=== PATIENT | male | born 1950 | race Caucasian/White ===

== ENCOUNTER 2018-04-24 07:36 | Emergency (ER) | payer MEDICARE, OTHER ==
[~2018-04-24] VITALS: Ht 188 cm; Wt 97.5 kg
[~2018-04-24 07:36] MED LIST: CETI10CA PO; COLC0.6T7 PO; CPR500T PO; DCS100C PO; E400C PO; FLAX1CAP2 PO; GLUC1CAP37 PO; HYDR-34 PO; HYDR118S10 PO; LVT.15T PO; MULT-608 PO; NAPR-243 PO; NAPR220C PO; PRAV80TA2 PO; PSYL1PAC15 PO; RABE20TA PO; ZLP10T PO; [UNRECOGNIZED DRUG - OTHER] PO
[2018-04-24] MEDS ORDERED: KETOROLAC 30 MG/ML VIAL IVP STA (07:55)
[2018-04-24] MEDS ORDERED: NS IV 1000 ML 1,000 ML IV ONE (07:55)
[2018-04-24 08:05] LABS: BASOPHILS % (AUTO) 0 % (0-10); EOSINOPHILS # (AUTO) 0.4 10^3/uL (0.0-0.3); EOSINOPHILS % (AUTO) 4 % (0-10); HEMATOCRIT 47 % (40-54); HEMOGLOBIN 15.9 G/DL (13.3-17.7); LYMPHOCYTES # (AUTO) 2.8 X 10^3 (1.0-4.0); LYMPHOCYTES % (AUTO) 29 % (12-44); MEAN CORPUSCULAR HEMOGLOBIN 29 PG (25-34); MEAN CORPUSCULAR HGB CONC 34 G/DL (32-36); MEAN CORPUSCULAR VOLUME 86 FL (80-99); MEAN PLATELET VOLUME 9.5 FL (7.4-10.4); MONOCYTES # (AUTO) 0.7 X 10^3 (0.0-1.0); MONOCYTES % (AUTO) 8 % (0-12); NEUTROPHILS # (AUTO) 5.6 X 10^3 (1.8-7.8); NEUTROPHILS % (AUTO) 59 % (42-75); PLATELET COUNT 253 10^3/uL (130-400); RED CELL DISTRIBUTION WIDTH 12.9 % (10.0-14.5); WHITE BLOOD COUNT 9.6 10^3/uL (4.3-11.0)
[2018-04-24 08:24] LABS: ALANINE AMINOTRANSFERASE 80 U/L (0-55); ALBUMIN 3.9 GM/DL (3.2-4.5); ALKALINE PHOSPHATASE 91 U/L (40-136); BILIRUBIN,TOTAL 0.7 MG/DL (0.1-1.0); BUN/CREATININE RATIO 13; CALCIUM 8.8 MG/DL (8.5-10.1); CARBON DIOXIDE 16 MMOL/L (21-32); CHLORIDE 104 MMOL/L (98-107); CREATININE SERUM 1.13 MG/DL (0.60-1.30); GFR ESTIMATED > 60; GLUCOSE 160 MG/DL (70-105); POTASSIUM 4.1 MMOL/L (3.6-5.0); SODIUM 134 MMOL/L (135-145); TOTAL PROTEIN 6.6 GM/DL (6.4-8.2)
--- NOTE | 2018-04-24 09:05 | Diagnostic Imaging Report ---
PROCEDURE: CT urinary tract, rule out kidney stone. TECHNIQUE: Multiple contiguous axial images were obtained through the abdomen and pelvis without the use of intravenous contrast. INDICATION: Left flank pain. COMPARISON: CT abdomen and pelvis without contrast 12/11/2011 FINDINGS: Mild linear atelectasis or scarring in the lung bases. Low-attenuation lesions in the left hepatic lobe have grown since the 2012 exam. For example, one anteriorly now measures up to 1.8 cm, previously 0.9 cm. One in the posterior left hepatic lobe now measures up to 1.0 cm, previously 0.6 cm. The gallbladder, pancreas, adrenals are negative on this noncontrast exam. There is a 0.6 cm renal stone in the left ureter just proximal to the ureterovesicular junction which results in mild left ureteropyelocaliectasis. There are a few additional punctate nonobstructing renal stones in both kidneys. No other ureteral stones or hydronephrosis. 2.8 cm well-circumscribed cyst in the left kidney. Advanced colonic diverticulosis without evidence of active diverticulitis. No evidence of appendicitis. Postoperative changes in the right lower anterior abdominal wall. Moderate atherosclerotic calcifications including a normal caliber abdominal aorta. Bilateral fat-containing inguinal hernias. No free intraperitoneal air or fluid. No lymphadenopathy. No evidence of bowel obstruction. IMPRESSION: 1. 0.6 cm stone in the left distal ureter resulting in mild left hydronephrosis. 2. Interval growth of low attenuation lesions in the left hepatic lobe likely represent benign hemangiomas or cysts but are technically indeterminate on this noncontrast exam. These could be better evaluated with dedicated multiphase contrast-enhanced CT. 3. Advanced colonic diverticulosis without evidence of active diverticulitis. Dictated by: Dictated on workstation # [id number]
[2018-04-24] MEDS ORDERED: IOHEXOL 350 MG/ML 100 ML (OMNIPAQUE 350) VIAL IV ONE (09:15)
[2018-04-24] MEDS ORDERED: RECEIVED CONTRAST (Hold Metformin) IV SCH (09:15)
[2018-04-24] MEDS ORDERED: NS 100 ML (IVPB) BAG IV ONE (09:15)
--- NOTE | 2018-04-24 09:45 | ED GU-Male ---
General Chief Complaint: Abdominal/GI Problems Stated Complaint: ABD PAIN,KIDNEY STONES Nursing Triage Note: pt presents to ed with complaints of l sided flank and l sided groin pain that radiate to his l testicle since 0600 this am. pt reports hx of kidney stones. Source: patient Exam Limitations: no limitations History of Present Illness Date Seen by Provider: Apr 24, 2018 Time Seen by Provider: 07:50 Initial Comments Here with left flank pain that started about 6 a.m. this morning. Actually noted some pain after stepping off a step the other day. Did have vomiting and diarrhea illness earlier this week as well. That was better yesterday. Today he has the pain that he reports feels like a previous kidney stone. Pain radiates down to the left testicle. Does have concern about a lump on the testicle that has not changed for a long time but wanted that checked out as well. Denies current nausea or vomiting. Did take a hydrocodone before coming to the ER and that has not helped yet. Timing/Duration: this morning, getting worse Severity/Quality: moderate, severe Location: left flank, scrotal Radiation: left flank, scrotal Activities at Onset: none Prior Genitourinary Problems: similar symptoms Modifying Factors: Worsens With Movement Associated Symptoms: abdominal pain, dysuria; No fever/chills; lower back pain ; No nausea/vomiting, No urinary frequency Allergies and Home Medications Allergies Coded Allergies: Azithromycin (Unverified Allergy, 08/02/10) Home Medications Cephalexin 500 Mg Tablet, 500 MG PO BID Prescribed by: GRAHAM HARMON on 04/24/18 1111 Ciprofloxacin 500 Mg Tablet, 1 TAB PO BID Prescribed by: GRAHAM HARMON on 12/11/11 0927 Colchicine 0.6 Mg Tablet, 1 EACH PO BID, (Reported) Docusate Sodium 100 Mg Capsule, 300 MG PO DAILY, (Reported) Flaxseed/Omega3,6,9/Fatty Acid 1 Each Capsule, 1 EACH PO DAILY, (Reported) Glucosa Nayak 2KCL/Chondroitin Nayak 1 Each Capsule, 1 EACH PO DAILY, (Reported) Hydrocodone Bit/Acetaminophen 1 Ea Tablet, 1 EA PO Q6H PRN, (Reported) Hydrocodone/Acetaminophen 1 Each Tablet, 1-2 EACH PO Q6H PRN Prescribed by: GRAHAM HARMON on 12/11/11926 Levothyroxine Sodium 150 Mcg Tablet, 175 MCG PO DAILY, (Reported) Multivitamins 1 Tab Tablet, 1 TAB PO DAILY, (Reported) Naproxen 500 Mg Tablet, 1 EACH PO BID PRN Prescribed by: GRAHAM HARMON on 12/11/11 09 Naproxen Sodium 220 Mg Capsule, 220 MG PO DAILY, (Reported) Pravastatin Sodium 80 Mg Tablet, 40 MG PO DAILY, (Reported) Psyllium 1 Pkt Packet, 1 PKT PO DAILY, (Reported) Rabeprazole Sodium 20 Mg Tablet.dr, 20 MG PO DAILY, (Reported) Vitamin E Acetate 400 Unit Capsule, 800 UNIT PO DAILY, (Reported) Zolpidem Tartrate 10 Mg Tab, 10 MG PO HS PRN, (Reported) [Pentoxil] , 400 MG PO DAILY, (Reported) Patient Home Medication List Home Medication List Reviewed: Yes Review of Systems Review of Systems Constitutional: see HPI; No chills, No fever EENTM: no symptoms reported Respiratory: no symptoms reported Cardiovascular: no symptoms reported Gastrointestinal: No nausea, No vomiting Genitourinary: flank pain, pain Musculoskeletal: see HPI, back pain; No neck pain Skin: no symptoms reported Psychiatric/Neurological: No Symptoms Reported All Other Systemes Reviewed Negative Unless Noted: Yes Past Apmccei-Areimn-Wrqfrz Hx Past Med/Social Hx: Reviewed Nursing Past Med/Soc Hx Patient Social History Alcohol Use: Occasionally Uses Recreational Drug Use: No Smoking Status: Former Smoker Former Smoker, Quit: Nov 09, 1998 Recent Foreign Travel: No Contact w/Someone Who Travel: No Recent Infectious Disease Expo: No Recent Hopitalizations: No Physical Abuse: No Sexual Abuse: No Mistreated: No Fear: No Past Medical History Surgeries: Yes (hernia repair x 2, L ACL repair, R meniscus repair. ) Appendectomy Respiratory: Yes Cardiac: Yes High Cholesterol, Hypertension Neurological: No Reproductive Disorders: No Sexually Transmitted Disease: No Genitourinary: Yes Renal Failure Gastrointestinal: No Musculoskeletal: Yes (ARTHRITIS) Endocrine: Yes Hypothyroidsim HEENT: No Cancer: No Psychosocial: No Integumentary: No Blood Disorders: No Family Medical History Reviewed Nursing Family Hx Physical Exam Vital Signs Vital Signs - First Documented 04/24/18 08:01 Temp 98.2 Pulse 59 Resp 20 B/P (MAP) 127/93 (104) Pulse Ox 96 Capillary Refill : Less Than 3 Seconds Height, Weight, BMI Height: 6'2.00" Weight: 215lbs. oz. 97.032782uj; BMI Method:Stated General Appearance: WD/WN, no apparent distress HEENT: PERRL/EOMI, pharynx normal Neck: full range of motion, supple Cardiovascular: regular rate, rhythm, no murmur Respiratory: lungs clear, normal breath sounds Gastrointestinal: non tender, soft Male: normal genitalia; No testicular tenderness Back: normal inspection, no vertebral tenderness Extremities: non-tender, normal inspection Neurologic/Psychiatric: alert, oriented x 3 Skin: normal color, warm/dry Progress/Results/Core Measures Suspected Sepsis Recent Fever Within 48 Hours: No Infection Criteria Present: None New/Unexplained Altered Menta: No Sepsis Screen: No Definite Risk SIRS Temperature:98.2 Pulse: 59 Respiratory Rate: 20 Laboratory Tests 04/24/18 08:00: White Blood Count 9.6 Blood Pressure 127 /93 Mean: 104 Laboratory Tests 04/24/18 08:00: Creatinine 1.13, Platelet Count 253, Total Bilirubin 0.7 Results/Orders Lab Results Laboratory Tests Test 04/24/18 08:00 Range/Units White Blood Count 9.6 4.3-11.0 10^3/uL Red Blood Count 5.40 4.35-5.85 10^6/uL Hemoglobin 15.9 13.3-17.7 G/DL Hematocrit 47 40-54 % Mean Corpuscular Volume 86 80-99 FL Mean Corpuscular Hemoglobin 29 25-34 PG Mean Corpuscular Hemoglobin Concent 34 32-36 G/DL Red Cell Distribution Width 12.9 10.0-14.5 % Platelet Count 253 130-400 10^3/uL Mean Platelet Volume 9.5 7.4-10.4 FL Neutrophils (%) (Auto) 59 42-75 % Lymphocytes (%) (Auto) 29 12-44 % Monocytes (%) (Auto) 8 0-12 % Eosinophils (%) (Auto) 4 0-10 % Basophils (%) (Auto) 0 0-10 % Neutrophils # (Auto) 5.6 1.8-7.8 X 10^3 Lymphocytes # (Auto) 2.8 1.0-4.0 X 10^3 Monocytes # (Auto) 0.7 0.0-1.0 X 10^3 Eosinophils # (Auto) 0.4 H 0.0-0.3 10^3/uL Basophils # (Auto) 0.0 0.0-0.1 10^3/uL Sodium Level 134 L 135-145 MMOL/L Potassium Level 4.1 3.6-5.0 MMOL/L Chloride Level 104 98-107 MMOL/L Carbon Dioxide Level 16 L 21-32 MMOL/L Anion Gap 14 5-14 MMOL/L Blood Urea Nitrogen 15 7-18 MG/DL Creatinine 1.13 0.60-1.30 MG/DL Estimat Glomerular Filtration Rate > 60 BUN/Creatinine Ratio 13 Glucose Level 160 H 70-105 MG/DL Calcium Level 8.8 8.5-10.1 MG/DL Corrected Calcium 8.9 8.5-10.1 MG/DL Total Bilirubin 0.7 0.1-1.0 MG/DL Aspartate Amino Transf (AST/SGOT) 55 H 5-34 U/L Alanine Aminotransferase (ALT/SGPT) 80 H 0-55 U/L Alkaline Phosphatase 91 40-136 U/L Total Protein 6.6 6.4-8.2 GM/DL Albumin 3.9 3.2-4.5 GM/DL My Orders Orders - GRAHAM HARMON MD Ct Abd/Pelvis Wo(Kidney Stone) (04/24/18 07:55) Cbc With Automated Diff (04/24/18 07:55) Comprehensive Metabolic Panel (04/24/18 07:55) Saline Lock/Iv-Start (04/24/18 07:55) Ns Iv 1000 Ml (Sodium Chloride 0.9%) (04/24/18 07:55) Ketorolac Injection (Toradol Injection) (04/24/18 07:55) Ekg Tracing (04/24/18 08:31) Ct Abdomen W (04/24/18 09:11) Iohexol Injection (Omnipaque 350 Mg/Ml 1 (04/24/18 09:15) Contrast Received (Contrast Received) (04/24/18 09:15) Ns (Ivpb) (Sodium Chloride 0.9% Ivpb Bag (04/24/18 09:15) Fentanyl Injection (Sublimaze Injection (04/24/18 09:53) Medications Given in ED Vital Signs/I&O 04/24/18 04/24/18 08:01 11:29 Temp 98.2 Pulse 59 65 Resp 20 20 B/P (MAP) 127/93 (104) 119/80 (93) Pulse Ox 96 98 Capillary Refill : Less Than 3 Seconds Blood Pressure Mean: 104 Progress Note : Progress Note Seen and evaluated. IV, labs, UA, normal saline 1 L bolus,Toradol [address] abdomen pelvis ordered. Patient noted to have bradycardic event. EKG was ordered and done. CT abdomen pelvis had findings and liver with radiology recommendation for contrasted study. CT abdomen with contrast multiphase ordered. Monitor patient. 0945: Patient is complaining of pain. We're evaluating if he can get a ride home. Patient's heart rate is improved in the 50s to 60s. When he has significant pain, patient does appear to bradycardia down a little bit. 1015: Fentanyl [address] pending. 1105: CT results noted and given to patient. Appears to be cystic structures. Pain is resolved currently. He has ride coming. Did discuss with him regarding follow- up including following up with his primary care doctor for further evaluation of the liver cyst as needed as well as following up with his primary care doctor regarding concerns of testicular nodule. This apparently is not changing in shape per the patient that he could have ultrasound in the future if indicated. Discharged home with return precautions. Patient verbalize understanding instructions and agreement with plan. 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 Left axis deviation. No evidence of ST elevation OR. No previous available for comparison. Interpreted by me. Diagnostic Imaging Diagonstic Imaging: CT Plain Films/CT/US/NM/MRI: abdomen, pelvis Comments [facility] [place] [place] NAME: ALDA GOLDBERG [facility] REC#: [id number] PT STATUS: REG ER : 1950 PHYSICIAN: GRAHAM HARMON MD ADMIT DATE: 04/24/18/ER Draft Date of Exam:04/24/18 CT ABD/PELVIS WO(KIDNEY STONE) PROCEDURE: CT urinary tract, rule out kidney stone. TECHNIQUE: Multiple contiguous axial images were obtained through the abdomen and pelvis without the use of intravenous contrast. INDICATION: Left flank pain. COMPARISON: CT abdomen and pelvis without contrast 12/11/2011 FINDINGS: Mild linear atelectasis or scarring in the lung bases. Low-attenuation lesions in the left hepatic lobe have grown since the 2012 exam. For example, one anteriorly now measures up to 1.8 cm, previously 0.9 cm. One in the posterior left hepatic lobe now measures up to 1.0 cm, previously 0.6 cm. The gallbladder, pancreas, adrenals are negative on this noncontrast exam. There is a 0.6 cm renal stone in the left ureter just proximal to the ureterovesicular junction which results in mild left ureteropyelocaliectasis. There are a few additional punctate nonobstructing renal stones in both kidneys. No other ureteral stones or hydronephrosis. 2.8 cm well-circumscribed cyst in the left kidney. Advanced colonic diverticulosis without evidence of active diverticulitis. No evidence of appendicitis. Postoperative changes in the right lower anterior abdominal wall. Moderate atherosclerotic calcifications including a normal caliber abdominal aorta. Bilateral fat-containing inguinal hernias. No free intraperitoneal air or fluid. No lymphadenopathy. No evidence of bowel obstruction. IMPRESSION: 1. 0.6 cm stone in the left distal ureter resulting in mild left hydronephrosis. 2. Interval growth of low attenuation lesions in the left hepatic lobe likely represent benign hemangiomas or cysts but are technically indeterminate on this noncontrast exam. These could be better evaluated with dedicated multiphase contrast-enhanced CT. 3. Advanced colonic diverticulosis without evidence of active diverticulitis. Dictated on workstation # [id number] Dict: 04/24/18 0851 Trans: 04/24/18 0905 CV [id number] Interpreted by: TRACY GARCIA MD Electronically signed by: Diagonstic Imaging: CT Plain Films/CT/US/NM/MRI: abdomen Comments NAME: ALDA GOLDBERG [facility] REC#: [id number] PT STATUS: REG ER : 1950 PHYSICIAN: GRAHAM HARMON MD ADMIT DATE: 04/24/18/ER Signed Date of Exam: 04/24/18 CT ABDOMEN W PROCEDURE: CT abdomen with contrast only. TECHNIQUE: Multiple contiguous axial images were obtained through the abdomen after the administration of intravenous contrast. INDICATION: Liver lesions on prior CT. COMPARISON: CT from 04/24/2018 FINDINGS: There is dependent atelectasis in the lung bases. The heart is normal in size. The previously seen hypoattenuating liver lesions in the left liver demonstrate no associated enhancement and appear well-circumscribed, and are consistent with simple cysts. No other hepatic lesions are seen. The spleen appears normal. The pancreas is normal. The adrenal glands appear normal. There are numerous hypoattenuating foci in the kidneys bilaterally, which most likely represent small cysts. There is also simple appearing cyst in the left kidney measuring 2.9 cm in diameter. There are calculi in the kidneys bilaterally with mild left hydronephrosis and delayed excretion on the left consistent with obstruction. No bowel obstruction is seen. No free fluid or free air is seen. There is diverticulosis of the colon without diverticulitis. No acute osseous abnormality is seen. IMPRESSION: 1. Hypoattenuating liver lesions are consistent with simple cysts. 2. Simple cyst in the left kidney with additional hypoattenuating foci in the kidneys bilaterally. These are likely cysts as well although they are too small to characterize. 3. Left hydronephrosis and delayed excretion consistent with obstruction. There is bilateral nephrolithiasis. Dictated by: Dictated on workstation # [id number] Dict: 04/24/18 0953 Trans: 04/24/18 1031 Interpreted by: CONSTANCE WILKES MD Electronically signed by: CONSTANCE WILKES MD 04/24/18 1031 Departure Impression Primary Impression: Ureteral stone with hydronephrosis Additional Impressions: Hepatic cyst Renal cyst Disposition: HOME, SELF-CARE Condition: Improved Departure-Patient Inst. Decision time for Depature: 11:05 Referrals: JULIAN TORREZ MD (PCP/Family) Primary Care Physician Patient Instructions: Kidney Stones (DC) Add. Discharge Instructions: All discharge instructions reviewed with patient and/or family. Voiced understanding. Drink plenty of fluids. You may take your pain medication as discussed. You may also take ibuprofen 800 mg every 8 hours as needed for pain. Do not take other NSAIDs with this such as Naprosyn or naproxen as these are the same class. Follow-up with your Dr. for recheck and further evaluation and discussed with your doctor about further evaluation regarding the nodule on the left testicle that you were concerned about. You may follow-up with Dr. Garcia within one week if not improved. Call his office next Monday morning if you're still having pain and problems. Return for worse pain, fever, vomiting, weakness, breathing problems or other concerns as needed. Scripts Cephalexin (Cephalexin) 500 Mg Tablet 500 MG PO BID, #14 TAB 0 Refills Prov: GRAHAM HARMON MD 04/24/18 Copy Copies To 1: JULIAN TORREZ MD Copies To 2: JEROME GARCIA MD, TIMOTHY D MD Apr 24, 2018 09:45
[2018-04-24] MEDS ORDERED: fentaNYL INJECTION 100 MCG/2 ML AMP IVP STA (09:53)
--- NOTE | 2018-04-24 10:01 | Diagnostic Imaging Report ---
PROCEDURE: CT abdomen with contrast only. TECHNIQUE: Multiple contiguous axial images were obtained through the abdomen after the administration of intravenous contrast. INDICATION: Liver lesions on prior CT. COMPARISON: CT from 04/24/2018 FINDINGS: There is dependent atelectasis in the lung bases. The heart is normal in size. The previously seen hypoattenuating liver lesions in the left liver demonstrate no associated enhancement and appear well-circumscribed, and are consistent with simple cysts. No other hepatic lesions are seen. The spleen appears normal. The pancreas is normal. The adrenal glands appear normal. There are numerous hypoattenuating foci in the kidneys bilaterally, which most likely represent small cysts. There is also simple appearing cyst in the left kidney measuring 2.9 cm in diameter. There are calculi in the kidneys bilaterally with mild left hydronephrosis and delayed excretion on the left consistent with obstruction. No bowel obstruction is seen. No free fluid or free air is seen. There is diverticulosis of the colon without diverticulitis. No acute osseous abnormality is seen. IMPRESSION: 1. Hypoattenuating liver lesions are consistent with simple cysts. 2. Simple cyst in the left kidney with additional hypoattenuating foci in the kidneys bilaterally. These are likely cysts as well although they are too small to characterize. 3. Left hydronephrosis and delayed excretion consistent with obstruction. There is bilateral nephrolithiasis. Dictated by: Dictated on workstation # [id number]
[2018-04-24] MEDS ORDERED: CEPH500T PO (11:11)
[2018-04-24 11:29] VITALS: BP 119/80
== END 2018-04-24 11:29 | disposition home or self-care (01) ==
LOC: EDUNIT# 07:36 → ER 07:38
DX: N13.2 Hydronephrosis with renal and ureteral calculous obstruction (principal); K76.89 Other specified diseases of liver; N28.1 Cyst of kidney, acquired; E78.00 Pure hypercholesterolemia, unspecified; I10 Essential (primary) hypertension; E03.9 Hypothyroidism, unspecified; Z87.448 Personal history of other diseases of urinary system; Z88.0 Allergy status to penicillin; Z87.891 Personal history of nicotine dependence; Z90.49 Acquired absence of other specified parts of digestive tract; Z98.890 Other specified postprocedural states
CPT/HCPCS: 36415; 74160; 74176; 80053; 85025

== ENCOUNTER 2018-09-13 22:10 | Emergency (ER) | payer MEDICARE ==
[~2018-09-13] VITALS: Ht 188 cm; Wt 97.5 kg
[~2018-09-13 22:10] MED LIST changes: +CEPH500T PO
--- NOTE | 2018-09-13 22:18 | NUR ---
pt here by self alert gcs 15. in gary pt same time. pt c/o " kidney stones left side". pt has h/o same last apr. pt c/o abd pain radiating to left back rating 7-8. pain started noon today. pt denies n/v/d. pt also c/o left testicle pain and denies right testicle pain. pt took vicodin 7.5 mg at 1700 tonoc. pt also c/o pain with ua and denies other ua c/os. no acute sighns of dyspnea noted. lungs cta bilaterally. abd soft nondistended neg pain with palpation. pt cant ua yet. done gary pt at 2225.
[2018-09-13] MEDS ORDERED: TAMS0.4C98 PO (22:28)
[2018-09-13] MEDS ORDERED: ACHD5005 PO (22:28)
--- NOTE | 2018-09-13 22:28 | ED GU-Male ---
General Stated Complaint: L SIDED BACK PAIN Source: patient Exam Limitations: no limitations History of Present Illness Date Seen by Provider: September 13, 2018 Time Seen by Provider: 22:25 Initial Comments To ER with left flank pain that began today about noon sudden onset. Throughout the day the pain has moved down lower and seems to radiate to the left testicle. No nausea vomiting fevers or chills. History of a kidney stone in April of this year also on the left side. States this feels similar. Timing/Duration: just prior to arrival Severity/Quality: moderate Location: left flank Radiation: none Activities at Onset: none Prior Genitourinary Problems: none Allergies and Home Medications Allergies Coded Allergies: Azithromycin (Unverified Allergy, 08/02/10) Home Medications Cephalexin 500 Mg Tablet, 500 MG PO BID Prescribed by: GRAHAM HARMON on 04/24/18 1111 Ciprofloxacin 500 Mg Tablet, 1 TAB PO BID Prescribed by: GRAHAM HARMON on 12/11/11926 Colchicine 0.6 Mg Tablet, 1 EACH PO BID, (Reported) Docusate Sodium 100 Mg Capsule, 300 MG PO DAILY, (Reported) Flaxseed/Omega3,6,9/Fatty Acid 1 Each Capsule, 1 EACH PO DAILY, (Reported) Glucosa Nayak 2KCL/Chondroitin Nayak 1 Each Capsule, 1 EACH PO DAILY, (Reported) Hydrocodone Bit/Acetaminophen 1 Ea Tablet, 1 EA PO Q6H PRN, (Reported) Hydrocodone Bit/Acetaminophen 1 Tab Tab, 1 EACH PO Q4-6HR PRN for PAIN-MODERATE Prescribed by: ANN SERRANO on 09/13/182227 Hydrocodone/Acetaminophen 1 Each Tablet, 1-2 EACH PO Q6H PRN Prescribed by: GRAHAM HARMON on 12/11/11926 Levothyroxine Sodium 150 Mcg Tablet, 175 MCG PO DAILY, (Reported) Multivitamins 1 Tab Tablet, 1 TAB PO DAILY, (Reported) Naproxen 500 Mg Tablet, 1 EACH PO BID PRN Prescribed by: GRAHAM HARMON on 12/11/11926 Naproxen Sodium 220 Mg Capsule, 220 MG PO DAILY, (Reported) Pravastatin Sodium 80 Mg Tablet, 40 MG PO DAILY, (Reported) Psyllium 1 Pkt Packet, 1 PKT PO DAILY, (Reported) Rabeprazole Sodium 20 Mg Tablet.dr, 20 MG PO DAILY, (Reported) Tamsulosin HCl 0.4 Mg Cap, 0.4 MG PO DAILY Prescribed by: ANN SERRANO on 09/13/182227 Vitamin E Acetate 400 Unit Capsule, 800 UNIT PO DAILY, (Reported) Zolpidem Tartrate 10 Mg Tab, 10 MG PO HS PRN, (Reported) [Pentoxil] , 400 MG PO DAILY, (Reported) Patient Home Medication List Home Medication List Reviewed: Yes Review of Systems Review of Systems Constitutional: see HPI EENTM: see HPI Respiratory: no symptoms reported Cardiovascular: no symptoms reported Genitourinary: see HPI Musculoskeletal: no symptoms reported Skin: no symptoms reported Psychiatric/Neurological: No Symptoms Reported Past Fuhdizz-Iketpy-Amhpfh Hx Patient Social History Former Smoker, Quit: Nov 09, 1998 Recent Foreign Travel: No Contact w/Someone Who Travel: No Recent Hopitalizations: No Past Medical History Surgeries: Yes (hernia repair x 2, L ACL repair, R meniscus repair. ) Appendectomy Respiratory: Yes Cardiac: Yes High Cholesterol, Hypertension Neurological: No Reproductive Disorders: No Sexually Transmitted Disease: No Genitourinary: Yes Renal Failure Gastrointestinal: No Musculoskeletal: Yes (ARTHRITIS) Endocrine: Yes Hypothyroidsim HEENT: No Cancer: No Psychosocial: No Integumentary: No Blood Disorders: No Physical Exam Vital Signs Capillary Refill : Height, Weight, BMI Height: 6'2.00" Weight: 215lbs. oz. 97.734251lx; BMI Method:Stated General Appearance: WD/WN, no apparent distress HEENT: PERRL/EOMI, normal ENT inspection Respiratory: no respiratory distress, no accessory muscle use Gastrointestinal: normal bowel sounds, soft Male: normal genitalia; No erythema, No inguinal tenderness; testicular tenderness (on the left but no palpable mass) Back: CVA tenderness (L) Neurologic/Psychiatric: alert, normal mood/affect, oriented x 3 Skin: normal color, warm/dry Progress/Results/Core Measures Suspected Sepsis SIRS Temperature: Pulse: Respiratory Rate: Laboratory Tests 09/13/18 22:31: White Blood Count 11.9H Blood Pressure / Mean: Laboratory Tests 09/13/18 22:31: Creatinine 1.55H, Platelet Count 268 Results/Orders Lab Results Laboratory Tests Test 09/13/18 22:31 Range/Units White Blood Count 11.9 H 4.3-11.0 10^3/uL Red Blood Count 5.24 4.35-5.85 10^6/uL Hemoglobin 15.6 13.3-17.7 G/DL Hematocrit 44 40-54 % Mean Corpuscular Volume 84 80-99 FL Mean Corpuscular Hemoglobin 30 25-34 PG Mean Corpuscular Hemoglobin Concent 35 32-36 G/DL Red Cell Distribution Width 12.8 10.0-14.5 % Platelet Count 268 130-400 10^3/uL Mean Platelet Volume 9.4 7.4-10.4 FL Neutrophils (%) (Auto) 79 H 42-75 % Lymphocytes (%) (Auto) 12 12-44 % Monocytes (%) (Auto) 8 0-12 % Eosinophils (%) (Auto) 1 0-10 % Basophils (%) (Auto) 0 0-10 % Neutrophils # (Auto) 9.4 H 1.8-7.8 X 10^3 Lymphocytes # (Auto) 1.5 1.0-4.0 X 10^3 Monocytes # (Auto) 0.9 0.0-1.0 X 10^3 Eosinophils # (Auto) 0.1 0.0-0.3 10^3/uL Basophils # (Auto) 0.0 0.0-0.1 10^3/uL Sodium Level 136 135-145 MMOL/L Potassium Level 4.4 3.6-5.0 MMOL/L Chloride Level 105 98-107 MMOL/L Carbon Dioxide Level 23 21-32 MMOL/L Anion Gap 8 5-14 MMOL/L Blood Urea Nitrogen 15 7-18 MG/DL Creatinine 1.55 H 0.60-1.30 MG/DL Estimat Glomerular Filtration Rate 45 BUN/Creatinine Ratio 10 Glucose Level 111 H 70-105 MG/DL Calcium Level 9.7 8.5-10.1 MG/DL My Orders Orders - ANN SERRANO APRN Ct Abd/Pelvis Wo(Kidney Stone) (09/13/18 22:23) Abdomen/Kub 1view (09/13/18 22:23) Cbc With Automated Diff (09/13/18 22:23) Basic Metabolic Panel (09/13/18 22:23) Ua Culture If Indicated (09/13/18 22:23) Ed Iv/Invasive Line Start (09/13/18 22:23) Ketorolac Injection (Toradol Injection) (09/13/18 22:30) Lactated Ringers (Lr 1000 Ml Iv Solution (09/13/18 22:30) Rx-Hydrocodone/Apap 5-325 Mg (Rx-Vicodin (09/13/18 23:00) Ciprofloxacin Tablet (Cipro Tablet) (09/13/18 23:00) Psa Screen (09/13/18 23:01) Medications Given in ED Current Medications Medications Dose Ordered Sig/Nathaly Route Start Time Stop Time Status Last Admin Dose Admin Ketorolac Tromethamine 15 mg ONCE ONCE IVP 09/13/18 22:30 09/13/18 22:31 DC 09/13/18 22:53 15 MG Vital Signs/I&O Capillary Refill : Departure Communication (Admissions) 2303-patient states that his PSA has been elevated before, he would like to have that rechecked. Impression Primary Impression: Left ureteral stone Disposition: HOME, SELF-CARE Condition: Stable Departure-Patient Inst. Decision time for Depature: 22:27 Referrals: JULIAN TORREZ MD (PCP/Family) Primary Care Physician Patient Instructions: Kidney Stones in Adults Add. Discharge Instructions: 1. Return to ER for any concerns 2. Follow-up with Dr. Mandujano or your urologist if you have a different one 3. Medication as directed. Scripts Hydrocodone Bit/Acetaminophen (Hydrocodone/Acetaminophen 5/325mg Tablet) 1 Tab Tab 1 EACH PO Q4-6HR PRN for PAIN-MODERATE MDD 10 for 3 Days, #20 TAB Prov: ANN SERRANO FINISHING TECHNICIAN 09/13/18 Tamsulosin HCl (Flomax) 0.4 Mg Cap 0.4 MG PO DAILY, #14 CAP Prov: ANN SERRANO FINISHING TECHNICIAN 09/13/18 ANN SERRANO FINISHING TECHNICIAN September 13, 2018 22:28
[2018-09-13] MEDS ORDERED: KETOROLAC 30 MG/ML VIAL IVP ONE (22:30)
[2018-09-13] MEDS ORDERED: LACTATED RINGERS 1,000 ML IV SCH (22:30)
[2018-09-13 22:38] LABS: BASOPHILS % (AUTO) 0 % (0-10); EOSINOPHILS # (AUTO) 0.1 10^3/uL (0.0-0.3); EOSINOPHILS % (AUTO) 1 % (0-10); HEMATOCRIT 44 % (40-54); HEMOGLOBIN 15.6 G/DL (13.3-17.7); LYMPHOCYTES # (AUTO) 1.5 X 10^3 (1.0-4.0); LYMPHOCYTES % (AUTO) 12 % (12-44); MEAN CORPUSCULAR HEMOGLOBIN 30 PG (25-34); MEAN CORPUSCULAR HGB CONC 35 G/DL (32-36); MEAN CORPUSCULAR VOLUME 84 FL (80-99); MEAN PLATELET VOLUME 9.4 FL (7.4-10.4); MONOCYTES # (AUTO) 0.9 X 10^3 (0.0-1.0); MONOCYTES % (AUTO) 8 % (0-12); NEUTROPHILS # (AUTO) 9.4 X 10^3 (1.8-7.8); NEUTROPHILS % (AUTO) 79 % (42-75); PLATELET COUNT 268 10^3/uL (130-400); RED CELL DISTRIBUTION WIDTH 12.8 % (10.0-14.5); WHITE BLOOD COUNT 11.9 10^3/uL (4.3-11.0)
[2018-09-13 22:53] LABS: CALCIUM 9.7 MG/DL (8.5-10.1); CREATININE SERUM 1.55 MG/DL (0.60-1.30); POTASSIUM 4.4 MMOL/L (3.6-5.0)
[2018-09-13] MEDS ORDERED: RX-HYDROCODONE/APAP 5/325 MG #4 TAB PK PO PRN (23:00)
[2018-09-13] MEDS ORDERED: CIPROFLOXACIN 500 MG (CIPRO) TABLET PO SCH (23:00)
--- NOTE | 2018-09-13 23:34 | NUR ---
i have had d/c instructions done already. pt been waiting on a bolus going.
--- OUTSIDE RECORDS SUMMARY | 2018-09-13 23:49 | XMS REPORT | Clinical Summary ---
Author Author [facility] Organization [facility] Address Unknown Phone Unavailable Care Team Providers Care Dispute Resolution Analyst Name Role Phone Rodolfo Singh MD Unavailable Source Comments Some departments are not documenting in the electronic medical record. If you d o not see the information that you expected, contact Release of Information in [facility] [employer] Information Management department at [phone] for further assistan ce in locating additional records.[facility] Allergies Comments Active Allergy Reactions Severity Noted Date Azithromycin RASH 02/27/2014 Medications End Date Status Medication Sig Dispensed Refills Start Date Active pravastatin (PRAVACHOL) Take 40 mg by 0 40 mg tablet mouth daily. Active lisinopril (PRINIVIL; Take 10 mg by 0 ZESTRIL) 10 mg tablet mouth daily. Active levothyroxine (SYNTHROID) Take 175 mcg 0 175 mcg tablet by mouth daily. Active pentoxifylline (TRENTAL) Take 400 mg 0 400 mg tablet by mouth daily. Active levocarnitine(+) 500 mg Take by 0 tablet mouth. Active HYDROcodone-acetaminophen Take 1 Tab by 0 (+) (LORTAB) 7.5-500 mg mouth every 4 tablet hours as needed. Active zolpidem (AMBIEN) 10 mg Take 10 mg by 0 tablet mouth at bedtime as needed. Active avanafil 200 mg tab Take 1 Tab by 6 Tab 6 mouth as 4 Needed (Erectile Dysfunction). 1/2 to 1 tab po 30 min prior to sexual activity. No more than one tab per day. Active Problems Problem Noted Date Peyronie's disease 02/27/2014 Overview: Chronic phase. 10-15 degree leftward curvature per patient report. Does not interfere with intercourse. L ast Assessment & Plan: Patient is unsure what actual degree of curvature is and did not have pictures available for review today. Neither he nor his partner is experiencing pain with intercourse. Primary problem seems to be firmness of erections. Patient will provide us with photographs to assess level of curvature. He will return to clinic after this. Erectile dysfunction 02/27/2014 Overview: Good response to Cialis in past, but interested in other agents L ast Assessment & Plan: We will provide him with samples as well as script for Stendra as ED seems to be large component in patient's psychological distress. Family History Medical History Relation Name Comments Heart Attack Father Cancer Maternal Grandmother Heart Attack Mother Stroke Mother Relation Name Status Comments Father Maternal Grandmother Mother Social History Date Tobacco Use Types Packs/Day Years Used Quit: 04/24/1989 Former Smoker Cigarettes 1 20 Smokeless Tobacco: Former User Alcohol Use Drinks/Week oz/Week Comments No Quit 1989 Sex Assigned at Date Recorded Not on file Industry Job Start Date Occupation Not on file Not on file Not on file Travel End Travel History Travel Start No recent travel history available. 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 Blood Pressure 127/82 02/27/2014 11:09 AM ARCHITECTURE INSTRUCTOR Pulse 68 - Temperature - - Respiratory Rate - - Oxygen Saturation - - Inhaled Oxygen - Concentration 02/27/2014 11:09 AM ARCHITECTURE INSTRUCTOR Weight 94.4 kg (208 lb 3.2 oz) 02/27/2014 11:09 AM ARCHITECTURE INSTRUCTOR Height 186.7 cm (6' 1.5") 02/27/2014 11:09 AM ARCHITECTURE INSTRUCTOR Body Mass Index 27.1 Plan of Treatment Health Maintenance Due Date Last Done Comments HEPATITIS C SCREENING 1950 PHYSICAL (COMPREHENSIVE) 1957 EXAM DTAP/TDAP VACCINES (1 - 1968 Tdap) COLORECTAL CANCER 2000 SCREENING SHINGLES RECOMBINANT 2000 VACCINE (1 of 2) ABDOMINAL AORTIC ANEURYSM 2015 SCREENING PNEUMONIA (PCV13/PPSV23) 2015 VACCINES (1 of 2 - PCV13) INFLUENZA VACCINE 01/22/2019 Results Not on filefrom Last 3 Months
--- OUTSIDE RECORDS SUMMARY | 2018-09-13 23:50 | XMS REPORT ---
Author Author Migration, Doctor Organization [facility] Address Unknown Phone Unavailable Care Team Providers Care Personal Development Coach Name Role Phone Migration, Doctor Unavailable Unavailable PROBLEMS Type Condition ICD9-CM Code [id number] Code Onset Dates Condition Status SNOMED Code Problem Hyperlipidemia E78.5 Active 01113532 Problem Insomnia G47.00 Active 450517329 Problem Obstructive sleep apnea syndrome G47.33 Active 54446501 Problem Reactive depression F32.9 Active 89894080 Problem Back pain M54.9 Active 645736196 Problem Erectile dysfunction, unspecified erectile dysfunction type N52.9 Active 898274440 Problem Hypertension I10 Active 62146554 Problem Benign prostatic hyperplasia with lower urinary tract symptoms, unspecified morphology N40.1 Active 203366607 Problem Hypothyroidism, unspecified type E03.9 Active 27770636 Problem Vasculogenic erectile dysfunction, 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 Active 331410433 Problem Adjustment disorder with depressed mood F43.21 Active 37812716 ALLERGIES No Information ENCOUNTERS Encounter Location Date Diagnosis [facility] [address] [address] Jul, Back pain M54.9 [facility] [id number] [place] [address] Jun, Pneumonia of both lower lobes due to infectious organism J18.1 [facility] [id number] [place] [address] Sep, [facility] [address] [address] Sep, [facility] [address] [address] August, Abnormal PSA R97.20 [facility] [address] [address] August, Erectile dysfunction, unspecified erectile dysfunction type N52.9 ; Benign prostatic hyperplasia with lower urinary tract symptoms, unspecified morphology N40.1 and Hypertension I10 [facility] [facility] [id number] [place] [address] May, Back pain M54.9 and Insomnia G47.00 [place] [facility] [id number] [place] [address] May, Hyperlipidemia E78.5 ; Hypertension I10 and Hypothyroidism, unspecified type E03.9 [place] [address] [address] May, Hypertension I10 ; Back pain M54.9 ; Hypothyroidism, unspecified type E03.9 and Hyperlipidemia E78.5 [place] [id number] [place] [address] Apr, [place] [address] [address] Apr, Insomnia G47.00 ; Back pain M54.9 and Vasculogenic erectile dysfunction, 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 [place] [address] [address] Apr, Insomnia G47.00 [place] [id number] [place] [address] Mar, [place] [id number] [place] [address] Mar, Insomnia G47.00 [facility] [address] [id number] [place] [address] Feb, [place] [id number] [place] [address] Feb, Hypothyroidism, unspecified type E03.9 and Insomnia G47.00 [place] [id number] [place] [address] Jan, Insomnia G47.00 [facility] [id number] [place] [address] Jan, [facility] [id number] [place] [address] Jan, Adjustment disorder with depressed mood F43.21 [facility] [id number] [place] [address] Jan, Adjustment disorder with depressed mood F43.21 [facility] [id number] [place] [address] Jan, Hypothyroidism, unspecified type E03.9 and Reactive depression F32.9 [place] [id number] [place] [address] Jan, Adjustment disorder with depressed mood F43.21 [place] [id number] [place] [address] Dec, Insomnia G47.00 and Back pain M54.9 [place] [id number] [place] [address] Nov, Hyperlipidemia E78.5 ; Hypertension I10 and Hypothyroidism, unspecified type E03.9 [place] [id number] [place] [address] Oct, Hyperlipidemia E78.5 ; Hypertension I10 ; Insomnia G47.00 and Hypothyroidism, unspecified type E03.9 [place] [id number] [place] [address] August, Hypothyroidism, unspecified type E03.9 [place] [id number] [place] [address] Jun, Hyperlipidemia E78.5 [place] [id number] [place] [address] May, Back pain M54.9 and Insomnia G47.00 [place] [id number] [place] [address] May, [facility] [id number] [place] [address] Apr, [facility] [id number] [place] [address] Apr, Back pain M54.9 ; Hyperlipidemia E78.5 ; High risk sexual behavior Z72.51 and Vasculogenic erectile dysfunction, 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 [facility] [id number] [place] [address] Mar, Hyperlipidemia E78.5 [place] [address] [address] Feb, [facility] [id number] [place] [address] Jan, [place] [id number] [place] [address] Jan, Hypertension I10 ; Hypothyroidism, unspecified type E03.9 and Hyperlipidemia E78.5 [facility] [id number] [place] [address] Jan, Hypertension I10 ; Hyperlipidemia E78.5 ; Back pain M54.9 ; Hypothyroidism, unspecified type E03.9 and Benign prostatic hyperplasia with lower urinary tract symptoms, unspecified morphology N40.1 [place] [id number] [place] [address] Oct, [facility] [id number] [place] [address] Oct, Back pain M54.9 and Obstructive sleep apnea syndrome G47.33 [facility] [id number] [place] [address] Oct, [facility] [id number] [place] [address] August, Dermatitis L30.9 [facility] [address] [place] [address] 10 Jun, 2015 Hypertension I10 ; Back pain M54.9 ; Hyperlipidemia E78.5 and Insomnia G47.00 [facility] [id number] [place] [address] 18 May, 2015 [facility] [id number] [place] [address] Mar, Insomnia G47.00 [facility] [address] [address] Mar, [facility] [address] [address] Feb, Hyperlipidemia E78.5 ; Encounter for immunization Z23 ; Hypertension I10 and Back pain M54.9 [facility] [id number] [place] [address] Jan, Encounter for immunization Z23 ; Hypertension I10 ; Hyperlipidemia E78.5 and Back pain M54.9 [facility] [id number] [place] [address] Jan, [facility] [id number] [place] [address] Sep, [facility] [id number] [place] [address] Sep, [facility] [id number] [place] [address] 14 Jul, 2014 [facility] [id number] [place] [address] 13 Jul, 2014 [facility] [id number] [place] [address] Jun, [facility] [id number] [place] [address] 11 May, 2014 [facility] [id number] [place] [address] May, 2014 [facility] [place] [facility] [address] [id number] [place] [address] May, 2014 [facility] [place] [facility] [address] [id number] [place] [address] May, 2014 [facility] [place] [facility] [address] [facility] [id number] [place] [address] May, 2014 [facility] [place] [facility] [address] [id number], [place] [address] May, 2014 [facility] [place] [facility] [address] [id number] [place] [address] May, 2014 [facility] [place] [facility] [address] [facility] [id number] [place] [address] May, 2014 [facility] [place] [facility] [address] [facility] [id number], [place] [address] May, [facility] [place] [facility] [address] [facility] [id number], [place] [address] Apr, [facility] [place] [facility] [address] [facility] [id number], [place] [address] Apr, [facility] [place] [facility] [address] [facility] [id number], [place] [address] Apr, [facility] [place] [facility] [address] [facility] [id number], [place] [address] Apr, [facility] [place] [facility] [address] [facility] [id number], [place] [address] Apr, [facility] [place] [facility] [address] [id number], [place] [address] Apr, [facility] [place] [facility] [address] [facility] [id number], [place] [address] Apr, [facility] [place] [facility] [address] [facility] [id number], [place] [address] Apr, [facility] [place] [facility] [address] [id number] [place] [address] Apr, [facility] [place] [facility] [address] [id number] [place] [address] Apr, [facility] [place] [facility] [address] [id number] [place] [address] Mar, [facility] [place] [facility] [address] [id number] [place] [address] Mar, [facility] [place] [facility] [address] [id number] [place] [address] Mar, [facility] [place] [facility] [address] [id number] [place] [address] Mar, [facility] [place] [facility] [address] [id number] [place] [address] Mar, [facility] [place] [facility] [address] [id number] [place] [address] Mar, [facility] [place] [facility] [address] [id number] [place] [address] Feb, [facility] [place] [facility] [address] [id number] [place] [address] Feb, [facility] [place] [facility] [address] [id number] [place] [address] Jan, [facility] [place] [facility] [address] [id number] [place] [address] Jan, [facility] [place] [facility] [address] [id number] [place] [address] Jan, [facility] [place] [facility] [address] [id number] [place] [address] Jan, [facility] [place] [facility] [address] [id number] [place] [address] Jan, [facility] [place] [facility] [address] [id number] [place] [address] 16 Jan, 2014 [facility] [place] [facility] [address] [id number] [place] [address] Jan, [facility] [place] [facility] [address] [id number] [place] [address] 13 Jan, 2014 [facility] [place] [facility] [address] [id number] [place] [address] 10 Jan, 2014 [facility] [place] [facility] [address] [id number] [place] [address] Jan, [facility] [place] [facility] [address] [id number] [place] [address] Jan, [facility] [place] [facility] [address] [id number] [place] [address] 15 Dec, 2013 [facility] [place] [facility] [address] [id number] [place] [address] Dec, [facility] [place] [facility] [address] [id number], [place] [address] Nov, [facility] [place] [facility] [address] [id number] [place] [address] Nov, [facility] [place] [facility] [address] [id number] [place] [address] Sep, [facility] [place] [facility] [address] [id number], [place] [address] Sep, [facility] [place] [facility] [address] [id number], [place] [address] Sep, [facility] [place] [facility] [address] [id number] [place] [address] Sep, [facility] [place] [facility] [address] [id number], [place] [address] Jun, [facility] [place] [facility] [address] [id number] [place] [address] Jun, [facility] [place] [facility] [address] [id number] [place] [address] 12 Jun, 2013 [facility] [place] [facility] [address] [id number] [place] [address] 10 Jun, 2013 [facility] [place] [facility] [address] [id number] [place] [address] 10 Jun, 2013 [facility] [place] [facility] [address] [id number] [place] [address] 07 Jun, 2013 [facility] [place] [facility] [address] [id number] [place] [address] 07 Jun, 2013 [facility] [place] [facility] [address] [id number] [place] [address] 05 Jun, 2013 [facility] [place] [facility] [address] [id number] [place] [address] 05 Jun, 2013 [facility] [place] [facility] [address] [id number] [place] [address] 19 Feb, 2013 [facility] [place] [facility] [address] [id number] [place] [address] 19 Feb, 2013 [facility] [place] [facility] [address] [id number] [place] [address] 18 Feb, 2013 [facility] [place] [facility] [address] [id number] [place] [address] 18 Feb, 2013 [facility] [place] [facility] [address] [id number] [place] [address] 15 Feb, 2013 [facility] [place] [facility] [address] [id number] [place] [address] 15 Feb, 2013 [facility] [place] [facility] [address] [id number] [place] [address] 14 Nov, 2012 [facility] [place] [facility] [address] [id number] [place] [address] 03 Oct, 2012 [facility] [place] [facility] [address] [id number] [place] [address] Sep, [facility] [place] [facility] [address] [id number] [place] [address] Sep, [facility] [address] [id number] [place] [address] Sep, [facility] [address] [id number] [place] [address] Sep, [facility] [address] [id number] [place] [address] August, [facility] [address] [id number] [place] [address] Jun, [facility] [address] [id number] [place] [address] Jun, [facility] [address] [id number] [place] [address] Jun, [facility] [address] [id number] [place] [address] Apr, [facility] [address] [id number] [place] [address] Apr, [facility] [address] [id number] [place] [address] Apr, [facility] [address] [id number] [place] [address] Apr, [facility] [address] [id number] [place] [address] Apr, [facility] [address] [id number] [place] [address] Apr, [facility] [place] [facility] [address] [id number] [place] [address] Mar, [facility] [address] [id number] [place] [address] Mar, [facility] [address] [id number], [place] [address] Mar, [facility] [place] [facility] [address] [id number] [place] [address] Mar, [facility] [place] [facility] [address] [id number], [place] [address] Feb, [facility] [place] [facility] [address] [id number] [place] [address] Feb, [facility] [place] [facility] [address] [id number] [place] [address] Feb, [facility] [place] [facility] [address] [id number] [place] [address] Feb, [facility] [place] [facility] [address] [id number] [place] [address] Jan, [facility] [place] [facility] [address] [id number] [place] [address] Jan, [facility] [place] [facility] [address] [id number], [place] [address] Jan, [facility] [place] [facility] [address] [id number] [place] [address] Jan, [facility] [place] [facility] [address] [id number] [place] [address] Jan, [facility] [place] [facility] [address] [id number], [place] [address] Jan, [facility] [place] [facility] [address] [id number], [place] [address] Jan, [facility] [place] [facility] [address] [id number] [place] [address] Jan, [facility] [place] [facility] [address] [facility] [id number], [place] [address] Jan, [facility] [place] [facility] [address] [id number] [place] [address] Jan, [facility] [place] [facility] [address] [facility] [id number] [place] [address] Jan, [facility] [address] [id number], [place] [address] Jan, [facility] [address] [id number], [place] [address] Jan, [facility] [address] [id number], [place] [address] Dec, [facility] [id number], [place] [address] Nov, [facility] [address] [id number], [place] [address] Nov, [facility] [address] [id number], [place] [address] Jan, IMMUNIZATIONS No Known Immunizations SOCIAL HISTORY Never Assessed REASON FOR VISIT EMR[place] [place] PLAN OF CARE VITAL SIGNS MEDICATIONS Unknown Medications RESULTS No Results PROCEDURES No Known procedures INSTRUCTIONS MEDICATIONS ADMINISTERED No Known Medications MEDICAL (GENERAL) HISTORY Type Description Date Medical History hypertension Medical History hyperlipidemia Medical History hypothyroidism Medical History sleep apnea Surgical History appendectomy Surgical History hernia repair x 2 Surgical History right knee meniscus repair Surgical History Left ACL repair Hospitalization History surgeries Hospitalization History sleep study
--- OUTSIDE RECORDS SUMMARY | 2018-09-13 23:50 | XMS REPORT ---
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 Name Role Phone Migration, Doctor Unavailable Unavailable PROBLEMS Type Condition ICD9-CM Code UZM28-HE Code Onset Dates Condition Status SNOMED Code Problem Hyperlipidemia E78.5 Active 43639674 Problem Insomnia G47.00 Active 380585719 Problem Obstructive sleep apnea syndrome G47.33 Active 92653527 Problem Reactive depression F32.9 Active 15571559 Problem Back pain M54.9 Active 077798445 Problem Erectile dysfunction, unspecified erectile dysfunction type N52.9 Active 098832558 Problem Hypertension I10 Active 24344931 Problem Benign prostatic hyperplasia with lower urinary tract symptoms, unspecified morphology N40.1 Active 475319448 Problem Hypothyroidism, unspecified type E03.9 Active 21301464 Problem Vasculogenic erectile dysfunction, 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 [address] [address] Jul, Back pain M54.9 [facility] [id number] [place] [address] Jun, Pneumonia of both lower lobes due to infectious organism J18.1 [facility] [id number] [place] [address] Sep, [facility] [address] [address] Sep, [facility] [address] [address] August, Abnormal PSA R97.20 [facility] [address] [address] August, Erectile dysfunction, unspecified erectile dysfunction type N52.9 ; Benign prostatic hyperplasia with lower urinary tract symptoms, unspecified morphology N40.1 and Hypertension I10 [facility] [id number] [place] [address] May, Back pain M54.9 and Insomnia G47.00 [facility] [id number] [place] [address] May, Hyperlipidemia E78.5 ; Hypertension I10 and Hypothyroidism, unspecified type E03.9 [facility] [facility] [address] [address] May, Hypertension I10 ; Back pain M54.9 ; Hypothyroidism, unspecified type E03.9 and Hyperlipidemia E78.5 [facility] [id number] [place] [address] Apr, [facility] [facility] [address] [address] Apr, Insomnia G47.00 ; Back pain M54.9 and Vasculogenic erectile dysfunction, 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 [facility] [facility] [address] [address] Apr, Insomnia G47.00 [facility] [id number] [place] [address] Mar, [facility] [id number] [place] [address] Mar, Insomnia G47.00 [facility] [address] [id number] [place] [address] Feb, [place] [id number] [place] [address] Feb, Hypothyroidism, unspecified type E03.9 and Insomnia G47.00 [facility] [id number] [place] [address] Jan, Insomnia G47.00 [facility] [id number] [place] [address] Jan, [facility] [id number] [place] [address] Jan, Adjustment disorder with depressed mood F43.21 [facility] [id number] [place] [address] Jan, Adjustment disorder with depressed mood F43.21 [facility] [id number] [place] [address] Jan, Hypothyroidism, unspecified type E03.9 and Reactive depression F32.9 [facility] [id number] [place] [address] Jan, Adjustment disorder with depressed mood F43.21 [facility] [facility] [id number] [place] [address] Dec, Insomnia G47.00 and Back pain M54.9 [place] [id number] [place] [address] Nov, Hyperlipidemia E78.5 ; Hypertension I10 and Hypothyroidism, unspecified type E03.9 [facility] [address] [place] [address] Oct, Hyperlipidemia E78.5 ; Hypertension I10 ; Insomnia G47.00 and Hypothyroidism, unspecified type E03.9 [facility] [facility] [address] [place] [address] August, Hypothyroidism, unspecified type E03.9 [facility] [address] [place] [address] Jun, Hyperlipidemia E78.5 [facility] [facility] [address] [place] [address] May, Back pain M54.9 and Insomnia G47.00 [place] [address] [place] [address] May, [facility] [id number] [place] [address] Apr, 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 [id number] [place] [address] Mar, Hyperlipidemia E78.5 [place] [address] [address] Feb, [facility] [address] [place] [address] Jan, [place] [address] [place] [address] Jan, Hypertension I10 ; Hypothyroidism, unspecified type E03.[address] [facility] [address] [place] [address] Jan, Hypertension I10 ; Hyperlipidemia E78.5 ; Back pain M54.9 ; Hypothyroidism, unspecified type E03.9 and Benign prostatic hyperplasia with lower urinary tract symptoms, unspecified morphology N40.1 [place] [address] [place] [address] Oct, [facility] [address] [place] [address] Oct, Back pain M54.9 and Obstructive sleep apnea syndrome G47.33 [facility] [id number] [place] [address] Oct, [facility] [address] [place] [address] August, Dermatitis L30.9 [facility] [address] [place] [address] Jun, 2015 Hypertension I10 ; Back pain M54.9 ; Hyperlipidemia E78.[address] [facility] [id number] [place] [address] 18 May, 2015 [facility] [address] [place] [address] Mar, Insomnia G47.00 [facility] [address] [address] Mar, [facility] [address] [address] Feb, Hyperlipidemia E78.5 ; Encounter for immunization Z23 ; Hypertension I10 and Back pain M54.9 [facility] [id number] [place] [address] Jan, Encounter for immunization Z23 ; Hypertension I10 ; Hyperlipidemia E78.5 and Back pain M54.9 [facility] [id number] [place] [address] Jan, [facility] [address] [place] [address] Sep, [facility] [address] [place] [address] Sep, [facility] [id number] [place] [address] 14 Jul, 2014 [facility] [id number] [place] [address] 13 Jul, 2014 [facility] [id number] [place] [address] Jun, [facility] [id number] [place] [address] 11 May, 2014 [facility] [id number] [place] [address] May, 2014 [facility] [place] [facility] [address] [id number] [place] [address] May, 2014 [facility] [place] [facility] [address] [id number] [place] [address] May, 2014 [facility] [place] [facility] [address] [facility] [id number] [place] [address] May, 2014 [facility] [place] [facility] [address] [id number] [place] [address] May, 2014 [facility] [place] [facility] [address] [id number] [place] [address] May, 2014 [facility] [place] [facility] [address] [facility] [id number] [place] [address] May, 2014 [facility] [place] [facility] [address] [facility] [id number] [place] [address] May, [facility] [place] [facility] [address] [facility] [id number] [place] [address] Apr, [facility] [place] [facility] [address] [facility] [id number] [place] [address] Apr, [facility] [place] [facility] [address] [facility] [id number] [place] [address] Apr, [facility] [place] [facility] [address] [facility] [id number] [place] [address] Apr, [facility] [place] [facility] [address] [facility] [id number] [place] [address] Apr, [facility] [place] [facility] [address] [id number] [place] [address] Apr, [facility] [place] [facility] [address] [facility] [id number] [place] [address] Apr, [facility] [place] [facility] [address] [facility] [id number] [place] [address] Apr, [facility] [place] [facility] [address] [id number] [place] [address] Apr, [facility] [place] [facility] [address] [id number] [place] [address] Apr, [facility] [place] [facility] [address] [id number] [place] [address] Mar, [facility] [place] [facility] [address] [id number] [place] [address] Mar, [facility] [place] [facility] [address] [id number] [place] [address] Mar, [facility] [place] [facility] [address] [id number] [place] [address] Mar, [facility] [place] [facility] [address] [id number] [place] [address] Mar, [facility] [place] [facility] [address] [id number] [place] [address] Mar, [facility] [place] [facility] [address] [id number] [place] [address] Feb, [facility] [place] [facility] [address] [id number] [place] [address] Feb, [facility] [place] [facility] [address] [id number] [place] [address] Jan, [facility] [place] [facility] [address] [id number] [place] [address] Jan, [facility] [place] [facility] [address] [id number] [place] [address] Jan, [facility] [place] [facility] [address] [id number] [place] [address] Jan, [facility] [place] [facility] [address] [id number] [place] [address] Jan, [facility] [place] [facility] [address] [id number] [place] [address] 16 Jan, 2014 [facility] [place] [facility] [address] [id number] [place] [address] Jan, [facility] [place] [facility] [address] [id number] [place] [address] 13 Jan, 2014 [facility] [place] [facility] [address] [id number] [place] [address] 10 Jan, 2014 [facility] [place] [facility] [address] [id number] [place] [address] Jan, [facility] [place] [facility] [address] [id number] [place] [address] Jan, [facility] [place] [facility] [address] [id number] [place] [address] 15 Dec, 2013 [facility] [place] [facility] [address] [id number] [place] [address] Dec, [facility] [place] [facility] [address] [id number] [place] [address] Nov, [facility] [place] [facility] [address] [id number] [place] [address] Nov, [facility] [place] [facility] [address] [id number] [place] [address] Sep, [facility] [place] [facility] [address] [id number] [place] [address] Sep, [facility] [place] [facility] [address] [id number] [place] [address] Sep, [facility] [place] [facility] [address] [id number] [place] [address] Sep, [facility] [place] [facility] [address] [id number] [place] [address] Jun, [facility] [place] [facility] [address] [id number] [place] [address] Jun, [facility] [place] [facility] [address] [id number] [place] [address] 12 Jun, 2013 [facility] [place] [facility] [address] [id number] [place] [address] 10 Jun, 2013 [facility] [place] [facility] [address] [id number] [place] [address] 10 Jun, 2013 [facility] [place] [facility] [address] [id number] [place] [address] 07 Jun, 2013 [facility] [place] [facility] [address] [id number] [place] [address] 07 Jun, 2013 [facility] [place] [facility] [address] [id number] [place] [address] 05 Jun, 2013 [facility] [place] [facility] [address] [id number] [place] [address] 05 Jun, 2013 [facility] [place] [facility] [address] [id number] [place] [address] 19 Feb, 2013 [facility] [place] [facility] [address] [id number] [place] [address] 19 Feb, 2013 [facility] [place] [facility] [address] [id number] [place] [address] 18 Feb, 2013 [facility] [place] [facility] [address] [id number] [place] [address] 18 Feb, 2013 [facility] [place] [facility] [address] [id number] [place] [address] 15 Feb, 2013 [facility] [place] [facility] [address] [id number] [place] [address] 15 Feb, 2013 [facility] [place] [facility] [address] [id number] [place] [address] 14 Nov, 2012 [facility] [place] [facility] [address] [id number] [place] [address] 03 Oct, 2012 [facility] [place] [facility] [address] [id number] [place] [address] Sep, [facility] [place] [facility] [address] [id number] [place] [address] Sep, [facility] [address] [id number] [place] [address] Sep, [facility] [address] [id number] [place] [address] Sep, [facility] [address] [id number] [place] [address] August, [facility] [address] [id number] [place] [address] Jun, [facility] [address] [id number] [place] [address] Jun, [facility] [address] [id number] [place] [address] Jun, [facility] [address] [id number] [place] [address] Apr, [facility] [address] [id number] [place] [address] Apr, [facility] [address] [id number] [place] [address] Apr, [facility] [address] [id number] [place] [address] Apr, [facility] [address] [id number] [place] [address] Apr, [facility] [address] [id number] [place] [address] Apr, [facility] [place] [facility] [address] [id number] [place] [address] Mar, [facility] [address] [id number] [place] [address] Mar, [facility] [address] [id number] [place] [address] Mar, [facility] [place] [facility] [address] [id number] [place] [address] Mar, [facility] [place] [facility] [address] [id number] [place] [address] Feb, [facility] [place] [facility] [address] [id number] [place] [address] Feb, [facility] [place] [facility] [address] [id number] [place] [address] Feb, [facility] [place] [facility] [address] [id number] [place] [address] Feb, [facility] [place] [facility] [address] [id number] [place] [address] Jan, [facility] [place] [facility] [address] [id number] [place] [address] Jan, [facility] [place] [facility] [address] [id number] [place] [address] Jan, [facility] [place] [facility] [address] [id number] [place] [address] Jan, [facility] [place] [facility] [address] [id number] [place] [address] Jan, [facility] [place] [facility] [address] [id number] [place] [address] Jan, [facility] [place] [facility] [address] [id number] [place] [address] Jan, [facility] [place] [facility] [address] [id number] [place] [address] Jan, [facility] [place] [facility] [address] [facility] [id number] [place] [address] Jan, [facility] [place] [facility] [address] [id number] [place] [address] Jan, [facility] [place] [facility] [address] [facility] [id number] [place] [address] Jan, [facility] [address] [id number] [address] Jan, [facility] [address] [id number] [address] Jan, [facility] [address] [id number] [address] Dec, [facility] [id number] [address] Nov, [facility] [address] [id number] [place] [address] Nov, [facility] [address] [id number] [place] [address] Jan, IMMUNIZATIONS No Known Immunizations SOCIAL HISTORY Never Assessed REASON FOR VISIT EMR-[facility] [place] PLAN OF CARE VITAL SIGNS MEDICATIONS Unknown [...]
--- OUTSIDE RECORDS SUMMARY | 2018-09-13 23:50 | XMS REPORT ---
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 Name Role Phone Migration, Doctor Unavailable Unavailable PROBLEMS Type Condition ICD9-CM Code TKI55-RE Code Onset Dates Condition Status SNOMED Code Problem Hyperlipidemia E78.5 Active 76873269 Problem Insomnia G47.00 Active 982451197 Problem Obstructive sleep apnea syndrome G47.33 Active 22888033 Problem Reactive depression F32.9 Active 83386411 Problem Back pain M54.9 Active 042228567 Problem Erectile dysfunction, unspecified erectile dysfunction type N52.9 Active 397252408 Problem Hypertension I10 Active 90890843 Problem Benign prostatic hyperplasia with lower urinary tract symptoms, unspecified morphology N40.1 Active 483399242 Problem Hypothyroidism, unspecified type E03.9 Active 81877040 Problem Vasculogenic erectile dysfunction, 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 Active 526874916 Problem Adjustment disorder with depressed mood F43.21 Active [id number] ALLERGIES No Information ENCOUNTERS Encounter Location Date Diagnosis [facility] [address] [address] Jul, Back pain M54.9 [facility] [id number] [place] [address] Jun, Pneumonia of both lower lobes due to infectious organism J18.1 [facility] [id number] [place] [address] Sep, [facility] [address] [address] Sep, [facility] [address] [address] August, Abnormal PSA R97.20 [facility] [address] [address] August, Erectile dysfunction, unspecified erectile dysfunction type N52.9 ; Benign prostatic hyperplasia with lower urinary tract symptoms, unspecified morphology N40.1 and Hypertension I10 [place] [id number] [place] [address] May, Back pain M54.9 and Insomnia G47.00 [place] [id number] [place] [address] May, Hyperlipidemia E78.5 ; Hypertension I10 and Hypothyroidism, unspecified type E03.9 [place] [address] [address] May, Hypertension I10 ; Back pain M54.9 ; Hypothyroidism, unspecified type E03.9 and Hyperlipidemia E78.5 [place] [id number] [place] [address] Apr, [place] [address] [address] Apr, Insomnia G47.00 ; Back pain M54.9 and Vasculogenic erectile dysfunction, 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 [place] [address] [address] Apr, Insomnia G47.00 [place] [id number] [place] [address] Mar, [place] [id number] [place] [address] Mar, Insomnia G47.00 [facility] [address] [id number] [place] [address] Feb, [place] [id number] [place] [address] Feb, Hypothyroidism, unspecified type E03.9 and Insomnia G47.00 [place] [id number] [place] [address] Jan, Insomnia G47.00 [facility] [id number] [place] [address] Jan, [facility] [id number] [place] [address] Jan, Adjustment disorder with depressed mood F43.21 [facility] [id number] [place] [address] Jan, Adjustment disorder with depressed mood F43.21 [facility] [id number] [place] [address] Jan, Hypothyroidism, unspecified type E03.9 and Reactive depression F32.9 [place] [id number] [place] [address] Jan, Adjustment disorder with depressed mood F43.21 [place] [id number] [place] [address] Dec, Insomnia G47.00 and Back pain M54.9 [place] [id number] [place] [address] Nov, Hyperlipidemia E78.5 ; Hypertension I10 and Hypothyroidism, unspecified type E03.9 [place] [id number] [place] [address] Oct, Hyperlipidemia E78.5 ; Hypertension I10 ; Insomnia G47.00 and Hypothyroidism, unspecified type E03.9 [place] [id number] [place] [address] August, Hypothyroidism, unspecified type E03.9 [place] [id number] [place] [address] Jun, Hyperlipidemia E78.5 [place] [id number] [place] [address] May, Back pain M54.9 and Insomnia G47.00 [place] [id number] [place] [address] May, [facility] [id number] [place] [address] Apr, [facility] [id number] [place] [address] Apr, Back pain M54.9 ; Hyperlipidemia E78.5 ; High risk sexual behavior Z72.51 and Vasculogenic erectile dysfunction, 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 [facility] [id number] [place] [address] Mar, Hyperlipidemia E78.5 [place] [address] [address] Feb, [facility] [id number] [place] [address] Jan, [place] [id number] [place] [address] Jan, Hypertension I10 ; Hypothyroidism, unspecified type E03.9 and Hyperlipidemia E78.5 [facility] [id number] [place] [address] Jan, Hypertension I10 ; Hyperlipidemia E78.5 ; Back pain M54.9 ; Hypothyroidism, unspecified type E03.9 and Benign prostatic hyperplasia with lower urinary tract symptoms, unspecified morphology N40.1 [place] [id number] [place] [address] Oct, [facility] [id number] [place] [address] Oct, Back pain M54.9 and Obstructive sleep apnea syndrome G47.33 [facility] [id number] [place] [address] Oct, [facility] [id number] [place] [address] August, Dermatitis L30.9 [facility] [address] [place] [address] 10 Jun, 2015 Hypertension I10 ; Back pain M54.9 ; Hyperlipidemia E78.5 and Insomnia G47.00 [facility] [id number] [place] [address] 18 May, 2015 [facility] [id number] [place] [address] Mar, Insomnia G47.00 [facility] [address] [address] Mar, [facility] [address] [address] Feb, Hyperlipidemia E78.5 ; Encounter for immunization Z23 ; Hypertension I10 and Back pain M54.9 [facility] [id number] [place] [address] Jan, Encounter for immunization Z23 ; Hypertension I10 ; Hyperlipidemia E78.5 and Back pain M54.9 [facility] [id number] [place] [address] Jan, [facility] [id number] [place] [address] Sep, [facility] [id number] [place] [address] Sep, [facility] [id number] [place] [address] 14 Jul, 2014 [facility] [id number] [place] [address] 13 Jul, 2014 [facility] [id number] [place] [address] Jun, [facility] [id number] [place] [address] 11 May, 2014 [facility] [id number] [place] [address] May, 2014 [facility] [place] [facility] [address] [id number] [place] [address] May, 2014 [facility] [place] [facility] [address] [id number] [place] [address] May, 2014 [facility] [place] [facility] [address] [facility] [id number] [place] [address] May, 2014 [facility] [place] [facility] [address] [id number], [place] [address] May, 2014 [facility] [place] [facility] [address] [id number] [place] [address] May, 2014 [facility] [place] [facility] [address] [facility] [id number] [place] [address] May, 2014 [facility] [place] [facility] [address] [facility] [id number], [place] [address] May, [facility] [place] [facility] [address] [facility] [id number], [place] [address] Apr, [facility] [place] [facility] [address] [facility] [id number], [place] [address] Apr, [facility] [place] [facility] [address] [facility] [id number], [place] [address] Apr, [facility] [place] [facility] [address] [facility] [id number], [place] [address] Apr, [facility] [place] [facility] [address] [facility] [id number], [place] [address] Apr, [facility] [place] [facility] [address] [id number], [place] [address] Apr, [facility] [place] [facility] [address] [facility] [id number], [place] [address] Apr, [facility] [place] [facility] [address] [facility] [id number], [place] [address] Apr, [facility] [place] [facility] [address] [id number] [place] [address] Apr, [facility] [place] [facility] [address] [id number] [place] [address] Apr, [facility] [place] [facility] [address] [id number] [place] [address] Mar, [facility] [place] [facility] [address] [id number] [place] [address] Mar, [facility] [place] [facility] [address] [id number] [place] [address] Mar, [facility] [place] [facility] [address] [id number] [place] [address] Mar, [facility] [place] [facility] [address] [id number] [place] [address] Mar, [facility] [place] [facility] [address] [id number] [place] [address] Mar, [facility] [place] [facility] [address] [id number] [place] [address] Feb, [facility] [place] [facility] [address] [id number] [place] [address] Feb, [facility] [place] [facility] [address] [id number] [place] [address] Jan, [facility] [place] [facility] [address] [id number] [place] [address] Jan, [facility] [place] [facility] [address] [id number] [place] [address] Jan, [facility] [place] [facility] [address] [id number] [place] [address] Jan, [facility] [place] [facility] [address] [id number] [place] [address] Jan, [facility] [place] [facility] [address] [id number] [place] [address] 16 Jan, 2014 [facility] [place] [facility] [address] [id number] [place] [address] Jan, [facility] [place] [facility] [address] [id number] [place] [address] 13 Jan, 2014 [facility] [place] [facility] [address] [id number] [place] [address] 10 Jan, 2014 [facility] [place] [facility] [address] [id number] [place] [address] Jan, [facility] [place] [facility] [address] [id number] [place] [address] Jan, [facility] [place] [facility] [address] [id number] [place] [address] 15 Dec, 2013 [facility] [place] [facility] [address] [id number] [place] [address] Dec, [facility] [place] [facility] [address] [id number], [place] [address] Nov, [facility] [place] [facility] [address] [id number] [place] [address] Nov, [facility] [place] [facility] [address] [id number] [place] [address] Sep, [facility] [place] [facility] [address] [id number], [place] [address] Sep, [facility] [place] [facility] [address] [id number], [place] [address] Sep, [facility] [place] [facility] [address] [id number] [place] [address] Sep, [facility] [place] [facility] [address] [id number], [place] [address] Jun, [facility] [place] [facility] [address] [id number] [place] [address] Jun, [facility] [place] [facility] [address] [id number] [place] [address] 12 Jun, 2013 [facility] [place] [facility] [address] [id number] [place] [address] 10 Jun, 2013 [facility] [place] [facility] [address] [id number] [place] [address] 10 Jun, 2013 [facility] [place] [facility] [address] [id number] [place] [address] 07 Jun, 2013 [facility] [place] [facility] [address] [id number] [place] [address] 07 Jun, 2013 [facility] [place] [facility] [address] [id number] [place] [address] 05 Jun, 2013 [facility] [place] [facility] [address] [id number] [place] [address] 05 Jun, 2013 [facility] [place] [facility] [address] [id number] [place] [address] 19 Feb, 2013 [facility] [place] [facility] [address] [id number] [place] [address] 19 Feb, 2013 [facility] [place] [facility] [address] [id number] [place] [address] 18 Feb, 2013 [facility] [place] [facility] [address] [id number] [place] [address] 18 Feb, 2013 [facility] [place] [facility] [address] [id number] [place] [address] 15 Feb, 2013 [facility] [place] [facility] [address] [id number] [place] [address] 15 Feb, 2013 [facility] [place] [facility] [address] [id number] [place] [address] 14 Nov, 2012 [facility] [place] [facility] [address] [id number] [place] [address] 03 Oct, 2012 [facility] [place] [facility] [address] [id number] [place] [address] Sep, [facility] [place] [facility] [address] [id number] [place] [address] Sep, [facility] [address] [id number] [place] [address] Sep, [facility] [address] [id number] [place] [address] Sep, [facility] [address] [id number] [place] [address] August, [facility] [address] [id number] [place] [address] Jun, [facility] [address] [id number] [place] [address] Jun, [facility] [address] [id number] [place] [address] Jun, [facility] [address] [id number] [place] [address] Apr, [facility] [address] [id number] [place] [address] Apr, [facility] [address] [id number] [place] [address] Apr, [facility] [address] [id number] [place] [address] Apr, [facility] [address] [id number] [place] [address] Apr, [facility] [address] [id number] [place] [address] Apr, [facility] [place] [facility] [address] [id number] [place] [address] Mar, [facility] [address] [id number] [place] [address] Mar, [facility] [address] [id number], [place] [address] Mar, [facility] [place] [facility] [address] [id number] [place] [address] Mar, [facility] [place] [facility] [address] [id number], [place] [address] Feb, [facility] [place] [facility] [address] [id number] [place] [address] Feb, [facility] [place] [facility] [address] [id number] [place] [address] Feb, [facility] [place] [facility] [address] [id number] [place] [address] Feb, [facility] [place] [facility] [address] [id number] [place] [address] Jan, [facility] [place] [facility] [address] [id number] [place] [address] Jan, [facility] [place] [facility] [address] [id number], [place] [address] Jan, [facility] [place] [facility] [address] [id number] [place] [address] Jan, [facility] [place] [facility] [address] [id number] [place] [address] Jan, [facility] [place] [facility] [address] [id number], [place] [address] Jan, [facility] [place] [facility] [address] [id number], [place] [address] Jan, [facility] [place] [facility] [address] [id number] [place] [address] Jan, [facility] [place] [facility] [address] [facility] [id number], [place] [address] Jan, [facility] [place] [facility] [address] [id number] [place] [address] Jan, [facility] [place] [facility] [address] [facility] [id number] [place] [address] Jan, [facility] [address] [id number], [place] [address] Jan, [facility] [address] [id number], [place] [address] Jan, [facility] [address] [id number], [place] [address] Dec, [facility] [id number], [place] [address] Nov, [facility] [address] [id number], [place] [address] Nov, [facility] [address] [id number], [place] [address] Jan, IMMUNIZATIONS No Known Immunizations SOCIAL HISTORY Never Assessed REASON FOR VISIT EMR-[facility] PLAN OF CARE VITAL SIGNS MEDICATIONS Unknown [...]
--- OUTSIDE RECORDS SUMMARY | 2018-09-13 23:51 | XMS REPORT ---
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 Name Role Phone Migration, Doctor Unavailable Unavailable PROBLEMS Type Condition ICD9-CM Code QLV33-XD Code Onset Dates Condition Status SNOMED Code Problem Hyperlipidemia E78.5 Active 80033915 Problem Insomnia G47.00 Active 648116101 Problem Obstructive sleep apnea syndrome G47.33 Active 34141715 Problem Reactive depression F32.9 Active 59597142 Problem Back pain M54.9 Active 959317020 Problem Erectile dysfunction, unspecified erectile dysfunction type N52.9 Active 080755476 Problem Hypertension I10 Active 61143526 Problem Benign prostatic hyperplasia with lower urinary tract symptoms, unspecified morphology N40.1 Active 299274056 Problem Hypothyroidism, unspecified type E03.9 Active 01597924 Problem Vasculogenic erectile dysfunction, 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 [id number] [place] [address] Jun, Pneumonia of both lower lobes due to infectious organism J18.1 [facility] [id number] [place] [address] Sep, [facility] [address] [address] Sep, [facility] [address] [address] August, Abnormal PSA R97.20 [facility] [address] [address] August, Erectile dysfunction, unspecified erectile dysfunction type N52.9 ; Benign prostatic hyperplasia with lower urinary tract symptoms, unspecified morphology N40.1 and Hypertension I10 [facility] [facility] [id number] [place] [address] May, Back pain M54.9 and Insomnia G47.00 [place] [id number] [place] [address] May, Hyperlipidemia E78.5 ; Hypertension I10 and Hypothyroidism, unspecified type E03.9 [place] [facility] [address] [address] May, Hypertension I10 ; Back pain M54.9 ; Hypothyroidism, unspecified type E03.9 and Hyperlipidemia E78.5 [place] [facility] [id number] [place] [address] Apr, [place] [address] [address] Apr, Insomnia G47.00 ; Back pain M54.9 and Vasculogenic erectile dysfunction, 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 [place] [address] [address] Apr, Insomnia G47.00 [place] [facility] [id number] [place] [address] Mar, [place] [id number] [place] [address] Mar, Insomnia G47.00 [facility] [address] [id number] [place] [address] Feb, [place] [id number] [place] [address] Feb, Hypothyroidism, unspecified type E03.9 and Insomnia G47.00 [place] [id number] [place] [address] Jan, Insomnia G47.00 [facility] [id number] [place] [address] Jan, [facility] [id number] [place] [address] Jan, Adjustment disorder with depressed mood F43.21 [facility] [id number] [place] [address] Jan, Adjustment disorder with depressed mood F43.21 [facility] [id number] [place] [address] Jan, Hypothyroidism, unspecified type E03.9 and Reactive depression F32.9 [place] [id number] [place] [address] Jan, Adjustment disorder with depressed mood F43.21 [place] [id number] [place] [address] Dec, Insomnia G47.00 and Back pain M54.9 [place] [id number] [place] [address] Nov, Hyperlipidemia E78.5 ; Hypertension I10 and Hypothyroidism, unspecified type E03.9 [place] [id number] [place] [address] Oct, Hyperlipidemia E78.5 ; Hypertension I10 ; Insomnia G47.00 and Hypothyroidism, unspecified type E03.9 [place] [id number] [place] [address] August, Hypothyroidism, unspecified type E03.9 [place] [id number] [place] [address] Jun, Hyperlipidemia E78.5 [place] [id number] [place] [address] May, Back pain M54.9 and Insomnia G47.00 [place] [id number] [place] [address] May, [facility] [id number] [place] [address] Apr, [facility] [id number] [place] [address] Apr, Back pain M54.9 ; Hyperlipidemia E78.5 ; High risk sexual behavior Z72.51 and Vasculogenic erectile dysfunction, 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 [facility] [id number] [place] [address] Mar, Hyperlipidemia E78.5 [place] [address] [address] Feb, [facility] [id number] [place] [address] Jan, [place] [id number] [place] [address] Jan, Hypertension I10 ; Hypothyroidism, unspecified type E03.9 and Hyperlipidemia E78.5 [facility] [id number] [place] [address] Jan, Hypertension I10 ; Hyperlipidemia E78.5 ; Back pain M54.9 ; Hypothyroidism, unspecified type E03.9 and Benign prostatic hyperplasia with lower urinary tract symptoms, unspecified morphology N40.1 [place] [id number] [place] [address] Oct, [facility] [id number] [place] [address] Oct, Back pain M54.9 and Obstructive sleep apnea syndrome G47.33 [facility] [id number] [place] [address] Oct, [facility] [id number] [place] [address] August, Dermatitis L30.9 [facility] [address] [place] [address] 10 Jun, 2015 Hypertension I10 ; Back pain M54.9 ; Hyperlipidemia E78.5 and Insomnia G47.00 [facility] [id number] [place] [address] 18 May, 2015 [facility] [id number] [place] [address] Mar, Insomnia G47.00 [facility] [address] [address] Mar, [facility] [address] [address] Feb, Hyperlipidemia E78.5 ; Encounter for immunization Z23 ; Hypertension I10 and Back pain M54.9 [facility] [id number] [place] [address] Jan, Encounter for immunization Z23 ; Hypertension I10 ; Hyperlipidemia E78.5 and Back pain M54.9 [facility] [id number] [place] [address] Jan, [facility] [id number] [place] [address] Sep, [facility] [id number] [place] [address] Sep, [facility] [id number] [place] [address] 14 Jul, 2014 [facility] [id number] [place] [address] 13 Jul, 2014 [facility] [id number] [place] [address] Jun, [facility] [id number] [place] [address] 11 May, 2014 [facility] [id number] [place] [address] May, 2014 [facility] [place] [facility] [address] [id number] [place] [address] May, 2014 [facility] [place] [facility] [address] [id number] [place] [address] May, 2014 [facility] [place] [facility] [address] [facility] [id number] [place] [address] May, 2014 [facility] [place] [facility] [address] [id number], [place] [address] May, 2014 [facility] [place] [facility] [address] [id number] [place] [address] May, 2014 [facility] [place] [facility] [address] [facility] [id number] [place] [address] May, 2014 [facility] [place] [facility] [address] [facility] [id number], [place] [address] May, [facility] [place] [facility] [address] [facility] [id number], [place] [address] Apr, [facility] [place] [facility] [address] [facility] [id number], [place] [address] Apr, [facility] [place] [facility] [address] [facility] [id number], [place] [address] Apr, [facility] [place] [facility] [address] [facility] [id number], [place] [address] Apr, [facility] [place] [facility] [address] [facility] [id number], [place] [address] Apr, [facility] [place] [facility] [address] [id number], [place] [address] Apr, [facility] [place] [facility] [address] [facility] [id number], [place] [address] Apr, [facility] [place] [facility] [address] [facility] [id number], [place] [address] Apr, [facility] [place] [facility] [address] [id number] [place] [address] Apr, [facility] [place] [facility] [address] [id number] [place] [address] Apr, [facility] [place] [facility] [address] [id number] [place] [address] Mar, [facility] [place] [facility] [address] [id number] [place] [address] Mar, [facility] [place] [facility] [address] [id number] [place] [address] Mar, [facility] [place] [facility] [address] [id number] [place] [address] Mar, [facility] [place] [facility] [address] [id number] [place] [address] Mar, [facility] [place] [facility] [address] [id number] [place] [address] Mar, [facility] [place] [facility] [address] [id number] [place] [address] Feb, [facility] [place] [facility] [address] [id number] [place] [address] Feb, [facility] [place] [facility] [address] [id number] [place] [address] Jan, [facility] [place] [facility] [address] [id number] [place] [address] Jan, [facility] [place] [facility] [address] [id number] [place] [address] Jan, [facility] [place] [facility] [address] [id number] [place] [address] Jan, [facility] [place] [facility] [address] [id number] [place] [address] Jan, [facility] [place] [facility] [address] [id number] [place] [address] 16 Jan, 2014 [facility] [place] [facility] [address] [id number] [place] [address] Jan, [facility] [place] [facility] [address] [id number] [place] [address] 13 Jan, 2014 [facility] [place] [facility] [address] [id number] [place] [address] 10 Jan, 2014 [facility] [place] [facility] [address] [id number] [place] [address] Jan, [facility] [place] [facility] [address] [id number] [place] [address] Jan, [facility] [place] [facility] [address] [id number] [place] [address] 15 Dec, 2013 [facility] [place] [facility] [address] [id number] [place] [address] Dec, [facility] [place] [facility] [address] [id number], [place] [address] Nov, [facility] [place] [facility] [address] [id number] [place] [address] Nov, [facility] [place] [facility] [address] [id number] [place] [address] Sep, [facility] [place] [facility] [address] [id number], [place] [address] Sep, [facility] [place] [facility] [address] [id number], [place] [address] Sep, [facility] [place] [facility] [address] [id number] [place] [address] Sep, [facility] [place] [facility] [address] [id number], [place] [address] Jun, [facility] [place] [facility] [address] [id number] [place] [address] Jun, [facility] [place] [facility] [address] [id number] [place] [address] 12 Jun, 2013 [facility] [place] [facility] [address] [id number] [place] [address] 10 Jun, 2013 [facility] [place] [facility] [address] [id number] [place] [address] 10 Jun, 2013 [facility] [place] [facility] [address] [id number] [place] [address] 07 Jun, 2013 [facility] [place] [facility] [address] [id number] [place] [address] 07 Jun, 2013 [facility] [place] [facility] [address] [id number] [place] [address] 05 Jun, 2013 [facility] [place] [facility] [address] [id number] [place] [address] 05 Jun, 2013 [facility] [place] [facility] [address] [id number] [place] [address] 19 Feb, 2013 [facility] [place] [facility] [address] [id number] [place] [address] 19 Feb, 2013 [facility] [place] [facility] [address] [id number] [place] [address] 18 Feb, 2013 [facility] [place] [facility] [address] [id number] [place] [address] 18 Feb, 2013 [facility] [place] [facility] [address] [id number] [place] [address] 15 Feb, 2013 [facility] [place] [facility] [address] [id number] [place] [address] 15 Feb, 2013 [facility] [place] [facility] [address] [id number] [place] [address] 14 Nov, 2012 [facility] [place] [facility] [address] [id number] [place] [address] 03 Oct, 2012 [facility] [place] [facility] [address] [id number] [place] [address] Sep, [facility] [place] [facility] [address] [id number] [place] [address] Sep, [facility] [address] [id number] [place] [address] Sep, [facility] [address] [id number] [place] [address] Sep, [facility] [address] [id number] [place] [address] August, [facility] [address] [id number] [place] [address] Jun, [facility] [address] [id number] [place] [address] Jun, [facility] [address] [id number] [place] [address] Jun, [facility] [address] [id number] [place] [address] Apr, [facility] [address] [id number] [place] [address] Apr, [facility] [address] [id number] [place] [address] Apr, [facility] [address] [id number] [place] [address] Apr, [facility] [address] [id number] [place] [address] Apr, [facility] [address] [id number] [place] [address] Apr, [facility] [place] [facility] [address] [id number] [place] [address] Mar, [facility] [address] [id number] [place] [address] Mar, [facility] [address] [id number], [place] [address] Mar, [facility] [place] [facility] [address] [id number] [place] [address] Mar, [facility] [place] [facility] [address] [id number], [place] [address] Feb, [facility] [place] [facility] [address] [id number] [place] [address] Feb, [facility] [place] [facility] [address] [id number] [place] [address] Feb, [facility] [place] [facility] [address] [id number] [place] [address] Feb, [facility] [place] [facility] [address] [id number] [place] [address] Jan, [facility] [place] [facility] [address] [id number] [place] [address] Jan, [facility] [place] [facility] [address] [id number], [place] [address] Jan, [facility] [place] [facility] [address] [id number] [place] [address] Jan, [facility] [place] [facility] [address] [id number] [place] [address] Jan, [facility] [place] [facility] [address] [id number], [place] [address] Jan, [facility] [place] [facility] [address] [id number], [place] [address] Jan, [facility] [place] [facility] [address] [id number] [place] [address] Jan, [facility] [place] [facility] [address] [facility] [id number], [place] [address] Jan, [facility] [place] [facility] [address] [id number] [place] [address] Jan, [facility] [place] [facility] [address] [facility] [id number] [place] [address] Jan, [facility] [address] [id number], [place] [address] Jan, [facility] [address] [id number], [place] [address] Jan, [facility] [address] [id number], [place] [address] Dec, [facility] [address], [place] [address] Nov, [facility] [address] [id number], [place] [address] Nov, [facility] [address] [id number], [place] [address] Jan, IMMUNIZATIONS No Known Immunizations SOCIAL HISTORY Never Assessed REASON FOR VISIT EMR-[facility] PLAN OF CARE VITAL SIGNS MEDICATIONS Unknown [...]
--- OUTSIDE RECORDS SUMMARY | 2018-09-13 23:51 | XMS REPORT ---
Author Author Migration, Doctor Organization [facility] Address Unknown Phone Unavailable Care Team Providers Care Manager Studio Name Role Phone Migration, Doctor Unavailable Unavailable PROBLEMS Type Condition ICD9-CM Code HDF66-KG Code Onset Dates Condition Status SNOMED Code Problem Hyperlipidemia E78.5 Active 13092086 Problem Insomnia G47.00 Active 380775898 Problem Obstructive sleep apnea syndrome G47.33 Active 13464383 Problem Reactive depression F32.9 Active 04970211 Problem Back pain M54.9 Active 804685535 Problem Erectile dysfunction, unspecified erectile dysfunction type N52.9 Active 855676647 Problem Hypertension I10 Active 93750629 Problem Benign prostatic hyperplasia with lower urinary tract symptoms, unspecified morphology N40.1 Active 754168939 Problem Hypothyroidism, unspecified type E03.9 Active 46285030 Problem Vasculogenic erectile dysfunction, 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 Active 470936786 Problem Adjustment disorder with depressed mood F43.21 Active 14723672 ALLERGIES No Information ENCOUNTERS Encounter Location Date Diagnosis [facility] [address] [address] Jul, Back pain M54.9 [facility] [id number] [place] [address] Jun, Pneumonia of both lower lobes due to infectious organism J18.1 [facility] [id number] [place] [address] Sep, [facility] [address] [address] Sep, [facility] [address] [address] August, Abnormal PSA R97.20 [facility] [address] [address] August, Erectile dysfunction, unspecified erectile dysfunction type N52.9 ; Benign prostatic hyperplasia with lower urinary tract symptoms, unspecified morphology N40.1 and Hypertension I10 [facility] [id number] [place] [address] May, Back pain M54.9 and Insomnia G47.00 [facility] [id number] [place] [address] May, Hyperlipidemia E78.5 ; Hypertension I10 and Hypothyroidism, unspecified type E03.9 [facility] [address] [address] May, Hypertension I10 ; Back pain M54.9 ; Hypothyroidism, unspecified type E03.9 and Hyperlipidemia E78.5 [facility] [id number] [place] [address] Apr, [facility] [address] [address] Apr, Insomnia G47.00 ; Back pain M54.9 and Vasculogenic erectile dysfunction, 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 [facility] [address] [address] Apr, Insomnia G47.00 [facility] [id number] [place] [address] Mar, [facility] [id number] [place] [address] Mar, Insomnia G47.00 [facility] [address] [id number] [place] [address] Feb, [place] [facility] [id number] [place] [address] Feb, Hypothyroidism, unspecified type E03.9 and Insomnia G47.00 [facility] [facility] [id number] [place] [address] Jan, Insomnia G47.00 [facility] [id number] [place] [address] Jan, [facility] [id number] [place] [address] Jan, Adjustment disorder with depressed mood F43.21 [facility] [id number] [place] [address] Jan, Adjustment disorder with depressed mood F43.21 [facility] [id number] [place] [address] Jan, Hypothyroidism, unspecified type E03.9 and Reactive depression F32.9 [facility] [id number] [place] [address] Jan, Adjustment disorder with depressed mood F43.21 [facility] [id number] [place] [address] Dec, Insomnia G47.00 and Back pain M54.9 [facility] [id number] [place] [address] Nov, Hyperlipidemia E78.5 ; Hypertension I10 and Hypothyroidism, unspecified type E03.9 [facility] [facility] [id number] [place] [address] Oct, Hyperlipidemia E78.5 ; Hypertension I10 ; Insomnia G47.00 and Hypothyroidism, unspecified type E03.9 [facility] [facility] [id number] [place] [address] August, Hypothyroidism, unspecified type E03.9 [facility] [id number] [place] [address] Jun, Hyperlipidemia E78.5 [facility] [id number] [place] [address] May, Back pain M54.9 and Insomnia G47.00 [place] [id number] [place] [address] May, [facility] [id number] [place] [address] Apr, [facility] [id number] [place] [address] Apr, Back pain M54.9 ; Hyperlipidemia E78.5 ; High risk sexual behavior Z72.51 and Vasculogenic erectile dysfunction, 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 [facility] [id number] [place] [address] Mar, Hyperlipidemia E78.5 [facility] [address] [address] Feb, [facility] [id number] [place] [address] Jan, [place] [id number] [place] [address] Jan, Hypertension I10 ; Hypothyroidism, unspecified type E03.9 and Hyperlipidemia E78.5 [facility] [id number] [place] [address] Jan, Hypertension I10 ; Hyperlipidemia E78.5 ; Back pain M54.9 ; Hypothyroidism, unspecified type E03.9 and Benign prostatic hyperplasia with lower urinary tract symptoms, unspecified morphology N40.1 [place] [id number] [place] [address] Oct, [facility] [id number] [place] [address] Oct, Back pain M54.9 and Obstructive sleep apnea syndrome G47.33 [facility] [id number] [place] [address] Oct, [facility] [id number] [place] [address] August, Dermatitis L30.9 [facility] [address] [place] [address] 10 Jun, 2015 Hypertension I10 ; Back pain M54.9 ; Hyperlipidemia E78.5 and Insomnia G47.00 [facility] [id number] [place] [address] 18 May, 2015 [facility] [id number] [place] [address] Mar, Insomnia G47.00 [facility] [address] [address] Mar, [facility] [address] [address] Feb, Hyperlipidemia E78.5 ; Encounter for immunization Z23 ; Hypertension I10 and Back pain M54.9 [facility] [id number] [place] [address] Jan, Encounter for immunization Z23 ; Hypertension I10 ; Hyperlipidemia E78.5 and Back pain M54.9 [facility] [id number] [place] [address] Jan, [facility] [id number] [place] [address] Sep, [facility] [id number] [place] [address] Sep, [facility] [id number] [place] [address] 14 Jul, 2014 [facility] [id number] [place] [address] 13 Jul, 2014 [facility] [id number] [place] [address] Jun, [facility] [id number] [place] [address] 11 May, 2014 [facility] [id number] [place] [address] May, 2014 [facility] [place] [facility] [address] [id number] [place] [address] May, 2014 [facility] [place] [facility] [address] [id number] [place] [address] May, 2014 [facility] [place] [facility] [address] [facility] [id number] [place] [address] May, 2014 [facility] [place] [facility] [address] [id number], [place] [address] May, 2014 [facility] [place] [facility] [address] [id number] [place] [address] May, 2014 [facility] [place] [facility] [address] [facility] [id number] [place] [address] May, 2014 [facility] [place] [facility] [address] [facility] [id number], [place] [address] May, [facility] [place] [facility] [address] [facility] [id number], [place] [address] Apr, [facility] [place] [facility] [address] [facility] [id number], [place] [address] Apr, [facility] [place] [facility] [address] [facility] [id number], [place] [address] Apr, [facility] [place] [facility] [address] [facility] [id number], [place] [address] Apr, [facility] [place] [facility] [address] [facility] [id number], [place] [address] Apr, [facility] [place] [facility] [address] [id number], [place] [address] Apr, [facility] [place] [facility] [address] [facility] [id number], [place] [address] Apr, [facility] [place] [facility] [address] [facility] [id number], [place] [address] Apr, [facility] [place] [facility] [address] [id number] [place] [address] Apr, [facility] [place] [facility] [address] [id number] [place] [address] Apr, [facility] [place] [facility] [address] [id number] [place] [address] Mar, [facility] [place] [facility] [address] [id number] [place] [address] Mar, [facility] [place] [facility] [address] [id number] [place] [address] Mar, [facility] [place] [facility] [address] [id number] [place] [address] Mar, [facility] [place] [facility] [address] [id number] [place] [address] Mar, [facility] [place] [facility] [address] [id number] [place] [address] Mar, [facility] [place] [facility] [address] [id number] [place] [address] Feb, [facility] [place] [facility] [address] [id number] [place] [address] Feb, [facility] [place] [facility] [address] [id number] [place] [address] Jan, [facility] [place] [facility] [address] [id number] [place] [address] Jan, [facility] [place] [facility] [address] [id number] [place] [address] Jan, [facility] [place] [facility] [address] [id number] [place] [address] Jan, [facility] [place] [facility] [address] [id number] [place] [address] Jan, [facility] [place] [facility] [address] [id number] [place] [address] 16 Jan, 2014 [facility] [place] [facility] [address] [id number] [place] [address] Jan, [facility] [place] [facility] [address] [id number] [place] [address] 13 Jan, 2014 [facility] [place] [facility] [address] [id number] [place] [address] 10 Jan, 2014 [facility] [place] [facility] [address] [id number] [place] [address] Jan, [facility] [place] [facility] [address] [id number] [place] [address] Jan, [facility] [place] [facility] [address] [id number] [place] [address] 15 Dec, 2013 [facility] [place] [facility] [address] [id number] [place] [address] Dec, [facility] [place] [facility] [address] [id number], [place] [address] Nov, [facility] [place] [facility] [address] [id number] [place] [address] Nov, [facility] [place] [facility] [address] [id number] [place] [address] Sep, [facility] [place] [facility] [address] [id number], [place] [address] Sep, [facility] [place] [facility] [address] [id number], [place] [address] Sep, [facility] [place] [facility] [address] [id number] [place] [address] Sep, [facility] [place] [facility] [address] [id number], [place] [address] Jun, [facility] [place] [facility] [address] [id number] [place] [address] Jun, [facility] [place] [facility] [address] [id number] [place] [address] 12 Jun, 2013 [facility] [place] [facility] [address] [id number] [place] [address] 10 Jun, 2013 [facility] [place] [facility] [address] [id number] [place] [address] 10 Jun, 2013 [facility] [place] [facility] [address] [id number] [place] [address] 07 Jun, 2013 [facility] [place] [facility] [address] [id number] [place] [address] 07 Jun, 2013 [facility] [place] [facility] [address] [id number] [place] [address] 05 Jun, 2013 [facility] [place] [facility] [address] [id number] [place] [address] 05 Jun, 2013 [facility] [place] [facility] [address] [id number] [place] [address] 19 Feb, 2013 [facility] [place] [facility] [address] [id number] [place] [address] 19 Feb, 2013 [facility] [place] [facility] [address] [id number] [place] [address] 18 Feb, 2013 [facility] [place] [facility] [address] [id number] [place] [address] 18 Feb, 2013 [facility] [place] [facility] [address] [id number] [place] [address] 15 Feb, 2013 [facility] [place] [facility] [address] [id number] [place] [address] 15 Feb, 2013 [facility] [place] [facility] [address] [id number] [place] [address] 14 Nov, 2012 [facility] [place] [facility] [address] [id number] [place] [address] 03 Oct, 2012 [facility] [place] [facility] [address] [id number] [place] [address] Sep, [facility] [place] [facility] [address] [id number] [place] [address] Sep, [facility] [address] [id number] [place] [address] Sep, [facility] [address] [id number] [place] [address] Sep, [facility] [address] [id number] [place] [address] August, [facility] [address] [id number] [place] [address] Jun, [facility] [address] [id number] [place] [address] Jun, [facility] [address] [id number] [place] [address] Jun, [facility] [address] [id number] [place] [address] Apr, [facility] [address] [id number] [place] [address] Apr, [facility] [address] [id number] [place] [address] Apr, [facility] [address] [id number] [place] [address] Apr, [facility] [address] [id number] [place] [address] Apr, [facility] [address] [id number] [place] [address] Apr, [facility] [place] [facility] [address] [id number] [place] [address] Mar, [facility] [address] [id number] [place] [address] Mar, [facility] [address] [id number], [place] [address] Mar, [facility] [place] [facility] [address] [id number] [place] [address] Mar, [facility] [place] [facility] [address] [id number], [place] [address] Feb, [facility] [place] [facility] [address] [id number] [place] [address] Feb, [facility] [place] [facility] [address] [id number] [place] [address] Feb, [facility] [place] [facility] [address] [id number] [place] [address] Feb, [facility] [place] [facility] [address] [id number] [place] [address] Jan, [facility] [place] [facility] [address] [id number] [place] [address] Jan, [facility] [place] [facility] [address] [id number], [place] [address] Jan, [facility] [place] [facility] [address] [id number] [place] [address] Jan, [facility] [place] [facility] [address] [id number] [place] [address] Jan, [facility] [place] [facility] [address] [id number], [place] [address] Jan, [facility] [place] [facility] [address] [id number], [place] [address] Jan, [facility] [place] [facility] [address] [id number] [place] [address] Jan, [facility] [place] [facility] [address] [facility] [id number], [place] [address] Jan, [facility] [place] [facility] [address] [id number] [place] [address] Jan, [facility] [place] [facility] [address] [facility] [id number] [place] [address] Jan, [facility] [address] [id number], [place] [address] Jan, [facility] [address] [id number], [place] [address] Jan, [facility] [address] [id number], [place] [address] Dec, [facility] [id number], [place] [address] Nov, [facility] [address] [id number], [place] [address] Nov, [facility] [address] [id number], [place] [address] Jan, IMMUNIZATIONS No Known Immunizations SOCIAL HISTORY Never Assessed REASON FOR VISIT EMR-[facility] PLAN OF CARE VITAL SIGNS MEDICATIONS Unknown [...]
--- OUTSIDE RECORDS SUMMARY | 2018-09-13 23:52 | XMS REPORT ---
Author Author Migration, Doctor Organization [facility] Address Unknown Phone Unavailable Care Team Providers Care [employer] Set Up Operator Name Role Phone Migration, Doctor Unavailable Unavailable PROBLEMS Type Condition ICD9-CM Code MEA84-JC Code Onset Dates Condition Status SNOMED Code Problem Hyperlipidemia E78.5 Active 36043906 Problem Insomnia G47.00 Active 056759572 Problem Obstructive sleep apnea syndrome G47.33 Active 77957229 Problem Reactive depression F32.9 Active 53990317 Problem Back pain M54.9 Active 072525134 Problem Erectile dysfunction, unspecified erectile dysfunction type N52.9 Active 786046655 Problem Hypertension I10 Active 53399560 Problem Benign prostatic hyperplasia with lower urinary tract symptoms, unspecified morphology N40.1 Active 614059819 Problem Hypothyroidism, unspecified type E03.9 Active 00167257 Problem Vasculogenic erectile dysfunction, 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 Active 044385770 Problem Adjustment disorder with depressed mood F43.21 Active 84981315 ALLERGIES No Information ENCOUNTERS Encounter Location Date Diagnosis [facility] [address] [address] Jul, Back pain M54.9 [facility] [id number] [place] [address] Jun, Pneumonia of both lower lobes due to infectious organism J18.1 [facility] [id number] [place] [address] Sep, [facility] [address] [address] Sep, [facility] [address] [address] August, Abnormal PSA R97.20 [facility] [address] [address] August, Erectile dysfunction, unspecified erectile dysfunction type N52.9 ; Benign prostatic hyperplasia with lower urinary tract symptoms, unspecified morphology N40.1 and Hypertension I10 [facility] [id number] [place] [address] May, Back pain M54.9 and Insomnia G47.00 [facility] [id number] [place] [address] May, Hyperlipidemia E78.5 ; Hypertension I10 and Hypothyroidism, unspecified type E03.9 [facility] [address] [address] May, Hypertension I10 ; Back pain M54.9 ; Hypothyroidism, unspecified type E03.9 and Hyperlipidemia E78.5 [facility] [id number] [place] [address] Apr, [facility] [address] [address] Apr, Insomnia G47.00 ; Back pain M54.9 and Vasculogenic erectile dysfunction, 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 [facility] [address] [address] Apr, Insomnia G47.00 [facility] [id number] [place] [address] Mar, [facility] [id number] [place] [address] Mar, Insomnia G47.00 [facility] [id number] [place] [address] Feb, [facility] [id number] [place] [address] Feb, Hypothyroidism, unspecified type E03.9 and Insomnia G47.00 [facility] [id number] [place] [address] Jan, Insomnia G47.00 [facility] [id number] [place] [address] Jan, [facility] [id number] [place] [address] Jan, Adjustment disorder with depressed mood F43.21 [facility] [id number] [place] [address] Jan, Adjustment disorder with depressed mood F43.21 [facility] [id number] [place] [address] Jan, Hypothyroidism, unspecified type E03.9 and Reactive depression F32.9 [facility] [id number] [place] [address] Jan, Adjustment disorder with depressed mood F43.21 [facility] [id number] [place] [address] Dec, Insomnia G47.00 and Back pain M54.9 [place] [id number] [place] [address] Nov, Hyperlipidemia E78.5 ; Hypertension I10 and Hypothyroidism, unspecified type E03.9 [facility] [id number] [place] [address] Oct, Hyperlipidemia E78.5 ; Hypertension I10 ; Insomnia G47.00 and Hypothyroidism, unspecified type E03.9 [facility] [id number] [place] [address] August, Hypothyroidism, unspecified type E03.9 [facility] [id number] [place] [address] Jun, Hyperlipidemia E78.5 [facility] [id number] [place] [address] May, Back pain M54.9 and Insomnia G47.00 [place] [id number] [place] [address] May, [facility] [id number] [place] [address] Apr, [facility] [id number] [place] [address] Apr, Back pain M54.9 ; Hyperlipidemia E78.5 ; High risk sexual behavior Z72.51 and Vasculogenic erectile dysfunction, 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 [facility] [id number] [place] [address] Mar, Hyperlipidemia E78.5 [facility] [address] [address] Feb, [facility] [id number] [place] [address] Jan, [facility] [id number] [place] [address] Jan, Hypertension I10 ; Hypothyroidism, unspecified type E03.9 and Hyperlipidemia E78.5 [facility] [id number] [place] [address] Jan, Hypertension I10 ; Hyperlipidemia E78.5 ; Back pain M54.9 ; Hypothyroidism, unspecified type E03.9 and Benign prostatic hyperplasia with lower urinary tract symptoms, unspecified morphology N40.1 [facility] [id number] [place] [address] Oct, [facility] [id number] [place] [address] Oct, Back pain M54.9 and Obstructive sleep apnea syndrome G47.33 [facility] [id number] [place] [address] Oct, [facility] [id number] [place] [address] August, Dermatitis L30.9 [facility] [address] [place] [address] 10 Jun, 2015 Hypertension I10 ; Back pain M54.9 ; Hyperlipidemia E78.5 and Insomnia G47.00 [facility] [id number] [place] [address] 18 May, 2015 [facility] [id number] [place] [address] Mar, Insomnia G47.00 [facility] [address] [address] Mar, [facility] [address] [address] Feb, Hyperlipidemia E78.5 ; Encounter for immunization Z23 ; Hypertension I10 and Back pain M54.9 [facility] [id number] [place] [address] Jan, Encounter for immunization Z23 ; Hypertension I10 ; Hyperlipidemia E78.5 and Back pain M54.9 [facility] [id number] [place] [address] Jan, [facility] [id number] [place] [address] Sep, [facility] [id number] [place] [address] Sep, [facility] [id number] [place] [address] 14 Jul, 2014 [facility] [id number] [place] [address] 13 Jul, 2014 [facility] [id number] [place] [address] Jun, [facility] [id number] [place] [address] 11 May, 2014 [facility] [id number] [place] [address] May, 2014 [facility] [place] [facility] [address] [id number] [place] [address] May, 2014 [facility] [place] [facility] [address] [id number] [place] [address] May, 2014 [facility] [place] [facility] [address] [facility] [id number] [place] [address] May, 2014 [facility] [place] [facility] [address] [id number] [place] [address] May, 2014 [facility] [place] [facility] [address] [id number] [place] [address] May, 2014 [facility] [place] [facility] [address] [facility] [id number] [place] [address] May, 2014 [facility] [place] [facility] [address] [facility] [id number] [place] [address] May, [facility] [place] [facility] [address] [facility] [id number] [place] [address] Apr, [facility] [place] [facility] [address] [facility] [id number] [place] [address] Apr, [facility] [place] [facility] [address] [facility] [id number] [place] [address] Apr, [facility] [place] [facility] [address] [facility] [id number] [place] [address] Apr, [facility] [place] [facility] [address] [facility] [id number] [place] [address] Apr, [facility] [place] [facility] [address] [id number] [place] [address] Apr, [facility] [place] [facility] [address] [facility] [id number] [place] [address] Apr, [facility] [place] [facility] [address] [facility] [id number] [place] [address] Apr, [facility] [place] [facility] [address] [id number] [place] [address] Apr, [facility] [place] [facility] [address] [id number] [place] [address] Apr, [facility] [place] [facility] [address] [id number] [place] [address] Mar, [facility] [place] [facility] [address] [id number] [place] [address] Mar, [facility] [place] [facility] [address] [id number] [place] [address] Mar, [facility] [place] [facility] [address] [id number] [place] [address] Mar, [facility] [place] [facility] [address] [id number] [place] [address] Mar, [facility] [place] [facility] [address] [id number] [place] [address] Mar, [facility] [place] [facility] [address] [id number] [place] [address] Feb, [facility] [place] [facility] [address] [id number] [place] [address] Feb, [facility] [place] [facility] [address] [id number] [place] [address] Jan, [facility] [place] [facility] [address] [id number] [place] [address] Jan, [facility] [place] [facility] [address] [id number] [place] [address] Jan, [facility] [place] [facility] [address] [id number] [place] [address] Jan, [facility] [place] [facility] [address] [id number] [place] [address] Jan, [facility] [place] [facility] [address] [id number] [place] [address] 16 Jan, 2014 [facility] [place] [facility] [address] [id number] [place] [address] Jan, [facility] [place] [facility] [address] [id number] [place] [address] 13 Jan, 2014 [facility] [place] [facility] [address] [id number] [place] [address] 10 Jan, 2014 [facility] [place] [facility] [address] [id number] [place] [address] Jan, [facility] [place] [facility] [address] [id number] [place] [address] Jan, [facility] [place] [facility] [address] [id number] [place] [address] 15 Dec, 2013 [facility] [place] [facility] [address] [id number] [place] [address] Dec, [facility] [place] [facility] [address] [id number] [place] [address] Nov, [facility] [place] [facility] [address] [id number] [place] [address] Nov, [facility] [place] [facility] [address] [id number] [place] [address] Sep, [facility] [place] [facility] [address] [id number] [place] [address] Sep, [facility] [place] [facility] [address] [id number] [place] [address] Sep, [facility] [place] [facility] [address] [id number] [place] [address] Sep, [facility] [place] [facility] [address] [id number] [place] [address] Jun, [facility] [place] [facility] [address] [id number] [place] [address] Jun, [facility] [place] [facility] [address] [id number] [place] [address] 12 Jun, 2013 [facility] [place] [facility] [address] [id number] [place] [address] 10 Jun, 2013 [facility] [place] [facility] [address] [id number] [place] [address] 10 Jun, 2013 [facility] [place] [facility] [address] [id number] [place] [address] 07 Jun, 2013 [facility] [place] [facility] [address] [id number] [place] [address] 07 Jun, 2013 [facility] [place] [facility] [address] [id number] [place] [address] 05 Jun, 2013 [facility] [place] [facility] [address] [id number] [place] [address] 05 Jun, 2013 [facility] [place] [facility] [address] [id number] [place] [address] 19 Feb, 2013 [facility] [place] [facility] [address] [id number] [place] [address] 19 Feb, 2013 [facility] [place] [facility] [address] [id number] [place] [address] 18 Feb, 2013 [facility] [place] [facility] [address] [id number] [place] [address] 18 Feb, 2013 [facility] [place] [facility] [address] [id number] [place] [address] 15 Feb, 2013 [facility] [place] [facility] [address] [id number] [place] [address] 15 Feb, 2013 [facility] [place] [facility] [address] [id number] [place] [address] 14 Nov, 2012 [facility] [place] [facility] [address] [id number] [place] [address] 03 Oct, 2012 [facility] [place] [facility] [address] [id number] [place] [address] Sep, [facility] [place] [facility] [address] [id number] [place] [address] Sep, [facility] [address] [id number] [place] [address] Sep, [facility] [address] [id number] [place] [address] Sep, [facility] [address] [id number] [place] [address] August, [facility] [address] [id number] [place] [address] Jun, [facility] [address] [id number] [place] [address] Jun, [facility] [address] [id number] [place] [address] Jun, [facility] [address] [id number] [place] [address] Apr, [facility] [address] [id number] [place] [address] Apr, [facility] [address] [id number] [place] [address] Apr, [facility] [address] [id number] [place] [address] Apr, [facility] [address] [id number] [place] [address] Apr, [facility] [address] [id number] [place] [address] Apr, [facility] [place] [facility] [address] [id number] [place] [address] Mar, [facility] [address] [id number] [place] [address] Mar, [facility] [address] [id number] [place] [address] Mar, [facility] [place] [facility] [address] [id number] [place] [address] Mar, [facility] [place] [facility] [address] [id number] [place] [address] Feb, [facility] [place] [facility] [address] [id number] [place] [address] Feb, [facility] [place] [facility] [address] [id number] [place] [address] Feb, [facility] [place] [facility] [address] [id number] [place] [address] Feb, [facility] [place] [facility] [address] [id number] [place] [address] Jan, [facility] [place] [facility] [address] [id number] [place] [address] Jan, [facility] [place] [facility] [address] [id number] [place] [address] Jan, [facility] [place] [facility] [address] [id number] [place] [address] Jan, [facility] [place] [facility] [address] [id number] [place] [address] Jan, [facility] [place] [facility] [address] [id number] [place] [address] Jan, [facility] [place] [facility] [address] [id number] [place] [address] Jan, [facility] [place] [facility] [address] [id number] [place] [address] Jan, [facility] [place] [facility] [address] [facility] [id number] [place] [address] Jan, [facility] [place] [facility] [address] [id number] [place] [address] Jan, [facility] [place] [facility] [address] [facility] [id number] [place] [address] Jan, [facility] [address] [id number] [place] [address] Jan, [facility] [address] [id number] [place] [address] Jan, [facility] [address] [id number] [place] [address] Dec, [facility] [id number] [place] [address] Nov, [facility] [address] [id number] [place] [address] Nov, [facility] [address] [id number] [place] [address] Jan, IMMUNIZATIONS No Known Immunizations SOCIAL HISTORY Never Assessed REASON FOR VISIT EMR-[facility] [place] PLAN OF CARE VITAL SIGNS MEDICATIONS Unknown [...]
--- OUTSIDE RECORDS SUMMARY | 2018-09-13 23:52 | XMS REPORT ---
Author Author Migration, Doctor Organization [facility] Address Unknown Phone Unavailable Care Team Providers Care Corporate Quality Engineer Name Role Phone Migration, Doctor Unavailable Unavailable PROBLEMS Type Condition ICD9-CM Code JIO28-AT Code Onset Dates Condition Status SNOMED Code Problem Hyperlipidemia E78.5 Active 56401330 Problem Insomnia G47.00 Active 183042404 Problem Obstructive sleep apnea syndrome G47.33 Active 47278121 Problem Reactive depression F32.9 Active 41275057 Problem Back pain M54.9 Active 377094813 Problem Erectile dysfunction, unspecified erectile dysfunction type N52.9 Active 003991643 Problem Hypertension I10 Active 61372020 Problem Benign prostatic hyperplasia with lower urinary tract symptoms, unspecified morphology N40.1 Active 660119145 Problem Hypothyroidism, unspecified type E03.9 Active 19813333 Problem Vasculogenic erectile dysfunction, 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 Active 614087358 Problem Adjustment disorder with depressed mood F43.21 Active 97546425 ALLERGIES No Information ENCOUNTERS Encounter Location Date Diagnosis [facility] [address] [address] Jul, Back pain M54.9 [facility] [id number] [place] [address] Jun, Pneumonia of both lower lobes due to infectious organism J18.1 [facility] [id number] [place] [address] Sep, [facility] [address] [address] Sep, [facility] [address] [address] August, Abnormal PSA R97.20 [facility] [address] [address] August, Erectile dysfunction, unspecified erectile dysfunction type N52.9 ; Benign prostatic hyperplasia with lower urinary tract symptoms, unspecified morphology N40.1 and Hypertension I10 [place] [id number] [place] [address] May, Back pain M54.9 and Insomnia G47.00 [place] [id number] [place] [address] May, Hyperlipidemia E78.5 ; Hypertension I10 and Hypothyroidism, unspecified type E03.9 [place] [address] [address] May, Hypertension I10 ; Back pain M54.9 ; Hypothyroidism, unspecified type E03.9 and Hyperlipidemia E78.5 [place] [id number] [place] [address] Apr, [place] [address] [address] Apr, Insomnia G47.00 ; Back pain M54.9 and Vasculogenic erectile dysfunction, 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 [place] [address] [address] Apr, Insomnia G47.00 [place] [id number] [place] [address] Mar, [place] [id number] [place] [address] Mar, Insomnia G47.[address] [facility] [address] [id number] [place] [address] Feb, [place] [id number] [place] [address] Feb, Hypothyroidism, unspecified type E03.9 and Insomnia G47.00 [place] [id number] [place] [address] Jan, Insomnia G47.00 [facility] [id number] [place] [address] Jan, [facility] [id number] [place] [address] Jan, Adjustment disorder with depressed mood F43.21 [facility] [id number] [place] [address] Jan, Adjustment disorder with depressed mood F43.21 [facility] [id number] [place] [address] Jan, Hypothyroidism, unspecified type E03.9 and Reactive depression F32.9 [place] [id number] [place] [address] Jan, Adjustment disorder with depressed mood F43.21 [place] [id number] [place] [address] Dec, Insomnia G47.00 and Back pain M54.9 [place] [id number] [place] [address] Nov, Hyperlipidemia E78.5 ; Hypertension I10 and Hypothyroidism, unspecified type E03.9 [place] [id number] [place] [address] Oct, Hyperlipidemia E78.5 ; Hypertension I10 ; Insomnia G47.00 and Hypothyroidism, unspecified type E03.9 [place] [id number] [place] [address] August, Hypothyroidism, unspecified type E03.9 [place] [id number] [place] [address] Jun, Hyperlipidemia E78.5 [place] [id number] [place] [address] May, Back pain M54.9 and Insomnia G47.00 [place] [id number] [place] [address] May, [facility] [id number] [place] [address] Apr, [facility] [id number] [place] [address] Apr, Back pain M54.9 ; Hyperlipidemia E78.5 ; High risk sexual behavior Z72.51 and Vasculogenic erectile dysfunction, 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 [facility] [id number] [place] [address] Mar, Hyperlipidemia E78.5 [place] [address] [address] Feb, [facility] [id number] [place] [address] Jan, [place] [id number] [place] [address] Jan, Hypertension I10 ; Hypothyroidism, unspecified type E03.9 and Hyperlipidemia E78.5 [facility] [id number] [place] [address] Jan, Hypertension I10 ; Hyperlipidemia E78.5 ; Back pain M54.9 ; Hypothyroidism, unspecified type E03.9 and Benign prostatic hyperplasia with lower urinary tract symptoms, unspecified morphology N40.1 [place] [id number] [place] [address] Oct, [facility] [id number] [place] [address] Oct, Back pain M54.9 and Obstructive sleep apnea syndrome G47.33 [facility] [id number] [place] [address] Oct, [facility] [id number] [place] [address] August, Dermatitis L30.9 [facility] [address] [place] [address] 10 Jun, 2015 Hypertension I10 ; Back pain M54.9 ; Hyperlipidemia E78.5 and Insomnia G47.00 [facility] [id number] [place] [address] 18 May, 2015 [facility] [id number] [place] [address] Mar, Insomnia G47.00 [facility] [address] [address] Mar, [facility] [address] [address] Feb, Hyperlipidemia E78.5 ; Encounter for immunization Z23 ; Hypertension I10 and Back pain M54.9 [facility] [id number] [place] [address] Jan, Encounter for immunization Z23 ; Hypertension I10 ; Hyperlipidemia E78.5 and Back pain M54.9 [facility] [id number] [place] [address] Jan, [facility] [id number] [place] [address] Sep, [facility] [id number] [place] [address] Sep, [facility] [id number] [place] [address] 14 Jul, 2014 [facility] [id number] [place] [address] 13 Jul, 2014 [facility] [id number] [place] [address] Jun, [facility] [id number] [place] [address] 11 May, 2014 [facility] [id number] [place] [address] May, 2014 [facility] [place] [facility] [address] [id number] [place] [address] May, 2014 [facility] [place] [facility] [address] [id number] [place] [address] May, 2014 [facility] [place] [facility] [address] [facility] [id number] [place] [address] May, 2014 [facility] [place] [facility] [address] [id number] [address] May, 2014 [facility] [place] [facility] [address] [id number] [place] [address] May, 2014 [facility] [place] [facility] [address] [facility] [id number] [place] [address] May, 2014 [facility] [place] [facility] [address] [facility] [id number] [address] May, [facility] [place] [facility] [address] [facility] [id number] [place] [address] Apr, [facility] [place] [facility] [address] [facility] [id number] [place] [address] Apr, [facility] [place] [facility] [address] [facility] [id number] [address] Apr, [facility] [place] [facility] [address] [facility] [id number] [place] [address] Apr, [facility] [place] [facility] [address] [facility] [id number] [address] Apr, [facility] [place] [facility] [address] [id number] [address] Apr, [facility] [place] [facility] [address] [facility] [id number] [place] [address] Apr, [facility] [place] [facility] [address] [facility] [id number] [place] [address] Apr, [facility] [place] [facility] [address] [id number] [place] [address] Apr, [facility] [place] [facility] [address] [id number] [place] [address] Apr, [facility] [place] [facility] [address] [id number] [place] [address] Mar, [facility] [place] [facility] [address] [id number] [place] [address] Mar, [facility] [place] [facility] [address] [id number] [place] [address] Mar, [facility] [place] [facility] [address] [id number] [place] [address] Mar, [facility] [place] [facility] [address] [id number] [place] [address] Mar, [facility] [place] [facility] [address] [id number] [place] [address] Mar, [facility] [place] [facility] [address] [id number] [place] [address] Feb, [facility] [place] [facility] [address] [id number] [place] [address] Feb, [facility] [place] [facility] [address] [id number] [place] [address] Jan, [facility] [place] [facility] [address] [id number] [place] [address] Jan, [facility] [place] [facility] [address] [id number] [place] [address] Jan, [facility] [place] [facility] [address] [id number] [place] [address] Jan, [facility] [place] [facility] [address] [id number] [place] [address] Jan, [facility] [place] [facility] [address] [id number] [place] [address] 16 Jan, 2014 [facility] [place] [facility] [address] [id number] [place] [address] Jan, [facility] [place] [facility] [address] [id number] [place] [address] 13 Jan, 2014 [facility] [place] [facility] [address] [id number] [place] [address] 10 Jan, 2014 [facility] [place] [facility] [address] [id number] [place] [address] Jan, [facility] [place] [facility] [address] [id number] [place] [address] Jan, [facility] [place] [facility] [address] [id number] [place] [address] 15 Dec, 2013 [facility] [place] [facility] [address] [id number] [place] [address] Dec, [facility] [place] [facility] [address] [id number] [address] Nov, [facility] [place] [facility] [address] [id number] [place] [address] Nov, [facility] [place] [facility] [address] [id number] [place] [address] Sep, [facility] [place] [facility] [address] [id number] [address] Sep, [facility] [place] [facility] [address] [id number] [place] [address] Sep, [facility] [place] [facility] [address] [id number] [place] [address] Sep, [facility] [place] [facility] [address] [id number] [place] [address] Jun, [facility] [place] [facility] [address] [id number] [place] [address] Jun, [facility] [place] [facility] [address] [id number] [place] [address] 12 Jun, 2013 [facility] [place] [facility] [address] [id number] [place] [address] 10 Jun, 2013 [facility] [place] [facility] [address] [id number] [place] [address] 10 Jun, 2013 [facility] [place] [facility] [address] [id number] [place] [address] 07 Jun, 2013 [facility] [place] [facility] [address] [id number] [place] [address] 07 Jun, 2013 [facility] [place] [facility] [address] [id number] [place] [address] 05 Jun, 2013 [facility] [place] [facility] [address] [id number] [place] [address] 05 Jun, 2013 [facility] [place] [facility] [address] [id number] [place] [address] 19 Feb, 2013 [facility] [place] [facility] [address] [id number] [place] [address] 19 Feb, 2013 [facility] [place] [facility] [address] [id number] [place] [address] 18 Feb, 2013 [facility] [place] [facility] [address] [id number] [place] [address] 18 Feb, 2013 [facility] [place] [facility] [address] [id number] [place] [address] 15 Feb, 2013 [facility] [place] [facility] [address] [id number] [place] [address] 15 Feb, 2013 [facility] [place] [facility] [address] [id number] [place] [address] 14 Nov, 2012 [facility] [place] [facility] [address] [id number] [place] [address] 03 Oct, 2012 [facility] [place] [facility] [address] [id number] [place] [address] Sep, [facility] [place] [facility] [address] [id number] [place] [address] Sep, [facility] [address] [id number] [place] [address] Sep, [facility] [address] [id number] [place] [address] Sep, [facility] [address] [id number] [place] [address] August, [facility] [address] [id number] [place] [address] Jun, [facility] [address] [id number] [place] [address] Jun, [facility] [address] [id number] [place] [address] Jun, [facility] [address] [id number] [place] [address] Apr, [facility] [address] [id number] [place] [address] Apr, [facility] [address] [id number] [place] [address] Apr, [facility] [address] [id number] [place] [address] Apr, [facility] [address] [id number] [place] [address] Apr, [facility] [address] [id number] [place] [address] Apr, [facility] [place] [facility] [address] [id number] [place] [address] Mar, [facility] [address] [id number] [place] [address] Mar, [facility] [address] [id number] [address] Mar, [facility] [place] [facility] [address] [id number] [place] [address] Mar, [facility] [place] [facility] [address] [id number] [address] Feb, [facility] [place] [facility] [address] [id number] [place] [address] Feb, [facility] [place] [facility] [address] [id number] [place] [address] Feb, [facility] [place] [facility] [address] [id number] [place] [address] Feb, [facility] [place] [facility] [address] [id number] [place] [address] Jan, [facility] [place] [facility] [address] [id number] [place] [address] Jan, [facility] [place] [facility] [address] [id number] [address] Jan, [facility] [place] [facility] [address] [id number] [place] [address] Jan, [facility] [place] [facility] [address] [id number] [place] [address] Jan, [facility] [place] [facility] [address] [id number] [address] Jan, [facility] [place] [facility] [address] [id number] [place] [address] Jan, [facility] [place] [facility] [address] [id number] [place] [address] Jan, [facility] [place] [facility] [address] [facility] [id number] [place] [address] Jan, [facility] [place] [facility] [address] [id number] [place] [address] Jan, [facility] [place] [facility] [address] [facility] [id number] [place] [address] Jan, [facility] [address] [id number] [address] Jan, [facility] [address] [id number] [address] Jan, [facility] [address] [id number] [address] Dec, [facility] [id number] [address] Nov, [facility] [address] [id number] [address] Nov, [facility] [address] [id number] [address] Jan, IMMUNIZATIONS No Known Immunizations SOCIAL HISTORY Never Assessed REASON FOR VISIT EMR-[facility] PLAN OF CARE VITAL SIGNS MEDICATIONS Unknown [...]
--- OUTSIDE RECORDS SUMMARY | 2018-09-13 23:53 | XMS REPORT ---
Author Author Migration, Doctor Organization [facility] Address Unknown Phone Unavailable Care Team Providers Care Manager Staffing Name Role Phone Migration, Doctor Unavailable Unavailable PROBLEMS Type Condition ICD9-CM Code BRW10-HO Code Onset Dates Condition Status SNOMED Code Problem Hyperlipidemia E78.5 Active 42527348 Problem Insomnia G47.00 Active 017715736 Problem Obstructive sleep apnea syndrome G47.33 Active 70765657 Problem Reactive depression F32.9 Active 34230242 Problem Back pain M54.9 Active 729156734 Problem Erectile dysfunction, unspecified erectile dysfunction type N52.9 Active 182350157 Problem Hypertension I10 Active 69950234 Problem Benign prostatic hyperplasia with lower urinary tract symptoms, unspecified morphology N40.1 Active 283918757 Problem Hypothyroidism, unspecified type E03.9 Active 59841042 Problem Vasculogenic erectile dysfunction, 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 Active 122387515 Problem Adjustment disorder with depressed mood F43.21 Active 36309692 ALLERGIES No Information ENCOUNTERS Encounter Location Date Diagnosis [facility] [address] [address] Jul, Back pain M54.9 [facility] [id number] [place] [address] Jun, Pneumonia of both lower lobes due to infectious organism J18.1 [facility] [id number] [place] [address] Sep, [facility] [address] [address] Sep, [facility] [address] [address] August, Abnormal PSA R97.20 [facility] [address] [address] August, Erectile dysfunction, unspecified erectile dysfunction type N52.9 ; Benign prostatic hyperplasia with lower urinary tract symptoms, unspecified morphology N40.1 and Hypertension I10 [facility] [id number] [place] [address] May, Back pain M54.9 and Insomnia G47.00 [place] [facility] [id number] [place] [address] May, Hyperlipidemia E78.5 ; Hypertension I10 and Hypothyroidism, unspecified type E03.9 [place] [address] [address] May, Hypertension I10 ; Back pain M54.9 ; Hypothyroidism, unspecified type E03.9 and Hyperlipidemia E78.5 [place] [facility] [id number] [place] [address] Apr, [place] [address] [address] Apr, Insomnia G47.00 ; Back pain M54.9 and Vasculogenic erectile dysfunction, 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 [place] [address] [address] Apr, Insomnia G47.00 [place] [facility] [id number] [place] [address] Mar, [place] [facility] [id number] [place] [address] Mar, Insomnia G47.00 [facility] [address] [id number] [place] [address] Feb, [place] [id number] [place] [address] Feb, Hypothyroidism, unspecified type E03.9 and Insomnia G47.00 [place] [id number] [place] [address] Jan, Insomnia G47.00 [facility] [id number] [place] [address] Jan, [facility] [id number] [place] [address] Jan, Adjustment disorder with depressed mood F43.21 [facility] [id number] [place] [address] Jan, Adjustment disorder with depressed mood F43.21 [facility] [id number] [place] [address] Jan, Hypothyroidism, unspecified type E03.9 and Reactive depression F32.9 [place] [id number] [place] [address] Jan, Adjustment disorder with depressed mood F43.21 [place] [id number] [place] [address] Dec, Insomnia G47.00 and Back pain M54.9 [place] [facility] [id number] [place] [address] Nov, Hyperlipidemia E78.5 ; Hypertension I10 and Hypothyroidism, unspecified type E03.9 [place] [id number] [place] [address] Oct, Hyperlipidemia E78.5 ; Hypertension I10 ; Insomnia G47.00 and Hypothyroidism, unspecified type E03.9 [place] [id number] [place] [address] August, Hypothyroidism, unspecified type E03.9 [place] [id number] [place] [address] Jun, Hyperlipidemia E78.5 [place] [facility] [id number] [place] [address] May, Back pain M54.9 and Insomnia G47.00 [place] [id number] [place] [address] May, [facility] [id number] [place] [address] Apr, [facility] [id number] [place] [address] Apr, Back pain M54.9 ; Hyperlipidemia E78.5 ; High risk sexual behavior Z72.51 and Vasculogenic erectile dysfunction, 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 [facility] [id number] [place] [address] Mar, Hyperlipidemia E78.5 [place] [address] [address] Feb, [facility] [id number] [place] [address] Jan, [place] [id number] [place] [address] Jan, Hypertension I10 ; Hypothyroidism, unspecified type E03.9 and Hyperlipidemia E78.5 [facility] [id number] [place] [address] Jan, Hypertension I10 ; Hyperlipidemia E78.5 ; Back pain M54.9 ; Hypothyroidism, unspecified type E03.9 and Benign prostatic hyperplasia with lower urinary tract symptoms, unspecified morphology N40.1 [place] [id number] [place] [address] Oct, [facility] [id number] [place] [address] Oct, Back pain M54.9 and Obstructive sleep apnea syndrome G47.33 [facility] [id number] [place] [address] Oct, [facility] [id number] [place] [address] August, Dermatitis L30.9 [facility] [address] [place] [address] 10 Jun, 2015 Hypertension I10 ; Back pain M54.9 ; Hyperlipidemia E78.5 and Insomnia G47.00 [facility] [id number] [place] [address] 18 May, 2015 [facility] [id number] [place] [address] Mar, Insomnia G47.00 [facility] [address] [address] Mar, [facility] [address] [address] Feb, Hyperlipidemia E78.5 ; Encounter for immunization Z23 ; Hypertension I10 and Back pain M54.9 [facility] [id number] [place] [address] Jan, Encounter for immunization Z23 ; Hypertension I10 ; Hyperlipidemia E78.5 and Back pain M54.9 [facility] [id number] [place] [address] Jan, [facility] [id number] [place] [address] Sep, [facility] [id number] [place] [address] Sep, [facility] [id number] [place] [address] 14 Jul, 2014 [facility] [id number] [place] [address] 13 Jul, 2014 [facility] [id number] [place] [address] Jun, [facility] [id number] [place] [address] 11 May, 2014 [facility] [id number] [place] [address] May, 2014 [facility] [place] [facility] [address] [id number] [place] [address] May, 2014 [facility] [place] [facility] [address] [id number] [place] [address] May, 2014 [facility] [place] [facility] [address] [facility] [id number] [place] [address] May, 2014 [facility] [place] [facility] [address] [id number] [place] [address] May, 2014 [facility] [place] [facility] [address] [id number] [place] [address] May, 2014 [facility] [place] [facility] [address] [facility] [id number] [place] [address] May, 2014 [facility] [place] [facility] [address] [facility] [id number] [place] [address] May, [facility] [place] [facility] [address] [facility] [id number] [place] [address] Apr, [facility] [place] [facility] [address] [facility] [id number] [place] [address] Apr, [facility] [place] [facility] [address] [facility] [id number] [place] [address] Apr, [facility] [place] [facility] [address] [facility] [id number] [place] [address] Apr, [facility] [place] [facility] [address] [facility] [id number] [place] [address] Apr, [facility] [place] [facility] [address] [id number] [place] [address] Apr, [facility] [place] [facility] [address] [facility] [id number] [place] [address] Apr, [facility] [place] [facility] [address] [facility] [id number] [place] [address] Apr, [facility] [place] [facility] [address] [id number] [place] [address] Apr, [facility] [place] [facility] [address] [id number] [place] [address] Apr, [facility] [place] [facility] [address] [id number] [place] [address] Mar, [facility] [place] [facility] [address] [id number] [place] [address] Mar, [facility] [place] [facility] [address] [id number] [place] [address] Mar, [facility] [place] [facility] [address] [id number] [place] [address] Mar, [facility] [place] [facility] [address] [id number] [place] [address] Mar, [facility] [place] [facility] [address] [id number] [place] [address] Mar, [facility] [place] [facility] [address] [id number] [place] [address] Feb, [facility] [place] [facility] [address] [id number] [place] [address] Feb, [facility] [place] [facility] [address] [id number] [place] [address] Jan, [facility] [place] [facility] [address] [id number] [place] [address] Jan, [facility] [place] [facility] [address] [id number] [place] [address] Jan, [facility] [place] [facility] [address] [id number] [place] [address] Jan, [facility] [place] [facility] [address] [id number] [place] [address] Jan, [facility] [place] [facility] [address] [id number] [place] [address] 16 Jan, 2014 [facility] [place] [facility] [address] [id number] [place] [address] Jan, [facility] [place] [facility] [address] [id number] [place] [address] 13 Jan, 2014 [facility] [place] [facility] [address] [id number] [place] [address] 10 Jan, 2014 [facility] [place] [facility] [address] [id number] [place] [address] Jan, [facility] [place] [facility] [address] [id number] [place] [address] Jan, [facility] [place] [facility] [address] [id number] [place] [address] 15 Dec, 2013 [facility] [place] [facility] [address] [id number] [place] [address] Dec, [facility] [place] [facility] [address] [id number] [place] [address] Nov, [facility] [place] [facility] [address] [id number] [place] [address] Nov, [facility] [place] [facility] [address] [id number] [place] [address] Sep, [facility] [place] [facility] [address] [id number] [place] [address] Sep, [facility] [place] [facility] [address] [id number] [place] [address] Sep, [facility] [place] [facility] [address] [id number] [place] [address] Sep, [facility] [place] [facility] [address] [id number] [place] [address] Jun, [facility] [place] [facility] [address] [id number] [place] [address] Jun, [facility] [place] [facility] [address] [id number] [place] [address] 12 Jun, 2013 [facility] [place] [facility] [address] [id number] [place] [address] 10 Jun, 2013 [facility] [place] [facility] [address] [id number] [place] [address] 10 Jun, 2013 [facility] [place] [facility] [address] [id number] [place] [address] 07 Jun, 2013 [facility] [place] [facility] [address] [id number] [place] [address] 07 Jun, 2013 [facility] [place] [facility] [address] [id number] [place] [address] 05 Jun, 2013 [facility] [place] [facility] [address] [id number] [place] [address] 05 Jun, 2013 [facility] [place] [facility] [address] [id number] [place] [address] 19 Feb, 2013 [facility] [place] [facility] [address] [id number] [place] [address] 19 Feb, 2013 [facility] [place] [facility] [address] [id number] [place] [address] 18 Feb, 2013 [facility] [place] [facility] [address] [id number] [place] [address] 18 Feb, 2013 [facility] [place] [facility] [address] [id number] [place] [address] 15 Feb, 2013 [facility] [place] [facility] [address] [id number] [place] [address] 15 Feb, 2013 [facility] [place] [facility] [address] [id number] [place] [address] 14 Nov, 2012 [facility] [place] [facility] [address] [id number] [place] [address] 03 Oct, 2012 [facility] [place] [facility] [address] [id number] [place] [address] Sep, [facility] [place] [facility] [address] [id number] [place] [address] Sep, [facility] [address] [id number] [place] [address] Sep, [facility] [address] [id number] [place] [address] Sep, [facility] [address] [id number] [place] [address] August, [facility] [address] [id number] [place] [address] Jun, [facility] [address] [id number] [place] [address] Jun, [facility] [address] [id number] [place] [address] Jun, [facility] [address] [id number] [place] [address] Apr, [facility] [address] [id number] [place] [address] Apr, [facility] [address] [id number] [place] [address] Apr, [facility] [address] [id number] [place] [address] Apr, [facility] [address] [id number] [place] [address] Apr, [facility] [address] [id number] [place] [address] Apr, [facility] [place] [facility] [address] [id number] [place] [address] Mar, [facility] [address] [id number] [place] [address] Mar, [facility] [address] [id number] [place] [address] Mar, [facility] [place] [facility] [address] [id number] [place] [address] Mar, [facility] [place] [facility] [address] [id number] [place] [address] Feb, [facility] [place] [facility] [address] [id number] [place] [address] Feb, [facility] [place] [facility] [address] [id number] [place] [address] Feb, [facility] [place] [facility] [address] [id number] [place] [address] Feb, [facility] [place] [facility] [address] [id number] [place] [address] Jan, [facility] [place] [facility] [address] [id number] [place] [address] Jan, [facility] [place] [facility] [address] [id number] [place] [address] Jan, [facility] [place] [facility] [address] [id number] [place] [address] Jan, [facility] [place] [facility] [address] [id number] [place] [address] Jan, [facility] [place] [facility] [address] [id number] [place] [address] Jan, [facility] [place] [facility] [address] [id number] [place] [address] Jan, [facility] [place] [facility] [address] [id number] [place] [address] Jan, [facility] [place] [facility] [address] [facility] [id number] [place] [address] Jan, [facility] [place] [facility] [address] [id number] [place] [address] Jan, [facility] [place] [facility] [address] [facility] [id number] [place] [address] Jan, [facility] [address] [id number] [place] [address] Jan, [facility] [address] [id number] [place] [address] Jan, [facility] [address] [id number] [place] [address] Dec, [facility] [id number] [address] Nov, [facility] [address] [id number] [place] [address] Nov, [facility] [address] [id number] [place] [address] Jan, IMMUNIZATIONS No Known Immunizations SOCIAL HISTORY Never Assessed REASON FOR [place] [place] VITAL SIGNS MEDICATIONS [...]
--- OUTSIDE RECORDS SUMMARY | 2018-09-13 23:53 | XMS REPORT ---
Author Author Migration, Doctor Organization [facility] Address Unknown Phone Unavailable Care Team Providers Care Loom Stop Checker Name Role Phone Migration, Doctor Unavailable Unavailable PROBLEMS Type Condition ICD9-CM Code REZ44-WB Code Onset Dates Condition Status SNOMED Code Problem Hyperlipidemia E78.5 Active 09023372 Problem Insomnia G47.00 Active 594736281 Problem Obstructive sleep apnea syndrome G47.33 Active 50245100 Problem Reactive depression F32.9 Active 44947797 Problem Back pain M54.9 Active 422887271 Problem Erectile dysfunction, unspecified erectile dysfunction type N52.9 Active 041635211 Problem Hypertension I10 Active 46227236 Problem Benign prostatic hyperplasia with lower urinary tract symptoms, unspecified morphology N40.1 Active 224101171 Problem Hypothyroidism, unspecified type E03.9 Active 01490146 Problem Vasculogenic erectile dysfunction, 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 [id number] [place] [address] Jun, Pneumonia of both lower lobes due to infectious organism J18.1 [facility] [id number] [place] [address] Sep, [facility] [address] [address] Sep, [facility] [address] [address] August, Abnormal PSA R97.20 [facility] [address] [address] August, Erectile dysfunction, unspecified erectile dysfunction type N52.9 ; Benign prostatic hyperplasia with lower urinary tract symptoms, unspecified morphology N40.1 and Hypertension I10 [facility] [facility] [id number] [place] [address] May, Back pain M54.9 and Insomnia G47.00 [place] [facility] [id number] [place] [address] May, Hyperlipidemia E78.5 ; Hypertension I10 and Hypothyroidism, unspecified type E03.9 [place] [address] [address] May, Hypertension I10 ; Back pain M54.9 ; Hypothyroidism, unspecified type E03.9 and Hyperlipidemia E78.5 [place] [id number] [place] [address] Apr, [place] [address] [address] Apr, Insomnia G47.00 ; Back pain M54.9 and Vasculogenic erectile dysfunction, 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 [place] [address] [address] Apr, Insomnia G47.00 [place] [id number] [place] [address] Mar, [place] [id number] [place] [address] Mar, Insomnia G47.00 [facility] [address] [id number] [place] [address] Feb, [place] [id number] [place] [address] Feb, Hypothyroidism, unspecified type E03.9 and Insomnia G47.00 [place] [id number] [place] [address] Jan, Insomnia G47.00 [facility] [id number] [place] [address] Jan, [facility] [id number] [place] [address] Jan, Adjustment disorder with depressed mood F43.21 [facility] [id number] [place] [address] Jan, Adjustment disorder with depressed mood F43.21 [facility] [id number] [place] [address] Jan, Hypothyroidism, unspecified type E03.9 and Reactive depression F32.9 [place] [id number] [place] [address] Jan, Adjustment disorder with depressed mood F43.21 [place] [id number] [place] [address] Dec, Insomnia G47.00 and Back pain M54.9 [place] [id number] [place] [address] Nov, Hyperlipidemia E78.5 ; Hypertension I10 and Hypothyroidism, unspecified type E03.9 [place] [id number] [place] [address] Oct, Hyperlipidemia E78.5 ; Hypertension I10 ; Insomnia G47.00 and Hypothyroidism, unspecified type E03.9 [place] [id number] [place] [address] August, Hypothyroidism, unspecified type E03.9 [place] [id number] [place] [address] Jun, Hyperlipidemia E78.5 [place] [id number] [place] [address] May, Back pain M54.9 and Insomnia G47.00 [place] [id number] [place] [address] May, [facility] [id number] [place] [address] Apr, [facility] [id number] [place] [address] Apr, Back pain M54.9 ; Hyperlipidemia E78.5 ; High risk sexual behavior Z72.51 and Vasculogenic erectile dysfunction, 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 [facility] [id number] [place] [address] Mar, Hyperlipidemia E78.5 [place] [address] [address] Feb, [facility] [id number] [place] [address] Jan, [place] [id number] [place] [address] Jan, Hypertension I10 ; Hypothyroidism, unspecified type E03.9 and Hyperlipidemia E78.5 [facility] [id number] [place] [address] Jan, Hypertension I10 ; Hyperlipidemia E78.5 ; Back pain M54.9 ; Hypothyroidism, unspecified type E03.9 and Benign prostatic hyperplasia with lower urinary tract symptoms, unspecified morphology N40.1 [place] [id number] [place] [address] Oct, [facility] [id number] [place] [address] Oct, Back pain M54.9 and Obstructive sleep apnea syndrome G47.33 [facility] [id number] [place] [address] Oct, [facility] [id number] [place] [address] August, Dermatitis L30.9 [facility] [address] [place] [address] 10 Jun, 2015 Hypertension I10 ; Back pain M54.9 ; Hyperlipidemia E78.5 and Insomnia G47.00 [facility] [id number] [place] [address] 18 May, 2015 [facility] [id number] [place] [address] Mar, Insomnia G47.00 [facility] [address] [address] Mar, [facility] [address] [address] Feb, Hyperlipidemia E78.5 ; Encounter for immunization Z23 ; Hypertension I10 and Back pain M54.9 [facility] [id number] [place] [address] Jan, Encounter for immunization Z23 ; Hypertension I10 ; Hyperlipidemia E78.5 and Back pain M54.9 [facility] [id number] [place] [address] Jan, [facility] [id number] [place] [address] Sep, [facility] [id number] [place] [address] Sep, [facility] [id number] [place] [address] 14 Jul, 2014 [facility] [id number] [place] [address] 13 Jul, 2014 [facility] [id number] [place] [address] Jun, [facility] [id number] [place] [address] 11 May, 2014 [facility] [id number] [place] [address] May, 2014 [facility] [place] [facility] [address] [id number] [place] [address] May, 2014 [facility] [place] [facility] [address] [id number] [place] [address] May, 2014 [facility] [place] [facility] [address] [facility] [id number] [place] [address] May, 2014 [facility] [place] [facility] [address] [id number], [place] [address] May, 2014 [facility] [place] [facility] [address] [id number] [place] [address] May, 2014 [facility] [place] [facility] [address] [facility] [id number] [place] [address] May, 2014 [facility] [place] [facility] [address] [facility] [id number], [place] [address] May, [facility] [place] [facility] [address] [facility] [id number], [place] [address] Apr, [facility] [place] [facility] [address] [facility] [id number], [place] [address] Apr, [facility] [place] [facility] [address] [facility] [id number], [place] [address] Apr, [facility] [place] [facility] [address] [facility] [id number], [place] [address] Apr, [facility] [place] [facility] [address] [facility] [id number], [place] [address] Apr, [facility] [place] [facility] [address] [id number], [place] [address] Apr, [facility] [place] [facility] [address] [facility] [id number], [place] [address] Apr, [facility] [place] [facility] [address] [facility] [id number], [place] [address] Apr, [facility] [place] [facility] [address] [id number] [place] [address] Apr, [facility] [place] [facility] [address] [id number] [place] [address] Apr, [facility] [place] [facility] [address] [id number] [place] [address] Mar, [facility] [place] [facility] [address] [id number] [place] [address] Mar, [facility] [place] [facility] [address] [id number] [place] [address] Mar, [facility] [place] [facility] [address] [id number] [place] [address] Mar, [facility] [place] [facility] [address] [id number] [place] [address] Mar, [facility] [place] [facility] [address] [id number] [place] [address] Mar, [facility] [place] [facility] [address] [id number] [place] [address] Feb, [facility] [place] [facility] [address] [id number] [place] [address] Feb, [facility] [place] [facility] [address] [id number] [place] [address] Jan, [facility] [place] [facility] [address] [id number] [place] [address] Jan, [facility] [place] [facility] [address] [id number] [place] [address] Jan, [facility] [place] [facility] [address] [id number] [place] [address] Jan, [facility] [place] [facility] [address] [id number] [place] [address] Jan, [facility] [place] [facility] [address] [id number] [place] [address] 16 Jan, 2014 [facility] [place] [facility] [address] [id number] [place] [address] Jan, [facility] [place] [facility] [address] [id number] [place] [address] 13 Jan, 2014 [facility] [place] [facility] [address] [id number] [place] [address] 10 Jan, 2014 [facility] [place] [facility] [address] [id number] [place] [address] Jan, [facility] [place] [facility] [address] [id number] [place] [address] Jan, [facility] [place] [facility] [address] [id number] [place] [address] 15 Dec, 2013 [facility] [place] [facility] [address] [id number] [place] [address] Dec, [facility] [place] [facility] [address] [id number], [place] [address] Nov, [facility] [place] [facility] [address] [id number] [place] [address] Nov, [facility] [place] [facility] [address] [id number] [place] [address] Sep, [facility] [place] [facility] [address] [id number], [place] [address] Sep, [facility] [place] [facility] [address] [id number], [place] [address] Sep, [facility] [place] [facility] [address] [id number] [place] [address] Sep, [facility] [place] [facility] [address] [id number], [place] [address] Jun, [facility] [place] [facility] [address] [id number] [place] [address] Jun, [facility] [place] [facility] [address] [id number] [place] [address] 12 Jun, 2013 [facility] [place] [facility] [address] [id number] [place] [address] 10 Jun, 2013 [facility] [place] [facility] [address] [id number] [place] [address] 10 Jun, 2013 [facility] [place] [facility] [address] [id number] [place] [address] 07 Jun, 2013 [facility] [place] [facility] [address] [id number] [place] [address] 07 Jun, 2013 [facility] [place] [facility] [address] [id number] [place] [address] 05 Jun, 2013 [facility] [place] [facility] [address] [id number] [place] [address] 05 Jun, 2013 [facility] [place] [facility] [address] [id number] [place] [address] 19 Feb, 2013 [facility] [place] [facility] [address] [id number] [place] [address] 19 Feb, 2013 [facility] [place] [facility] [address] [id number] [place] [address] 18 Feb, 2013 [facility] [place] [facility] [address] [id number] [place] [address] 18 Feb, 2013 [facility] [place] [facility] [address] [id number] [place] [address] 15 Feb, 2013 [facility] [place] [facility] [address] [id number] [place] [address] 15 Feb, 2013 [facility] [place] [facility] [address] [id number] [place] [address] 14 Nov, 2012 [facility] [place] [facility] [address] [id number] [place] [address] 03 Oct, 2012 [facility] [place] [facility] [address] [id number] [place] [address] Sep, [facility] [place] [facility] [address] [id number] [place] [address] Sep, [facility] [address] [id number] [place] [address] Sep, [facility] [address] [id number] [place] [address] Sep, [facility] [address] [id number] [place] [address] August, [facility] [address] [id number] [place] [address] Jun, [facility] [address] [id number] [place] [address] Jun, [facility] [address] [id number] [place] [address] Jun, [facility] [address] [id number] [place] [address] Apr, [facility] [address] [id number] [place] [address] Apr, [facility] [address] [id number] [place] [address] Apr, [facility] [address] [id number] [place] [address] Apr, [facility] [address] [id number] [place] [address] Apr, [facility] [address] [id number] [place] [address] Apr, [facility] [place] [facility] [address] [id number] [place] [address] Mar, [facility] [address] [id number] [place] [address] Mar, [facility] [address] [id number], [place] [address] Mar, [facility] [place] [facility] [address] [id number] [place] [address] Mar, [facility] [place] [facility] [address] [id number], [place] [address] Feb, [facility] [place] [facility] [address] [id number] [place] [address] Feb, [facility] [place] [facility] [address] [id number] [place] [address] Feb, [facility] [place] [facility] [address] [id number] [place] [address] Feb, [facility] [place] [facility] [address] [id number] [place] [address] Jan, [facility] [place] [facility] [address] [id number] [place] [address] Jan, [facility] [place] [facility] [address] [id number], [place] [address] Jan, [facility] [place] [facility] [address] [id number] [place] [address] Jan, [facility] [place] [facility] [address] [id number] [place] [address] Jan, [facility] [place] [facility] [address] [id number], [place] [address] Jan, [facility] [place] [facility] [address] [id number], [place] [address] Jan, [facility] [place] [facility] [address] [id number] [place] [address] Jan, [facility] [place] [facility] [address] [facility] [id number], [place] [address] Jan, [facility] [place] [facility] [address] [id number] [place] [address] Jan, [facility] [place] [facility] [address] [facility] [id number] [place] [address] Jan, [facility] [address] [id number], [place] [address] Jan, [facility] [address] [id number], [place] [address] Jan, [facility] [address] [id number], [place] [address] Dec, [facility] [id number] [address] Nov, [facility] [address] [id number], [place] [address] Nov, [facility] [address] [id number] [address] Jan, IMMUNIZATIONS No Known Immunizations SOCIAL HISTORY Never Assessed REASON FOR VISIT EMR-[facility] PLAN OF CARE VITAL SIGNS MEDICATIONS Unknown [...]
[2018-09-13 23:54] VITALS: BP 131/85
--- NOTE | 2018-09-13 23:54 | NUR ---
d/c instructions to pt. told to read all papers. scripts faxed and paper. pt left ambulatory by self. pt knows f/u. i went over the handtyped by dr sullivan on the chart. iv d/cd by me prior to d/c. take home vicodin given. bolus was completed. strainer container and urinal given for home use. copy of ct result given. pt related pain as " next to nothing" pt still cant ua yet. i did not press issue since i have had d/c instructions for awhile. d/c vs bp machine is 131/85 ausc hr 64 reg ausc resp 16 normal recheck temp 97.4 p ox r/a is 95
--- OUTSIDE RECORDS SUMMARY | 2018-09-13 23:54 | XMS REPORT ---
Author Author Migration, Doctor Organization [facility] Address Unknown Phone Unavailable Care Team Providers Care Build Engineer Name Role Phone Migration, Doctor Unavailable Unavailable PROBLEMS Type Condition ICD9-CM Code SLU57-TQ Code Onset Dates Condition Status SNOMED Code Problem Hyperlipidemia E78.5 Active 83012573 Problem Insomnia G47.00 Active 853859065 Problem Obstructive sleep apnea syndrome G47.33 Active 01310785 Problem Reactive depression F32.9 Active 29455993 Problem Back pain M54.9 Active 522323886 Problem Erectile dysfunction, unspecified erectile dysfunction type N52.9 Active 630147947 Problem Hypertension I10 Active 49744072 Problem Benign prostatic hyperplasia with lower urinary tract symptoms, unspecified morphology N40.1 Active 620435997 Problem Hypothyroidism, unspecified type E03.9 Active 36157937 Problem Vasculogenic erectile dysfunction, 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 Active 258241503 Problem Adjustment disorder with depressed mood F43.21 Active 93974992 ALLERGIES No Information ENCOUNTERS Encounter Location Date Diagnosis [facility] [address] [address] Jul, Back pain M54.9 [facility] [id number] [place] [address] Jun, Pneumonia of both lower lobes due to infectious organism J18.1 [facility] [id number] [place] [address] Sep, [facility] [address] [address] Sep, [facility] [address] [address] August, Abnormal PSA R97.20 [facility] [address] [address] August, Erectile dysfunction, unspecified erectile dysfunction type N52.9 ; Benign prostatic hyperplasia with lower urinary tract symptoms, unspecified morphology N40.1 and Hypertension I10 [facility] [id number] [place] [address] May, Back pain M54.9 and Insomnia G47.00 [facility] [id number] [place] [address] May, Hyperlipidemia E78.5 ; Hypertension I10 and Hypothyroidism, unspecified type E03.9 [facility] [address] [address] May, Hypertension I10 ; Back pain M54.9 ; Hypothyroidism, unspecified type E03.9 and Hyperlipidemia E78.5 [facility] [id number] [place] [address] Apr, [place] [facility] [address] [address] Apr, Insomnia G47.00 ; Back pain M54.9 and Vasculogenic erectile dysfunction, 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 [place] [facility] [address] [address] Apr, Insomnia G47.00 [facility] [id number] [place] [address] Mar, [facility] [id number] [place] [address] Mar, Insomnia G47.00 [facility] [address] [id number] [place] [address] Feb, [facility] [id number] [place] [address] Feb, Hypothyroidism, unspecified type E03.9 and Insomnia G47.00 [facility] [id number] [place] [address] Jan, Insomnia G47.00 [facility] [id number] [place] [address] Jan, [facility] [id number] [place] [address] Jan, Adjustment disorder with depressed mood F43.21 [facility] [id number] [place] [address] Jan, Adjustment disorder with depressed mood F43.21 [facility] [id number] [place] [address] Jan, Hypothyroidism, unspecified type E03.9 and Reactive depression F32.9 [facility] [id number] [place] [address] Jan, Adjustment disorder with depressed mood F43.21 [facility] [id number] [place] [address] Dec, Insomnia G47.00 and Back pain M54.9 [facility] [id number] [place] [address] Nov, Hyperlipidemia E78.5 ; Hypertension I10 and Hypothyroidism, unspecified type E03.9 [facility] [id number] [place] [address] Oct, Hyperlipidemia E78.5 ; Hypertension I10 ; Insomnia G47.00 and Hypothyroidism, unspecified type E03.9 [place] [facility] [id number] [place] [address] August, Hypothyroidism, unspecified type E03.9 [facility] [id number] [place] [address] Jun, Hyperlipidemia E78.5 [facility] [id number] [place] [address] May, Back pain M54.9 and Insomnia G47.00 [place] [facility] [id number] [place] [address] May, [facility] [id number] [place] [address] Apr, [facility] [id number] [place] [address] Apr, Back pain M54.9 ; Hyperlipidemia E78.5 ; High risk sexual behavior Z72.51 and Vasculogenic erectile dysfunction, 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 [facility] [id number] [place] [address] Mar, Hyperlipidemia E78.5 [place] [address] [address] Feb, [facility] [id number] [place] [address] Jan, [place] [id number] [place] [address] Jan, Hypertension I10 ; Hypothyroidism, unspecified type E03.9 and Hyperlipidemia E78.5 [facility] [id number] [place] [address] Jan, Hypertension I10 ; Hyperlipidemia E78.5 ; Back pain M54.9 ; Hypothyroidism, unspecified type E03.9 and Benign prostatic hyperplasia with lower urinary tract symptoms, unspecified morphology N40.1 [place] [id number] [place] [address] Oct, [facility] [id number] [place] [address] Oct, Back pain M54.9 and Obstructive sleep apnea syndrome G47.33 [facility] [id number] [place] [address] Oct, [facility] [id number] [place] [address] August, Dermatitis L30.9 [facility] [address] [place] [address] 10 Jun, 2015 Hypertension I10 ; Back pain M54.9 ; Hyperlipidemia E78.5 and Insomnia G47.00 [facility] [id number] [place] [address] 18 May, 2015 [facility] [id number] [place] [address] Mar, Insomnia G47.00 [facility] [address] [address] Mar, [facility] [address] [address] Feb, Hyperlipidemia E78.5 ; Encounter for immunization Z23 ; Hypertension I10 and Back pain M54.9 [facility] [id number] [place] [address] Jan, Encounter for immunization Z23 ; Hypertension I10 ; Hyperlipidemia E78.5 and Back pain M54.9 [facility] [id number] [place] [address] Jan, [facility] [id number] [place] [address] Sep, [facility] [id number] [place] [address] Sep, [facility] [id number] [place] [address] 14 Jul, 2014 [facility] [id number] [place] [address] 13 Jul, 2014 [facility] [id number] [place] [address] Jun, [facility] [id number] [place] [address] 11 May, 2014 [facility] [id number] [place] [address] May, 2014 [facility] [place] [facility] [address] [id number] [place] [address] May, 2014 [facility] [place] [facility] [address] [id number] [place] [address] May, 2014 [facility] [place] [facility] [address] [facility] [id number] [place] [address] May, 2014 [facility] [place] [facility] [address] [id number], [place] [address] May, 2014 [facility] [place] [facility] [address] [id number] [place] [address] May, 2014 [facility] [place] [facility] [address] [facility] [id number] [place] [address] May, 2014 [facility] [place] [facility] [address] [facility] [id number], [place] [address] May, [facility] [place] [facility] [address] [facility] [id number], [place] [address] Apr, [facility] [place] [facility] [address] [facility] [id number], [place] [address] Apr, [facility] [place] [facility] [address] [facility] [id number], [place] [address] Apr, [facility] [place] [facility] [address] [facility] [id number], [place] [address] Apr, [facility] [place] [facility] [address] [facility] [id number], [place] [address] Apr, [facility] [place] [facility] [address] [id number], [place] [address] Apr, [facility] [place] [facility] [address] [facility] [id number], [place] [address] Apr, [facility] [place] [facility] [address] [facility] [id number], [place] [address] Apr, [facility] [place] [facility] [address] [id number] [place] [address] Apr, [facility] [place] [facility] [address] [id number] [place] [address] Apr, [facility] [place] [facility] [address] [id number] [place] [address] Mar, [facility] [place] [facility] [address] [id number] [place] [address] Mar, [facility] [place] [facility] [address] [id number] [place] [address] Mar, [facility] [place] [facility] [address] [id number] [place] [address] Mar, [facility] [place] [facility] [address] [id number] [place] [address] Mar, [facility] [place] [facility] [address] [id number] [place] [address] Mar, [facility] [place] [facility] [address] [id number] [place] [address] Feb, [facility] [place] [facility] [address] [id number] [place] [address] Feb, [facility] [place] [facility] [address] [id number] [place] [address] Jan, [facility] [place] [facility] [address] [id number] [place] [address] Jan, [facility] [place] [facility] [address] [id number] [place] [address] Jan, [facility] [place] [facility] [address] [id number] [place] [address] Jan, [facility] [place] [facility] [address] [id number] [place] [address] Jan, [facility] [place] [facility] [address] [id number] [place] [address] 16 Jan, 2014 [facility] [place] [facility] [address] [id number] [place] [address] Jan, [facility] [place] [facility] [address] [id number] [place] [address] 13 Jan, 2014 [facility] [place] [facility] [address] [id number] [place] [address] 10 Jan, 2014 [facility] [place] [facility] [address] [id number] [place] [address] Jan, [facility] [place] [facility] [address] [id number] [place] [address] Jan, [facility] [place] [facility] [address] [id number] [place] [address] 15 Dec, 2013 [facility] [place] [facility] [address] [id number] [place] [address] Dec, [facility] [place] [facility] [address] [id number], [place] [address] Nov, [facility] [place] [facility] [address] [id number] [place] [address] Nov, [facility] [place] [facility] [address] [id number] [place] [address] Sep, [facility] [place] [facility] [address] [id number], [place] [address] Sep, [facility] [place] [facility] [address] [id number], [place] [address] Sep, [facility] [place] [facility] [address] [id number] [place] [address] Sep, [facility] [place] [facility] [address] [id number], [place] [address] Jun, [facility] [place] [facility] [address] [id number] [place] [address] Jun, [facility] [place] [facility] [address] [id number] [place] [address] 12 Jun, 2013 [facility] [place] [facility] [address] [id number] [place] [address] 10 Jun, 2013 [facility] [place] [facility] [address] [id number] [place] [address] 10 Jun, 2013 [facility] [place] [facility] [address] [id number] [place] [address] 07 Jun, 2013 [facility] [place] [facility] [address] [id number] [place] [address] 07 Jun, 2013 [facility] [place] [facility] [address] [id number] [place] [address] 05 Jun, 2013 [facility] [place] [facility] [address] [id number] [place] [address] 05 Jun, 2013 [facility] [place] [facility] [address] [id number] [place] [address] 19 Feb, 2013 [facility] [place] [facility] [address] [id number] [place] [address] 19 Feb, 2013 [facility] [place] [facility] [address] [id number] [place] [address] 18 Feb, 2013 [facility] [place] [facility] [address] [id number] [place] [address] 18 Feb, 2013 [facility] [place] [facility] [address] [id number] [place] [address] 15 Feb, 2013 [facility] [place] [facility] [address] [id number] [place] [address] 15 Feb, 2013 [facility] [place] [facility] [address] [id number] [place] [address] 14 Nov, 2012 [facility] [place] [facility] [address] [id number] [place] [address] 03 Oct, 2012 [facility] [place] [facility] [address] [id number] [place] [address] Sep, [facility] [place] [facility] [address] [id number] [place] [address] Sep, [facility] [address] [id number] [place] [address] Sep, [facility] [address] [id number] [place] [address] Sep, [facility] [address] [id number] [place] [address] August, [facility] [address] [id number] [place] [address] Jun, [facility] [address] [id number] [place] [address] Jun, [facility] [address] [id number] [place] [address] Jun, [facility] [address] [id number] [place] [address] Apr, [facility] [address] [id number] [place] [address] Apr, [facility] [address] [id number] [place] [address] Apr, [facility] [address] [id number] [place] [address] Apr, [facility] [address] [id number] [place] [address] Apr, [facility] [address] [id number] [place] [address] Apr, [facility] [place] [facility] [address] [id number] [place] [address] Mar, [facility] [address] [id number] [place] [address] Mar, [facility] [address] [id number], [place] [address] Mar, [facility] [place] [facility] [address] [id number] [place] [address] Mar, [facility] [place] [facility] [address] [id number], [place] [address] Feb, [facility] [place] [facility] [address] [id number] [place] [address] Feb, [facility] [place] [facility] [address] [id number] [place] [address] Feb, [facility] [place] [facility] [address] [id number] [place] [address] Feb, [facility] [place] [facility] [address] [id number] [place] [address] Jan, [facility] [place] [facility] [address] [id number] [place] [address] Jan, [facility] [place] [facility] [address] [id number], [place] [address] Jan, [facility] [place] [facility] [address] [id number] [place] [address] Jan, [facility] [place] [facility] [address] [id number] [place] [address] Jan, [facility] [place] [facility] [address] [id number], [place] [address] Jan, [facility] [place] [facility] [address] [id number], [place] [address] Jan, [facility] [place] [facility] [address] [id number] [place] [address] Jan, [facility] [place] [facility] [address] [facility] [id number], [place] [address] Jan, [facility] [place] [facility] [address] [id number] [place] [address] Jan, [facility] [place] [facility] [address] [facility] [id number] [place] [address] Jan, [facility] [address] [facility] [id number], [place] [address] Jan, [facility] [address] [id number], [place] [address] Jan, [facility] [address] [facility] [id number], [place] [address] Dec, [facility] [address] [id number], [place] [address] Nov, [facility] [address] [id number], [place] [address] Nov, [facility] [address] [facility] [id number], [place] [address] Jan, IMMUNIZATIONS No Known Immunizations SOCIAL HISTORY Never Assessed REASON FOR VISIT [facility] [place] PLAN OF CARE VITAL SIGNS MEDICATIONS Medication Instructions Dosage Frequency Start Date End Date Duration Status Amoxicillin 500 mg 1 capsule by Oral route 3 times per day for 10 days Jun, Active Cialis 20 mg 1 tablet by Oral route 1 time per day PRN Jan, Active levothyroxine 175 mcg 1 tablet by Oral route 1 time per day May, Active zolpidem 10 mg 1 tablet by Oral route 1 time per day PRN May, Active Ambien 10 mg 1 tablet by Oral route 1 time per day PRN May, Active Proscar 5 mg 1 tablet by Oral route 1 time per day May, Active pravastatin 40 mg 1 tablet by Oral route 1 time per day May, Active pantoprazole 20 mg 1 tablet by Oral route 1 time per day for 30 day(s) Sep, Active Hydrocodone-Acetaminophen 7.5-325 mg take 1 tablet by Oral route every 6 hours as needed for pain Feb, Active Lisinopril 10 mg take 1 tablet by Oral route 1 time per day Take in am Jun, Active RESULTS No Results PROCEDURES No Known procedures [...]
--- OUTSIDE RECORDS SUMMARY | 2018-09-13 23:54 | XMS REPORT ---
Author Author JULIAN TORREZ 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 Name Role Phone JULIAN TORREZ Unavailable PROBLEMS Type Condition ICD9-CM Code EON18-PC Code Onset Dates Condition Status SNOMED Code Problem Hyperlipidemia E78.5 Active 85604696 Problem Obstructive sleep apnea syndrome G47.33 Active 13051362 Problem Insomnia G47.00 Active 787213349 Problem Hypertension I10 Active 26321013 Problem Back pain M54.9 Active 449552056 Problem Erectile dysfunction, unspecified erectile dysfunction type N52.9 Active 741762001 Problem Reactive depression F32.9 Active 39959516 Problem Hypothyroidism, unspecified type E03.9 Active 06146026 Problem Benign prostatic hyperplasia with lower urinary tract symptoms, unspecified morphology N40.1 Active 850622220 Problem Adjustment disorder with depressed mood F43.21 Active 01550894 Problem Vasculogenic erectile dysfunction, 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 Active 670930298 ALLERGIES No Information ENCOUNTERS Encounter Location Date Diagnosis [place] [id number] [place] [address] Sep, [place] [id number] [place] [address] Sep, [facility] [id number] [place] [address] August, Abnormal PSA R97.20 [place] [address] [address] August, Erectile dysfunction, unspecified erectile dysfunction type N52.9 ; Benign prostatic hyperplasia with lower urinary tract symptoms, unspecified morphology N40.1 and Hypertension I10 [place] [id number] [place] [address] May, Back pain M54.9 and Insomnia G47.00 [facility] [id number] [place] [address] May, Hyperlipidemia E78.5 ; Hypertension I10 and Hypothyroidism, unspecified type E03.9 [facility] [id number] [place] [address] May, Hypertension I10 ; Back pain M54.9 ; Hypothyroidism, unspecified type E03.9 and Hyperlipidemia E78.5 [facility] [id number] [place] [address] Apr, [facility] [id number] [place] [address] Apr, Insomnia G47.00 ; Back pain M54.9 and Vasculogenic erectile dysfunction, 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 [facility] [id number] [place] [address] Apr, Insomnia G47.00 [facility] [id number] [place] [address] Mar, [facility] [id number] [place] [address] Mar, Insomnia G47.00 [facility] [address] [id number] [place] [address] Feb, [facility] [id number] [place] [address] Feb, Hypothyroidism, unspecified type E03.9 and Insomnia G47.00 [facility] [id number] [place] [address] Jan, Insomnia G47.00 [facility] [id number] [place] [address] Jan, [facility] [id number] [place] [address] Jan, Adjustment disorder with depressed mood F43.21 [facility] [id number] [place] [address] Jan, Adjustment disorder with depressed mood F43.21 [facility] [id number] [place] [address] Jan, Hypothyroidism, unspecified type E03.9 and Reactive depression F32.9 [facility] [id number] [place] [address] Jan, Adjustment disorder with depressed mood F43.21 [facility] [id number] [place] [address] Dec, Insomnia G47.00 and Back pain M54.9 [facility] [id number] [place] [address] Nov, Hyperlipidemia E78.5 ; Hypertension I10 and Hypothyroidism, unspecified type E03.9 [facility] [id number] [place] [address] Oct, Hyperlipidemia E78.5 ; Hypertension I10 ; Insomnia G47.00 and Hypothyroidism, unspecified type E03.9 [facility] [id number] [place] [address] August, Hypothyroidism, unspecified type E03.9 [facility] [id number] [place] [address] Jun, Hyperlipidemia E78.5 [facility] [id number] [place] [address] May, Back pain M54.9 and Insomnia G47.00 [facility] [id number] [place] [address] May, [facility] [id number] [place] [address] Apr, [facility] [address] [place] [address] [address] Apr, Back pain M54.9 ; Hyperlipidemia E78.5 ; High risk sexual behavior Z72.51 and Vasculogenic erectile dysfunction, 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 [place] [address] [address] Mar, Hyperlipidemia E78.5 [place] [address] [address] Feb, [place] [address] [address] Jan, [place] [address] [address] Jan, Hypertension I10 ; Hypothyroidism, unspecified type E03.9 and Hyperlipidemia E78.[address] [address] Jan, Hypertension I10 ; Hyperlipidemia E78.5 ; Back pain M54.9 ; Hypothyroidism, unspecified type E03.9 and Benign prostatic hyperplasia with lower urinary tract symptoms, unspecified morphology N40.1 [place] [address] [address] Oct, [place] [address] [address] Oct, Back pain M54.9 and Obstructive sleep apnea syndrome G47.33 [place] [address] [address] Oct, [place] [address] [address] August, Dermatitis L30.9 [place] [address] [address] Jun, Hypertension I10 ; Back pain M54.9 ; Hyperlipidemia E78.5 and Insomnia G47.00 [place] [address] [address] May, [facility] [id number] [place] [address] Mar, Insomnia G47.00 [facility] [id number] [place] [address] Mar, [facility] [id number] [place] [address] Feb, Hyperlipidemia E78.5 ; Encounter for immunization Z23 ; Hypertension I10 and Back pain M54.9 [facility] [id number] [place] [address] Jan, Encounter for immunization Z23 ; Hypertension I10 ; Hyperlipidemia E78.5 and Back pain M54.9 [facility] [id number] [place] [address] Jan, [facility] [id number] [place] [address] Sep, [facility] [id number] [place] [address] Sep, [facility] [id number] [place] [address] Jul, [facility] [address] [place] [address] Jul, [facility] [id number] [place] [address] Jun, [facility] [address] [place] [address] May, [facility] [id number] [place] [address] May, [facility] [id number] [place] [address] May, [facility] [id number] [place] [address] [place] [address] May, 2014 [facility] [place] [facility] [address] [id number] [place] [address] May, 2014 [facility] [place] [facility] [address] [id number] [place] [address] May, 2014 [facility] [place] [facility] [address] [id number] [place] [address] May, 2014 [facility] [place] [facility] [address] [id number] [place] [address] May, 2014 [facility] [place] [facility] [address] [id number] [place] [address] May, [facility] [place] [facility] [address] [id number] [place] [address] Apr, [facility] [place] [facility] [address] [id number] [place] [address] Apr, [facility] [place] [facility] [address] [id number] [place] [address] Apr, [facility] [place] [facility] [address] [id number] [place] [address] Apr, [facility] [place] [facility] [address] [id number] [place] [address] Apr, [facility] [place] [facility] [address] [id number] [place] [address] Apr, [facility] [place] [facility] [address] [id number], [place] [address] Apr, [facility] [place] [facility] [address] [id number] [place] [address] Apr, [facility] [place] [facility] [address] [id number] [place] [address] Apr, [facility] [place] [facility] [address] [id number] [place] [address] Apr, [facility] [place] [facility] [address] [id number] [place] [address] Mar, [facility] [place] [facility] [address] [id number] [place] [address] Mar, [facility] [place] [facility] [address] [id number] [place] [address] Mar, [facility] [place] [facility] [address] [id number] [place] [address] Mar, [facility] [place] [facility] [address] [id number] [place] [address] Mar, [facility] [place] [facility] [address] [id number] [place] [address] Mar, [facility] [place] [facility] [address] [id number] [place] [address] Feb, [facility] [place] [facility] [address] [id number] [place] [address] Feb, [facility] [place] [facility] [address] [id number] [place] [address] Jan, [facility] [place] [facility] [address] [id number] [place] [address] Jan, [facility] [place] [facility] [address] [id number], [place] [address] Jan, [facility] [place] [facility] [address] [id number], [place] [address] Jan, [facility] [place] [facility] [address] [id number] [place] [address] Jan, [facility] [place] [facility] [address] [id number] [place] [address] Jan, [facility] [place] [facility] [address] [id number], [place] [address] Jan, [facility] [place] [facility] [address] [id number], [place] [address] Jan, [facility] [place] [facility] [address] [id number] [place] [address] Jan, [facility] [place] [facility] [address] [id number] [place] [address] Jan, [facility] [place] [facility] [address] [facility] [id number] [place] [address] Jan, [facility] [place] [facility] [address] [id number] [place] [address] 15 Dec, 2013 [facility] [place] [facility] [address] [id number] [place] [address] Dec, [facility] [place] [facility] [address] [id number] [place] [address] Nov, [facility] [place] [facility] [address] [facility] [id number] [place] [address] Nov, [facility] [place] [facility] [address] [facility] [id number] [place] [address] Sep, [facility] [place] [facility] [address] [facility] [id number] [place] [address] Sep, [facility] [place] [facility] [address] [facility] [id number] [place] [address] Sep, [facility] [place] [facility] [address] [facility] [id number], [place] [address] Sep, [facility] [place] [facility] [address] [facility] [id number], [place] [address] Jun, [facility] [place] [facility] [address] [id number] [place] [address] Jun, [facility] [place] [facility] [address] [facility] [id number] [place] [address] Jun, [facility] [place] [facility] [address] [facility] [id number] [place] [address] Jun, [facility] [place] [facility] [address] [id number] [place] [address] 10 Jun, 2013 [facility] [place] [facility] [address] [id number] [place] [address] 07 Jun, 2013 [facility] [place] [facility] [address] [id number] [place] [address] 07 Jun, 2013 [facility] [place] [facility] [address] [id number] [place] [address] 05 Jun, 2013 [facility] [place] [facility] [address] [id number] [place] [address] 05 Jun, 2013 [facility] [place] [facility] [address] [id number] [place] [address] Feb, [facility] [place] [facility] [address] [id number] [place] [address] Feb, [facility] [place] [facility] [address] [id number] [place] [address] Feb, [facility] [place] [facility] [address] [id number] [place] [address] 18 Feb, 2013 [facility] [place] [facility] [address] [id number] [place] [address] Feb, [facility] [place] [facility] [address] [id number] [place] [address] 15 Feb, 2013 [facility] [place] [facility] [address] [id number] [place] [address] 14 Nov, 2012 [facility] [place] [facility] [address] [id number] [place] [address] 03 Oct, 2012 [facility] [place] [facility] [address] [id number] [place] [address] 10 Sep, 2012 [facility] [place] [facility] [address] [id number] [place] [address] 05 Sep, 2012 [facility] [place] [facility] [address] [id number] [place] [address] Sep, [facility] [address] [id number] [place] [address] Sep, [facility] [place] [facility] [address] [id number] [place] [address] August, [facility] [place] [facility] [address] [id number] [place] [address] Jun, [facility] [place] [facility] [address] [id number] [place] [address] Jun, [facility] [place] [facility] [address] [id number] [place] [address] Jun, [facility] [place] [facility] [address] [id number] [place] [address] Apr, [facility] [place] [facility] [address] [id number] [place] [address] Apr, [facility] [place] [facility] [address] [id number] [place] [address] Apr, [facility] [place] [facility] [address] [id number] [place] [address] Apr, [facility] [place] [facility] [address] [id number] [place] [address] Apr, [facility] [place] [facility] [address] [id number], [place] [address] Apr, [facility] [place] [facility] [address] [id number], [place] [address] Mar, [facility] [place] [facility] [address] [id number] [place] [address] Mar, [facility] [place] [facility] [address] [id number] [place] [address] Mar, [facility] [place] [facility] [address] [id number] [place] [address] Mar, [facility] [place] [facility] [address] [id number] [place] [address] 07 Feb, 2012 [facility] [place] [facility] [address] [id number] [place] [address] Feb, [facility] [place] [facility] [address] [id number] [place] [address] Feb, [facility] [place] [facility] [address] [id number] [place] [address] Feb, [facility] [place] [facility] [address] [id number] [place] [address] Jan, [facility] [place] [facility] [address] [id number] [place] [address] Jan, [facility] [place] [facility] [address] [id number] [place] [address] Jan, [facility] [place] [facility] [address] [id number] [place] [address] Jan, [facility] [place] [facility] [address] [id number] [place] [address] Jan, [facility] [place] [facility] [address] [id number] [place] [address] Jan, [facility] [place] [facility] [address] [facility] [id number] [place] [address] Jan, [facility] [place] [facility] [address] [id number] [place] [address] Jan, [facility] [place] [facility] [address] [id number], [place] [address] Jan, [facility] [place] [facility] [address] [id number] [place] [address] Jan, [facility] [place] [facility] [address] [facility] [id number] [place] [address] Jan, [facility] [place] [facility] [address] [id number], [place] [address] Jan, [facility] [address] [facility] [id number], [place] [address] Jan, [facility] [address] [facility] [id number], [place] [address] Dec, [facility] [address] [facility] [id number], [place] [address] Nov, [facility] [address] [facility] [id number], [place] [address] Nov, [facility] [address] [facility] [id number], [place] [address] Jan, IMMUNIZATIONS No Known Immunizations SOCIAL HISTORY Never Assessed REASON FOR VISIT requesting lab work PLAN OF CARE VITAL SIGNS MEDICATIONS Unknown [...]
--- OUTSIDE RECORDS SUMMARY | 2018-09-13 23:55 | XMS REPORT ---
Author Author JULIAN TORREZ [facility] Address [address] [place] [address] Care Team Providers Care Automatic Vulcanizing Operator Name Role Phone JULIAN TORREZ Unavailable PROBLEMS Type Condition ICD9-CM Code SRE15-AP Code Onset Dates Condition Status SNOMED Code Problem Hyperlipidemia E78.5 Active 80970179 Problem Obstructive sleep apnea syndrome G47.33 Active 23987402 Problem Insomnia G47.00 Active 331325330 Problem Hypertension I10 Active 72398845 Problem Back pain M54.9 Active 290687275 Problem Erectile dysfunction, unspecified erectile dysfunction type N52.9 Active 092342893 Problem Reactive depression F32.9 Active 99421694 Problem Hypothyroidism, unspecified type E03.9 Active 53678079 Problem Benign prostatic hyperplasia with lower urinary tract symptoms, unspecified morphology N40.1 Active 410582756 Problem Adjustment disorder with depressed mood F43.21 Active 49814346 Problem Vasculogenic erectile dysfunction, 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 Active 001071248 ALLERGIES Substance Reaction Event Type Date Status Zithromax Z-Matt hives Drug Allergy August, Active ENCOUNTERS Encounter Location Date Diagnosis [place] [id number] [place] [address] Sep, [place] [address] [place] [address] Sep, [place] [address] [place] [address] August, Abnormal PSA R97.20 [place] [address] [place] [id number] [place] [address] August, Erectile dysfunction, unspecified erectile dysfunction type N52.9 ; Benign prostatic hyperplasia with lower urinary tract symptoms, unspecified morphology N40.1 and Hypertension I10 [place] [address] [place] [address] May, Back pain M54.9 and Insomnia G47.00 [facility] [address] [place] [id number] [place] [address] May, Hyperlipidemia E78.5 ; Hypertension I10 and Hypothyroidism, unspecified type E03.9 [facility] [address] [place] [id number] [place] [address] May, Hypertension I10 ; Back pain M54.9 ; Hypothyroidism, unspecified type E03.9 and Hyperlipidemia E78.5 [facility] [address] [place] [id number] [place] [address] Apr, [facility] [address] [place] [id number] [place] [address] Apr, Insomnia G47.00 ; Back pain M54.9 and Vasculogenic erectile dysfunction, 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 [facility] [address] [place] [id number] [place] [address] Apr, Insomnia G47.00 [facility] [address] [place] [id number] [place] [address] Mar, [facility] [address] [place] [id number] [place] [address] Mar, Insomnia G47.00 [facility] [address] [id number] [place] [address] Feb, [facility] [address] [place] [address] Feb, Hypothyroidism, unspecified type E03.9 and Insomnia G47.00 [facility] [address] [place] [id number] [place] [address] Jan, Insomnia G47.00 [facility] [address] [place] [id number] [place] [address] Jan, [facility] [address] [place] [id number] [place] [address] Jan, Adjustment disorder with depressed mood F43.21 [facility] [address] [place] [id number] [place] [address] Jan, Adjustment disorder with depressed mood F43.21 [facility] [address] [place] [id number] [place] [address] Jan, Hypothyroidism, unspecified type E03.9 and Reactive depression F32.9 [facility] [address] [place] [id number] [place] [address] Jan, Adjustment disorder with depressed mood F43.21 [place] [address] [place] [id number] [place] [address] Dec, Insomnia G47.00 and Back pain M54.9 [place] [address] [place] [id number] [place] [address] Nov, Hyperlipidemia E78.5 ; Hypertension I10 and Hypothyroidism, unspecified type E03.9 [place] [address] [place] [id number] [place] [address] Oct, Hyperlipidemia E78.5 ; Hypertension I10 ; Insomnia G47.00 and Hypothyroidism, unspecified type E03.9 [place] [address] [place] [address] August, Hypothyroidism, unspecified type E03.9 [place] [address] [place] [id number] [place] [address] Jun, Hyperlipidemia E78.5 [facility] [address] [place] [id number] [place] [address] May, Back pain M54.9 and Insomnia G47.00 [facility] [address] [place] [id number] [place] [address] May, [facility] [address] [place] [id number] [place] [address] Apr, [place] [address] [place] [id number] [place] [address] Apr, Back pain M54.9 ; Hyperlipidemia E78.5 ; High risk sexual behavior Z72.51 and Vasculogenic erectile dysfunction, 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 [place] [address] [address] Mar, Hyperlipidemia E78.5 [place] [address] [address] Feb, [place] [address] [address] Jan, [place] [address] [address] Jan, Hypertension I10 ; Hypothyroidism, unspecified type E03.9 and Hyperlipidemia E78.5 [place] [address] [address] Jan, Hypertension I10 ; Hyperlipidemia E78.5 ; Back pain M54.9 ; Hypothyroidism, unspecified type E03.9 and Benign prostatic hyperplasia with lower urinary tract symptoms, unspecified morphology N40.1 [place] [address] [place] [id number] [place] [address] Oct, [place] [address] [place] [id number] [place] [address] Oct, Back pain M54.9 and Obstructive sleep apnea syndrome G47.33 [place] [address] [address] Oct, [place] [address] [address] August, Dermatitis L30.9 [place] [address] [place] [id number] [place] [address] Jun, Hypertension I10 ; Back pain M54.9 ; Hyperlipidemia E78.5 and Insomnia G47.00 [facility] [address] [place] [id number] [place] [address] May, [facility] [address] [place] [id number] [place] [address] Mar, Insomnia G47.00 [facility] [address] [place] [id number] [place] [address] Mar, [facility] [address] [place] [id number] [place] [address] Feb, Hyperlipidemia E78.5 ; Encounter for immunization Z23 ; Hypertension I10 and Back pain M54.9 [facility] [address] [address] Jan, Encounter for immunization Z23 ; Hypertension I10 ; Hyperlipidemia E78.5 and Back pain M54.9 [facility] [address] [place] [id number] [place] [address] Jan, [facility] [address] [place] [id number] [place] [address] Sep, [facility] [address] [place] [id number] [place] [address] Sep, [facility] [address] [place] [id number] [place] [address] Jul, [facility] [address] [place] [id number] [place] [address] Jul, [facility] [address] [place] [id number] [place] [address] Jun, [facility] [address] [place] [id number] [place] [address] May, [facility] [address] [place] [id number] [place] [address] May, [facility] [address] [place] [id number] [place] [address] May, [facility] [place] [facility] [address] [id number] [place] [address] May, 2014 [facility] [place] [facility] [address] [id number] [place] [address] May, 2014 [facility] [place] [facility] [address] [id number] [place] [address] May, 2014 [facility] [place] [facility] [address] [id number] [place] [address] May, 2014 [facility] [place] [facility] [address] [id number] [place] [address] May, [facility] [place] [facility] [address] [id number] [place] [address] May, [facility] [place] [facility] [address] [id number] [place] [address] Apr, [facility] [place] [facility] [address] [id number] [place] [address] Apr, [facility] [place] [facility] [address] [id number] [place] [address] Apr, [facility] [place] [facility] [address] [id number] [place] [address] Apr, [facility] [place] [facility] [address] [id number] [place] [address] Apr, [facility] [place] [facility] [address] [id number], [place] [address] Apr, [facility] [place] [facility] [address] [id number] [place] [address] Apr, [facility] [place] [facility] [address] [id number] [place] [address] Apr, [facility] [place] [facility] [address] [id number] [place] [address] Apr, [facility] [place] [facility] [address] [id number] [place] [address] Apr, [facility] [address] [id number] [place] [address] Mar, [facility] [place] [facility] [address] [id number] [place] [address] Mar, [facility] [place] [facility] [address] [id number] [place] [address] Mar, [facility] [place] [facility] [address] [id number] [place] [address] Mar, [facility] [place] [facility] [address] [id number] [place] [address] Mar, [facility] [place] [facility] [address] [id number] [place] [address] Mar, [facility] [place] [facility] [address] [id number] [place] [address] Feb, [facility] [place] [facility] [address] [id number] [place] [address] Feb, [facility] [place] [facility] [address] [id number] [place] [address] Jan, [facility] [place] [facility] [address] [id number] [place] [address] Jan, [facility] [place] [facility] [address] [id number] [place] [address] Jan, [facility] [place] [facility] [address] [id number] [place] [address] Jan, [facility] [place] [facility] [address] [id number] [place] [address] Jan, [facility] [place] [facility] [address] [id number] [place] [address] Jan, [facility] [place] [facility] [address] [id number] [place] [address] Jan, [facility] [place] [facility] [address] [id number] [place] [address] 13 Jan, 2014 [facility] [place] [facility] [address] [id number] [place] [address] Jan, [facility] [place] [facility] [address] [id number] [place] [address] Jan, [facility] [place] [facility] [address] [id number] [place] [address] Jan, [facility] [place] [facility] [address] [id number] [place] [address] Dec, [facility] [place] [facility] [address] [id number] [place] [address] Dec, [facility] [place] [facility] [address] [id number] [place] [address] Nov, [facility] [place] [facility] [address] [id number] [place] [address] Nov, [facility] [place] [facility] [address] [id number] [place] [address] Sep, [facility] [place] [facility] [address] [id number] [place] [address] Sep, [facility] [place] [facility] [address] [id number] [place] [address] Sep, [facility] [place] [facility] [address] [id number], [place] [address] Sep, [facility] [place] [facility] [address] [id number] [place] [address] Jun, [facility] [place] [facility] [address] [id number] [place] [address] Jun, [facility] [place] [facility] [address] [id number], [place] [address] Jun, [facility] [place] [facility] [address] [id number], [place] [address] 10 Jun, 2013 [facility] [place] [facility] [address] [id number] [place] [address] 10 Jun, 2013 [facility] [place] [facility] [address] [id number] [place] [address] 07 Jun, 2013 [facility] [place] [facility] [address] [facility] [id number] [place] [address] 07 Jun, 2013 [facility] [place] [facility] [address] [id number] [place] [address] 05 Jun, 2013 [facility] [place] [facility] [address] [id number] [place] [address] 05 Jun, 2013 [facility] [place] [facility] [address] [id number] [place] [address] Feb, [facility] [place] [facility] [address] [facility] [id number] [place] [address] Feb, [facility] [place] [facility] [address] [id number] [place] [address] Feb, [facility] [place] [facility] [address] [facility] [id number] [place] [address] Feb, [facility] [place] [facility] [address] [facility] [id number] [place] [address] Feb, [facility] [place] [facility] [address] [facility] [id number] [place] [address] 15 Feb, 2013 [facility] [place] [facility] [address] [id number] [place] [address] 14 Nov, 2012 [facility] [place] [facility] [address] [id number] [place] [address] Oct, [facility] [place] [facility] [address] [facility] [id number] [place] [address] 10 Sep, 2012 [facility] [place] [facility] [address] [facility] [id number] [place] [address] 05 Sep, 2012 [facility] [place] [facility] [address] [id number] [place] [address] Sep, [facility] [address] [id number] [place] [address] Sep, [facility] [place] [facility] [address] [id number] [place] [address] August, [facility] [address] [id number] [place] [address] Jun, [facility] [place] [facility] [address] [id number] [place] [address] Jun, [facility] [address] [id number] [place] [address] Jun, [facility] [place] [facility] [address] [id number] [place] [address] Apr, [facility] [address] [id number] [place] [address] Apr, [facility] [address] [id number] [place] [address] Apr, [facility] [address] [id number] [place] [address] Apr, [facility] [address] [id number] [place] [address] Apr, [facility] [address] [id number] [place] [address] Apr, [facility] [address] [id number] [place] [address] Mar, [facility] [place] [facility] [address] [id number] [place] [address] Mar, [facility] [place] [facility] [address] [id number] [place] [address] Mar, [facility] [address] [id number] [place] [address] Mar, [facility] [place] [facility] [address] [id number] [place] [address] Feb, [facility] [place] [facility] [address] [id number] [place] [address] Feb, [facility] [place] [facility] [address] [id number] [place] [address] Feb, [facility] [place] [facility] [address] [id number] [place] [address] Feb, [facility] [place] [facility] [address] [id number] [place] [address] Jan, [facility] [place] [facility] [address] [id number] [place] [address] Jan, [facility] [place] [facility] [address] [facility] [id number] [place] [address] Jan, [facility] [place] [facility] [address] [id number], [place] [address] Jan, [facility] [place] [facility] [address] [id number], [place] [address] Jan, [facility] [place] [facility] [address] [facility] [id number], [place] [address] Jan, [facility] [place] [facility] [address] [id number], [place] [address] Jan, [facility] [place] [facility] [address] [id number], [place] [address] Jan, [facility] [place] [facility] [address] [id number], [place] [address] Jan, [facility] [place] [facility] [address] [id number], [place] [address] Jan, [facility] [place] [facility] [address] [facility] [id number], [place] [address] Jan, [facility] [place] [facility] [address] [facility] [id number], [place] [address] Jan, [facility] [address] [facility] [id number], [place] [address] Jan, [facility] [address] [facility] [id number], [place] [address] Dec, [facility] [address] [place] [id number], [place] [address] Nov, [facility] [address] [id number], [place] [address] Nov, [facility] [address] [facility] [id number], [place] [address] Jan, IMMUNIZATIONS No Known Immunizations SOCIAL HISTORY Never Assessed REASON FOR VISIT BP / prostate concerns WB-MA, Concerns about reduced sperm count PLAN OF CARE Activity Details Follow Up prn Reason: VITAL SIGNS Height 74 in 2017-08-31 Weight 216 lbs 2017-08-31 Temperature 97.6 degrees Fahrenheit 2017-08-31 Heart Rate 66 bpm 2017-08-31 Respiratory Rate 18 2017-08-31 BMI 27.73 kg/m2 2017-08-31 Blood pressure systolic 148 mmHg 2017-08-31 Blood pressure diastolic 90 mmHg 2017-08-31 MEDICATIONS Medication Instructions Dosage Frequency Start Date End Date Duration Status Levothyroxine Sodium 137 MCG TAKE ONE TABLET BY MOUTH ONCE DAILY IN THE MORNING ON AN EMPTY STOMACH 30 Active Hydrocodone-Acetaminophen 7.5-325 MG Orally every 6 hrs 1 tablet as needed 6h May, 28 days Active Proscar 5 MG TAKE ONE TABLET BY MOUTH ONCE DAILY 30 Active Atorvastatin Calcium 40 MG TAKE ONE TABLET BY MOUTH ONCE DAILY 30 Not-Taking Viagra 50 mg Orally Once a day 1 tablet as needed 24h 10 Active Lisinopril 10 MG TAKE ONE TABLET BY MOUTH ONCE DAILY 30 Active RESULTS No Results PROCEDURES Procedure Date Ordered Result Body Site ASSAY OF TOTAL TESTOSTERONE August 31, 2017 ASSAY OF PSA, TOTAL August 31, 2017 INSTRUCTIONS MEDICATIONS ADMINISTERED No Known Medications MEDICAL (GENERAL) HISTORY Type Description Date Medical History hypertension Medical History hyperlipidemia Medical History hypothyroidism Medical History sleep apnea Surgical History appendectomy Surgical History hernia repair x 2 Surgical History right knee meniscus repair Surgical History Left ACL repair Hospitalization History surgeries Hospitalization History sleep study
--- OUTSIDE RECORDS SUMMARY | 2018-09-13 23:55 | XMS REPORT ---
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 Active 989221072 Problem Obstructive sleep apnea syndrome G47.33 Active 99215729 Problem Insomnia G47.00 Active 976734615 Problem Hypothyroidism, unspecified type E03.9 Active 34008829 Problem Benign prostatic hyperplasia with lower urinary tract symptoms, unspecified morphology N40.1 Active 199955290 ALLERGIES No Information SOCIAL HISTORY Never Assessed PLAN OF CARE VITAL SIGNS MEDICATIONS Unknown Medications RESULTS No Results PROCEDURES No Known procedures IMMUNIZATIONS No Known Immunizations MEDICAL (GENERAL) HISTORY Type Description Date Medical History hypertension Medical History hyperlipidemia Medical History hypothyroidism Medical History sleep apnea Surgical History appendectomy Surgical History hernia repair x 2 Surgical History right knee meniscus repair Surgical History Left ACL repair Hospitalization History surgeries Hospitalization History sleep study
--- OUTSIDE RECORDS SUMMARY | 2018-09-13 23:55 | XMS REPORT ---
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 Name Role Phone JULIAN TORREZ Unavailable PROBLEMS Type Condition ICD9-CM Code UPI74-IF Code Onset Dates Condition Status SNOMED Code Problem Hyperlipidemia E78.5 Active 50763270 Problem Obstructive sleep apnea syndrome G47.33 Active 29453160 Problem Insomnia G47.00 Active 841568684 Problem Hypertension I10 Active 33118489 Problem Back pain M54.9 Active 314243110 Problem Erectile dysfunction, unspecified erectile dysfunction type N52.9 Active 575474150 Problem Reactive depression F32.9 Active 66601093 Problem Hypothyroidism, unspecified type E03.9 Active 57538360 Problem Benign prostatic hyperplasia with lower urinary tract symptoms, unspecified morphology N40.1 Active 818078839 Problem Adjustment disorder with depressed mood F43.21 Active 25967681 Problem Vasculogenic erectile dysfunction, 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 Active 313832208 ALLERGIES No Information ENCOUNTERS Encounter Location Date Diagnosis [place] [id number] [place] [address] Sep, [place] [id number] [place] [address] Sep, [facility] [id number] [place] [address] August, Abnormal PSA R97.20 [place] [address] [address] August, Erectile dysfunction, unspecified erectile dysfunction type N52.9 ; Benign prostatic hyperplasia with lower urinary tract symptoms, unspecified morphology N40.1 and Hypertension I10 [place] [id number] [place] [address] May, Back pain M54.9 and Insomnia G47.00 [facility] [id number] [place] [address] May, Hyperlipidemia E78.5 ; Hypertension I10 and Hypothyroidism, unspecified type E03.9 [facility] [id number] [place] [address] May, Hypertension I10 ; Back pain M54.9 ; Hypothyroidism, unspecified type E03.9 and Hyperlipidemia E78.5 [facility] [id number] [place] [address] Apr, [facility] [id number] [place] [address] Apr, Insomnia G47.00 ; Back pain M54.9 and Vasculogenic erectile dysfunction, 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 [facility] [id number] [place] [address] Apr, Insomnia G47.00 [facility] [id number] [place] [address] Mar, [facility] [id number] [place] [address] Mar, Insomnia G47.00 [facility] [address] [id number] [place] [address] Feb, [facility] [id number] [place] [address] Feb, Hypothyroidism, unspecified type E03.9 and Insomnia G47.00 [facility] [id number] [place] [address] Jan, Insomnia G47.00 [facility] [id number] [place] [address] Jan, [facility] [id number] [place] [address] Jan, Adjustment disorder with depressed mood F43.21 [facility] [id number] [place] [address] Jan, Adjustment disorder with depressed mood F43.21 [facility] [id number] [place] [address] Jan, Hypothyroidism, unspecified type E03.9 and Reactive depression F32.9 [facility] [id number] [place] [address] Jan, Adjustment disorder with depressed mood F43.21 [facility] [id number] [place] [address] Dec, Insomnia G47.00 and Back pain M54.9 [facility] [id number] [place] [address] Nov, Hyperlipidemia E78.5 ; Hypertension I10 and Hypothyroidism, unspecified type E03.9 [facility] [id number] [place] [address] Oct, Hyperlipidemia E78.5 ; Hypertension I10 ; Insomnia G47.00 and Hypothyroidism, unspecified type E03.9 [facility] [id number] [place] [address] August, Hypothyroidism, unspecified type E03.9 [facility] [id number] [place] [address] Jun, Hyperlipidemia E78.5 [facility] [id number] [place] [address] May, Back pain M54.9 and Insomnia G47.00 [facility] [id number] [place] [address] May, [facility] [id number] [place] [address] Apr, [facility] [address] [place] [address] [address] Apr, Back pain M54.9 ; Hyperlipidemia E78.5 ; High risk sexual behavior Z72.51 and Vasculogenic erectile dysfunction, 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 [place] [address] [address] Mar, Hyperlipidemia E78.5 [place] [address] [address] Feb, [place] [address] [address] Jan, [place] [address] [address] Jan, Hypertension I10 ; Hypothyroidism, unspecified type E03.9 and Hyperlipidemia E78.[address] [address] Jan, Hypertension I10 ; Hyperlipidemia E78.5 ; Back pain M54.9 ; Hypothyroidism, unspecified type E03.9 and Benign prostatic hyperplasia with lower urinary tract symptoms, unspecified morphology N40.1 [place] [address] [address] Oct, [place] [address] [address] Oct, Back pain M54.9 and Obstructive sleep apnea syndrome G47.33 [place] [address] [address] Oct, [place] [address] [address] August, Dermatitis L30.9 [place] [address] [address] Jun, Hypertension I10 ; Back pain M54.9 ; Hyperlipidemia E78.5 and Insomnia G47.00 [place] [address] [address] May, [facility] [id number] [place] [address] Mar, Insomnia G47.00 [facility] [id number] [place] [address] Mar, [facility] [id number] [place] [address] Feb, Hyperlipidemia E78.5 ; Encounter for immunization Z23 ; Hypertension I10 and Back pain M54.9 [facility] [id number] [place] [address] Jan, Encounter for immunization Z23 ; Hypertension I10 ; Hyperlipidemia E78.5 and Back pain M54.9 [facility] [id number] [place] [address] Jan, [facility] [id number] [place] [address] Sep, [facility] [id number] [place] [address] Sep, [facility] [id number] [place] [address] Jul, [facility] [address] [place] [address] Jul, [facility] [id number] [place] [address] Jun, [facility] [address] [place] [address] May, [facility] [id number] [place] [address] May, [facility] [address] [place] [address] May, [facility] [id number] [place] [address] [place] [address] May, 2014 [facility] [place] [facility] [address] [id number] [place] [address] May, 2014 [facility] [place] [facility] [address] [id number] [place] [address] May, 2014 [facility] [place] [facility] [address] [id number] [place] [address] May, 2014 [facility] [place] [facility] [address] [id number] [place] [address] May, 2014 [facility] [place] [facility] [address] [id number] [place] [address] May, [facility] [place] [facility] [address] [id number] [place] [address] Apr, [facility] [place] [facility] [address] [id number] [place] [address] Apr, [facility] [place] [facility] [address] [id number] [place] [address] Apr, [facility] [place] [facility] [address] [id number] [place] [address] Apr, [facility] [place] [facility] [address] [id number] [place] [address] Apr, [facility] [place] [facility] [address] [id number] [place] [address] Apr, [facility] [place] [facility] [address] [id number], [place] [address] Apr, [facility] [place] [facility] [address] [id number] [place] [address] Apr, [facility] [place] [facility] [address] [id number] [place] [address] Apr, [facility] [place] [facility] [address] [id number] [place] [address] Apr, [facility] [place] [facility] [address] [id number] [place] [address] Mar, [facility] [place] [facility] [address] [id number] [place] [address] Mar, [facility] [place] [facility] [address] [id number] [place] [address] Mar, [facility] [place] [facility] [address] [id number] [place] [address] Mar, [facility] [place] [facility] [address] [id number] [place] [address] Mar, [facility] [place] [facility] [address] [id number] [place] [address] Mar, [facility] [place] [facility] [address] [id number] [place] [address] Feb, [facility] [place] [facility] [address] [id number] [place] [address] Feb, [facility] [place] [facility] [address] [id number] [place] [address] Jan, [facility] [place] [facility] [address] [id number] [place] [address] Jan, [facility] [place] [facility] [address] [id number], [place] [address] Jan, [facility] [place] [facility] [address] [id number], [place] [address] Jan, [facility] [place] [facility] [address] [id number] [place] [address] Jan, [facility] [place] [facility] [address] [id number] [place] [address] Jan, [facility] [place] [facility] [address] [id number], [place] [address] Jan, [facility] [place] [facility] [address] [id number], [place] [address] Jan, [facility] [place] [facility] [address] [id number] [place] [address] Jan, [facility] [place] [facility] [address] [id number] [place] [address] Jan, [facility] [place] [facility] [address] [facility] [id number] [place] [address] Jan, [facility] [place] [facility] [address] [id number] [place] [address] 15 Dec, 2013 [facility] [place] [facility] [address] [id number] [place] [address] Dec, [facility] [place] [facility] [address] [id number] [place] [address] Nov, [facility] [place] [facility] [address] [facility] [id number] [place] [address] Nov, [facility] [place] [facility] [address] [facility] [id number] [place] [address] Sep, [facility] [place] [facility] [address] [facility] [id number] [place] [address] Sep, [facility] [place] [facility] [address] [facility] [id number] [place] [address] Sep, [facility] [place] [facility] [address] [facility] [id number], [place] [address] Sep, [facility] [place] [facility] [address] [facility] [id number], [place] [address] Jun, [facility] [place] [facility] [address] [id number] [place] [address] Jun, [facility] [place] [facility] [address] [facility] [id number] [place] [address] Jun, [facility] [place] [facility] [address] [facility] [id number] [place] [address] Jun, [facility] [place] [facility] [address] [id number] [place] [address] 10 Jun, 2013 [facility] [place] [facility] [address] [id number] [place] [address] 07 Jun, 2013 [facility] [place] [facility] [address] [id number] [place] [address] 07 Jun, 2013 [facility] [place] [facility] [address] [id number] [place] [address] 05 Jun, 2013 [facility] [place] [facility] [address] [id number] [place] [address] 05 Jun, 2013 [facility] [place] [facility] [address] [id number] [place] [address] Feb, [facility] [place] [facility] [address] [id number] [place] [address] Feb, [facility] [place] [facility] [address] [id number] [place] [address] Feb, [facility] [place] [facility] [address] [id number] [place] [address] 18 Feb, 2013 [facility] [place] [facility] [address] [id number] [place] [address] Feb, [facility] [place] [facility] [address] [id number] [place] [address] 15 Feb, 2013 [facility] [place] [facility] [address] [id number] [place] [address] 14 Nov, 2012 [facility] [place] [facility] [address] [id number] [place] [address] 03 Oct, 2012 [facility] [place] [facility] [address] [id number] [place] [address] 10 Sep, 2012 [facility] [place] [facility] [address] [id number] [place] [address] 05 Sep, 2012 [facility] [place] [facility] [address] [id number] [place] [address] Sep, [facility] [address] [id number] [place] [address] Sep, [facility] [place] [facility] [address] [id number] [place] [address] August, [facility] [place] [facility] [address] [id number] [place] [address] Jun, [facility] [place] [facility] [address] [id number] [place] [address] Jun, [facility] [place] [facility] [address] [id number] [place] [address] Jun, [facility] [place] [facility] [address] [id number] [place] [address] Apr, [facility] [place] [facility] [address] [id number] [place] [address] Apr, [facility] [place] [facility] [address] [id number] [place] [address] Apr, [facility] [place] [facility] [address] [id number] [place] [address] Apr, [facility] [place] [facility] [address] [id number] [place] [address] Apr, [facility] [place] [facility] [address] [id number][place] [address] Apr, [facility] [place] [facility] [address] [id number], [place] [address] Mar, [facility] [place] [facility] [address] [id number] [place] [address] Mar, [facility] [place] [facility] [address] [id number] [place] [address] Mar, [facility] [place] [facility] [address] [id number] [place] [address] Mar, [facility] [place] [facility] [address] [id number] [place] [address] 07 Feb, 2012 [facility] [place] [facility] [address] [id number] [place] [address] Feb, [facility] [place] [facility] [address] [id number] [place] [address] Feb, [facility] [place] [facility] [address] [id number] [place] [address] Feb, [facility] [place] [facility] [address] [id number] [place] [address] Jan, [facility] [place] [facility] [address] [id number] [place] [address] Jan, [facility] [place] [facility] [address] [id number] [place] [address] Jan, [facility] [place] [facility] [address] [id number] [place] [address] Jan, [facility] [place] [facility] [address] [id number] [place] [address] Jan, [facility] [place] [facility] [address] [id number] [place] [address] Jan, [facility] [place] [facility] [address] [facility] [id number] [place] [address] Jan, [facility] [place] [facility] [address] [id number] [place] [address] Jan, [facility] [place] [facility] [address] [id number], [place] [address] Jan, [facility] [place] [facility] [address] [id number] [place] [address] Jan, [facility] [place] [facility] [address] [facility] [id number] [place] [address] Jan, [facility] [place] [facility] [address] [id number], [place] [address] Jan, [facility] [address] [facility] [id number], [place] [address] Jan, [facility] [address] [facility] [id number], [place] [address] Dec, [facility] [address] [facility] [id number], [place] [address] Nov, [facility] [address] [facility] [id number], [place] [address] Nov, [facility] [address] [facility] [id number], [place] [address] Jan, IMMUNIZATIONS No Known Immunizations SOCIAL HISTORY Never Assessed REASON FOR VISIT PLAN OF CARE VITAL SIGNS MEDICATIONS Unknown [...]
--- OUTSIDE RECORDS SUMMARY | 2018-09-13 23:56 | XMS REPORT ---
Author Author JULIAN TORREZ [facility] Address [address] [place] [address] Care Team Providers Care Internet Specialist Name Role Phone JULIAN TORREZ Unavailable PROBLEMS Type Condition ICD9-CM Code ORH68-ZN Code Onset Dates Condition Status SNOMED Code Problem Hyperlipidemia E78.5 Active 02513674 Problem Obstructive sleep apnea syndrome G47.33 Active 65017822 Problem Insomnia G47.00 Active 767300489 Problem Hypertension I10 Active 84792834 Problem Back pain M54.9 Active 132898069 Problem Erectile dysfunction, unspecified erectile dysfunction type N52.9 Active 068193002 Problem Reactive depression F32.9 Active 90688580 Problem Hypothyroidism, unspecified type E03.9 Active 53342023 Problem Benign prostatic hyperplasia with lower urinary tract symptoms, unspecified morphology N40.1 Active 223066666 Problem Adjustment disorder with depressed mood F43.21 Active 94645233 Problem Vasculogenic erectile dysfunction, 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 Active 162768344 ALLERGIES No Information ENCOUNTERS Encounter Location Date Diagnosis [place] [id number] [place] [id number] [place] [address] Sep, [place] [address] [id number] [place] [address] Sep, [place] [address] [id number] [place] [address] August, Abnormal PSA R97.20 [place] [address] [address] August, Erectile dysfunction, unspecified erectile dysfunction type N52.9 ; Benign prostatic hyperplasia with lower urinary tract symptoms, unspecified morphology N40.1 and Hypertension I10 [place] [id number] [place] [address] May, Back pain M54.9 and Insomnia G47.00 [facility] [id number] [place] [address] May, Hyperlipidemia E78.5 ; Hypertension I10 and Hypothyroidism, unspecified type E03.9 [facility] [id number] [place] [address] May, Hypertension I10 ; Back pain M54.9 ; Hypothyroidism, unspecified type E03.9 and Hyperlipidemia E78.5 [facility] [id number] [place] [address] Apr, [facility] [id number] [place] [address] Apr, Insomnia G47.00 ; Back pain M54.9 and Vasculogenic erectile dysfunction, 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 [address] [id number] [place] [address] Feb, [facility] [id number] [place] [address] Feb, Hypothyroidism, unspecified type E03.9 and Insomnia G47.00 [facility] [id number] [place] [address] Jan, Insomnia G47.00 [facility] [id number] [place] [address] Jan, [facility] [id number] [place] [address] Jan, Adjustment disorder with depressed mood F43.21 [facility] [id number] [place] [address] Jan, Adjustment disorder with depressed mood F43.21 [facility] [id number] [place] [address] Jan, Hypothyroidism, unspecified type E03.9 and Reactive depression F32.9 [facility] [id number] [place] [address] Jan, Adjustment disorder with depressed mood F43.21 [facility] [id number] [place] [address] Dec, Insomnia G47.00 and Back pain M54.9 [facility] [id number] [place] [address] Nov, Hyperlipidemia E78.5 ; Hypertension I10 and Hypothyroidism, unspecified type E03.9 [facility] [id number] [place] [address] Oct, Hyperlipidemia E78.5 ; Hypertension I10 ; Insomnia G47.00 and Hypothyroidism, unspecified type E03.9 [facility] [id number] [place] [address] August, Hypothyroidism, unspecified type E03.9 [facility] [id number] [place] [address] Jun, Hyperlipidemia E78.5 [facility] [id number] [place] [address] May, Back pain M54.9 and Insomnia G47.00 [facility] [id number] [place] [address] May, [facility] [id number] [place] [address] Apr, [facility] [address] [address] [address] Apr, Back pain M54.9 ; Hyperlipidemia E78.5 ; High risk sexual behavior Z72.51 and Vasculogenic erectile dysfunction, 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 [place] [address] [address] Mar, Hyperlipidemia E78.5 [place] [address] [address] Feb, [place] [address] [address] Jan, [place] [address] [address] Jan, Hypertension I10 ; Hypothyroidism, unspecified type E03.9 and Hyperlipidemia E78.[address] [address] Jan, Hypertension I10 ; Hyperlipidemia E78.5 ; Back pain M54.9 ; Hypothyroidism, unspecified type E03.9 and Benign prostatic hyperplasia with lower urinary tract symptoms, unspecified morphology N40.1 [place] [address] [address] Oct, [place] [address] [address] Oct, Back pain M54.9 and Obstructive sleep apnea syndrome G47.33 [place] [address] [address] Oct, [place] [address] [address] August, Dermatitis L30.9 [place] [address] [address] Jun, Hypertension I10 ; Back pain M54.9 ; Hyperlipidemia E78.5 and Insomnia G47.00 [place] [address] [address] May, [facility] [id number] [place] [address] Mar, Insomnia G47.00 [facility] [id number] [place] [address] Mar, [facility] [id number] [place] [address] Feb, Hyperlipidemia E78.5 ; Encounter for immunization Z23 ; Hypertension I10 and Back pain M54.9 [facility] [id number] [place] [address] Jan, Encounter for immunization Z23 ; Hypertension I10 ; Hyperlipidemia E78.5 and Back pain M54.9 [facility] [id number] [place] [address] Jan, [facility] [id number] [place] [address] Sep, [facility] [id number] [place] [address] Sep, [facility] [id number] [place] [address] Jul, [facility] [address] [place] [address] Jul, [facility] [id number] [place] [address] Jun, [facility] [address] [place] [address] May, [facility] [id number] [place] [address] May, [facility] [id number] [place] [address] May, [facility] [id number] [place] [address] [place] [address] May, 2014 [facility] [place] [facility] [address] [id number] [place] [address] May, 2014 [facility] [place] [facility] [address] [id number] [place] [address] May, 2014 [facility] [place] [facility] [address] [id number] [place] [address] May, 2014 [facility] [place] [facility] [address] [id number] [place] [address] May, 2014 [facility] [place] [facility] [address] [id number] [place] [address] May, [facility] [place] [facility] [address] [id number] [place] [address] Apr, [facility] [place] [facility] [address] [id number] [place] [address] Apr, [facility] [place] [facility] [address] [id number] [place] [address] Apr, [facility] [place] [facility] [address] [id number] [place] [address] Apr, [facility] [place] [facility] [address] [id number] [place] [address] Apr, [facility] [place] [facility] [address] [id number] [place] [address] Apr, [facility] [place] [facility] [address] [id number], [place] [address] Apr, [facility] [place] [facility] [address] [id number] [place] [address] Apr, [facility] [place] [facility] [address] [id number] [place] [address] Apr, [facility] [place] [facility] [address] [id number] [place] [address] Apr, [facility] [place] [facility] [address] [id number] [place] [address] Mar, [facility] [place] [facility] [address] [id number] [place] [address] Mar, [facility] [place] [facility] [address] [id number] [place] [address] Mar, [facility] [place] [facility] [address] [id number] [place] [address] Mar, [facility] [place] [facility] [address] [id number] [place] [address] Mar, [facility] [place] [facility] [address] [id number] [place] [address] Mar, [facility] [place] [facility] [address] [id number] [place] [address] Feb, [facility] [place] [facility] [address] [id number] [place] [address] Feb, [facility] [place] [facility] [address] [id number] [place] [address] Jan, [facility] [place] [facility] [address] [id number] [place] [address] Jan, [facility] [place] [facility] [address] [id number], [place] [address] Jan, [facility] [place] [facility] [address] [id number], [place] [address] Jan, [facility] [place] [facility] [address] [id number] [place] [address] Jan, [facility] [place] [facility] [address] [id number] [place] [address] Jan, [facility] [place] [facility] [address] [id number], [place] [address] Jan, [facility] [place] [facility] [address] [id number], [place] [address] Jan, [facility] [place] [facility] [address] [id number] [place] [address] Jan, [facility] [place] [facility] [address] [id number] [place] [address] Jan, [facility] [place] [facility] [address] [facility] [id number] [place] [address] Jan, [facility] [place] [facility] [address] [id number] [place] [address] 15 Dec, 2013 [facility] [place] [facility] [address] [id number] [place] [address] Dec, [facility] [place] [facility] [address] [id number] [place] [address] Nov, [facility] [place] [facility] [address] [facility] [id number] [place] [address] Nov, [facility] [place] [facility] [address] [facility] [id number] [place] [address] Sep, [facility] [place] [facility] [address] [facility] [id number] [place] [address] Sep, [facility] [place] [facility] [address] [facility] [id number] [place] [address] Sep, [facility] [place] [facility] [address] [facility] [id number], [place] [address] Sep, [facility] [place] [facility] [address] [facility] [id number], [place] [address] Jun, [facility] [place] [facility] [address] [id number] [place] [address] Jun, [facility] [place] [facility] [address] [facility] [id number] [place] [address] Jun, [facility] [place] [facility] [address] [facility] [id number] [place] [address] Jun, [facility] [place] [facility] [address] [id number] [place] [address] 10 Jun, 2013 [facility] [place] [facility] [address] [id number] [place] [address] 07 Jun, 2013 [facility] [place] [facility] [address] [id number] [place] [address] 07 Jun, 2013 [facility] [place] [facility] [address] [id number] [place] [address] 05 Jun, 2013 [facility] [place] [facility] [address] [id number] [place] [address] 05 Jun, 2013 [facility] [place] [facility] [address] [id number] [place] [address] Feb, [facility] [place] [facility] [address] [id number] [place] [address] Feb, [facility] [place] [facility] [address] [id number] [place] [address] Feb, [facility] [place] [facility] [address] [id number] [place] [address] 18 Feb, 2013 [facility] [place] [facility] [address] [id number] [place] [address] Feb, [facility] [place] [facility] [address] [id number] [place] [address] 15 Feb, 2013 [facility] [place] [facility] [address] [id number] [place] [address] 14 Nov, 2012 [facility] [place] [facility] [address] [id number] [place] [address] 03 Oct, 2012 [facility] [place] [facility] [address] [id number] [place] [address] 10 Sep, 2012 [facility] [place] [facility] [address] [id number] [place] [address] 05 Sep, 2012 [facility] [place] [facility] [address] [id number] [place] [address] Sep, [facility] [address] [id number] [place] [address] Sep, [facility] [place] [facility] [address] [id number] [place] [address] August, [facility] [place] [facility] [address] [id number] [place] [address] Jun, [facility] [place] [facility] [address] [id number] [place] [address] Jun, [facility] [place] [facility] [address] [id number] [place] [address] Jun, [facility] [place] [facility] [address] [id number] [place] [address] Apr, [facility] [place] [facility] [address] [id number] [place] [address] Apr, [facility] [place] [facility] [address] [id number] [place] [address] Apr, [facility] [place] [facility] [address] [id number] [place] [address] Apr, [facility] [place] [facility] [address] [id number] [place] [address] Apr, [facility] [place] [facility] [address] [id number], [place] [address] Apr, [facility] [place] [facility] [address] [id number], [place] [address] Mar, [facility] [place] [facility] [address] [id number] [place] [address] Mar, [facility] [place] [facility] [address] [id number] [place] [address] Mar, [facility] [place] [facility] [address] [id number] [place] [address] Mar, [facility] [place] [facility] [address] [id number] [place] [address] 07 Feb, 2012 [facility] [place] [facility] [address] [id number] [place] [address] Feb, [facility] [place] [facility] [address] [id number] [place] [address] Feb, [facility] [place] [facility] [address] [id number] [place] [address] Feb, [facility] [place] [facility] [address] [id number] [place] [address] Jan, [facility] [place] [facility] [address] [id number] [place] [address] Jan, [facility] [place] [facility] [address] [id number] [place] [address] Jan, [facility] [place] [facility] [address] [id number] [place] [address] Jan, [facility] [place] [facility] [address] [id number] [place] [address] Jan, [facility] [place] [facility] [address] [id number] [place] [address] Jan, [facility] [place] [facility] [address] [facility] [id number] [place] [address] Jan, [facility] [place] [facility] [address] [id number] [place] [address] Jan, [facility] [place] [facility] [address] [id number], [place] [address] Jan, [facility] [place] [facility] [address] [id number] [place] [address] Jan, [facility] [place] [facility] [address] [facility] [id number] [place] [address] Jan, [facility] [place] [facility] [address] [id number], [place] [address] Jan, [facility] [address] [facility] [id number], [place] [address] Jan, [facility] [address] [facility] [id number], [place] [address] Dec, [facility] [address] [facility] [id number], [place] [address] Nov, [facility] [address] [facility] [id number], [place] [address] Nov, [facility] [address] [facility] [id number], [place] [address] Jan, IMMUNIZATIONS No Known Immunizations SOCIAL HISTORY Never Assessed REASON FOR VISIT Hydrocodone and ambien- 06/15 PLAN OF CARE VITAL SIGNS MEDICATIONS Medication Instructions Dosage Frequency Start Date End Date Duration Status zolpidem 10 mg by oral route Once a day 1 tablet 24h May, 28 days Active Hydrocodone-Acetaminophen 7.5-325 MG Orally every 6 hrs 1 tablet as needed 6h May, 28 days Active RESULTS No Results PROCEDURES No Known [...]
--- OUTSIDE RECORDS SUMMARY | 2018-09-13 23:56 | XMS REPORT ---
Author Author JULIAN TORREZ [facility] Address [address] [place] [address] Care Team Providers Care Food Clerk Name Role Phone JULIAN TORREZ Unavailable PROBLEMS Type Condition ICD9-CM Code TZE61-UC Code Onset Dates Condition Status SNOMED Code Problem Hyperlipidemia E78.5 Active 35199937 Problem Obstructive sleep apnea syndrome G47.33 Active 35972696 Problem Insomnia G47.00 Active 660093793 Problem Hypertension I10 Active 83646949 Problem Back pain M54.9 Active 169121919 Problem Erectile dysfunction, unspecified erectile dysfunction type N52.9 Active 022027535 Problem Reactive depression F32.9 Active 41055781 Problem Hypothyroidism, unspecified type E03.9 Active 75878632 Problem Benign prostatic hyperplasia with lower urinary tract symptoms, unspecified morphology N40.1 Active 174888104 Problem Adjustment disorder with depressed mood F43.21 Active 47301537 Problem Vasculogenic erectile dysfunction, 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 Active 598535072 ALLERGIES Substance Reaction Event Type Date Status Zithromax Z-Matt hives Drug Allergy May, Active ENCOUNTERS Encounter Location Date Diagnosis [place] [id number] [address] Sep, [place] [id number] [address] Sep, [place] [id number] [address] August, Abnormal PSA R97.20 [place] [address] [place] [id number] [address] August, Erectile dysfunction, unspecified erectile dysfunction type N52.9 ; Benign prostatic hyperplasia with lower urinary tract symptoms, unspecified morphology N40.1 and Hypertension I10 [place] [id number] [address] May, Back pain M54.9 and Insomnia G47.00 [facility] [address] [place] [id number] [address] May, Hyperlipidemia E78.5 ; Hypertension I10 and Hypothyroidism, unspecified type E03.9 [facility] [address] [address] May, Hypertension I10 ; Back pain M54.9 ; Hypothyroidism, unspecified type E03.9 and Hyperlipidemia E78.5 [facility] [address] [place] [id number] [address] Apr, [facility] [address] [place] [id number] [address] Apr, Insomnia G47.00 ; Back pain M54.9 and Vasculogenic erectile dysfunction, 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 [facility] [address] [place] [id number] [address] Apr, Insomnia G47.00 [facility] [address] [place] [id number] [address] Mar, [facility] [address] [place] [id number] [address] Mar, Insomnia G47.00 [facility] [address] [id number] [place] [address] Feb, [facility] [id number] [address] Feb, Hypothyroidism, unspecified type E03.9 and Insomnia G47.00 [facility] [id number] [address] Jan, Insomnia G47.00 [facility] [address] [place] [id number] [address] Jan, [facility] [address] [place] [id number] [address] Jan, Adjustment disorder with depressed mood F43.21 [facility] [address] [place] [id number] [address] Jan, Adjustment disorder with depressed mood F43.21 [facility] [address] [place] [id number] [address] Jan, Hypothyroidism, unspecified type E03.9 and Reactive depression F32.9 [facility] [address] [place] [id number] [address] Jan, Adjustment disorder with depressed mood F43.21 [place] [address] [place] [id number] [address] Dec, Insomnia G47.00 and Back pain M54.9 [place] [address] [place] [id number] [address] Nov, Hyperlipidemia E78.5 ; Hypertension I10 and Hypothyroidism, unspecified type E03.9 [place] [address] [place] [id number] [address] Oct, Hyperlipidemia E78.5 ; Hypertension I10 ; Insomnia G47.00 and Hypothyroidism, unspecified type E03.9 [place] [address] [place] [id number] [address] August, Hypothyroidism, unspecified type E03.9 [place] [address] [place] [id number] [address] Jun, Hyperlipidemia E78.5 [facility] [address] [place] [id number] [address] May, Back pain M54.9 and Insomnia G47.00 [facility] [address] [place] [id number] [address] May, [facility] [address] [place] [id number] [address] Apr, [place] [address] [place] [id number] [address] Apr, Back pain M54.9 ; Hyperlipidemia E78.5 ; High risk sexual behavior Z72.51 and Vasculogenic erectile dysfunction, 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 [place] [address] [place] [id number] [address] Mar, Hyperlipidemia E78.5 [place] [address] [address] Feb, [place] [address] [address] Jan, [place] [address] [address] Jan, Hypertension I10 ; Hypothyroidism, unspecified type E03.9 and Hyperlipidemia E78.5 [place] [address] [address] Jan, Hypertension I10 ; Hyperlipidemia E78.5 ; Back pain M54.9 ; Hypothyroidism, unspecified type E03.9 and Benign prostatic hyperplasia with lower urinary tract symptoms, unspecified morphology N40.1 [place] [address] [place] [id number] [address] Oct, [place] [address] [place] [id number] [address] Oct, Back pain M54.9 and Obstructive sleep apnea syndrome G47.33 [place] [address] [place] [id number] [address] Oct, [place] [address] [address] August, Dermatitis L30.9 [place] [address] [place] [id number] [address] Jun, Hypertension I10 ; Back pain M54.9 ; Hyperlipidemia E78.5 and Insomnia G47.00 [facility] [address] [place] [id number] [place] [address] May, [facility] [address] [place] [id number] [address] Mar, Insomnia G47.00 [facility] [address] [place] [id number] [address] Mar, [facility] [address] [place] [id number] [address] Feb, Hyperlipidemia E78.5 ; Encounter for immunization Z23 ; Hypertension I10 and Back pain M54.9 [facility] [address] [address] Jan, Encounter for immunization Z23 ; Hypertension I10 ; Hyperlipidemia E78.5 and Back pain M54.9 [facility] [address] [place] [id number] [place] [address] Jan, [facility] [address] [place] [id number] [address] Sep, [facility] [address] [place] [id number] [address] Sep, [facility] [address] [place] [id number] [address] Jul, [facility] [address] [place] [id number] [address] Jul, [facility] [address] [place] [id number] [address] Jun, [facility] [address] [place] [id number] [address] May, [facility] [address] [place] [id number] [address] May, [facility] [address] [place] [id number] [place] [address] May, [facility] [place] [facility] [address] [id number] [place] [address] May, 2014 [facility] [place] [facility] [address] [id number] [place] [address] May, 2014 [facility] [place] [facility] [address] [id number] [place] [address] May, 2014 [facility] [place] [facility] [address] [id number] [place] [address] May, 2014 [facility] [place] [facility] [address] [id number] [place] [address] May, 2014 [facility] [place] [facility] [address] [id number] [place] [address] May, [facility] [place] [facility] [address] [id number] [place] [address] Apr, [facility] [place] [facility] [address] [id number] [place] [address] Apr, [facility] [place] [facility] [address] [id number] [place] [address] Apr, [facility] [place] [facility] [address] [id number] [place] [address] Apr, [facility] [place] [facility] [address] [id number] [place] [address] Apr, [facility] [place] [facility] [address] [id number] [place] [address] Apr, [facility] [place] [facility] [address] [id number] [place] [address] Apr, [facility] [place] [facility] [address] [id number] [place] [address] Apr, [facility] [place] [facility] [address] [id number] [place] [address] Apr, [facility] [place] [facility] [address] [id number] [place] [address] Apr, [facility] [place] [facility] [address] [id number] [place] [address] Mar, [facility] [place] [facility] [address] [id number] [place] [address] Mar, [facility] [place] [facility] [address] [id number] [place] [address] Mar, [facility] [place] [facility] [address] [id number] [place] [address] Mar, [facility] [place] [facility] [address] [id number] [place] [address] Mar, [facility] [place] [facility] [address] [id number] [place] [address] Mar, [facility] [place] [facility] [address] [id number] [place] [address] Feb, [facility] [place] [facility] [address] [id number] [place] [address] Feb, [facility] [place] [facility] [address] [id number] [place] [address] Jan, [facility] [place] [facility] [address] [id number] [place] [address] Jan, [facility] [place] [facility] [address] [id number] [place] [address] Jan, [facility] [place] [facility] [address] [id number] [place] [address] Jan, [facility] [place] [facility] [address] [id number] [place] [address] Jan, [facility] [place] [facility] [address] [id number] [place] [address] Jan, [facility] [place] [facility] [address] [id number] [place] [address] Jan, [facility] [place] [facility] [address] [id number] [place] [address] Jan, [facility] [place] [facility] [address] [id number] [place] [address] Jan, [facility] [place] [facility] [address] [id number] [place] [address] Jan, [facility] [place] [facility] [address] [id number] [place] [address] Jan, [facility] [place] [facility] [address] [id number] [place] [address] Dec, [facility] [place] [facility] [address] [id number] [place] [address] Dec, [facility] [place] [facility] [address] [id number] [place] [address] Nov, [facility] [place] [facility] [address] [id number] [place] [address] Nov, [facility] [place] [facility] [address] [id number] [place] [address] Sep, [facility] [place] [facility] [address] [id number] [place] [address] Sep, [facility] [place] [facility] [address] [id number], [place] [address] Sep, [facility] [place] [facility] [address] [id number], [place] [address] Sep, [facility] [place] [facility] [address] [id number] [place] [address] Jun, [facility] [place] [facility] [address] [id number] [place] [address] Jun, [facility] [place] [facility] [address] [id number], [place] [address] Jun, [facility] [place] [facility] [address] [id number], [place] [address] 10 Jun, 2013 [facility] [place] [facility] [address] [id number] [place] [address] 10 Jun, 2013 [facility] [place] [facility] [address] [id number] [place] [address] 07 Jun, 2013 [facility] [place] [facility] [address] [facility] [id number] [place] [address] 07 Jun, 2013 [facility] [place] [facility] [address] [id number] [place] [address] 05 Jun, 2013 [facility] [place] [facility] [address] [id number] [place] [address] 05 Jun, 2013 [facility] [place] [facility] [address] [id number] [place] [address] Feb, [facility] [place] [facility] [address] [facility] [id number], [place] [address] Feb, [facility] [place] [facility] [address] [id number] [place] [address] Feb, [facility] [place] [facility] [address] [facility] [id number] [place] [address] Feb, [facility] [place] [facility] [address] [facility] [id number] [place] [address] Feb, [facility] [place] [facility] [address] [facility] [id number], [place] [address] 15 Feb, 2013 [facility] [place] [facility] [address] [id number], [place] [address] 14 Nov, 2012 [facility] [place] [facility] [address] [id number] [place] [address] Oct, [facility] [place] [facility] [address] [facility] [id number] [place] [address] 10 Sep, 2012 [facility] [place] [facility] [address] [facility] [id number], [place] [address] 05 Sep, 2012 [facility] [place] [facility] [address] [id number] [place] [address] Sep, [facility] [address] [id number] [place] [address] Sep, [facility] [place] [facility] [address] [id number] [place] [address] August, [facility] [place] [facility] [address] [id number] [place] [address] Jun, [facility] [place] [facility] [address] [id number] [place] [address] Jun, [facility] [place] [facility] [address] [id number] [place] [address] Jun, [facility] [place] [facility] [address] [id number] [place] [address] Apr, [facility] [place] [facility] [address] [id number] [place] [address] Apr, [facility] [place] [facility] [address] [id number] [place] [address] Apr, [facility] [place] [facility] [address] [id number] [place] [address] Apr, [facility] [place] [facility] [address] [id number] [place] [address] Apr, [facility] [place] [facility] [address] [id number] [place] [address] Apr, [facility] [place] [facility] [address] [id number] [place] [address] Mar, [facility] [place] [facility] [address] [id number] [place] [address] Mar, [facility] [place] [facility] [address] [id number] [place] [address] Mar, [facility] [place] [facility] [address] [id number] [place] [address] Mar, [facility] [place] [facility] [address] [id number] [place] [address] Feb, [facility] [place] [facility] [address] [id number] [place] [address] Feb, [facility] [place] [facility] [address] [facility] [id number] [place] [address] Feb, [facility] [place] [facility] [address] [id number] [place] [address], [place] [address] Feb, [facility] [place] [facility] [address] [id number] [place] [address] Jan, [facility] [place] [facility] [address] [id number] [place] [address], [place] [address] Jan, [facility] [place] [facility] [address] [facility] [id number] [place] [address] Jan, [facility] [place] [facility] [address] [id number], [place] [address] Jan, [facility] [place] [facility] [address] [id number], [place] [address] Jan, [facility] [place] [facility] [address] [facility] [id number], [place] [address] Jan, [facility] [place] [facility] [address] [id number], [place] [address] Jan, [facility] [place] [facility] [address] [id number], [place] [address] Jan, [facility] [place] [facility] [address] [id number], [place] [address] Jan, [facility] [place] [facility] [address] [facility] [id number], [place] [address] Jan, [facility] [place] [facility] [address] [facility] [id number], [place] [address] Jan, [facility] [place] [facility] [address] [facility] [id number] [place] [address] Jan, [facility] [address] [facility] [id number], [place] [address] Jan, [facility] [address] [facility] [id number], [place] [address] Dec, [facility] [address] [facility] [id number], [place] [address] Nov, [facility] [address] [facility] [id number], [place] [address] Nov, [facility] [address] [facility] [id number], [place] [address] Jan, IMMUNIZATIONS No Known Immunizations SOCIAL HISTORY Never Assessed REASON FOR VISIT medication f/uMarleny SARABIA PLAN OF CARE Activity Details Follow Up 3 Months Reason: VITAL SIGNS Height 74 in 2017-06-05 Weight 209.7 lbs 2017-06-05 Temperature 98.0 degrees Fahrenheit 2017-06-05 Heart Rate 78 bpm 2017-06-05 Respiratory Rate 20 2017-06-05 BMI 26.92 kg/m2 2017-06-05 Blood pressure systolic 134 mmHg 2017-06-05 Blood pressure diastolic 80 mmHg 2017-06-05 MEDICATIONS Medication Instructions Dosage Frequency Start Date End Date Duration Status Atorvastatin Calcium 40 mg Orally Once a day 1 tablet 24h 30 Active Lisinopril 10MG Orally Once a day 1 tablet 24h 30 Active Proscar 5 mg Orally Once a day 1 tablet 24h 30 Active Viagra 50 mg Orally Once a day 1 tablet as needed 24h May, Active Hydrocodone-Acetaminophen 7.5-325 MG Orally every 6 hrs 1 tablet as needed 6h Apr, May, 28 days Active Zoloft 50 mg Orally Once a day 1 tablet 24h Jan, 30 day(s) Active zolpidem 10 mg by oral route Once a day 1 tablet 24h May, May, 28 days Active Levothyroxine Sodium 137 MCG Orally Once a day 1 tablet on an empty stomach in the morning 24h August, 30 day(s) Active RESULTS No Results PROCEDURES No Known [...]
--- OUTSIDE RECORDS SUMMARY | 2018-09-13 23:56 | XMS REPORT ---
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 Active 478203899 Problem Hypothyroidism, unspecified type E03.9 Active 31676769 Problem Insomnia G47.00 Active 542025997 Problem Hyperlipidemia E78.5 Active 91943161 Problem Benign prostatic hyperplasia with lower urinary tract symptoms, unspecified morphology N40.1 Active 296367410 Problem Obstructive sleep apnea syndrome G47.33 Active 59267596 ALLERGIES Unknown Allergies SOCIAL HISTORY No smoking Hx information available PLAN OF CARE VITAL SIGNS MEDICATIONS Medication Instructions Dosage Frequency Start Date End Date Duration Status Lipitor 40 mg Orally Once a day 1 tablet 24h May, 30 day(s) Active RESULTS No Results PROCEDURES No Known procedures IMMUNIZATIONS No Known Immunizations
--- OUTSIDE RECORDS SUMMARY | 2018-09-13 23:57 | XMS REPORT ---
Author Author JULIAN TORREZ [facility] Address [address] [place] [address] Care Team Providers Care Cabinetmaker Apprentice Name Role Phone JULIAN TORREZ Unavailable PROBLEMS Type Condition ICD9-CM Code [id number] Code Onset Dates Condition Status SNOMED Code Problem Back pain M54.9 Active 373710160 Problem Insomnia G47.00 Active 547073934 Problem Hyperlipidemia E78.5 Active 84918577 Problem Hypertension I10 Active 06859763 Problem Reactive depression F32.9 Active 58032754 Problem Adjustment disorder with depressed mood F43.21 Active 34227398 Problem Benign prostatic hyperplasia with lower urinary tract symptoms, unspecified morphology N40.1 Active 007369854 Problem Obstructive sleep apnea syndrome G47.33 Active 47077115 Problem Vasculogenic erectile dysfunction, 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
--- OUTSIDE RECORDS SUMMARY | 2018-09-13 23:57 | XMS REPORT ---
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 Problem Routine general medical examination at health care facility V70.0 Active Problem Unspecified essential hypertension 401.9 Active Problem Chronic prostatitis 601.1 Active Problem Impotence of organic origin 607.84 Active Problem Depressive disorder, not elsewhere classified 311 Active Problem Unspecified psychosis 298.9 Active Problem Hypertrophy (benign) of prostate without urinary obstruction and other lower urinary tract symptoms [LUTS] 600.00 Active Problem Screening examination for pulmonary tuberculosis V74.1 Active Problem Other dyspnea and respiratory abnormalities 786.09 Active Medications No Known Medications Results No Known Results Summary Purpose eClinicalWorks Submission
--- OUTSIDE RECORDS SUMMARY | 2018-09-13 23:57 | XMS REPORT ---
Author Author JULIAN TORREZ [facility] Address [address] [place] [address] Care Team Providers Care Nuclear Operator Name Role Phone JULIAN TORREZ Unavailable PROBLEMS Type Condition ICD9-CM Code BBV38-JO Code Onset Dates Condition Status SNOMED Code Problem Hyperlipidemia E78.5 Active 39204007 Problem Obstructive sleep apnea syndrome G47.33 Active 48430740 Problem Insomnia G47.00 Active 147218963 Problem Hypertension I10 Active 30644874 Problem Back pain M54.9 Active 116734258 Problem Erectile dysfunction, unspecified erectile dysfunction type N52.9 Active 899803455 Problem Reactive depression F32.9 Active 28884612 Problem Hypothyroidism, unspecified type E03.9 Active 16588139 Problem Benign prostatic hyperplasia with lower urinary tract symptoms, unspecified morphology N40.1 Active 109987894 Problem Adjustment disorder with depressed mood F43.21 Active 51941877 Problem Vasculogenic erectile dysfunction, 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 Active [id number] ALLERGIES No Information ENCOUNTERS Encounter Location Date Diagnosis [place] [id number] [place] [address] Sep, [place] [id number] [place] [address] Sep, [place] [id number] [place] [address] August, Abnormal PSA R97.20 [place] [address] [address] August, Erectile dysfunction, unspecified erectile dysfunction type N52.9 ; Benign prostatic hyperplasia with lower urinary tract symptoms, unspecified morphology N40.1 and Hypertension I10 [place] [id number] [place] [address] May, Back pain M54.9 and Insomnia G47.00 [facility] [id number] [place] [address] May, Hyperlipidemia E78.5 ; Hypertension I10 and Hypothyroidism, unspecified type E03.9 [facility] [id number] [place] [address] May, Hypertension I10 ; Back pain M54.9 ; Hypothyroidism, unspecified type E03.9 and Hyperlipidemia E78.5 [facility] [id number] [place] [address] Apr, [facility] [id number] [place] [address] Apr, Insomnia G47.00 ; Back pain M54.9 and Vasculogenic erectile dysfunction, 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 [facility] [id number] [place] [address] Apr, Insomnia G47.00 [facility] [id number] [place] [address] Mar, [facility] [id number] [place] [address] Mar, Insomnia G47.00 [facility] [address] [id number] [place] [address] Feb, [facility] [id number] [place] [address] Feb, Hypothyroidism, unspecified type E03.9 and Insomnia G47.00 [facility] [id number] [place] [address] Jan, Insomnia G47.00 [facility] [id number] [place] [address] Jan, [facility] [id number] [place] [address] Jan, Adjustment disorder with depressed mood F43.21 [facility] [id number] [place] [address] Jan, Adjustment disorder with depressed mood F43.21 [facility] [id number] [place] [address] Jan, Hypothyroidism, unspecified type E03.9 and Reactive depression F32.9 [facility] [id number] [place] [address] Jan, Adjustment disorder with depressed mood F43.21 [facility] [id number] [place] [address] Dec, Insomnia G47.00 and Back pain M54.9 [facility] [id number] [place] [address] Nov, Hyperlipidemia E78.5 ; Hypertension I10 and Hypothyroidism, unspecified type E03.9 [facility] [id number] [place] [address] Oct, Hyperlipidemia E78.5 ; Hypertension I10 ; Insomnia G47.00 and Hypothyroidism, unspecified type E03.9 [facility] [id number] [place] [address] August, Hypothyroidism, unspecified type E03.9 [facility] [id number] [place] [address] Jun, Hyperlipidemia E78.5 [facility] [id number] [place] [address] May, Back pain M54.9 and Insomnia G47.00 [facility] [id number] [place] [address] May, [facility] [id number] [place] [address] Apr, [facility] [address] [address] [address] Apr, Back pain M54.9 ; Hyperlipidemia E78.5 ; High risk sexual behavior Z72.51 and Vasculogenic erectile dysfunction, 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 [place] [address] [address] Mar, Hyperlipidemia E78.5 [place] [address] [address] Feb, [place] [address] [address] Jan, [place] [address] [address] Jan, Hypertension I10 ; Hypothyroidism, unspecified type E03.9 and Hyperlipidemia E78.[address] [address] Jan, Hypertension I10 ; Hyperlipidemia E78.5 ; Back pain M54.9 ; Hypothyroidism, unspecified type E03.9 and Benign prostatic hyperplasia with lower urinary tract symptoms, unspecified morphology N40.1 [place] [address] [address] Oct, [place] [address] [address] Oct, Back pain M54.9 and Obstructive sleep apnea syndrome G47.33 [place] [address] [address] Oct, [place] [address] [address] August, Dermatitis L30.9 [place] [address] [address] Jun, Hypertension I10 ; Back pain M54.9 ; Hyperlipidemia E78.5 and Insomnia G47.00 [place] [address] [address] May, [facility] [id number] [place] [address] Mar, Insomnia G47.00 [facility] [id number] [place] [address] Mar, [facility] [id number] [place] [address] Feb, Hyperlipidemia E78.5 ; Encounter for immunization Z23 ; Hypertension I10 and Back pain M54.9 [facility] [id number] [place] [address] Jan, Encounter for immunization Z23 ; Hypertension I10 ; Hyperlipidemia E78.5 and Back pain M54.9 [facility] [id number] [place] [address] Jan, [facility] [id number] [place] [address] Sep, [facility] [id number] [place] [address] Sep, [facility] [id number] [place] [address] Jul, [facility] [id number] [place] [address] Jul, [facility] [id number] [place] [address] Jun, [facility] [id number] [place] [address] May, [facility] [id number] [place] [address] May, [facility] [id number] [place] [address] May, [facility] [id number] [place] [address] [place] [address] May, 2014 [facility] [place] [facility] [address] [id number] [place] [address] May, 2014 [facility] [place] [facility] [address] [id number] [place] [address] May, 2014 [facility] [place] [facility] [address] [id number] [place] [address] May, 2014 [facility] [place] [facility] [address] [id number] [place] [address] May, 2014 [facility] [place] [facility] [address] [id number] [place] [address] May, [facility] [place] [facility] [address] [id number] [place] [address] Apr, [facility] [place] [facility] [address] [id number] [place] [address] Apr, [facility] [place] [facility] [address] [id number] [place] [address] Apr, [facility] [place] [facility] [address] [id number] [place] [address] Apr, [facility] [place] [facility] [address] [id number] [place] [address] Apr, [facility] [place] [facility] [address] [id number] [place] [address] Apr, [facility] [place] [facility] [address] [id number], [place] [address] Apr, [facility] [place] [facility] [address] [id number] [place] [address] Apr, [facility] [place] [facility] [address] [id number] [place] [address] Apr, [facility] [place] [facility] [address] [id number] [place] [address] Apr, [facility] [place] [facility] [address] [id number] [place] [address] Mar, [facility] [place] [facility] [address] [id number] [place] [address] Mar, [facility] [place] [facility] [address] [id number] [place] [address] Mar, [facility] [place] [facility] [address] [id number] [place] [address] Mar, [facility] [place] [facility] [address] [id number] [place] [address] Mar, [facility] [place] [facility] [address] [id number] [place] [address] Mar, [facility] [place] [facility] [address] [id number] [place] [address] Feb, [facility] [place] [facility] [address] [id number] [place] [address] Feb, [facility] [place] [facility] [address] [id number] [place] [address] Jan, [facility] [place] [facility] [address] [id number] [place] [address] Jan, [facility] [place] [facility] [address] [id number], [place] [address] Jan, [facility] [place] [facility] [address] [id number], [place] [address] Jan, [facility] [place] [facility] [address] [id number] [place] [address] Jan, [facility] [place] [facility] [address] [id number] [place] [address] Jan, [facility] [place] [facility] [address] [id number], [place] [address] Jan, [facility] [place] [facility] [address] [id number], [place] [address] Jan, [facility] [place] [facility] [address] [id number] [place] [address] Jan, [facility] [place] [facility] [address] [id number] [place] [address] Jan, [facility] [place] [facility] [address] [facility] [id number] [place] [address] Jan, [facility] [place] [facility] [address] [id number] [place] [address] 15 Dec, 2013 [facility] [place] [facility] [address] [id number] [place] [address] Dec, [facility] [place] [facility] [address] [id number] [place] [address] Nov, [facility] [place] [facility] [address] [facility] [id number] [place] [address] Nov, [facility] [place] [facility] [address] [facility] [id number] [place] [address] Sep, [facility] [place] [facility] [address] [facility] [id number] [place] [address] Sep, [facility] [place] [facility] [address] [facility] [id number] [place] [address] Sep, [facility] [place] [facility] [address] [facility] [id number], [place] [address] Sep, [facility] [place] [facility] [address] [facility] [id number], [place] [address] Jun, [facility] [place] [facility] [address] [id number] [place] [address] Jun, [facility] [place] [facility] [address] [facility] [id number] [place] [address] Jun, [facility] [place] [facility] [address] [facility] [id number] [place] [address] Jun, [facility] [place] [facility] [address] [id number] [place] [address] 10 Jun, 2013 [facility] [place] [facility] [address] [id number] [place] [address] 07 Jun, 2013 [facility] [place] [facility] [address] [id number] [place] [address] 07 Jun, 2013 [facility] [place] [facility] [address] [id number] [place] [address] 05 Jun, 2013 [facility] [place] [facility] [address] [id number] [place] [address] 05 Jun, 2013 [facility] [place] [facility] [address] [id number] [place] [address] Feb, [facility] [place] [facility] [address] [id number] [place] [address] Feb, [facility] [place] [facility] [address] [id number] [place] [address] Feb, [facility] [place] [facility] [address] [id number] [place] [address] 18 Feb, 2013 [facility] [place] [facility] [address] [id number] [place] [address] Feb, [facility] [place] [facility] [address] [id number] [place] [address] 15 Feb, 2013 [facility] [place] [facility] [address] [id number] [place] [address] 14 Nov, 2012 [facility] [place] [facility] [address] [id number] [place] [address] 03 Oct, 2012 [facility] [place] [facility] [address] [id number] [place] [address] 10 Sep, 2012 [facility] [place] [facility] [address] [id number] [place] [address] 05 Sep, 2012 [facility] [place] [facility] [address] [id number] [place] [address] Sep, [facility] [address] [id number] [place] [address] Sep, [facility] [place] [facility] [address] [id number] [place] [address] August, [facility] [place] [facility] [address] [id number] [place] [address] Jun, [facility] [place] [facility] [address] [id number] [place] [address] Jun, [facility] [place] [facility] [address] [id number] [place] [address] Jun, [facility] [place] [facility] [address] [id number] [place] [address] Apr, [facility] [place] [facility] [address] [id number] [place] [address] Apr, [facility] [place] [facility] [address] [id number] [place] [address] Apr, [facility] [place] [facility] [address] [id number] [place] [address] Apr, [facility] [place] [facility] [address] [id number] [place] [address] Apr, [facility] [place] [facility] [address] [id number], [place] [address] Apr, [facility] [place] [facility] [address] [id number], [place] [address] Mar, [facility] [place] [facility] [address] [id number] [place] [address] Mar, [facility] [place] [facility] [address] [id number] [place] [address] Mar, [facility] [place] [facility] [address] [id number] [place] [address] Mar, [facility] [place] [facility] [address] [id number] [place] [address] 07 Feb, 2012 [facility] [place] [facility] [address] [id number] [place] [address] Feb, [facility] [place] [facility] [address] [id number] [place] [address] Feb, [facility] [place] [facility] [address] [id number] [place] [address] Feb, [facility] [place] [facility] [address] [id number] [place] [address] Jan, [facility] [place] [facility] [address] [id number] [place] [address] Jan, [facility] [place] [facility] [address] [id number] [place] [address] Jan, [facility] [place] [facility] [address] [id number] [place] [address] Jan, [facility] [place] [facility] [address] [id number] [place] [address] Jan, [facility] [place] [facility] [address] [id number] [place] [address] Jan, [facility] [place] [facility] [address] [facility] [id number] [place] [address] Jan, [facility] [place] [facility] [address] [id number] [place] [address] Jan, [facility] [place] [facility] [address] [id number], [place] [address] Jan, [facility] [place] [facility] [address] [id number] [place] [address] Jan, [facility] [place] [facility] [address] [facility] [id number] [place] [address] Jan, [facility] [place] [facility] [address] [id number], [place] [address] Jan, [facility] [address] [facility] [id number], [place] [address] Jan, [facility] [address] [facility] [id number], [place] [address] Dec, [facility] [address] [facility] [id number], [place] [address] Nov, [facility] [address] [facility] [id number], [place] [address] Nov, [facility] [address] [facility] [id number], [place] [address] Jan, IMMUNIZATIONS No Known Immunizations SOCIAL HISTORY Never Assessed REASON FOR VISIT Lab (walk-in) PLAN OF CARE VITAL SIGNS MEDICATIONS Unknown Medications RESULTS No Results PROCEDURES Procedure Date Ordered Result Body Site LIPID PANEL Jun 06, 2017 ASSAY THYROID STIM HORMONE Jun 06, 2017 VENIPUNCT, ROUTINE* Jun 06, 2017 COMPREHEN METABOLIC PANEL Jun 06, 2017 INSTRUCTIONS MEDICATIONS ADMINISTERED No Known Medications MEDICAL (GENERAL) HISTORY Type Description Date Medical History hypertension Medical History hyperlipidemia Medical History hypothyroidism Medical History sleep apnea Surgical History appendectomy Surgical History hernia repair x 2 Surgical History right knee meniscus repair Surgical History Left ACL repair Hospitalization History surgeries Hospitalization History sleep study
--- OUTSIDE RECORDS SUMMARY | 2018-09-13 23:57 | XMS REPORT ---
Author Author JULIAN TORREZ [facility] Address [address] [place] [address] Care Team Providers Care Hydro Station Operator Name Role Phone JULIAN TORREZ Unavailable PROBLEMS Type Condition ICD9-CM Code XRO97-NR Code Onset Dates Condition Status SNOMED Code Problem Hyperlipidemia E78.5 Active 00038712 Problem Obstructive sleep apnea syndrome G47.33 Active 77650625 Problem Insomnia G47.00 Active 783804429 Problem Hypertension I10 Active 77080379 Problem Back pain M54.9 Active 554421039 Problem Erectile dysfunction, unspecified erectile dysfunction type N52.9 Active 355384147 Problem Reactive depression F32.9 Active 21387613 Problem Hypothyroidism, unspecified type E03.9 Active 35657085 Problem Benign prostatic hyperplasia with lower urinary tract symptoms, unspecified morphology N40.1 Active 643604567 Problem Adjustment disorder with depressed mood F43.21 Active 80766676 Problem Vasculogenic erectile dysfunction, 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 Active 355015733 ALLERGIES No Information ENCOUNTERS Encounter Location Date Diagnosis [place] [id number] [place] [address] Sep, [facility] [id number] [place] [address] August, Abnormal PSA R97.20 [facility] [id number] [place] [address] August, Erectile dysfunction, unspecified erectile dysfunction type N52.9 ; Benign prostatic hyperplasia with lower urinary tract symptoms, unspecified morphology N40.1 and Hypertension I10 [facility] [id number] [place] [address] May, Back pain M54.9 and Insomnia G47.00 [place] [address] [place] [address] 13 May, 2017 Hyperlipidemia E78.5 ; Hypertension I10 and Hypothyroidism, unspecified type E03.9 [facility] [id number] [place] [address] 12 May, 2017 Hypertension I10 ; Back pain M54.9 ; Hypothyroidism, unspecified type E03.9 and Hyperlipidemia E78.5 [facility] [id number] [place] [address] Apr, [facility] [id number] [place] [address] Apr, Insomnia G47.00 ; Back pain M54.9 and Vasculogenic erectile dysfunction, 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 [place] [id number] [place] [address] Apr, Insomnia G47.00 [place] [id number] [place] [address] Mar, [facility] [id number] [place] [address] Mar, Insomnia G47.00 [facility] [address] [id number] [place] [address] Feb, [facility] [id number] [place] [address] Feb, Hypothyroidism, unspecified type E03.9 and Insomnia G47.00 [facility] [address] [place] [address] Jan, Insomnia G47.00 [facility] [id number] [place] [address] Jan, [facility] [id number] [place] [address] Jan, Adjustment disorder with depressed mood F43.21 [place] [id number] [place] [address] Jan, Adjustment disorder with depressed mood F43.21 [facility] [id number] [place] [address] Jan, Hypothyroidism, unspecified type E03.9 and Reactive depression F32.9 [facility] [id number] [place] [address] Jan, Adjustment disorder with depressed mood F43.21 [facility] [id number] [place] [address] Dec, Insomnia G47.00 and Back pain M54.9 [place] [id number] [place] [address] Nov, Hyperlipidemia E78.5 ; Hypertension I10 and Hypothyroidism, unspecified type E03.9 [place] [id number] [place] [address] Oct, Hyperlipidemia E78.5 ; Hypertension I10 ; Insomnia G47.00 and Hypothyroidism, unspecified type E03.9 [place] [id number] [place] [address] August, Hypothyroidism, unspecified type E03.9 [place] [id number] [place] [address] Jun, Hyperlipidemia E78.5 [place] [id number] [place] [address] May, Back pain M54.9 and Insomnia G47.00 [facility] [id number] [place] [address] May, [facility] [id number] [place] [address] Apr, [facility] [address] [place] [address] Apr, Back pain M54.9 ; Hyperlipidemia E78.5 ; High risk sexual behavior Z72.51 and Vasculogenic erectile dysfunction, 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 [place] [id number] [place] [address] Mar, Hyperlipidemia E78.5 [facility] [id number] [place] [address] Feb, [facility] [address] [address] Jan, [facility] [id number] [place] [address] Jan, Hypertension I10 ; Hypothyroidism, unspecified type E03.9 and Hyperlipidemia E78.5 [place] [id number] [place] [address] Jan, Hypertension I10 ; Hyperlipidemia E78.5 ; Back pain M54.9 ; Hypothyroidism, unspecified type E03.9 and Benign prostatic hyperplasia with lower urinary tract symptoms, unspecified morphology N40.1 [place] [id number] [place] [address] Oct, [place] [address] [address] Oct, Back pain M54.9 and Obstructive sleep apnea syndrome G47.33 [place] [id number] [place] [address] Oct, [place] [id number] [place] [address] August, Dermatitis L30.9 [facility] [id number] [place] [address] Jun, Hypertension I10 ; Back pain M54.9 ; Hyperlipidemia E78.5 and Insomnia G47.00 [place] [id number] [place] [address] May, [place] [address] [place] [address] Mar, Insomnia G47.00 [facility] [id number] [place] [address] Mar, [facility] [id number] [place] [address] Feb, Hyperlipidemia E78.5 ; Encounter for immunization Z23 ; Hypertension I10 and Back pain M54.9 [facility] [id number] [place] [address] Jan, Encounter for immunization Z23 ; Hypertension I10 ; Hyperlipidemia E78.5 and Back pain M54.9 [facility] [id number] [place] [address] Jan, [facility] [id number] [place] [address] Sep, [facility] [id number] [place] [address] Sep, [facility] [id number] [place] [address] Jul, [facility] [id number] [place] [address] Jul, [facility] [id number] [place] [address] Jun, [facility] [id number] [place] [address] May, [facility] [id number] [place] [address] May, [facility] [id number] [place] [address] May, [facility] [id number] [place] [address] May, [facility] [id number] [place] [address], [place] [address] May, 2014 [facility] [address] [id number] [place] [address] May, [facility] [place] [facility] [address] [id number] [place] [address] May, 2014 [facility] [place] [facility] [address] [id number] [place] [address] May, 2014 [facility] [place] [facility] [address] [id number] [place] [address] May, [facility] [place] [facility] [address] [id number] [place] [address] Apr, [facility] [place] [facility] [address] [id number] [place] [address] Apr, [facility] [place] [facility] [address] [id number] [place] [address] Apr, [facility] [place] [facility] [address] [id number] [place] [address] Apr, [facility] [place] [facility] [address] [id number] [place] [address] Apr, [facility] [place] [facility] [address] [facility] [id number] [place] [address] Apr, [facility] [place] [facility] [address] [id number] [place] [address] Apr, [facility] [place] [facility] [address] [id number] [place] [address] Apr, [facility] [place] [facility] [address] [id number] [place] [address] Apr, [facility] [place] [facility] [address] [id number] [place] [address] Apr, [facility] [place] [facility] [address] [id number] [place] [address] Mar, [facility] [place] [facility] [address] [id number] [place] [address] Mar, [facility] [place] [facility] [address] [id number] [place] [address] Mar, [facility] [place] [facility] [address] [id number] [place] [address] Mar, [facility] [place] [facility] [address] [id number] [place] [address] Mar, [facility] [place] [facility] [address] [id number] [place] [address] Mar, [facility] [place] [facility] [address] [id number] [place] [address] Feb, [facility] [place] [facility] [address] [id number] [place] [address] Feb, [facility] [place] [facility] [address] [id number] [place] [address] Jan, [facility] [place] [facility] [address] [id number] [place] [address] Jan, [facility] [place] [facility] [address] [id number], [place] [address] Jan, [facility] [place] [facility] [address] [id number], [place] [address] Jan, [facility] [place] [facility] [address] [id number], [place] [address] Jan, [facility] [place] [facility] [address] [id number] [place] [address] Jan, [facility] [place] [facility] [address] [id number], [place] [address] Jan, [facility] [place] [facility] [address] [id number], [place] [address] Jan, [facility] [place] [facility] [address] [id number], [place] [address] Jan, [facility] [place] [facility] [address] [id number] [place] [address] Jan, [facility] [place] [facility] [address] [id number] [place] [address] Jan, [facility] [place] [facility] [address] [facility] [id number] [place] [address] 15 Dec, 2013 [facility] [place] [facility] [address] [id number] [place] [address] Dec, [facility] [place] [facility] [address] [id number] [place] [address] Nov, [facility] [place] [facility] [address] [id number] [place] [address] Nov, [facility] [place] [facility] [address] [facility] [id number] [place] [address] Sep, [facility] [place] [facility] [address] [id number] [place] [address] Sep, [facility] [place] [facility] [address] [facility] [id number] [place] [address] Sep, [facility] [place] [facility] [address] [facility] [id number] [place] [address] Sep, [facility] [place] [facility] [address] [facility] [id number] [place] [address] Jun, [facility] [place] [facility] [address] [id number] [place] [address] 18 Jun, 2013 [facility] [place] [facility] [address] [id number] [place] [address] Jun, [facility] [place] [facility] [address] [facility] [id number] [place] [address] Jun, [facility] [place] [facility] [address] [facility] [id number] [place] [address] Jun, [facility] [place] [facility] [address] [id number] [place] [address] 07 Jun, 2013 [facility] [place] [facility] [address] [id number] [place] [address] 07 Jun, 2013 [facility] [place] [facility] [address] [id number] [place] [address] 05 Jun, 2013 [facility] [place] [facility] [address] [id number] [place] [address] 05 Jun, 2013 [facility] [place] [facility] [address] [id number] [place] [address] Feb, [facility] [place] [facility] [address] [id number] [place] [address] Feb, [facility] [place] [facility] [address] [id number] [place] [address] Feb, [facility] [place] [facility] [address] [id number] [place] [address] Feb, [facility] [place] [facility] [address] [id number] [place] [address] Feb, [facility] [place] [facility] [address] [id number] [place] [address] Feb, [facility] [place] [facility] [address] [id number] [place] [address] 14 Nov, 2012 [facility] [place] [facility] [address] [id number] [place] [address] Oct, [facility] [place] [facility] [address] [id number] [place] [address] Sep, [facility] [place] [facility] [address] [id number] [place] [address] 05 Sep, 2012 [facility] [place] [facility] [address] [id number] [place] [address] Sep, [facility] [place] [facility] [address] [id number] [place] [address] Sep, [facility] [address] [id number] [place] [address] August, [facility] [place] [facility] [address] [id number] [place] [address] Jun, [facility] [place] [facility] [address] [id number] [place] [address] Jun, [facility] [place] [facility] [address] [id number] [place] [address] Jun, [facility] [place] [facility] [address] [id number] [place] [address] Apr, [facility] [place] [facility] [address] [id number] [place] [address] Apr, [facility] [place] [facility] [address] [id number] [place] [address] Apr, [facility] [place] [facility] [address] [id number] [place] [address] Apr, [facility] [place] [facility] [address] [id number] [place] [address] Apr, [facility] [place] [facility] [address] [id number] [place] [address] Apr, [facility] [place] [facility] [address] [id number] [place] [address] Mar, [facility] [place] [facility] [address] [id number], [place] [address] Mar, [facility] [place] [facility] [address] [id number] [place] [address] Mar, [facility] [place] [facility] [address] [id number] [place] [address] Mar, [facility] [place] [facility] [address] [id number] [place] [address] Feb, [facility] [place] [facility] [address] [id number] [place] [address] Feb, [facility] [place] [facility] [address] [id number] [place] [address] Feb, [facility] [place] [facility] [address] [id number] [place] [address] Feb, [facility] [place] [facility] [address] [id number] [place] [address] Jan, [facility] [place] [facility] [address] [id number] [place] [address] Jan, [facility] [place] [facility] [address] [id number] [place] [address] Jan, [facility] [place] [facility] [address] [id number] [place] [address] Jan, [facility] [place] [facility] [address] [id number] [place] [address] Jan, [facility] [place] [facility] [address] [id number] [place] [address] Jan, [facility] [place] [facility] [address] [id number] [place] [address] Jan, [facility] [place] [facility] [address] [facility] [id number] [place] [address] Jan, [facility] [place] [facility] [address] [id number] [place] [address] Jan, [facility] [place] [facility] [address] [id number], [place] [address] Jan, [facility] [place] [facility] [address] [id number] [place] [address] Jan, [facility] [place] [facility] [address] [facility] [id number] [place] [address] Jan, [facility] [place] [facility] [address] [facility] [id number], [place] [address] Jan, [facility] [address] [facility] [id number] [place] [address] Dec, [facility] [address] [facility] [id number], [place] [address] Nov, [facility] [address] [facility] [id number], [place] [address] Nov, [facility] [address] [facility] [id number], [place] [address] Jan, IMMUNIZATIONS No Known Immunizations SOCIAL HISTORY Never Assessed REASON FOR VISIT Refill request PLAN OF CARE VITAL SIGNS MEDICATIONS Medication Instructions Dosage Frequency Start Date End Date Duration Status zolpidem 10 mg by oral route Once a day 1 tablet 24h May, Active RESULTS No Results PROCEDURES No Known [...]
--- OUTSIDE RECORDS SUMMARY | 2018-09-13 23:57 | XMS REPORT ---
Author Author JULIAN TORREZ Organization [employer] Address Unknown Phone Unavailable Care Team Providers Care Internal Medicine Nurse Practitioner Name Role Phone JULIAN TORREZ CP Unavailable Allergies, Adverse Reactions, Alerts Substance Reaction Event Type Zithromax Z-Matt hives Drug Allergy Problems Problem Type Condition Code Onset Dates Condition Status Assessment Back pain M54.9 Active Assessment Hypertension I10 Active Assessment Hyperlipidemia E78.5 Active Assessment Benign prostatic hyperplasia with lower urinary tract symptoms, unspecified morphology N40.1 Active Assessment Hypothyroidism, unspecified type E03.9 Active Problem Benign prostatic hyperplasia with lower urinary tract symptoms, unspecified morphology N40.1 Active Problem Obstructive sleep apnea syndrome G47.33 Active Problem Hypothyroidism, unspecified type E03.9 Active Problem Hyperlipidemia E78.5 Active Problem Back pain M54.9 Active Problem Insomnia G47.00 Active Problem Hypertension I10 Active Medications Medication Code System Code Instructions Start Date End Date Status Dosage Proscar [facility] [address]-54 5 MG Orally Once a day Jun 02, 2014 1 tablet Hydrocodone-Acetaminophen [facility] 06503632604 7.5-325 MG TAKE ONE TABLET BY MOUTH EVERY 6 HOURS Pravastatin Sodium [facility] [address]-79 40 MG Orally Once a day 1 tablet zolpidem NDC 0 10 mg by oral route Once a day Jun 02, 2014 1 tablet Lisinopril ND 38230999354 10MG Orally Once a day 1 tablet levothyroxine NDC 0 175 mcg Jun 04, 2014 1 tablet by Oral route 1 time per day Procedures Procedure Coding System Code Date Office Visit, Est Pt., Level 3 CPT-4 61070 Feb 08, 2016 Vital Signs Date/Time: Feb 08, 2016 Cardiac Monitoring Heart Rate 72 bpm Weight 215.8 lbs Height 74 in BMI 27.70 Index Blood Pressure Diastolic 84 mmHg Blood Pressure Systolic 122 mmHg Results No Known Results Summary Purpose [employer] Submission
--- OUTSIDE RECORDS SUMMARY | 2018-09-13 23:57 | XMS REPORT ---
Author Author JULIAN TORREZ 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 888337505 Problem Hypothyroidism, unspecified type E03.9 Active 88507896 Problem Insomnia G47.00 Active 001295736 Problem Hyperlipidemia E78.5 Active 85916884 Problem Benign prostatic hyperplasia with lower urinary tract symptoms, unspecified morphology N40.1 Active 413025303 Problem Obstructive sleep apnea syndrome G47.33 Active 97196481 ALLERGIES Unknown Allergies SOCIAL HISTORY No smoking Hx information available PLAN OF CARE VITAL SIGNS MEDICATIONS Medication Instructions Dosage Frequency Start Date End Date Duration Status zolpidem 10 mg by oral route Once a day 1 tablet 24h May, Active Pravastatin Sodium 40 MG Orally Once a day 1 tablet 24h 30 Active Proscar 5 MG Orally Once a day 1 tablet 24h 30 Active Lisinopril 10MG Orally Once a day 1 tablet 24h 30 Active RESULTS No Results PROCEDURES No Known procedures IMMUNIZATIONS No Known Immunizations
--- OUTSIDE RECORDS SUMMARY | 2018-09-13 23:58 | XMS REPORT ---
Author JULIAN Schmidt Organization [employer] Address Unknown Phone Unavailable Care Team Providers Care Geospatial Information Scientist Name Role Phone JULIAN TORREZ CP Unavailable Allergies No Known Allergies Problems Problem Type Condition Code Onset Dates Condition Status Problem Hypertension I10 Active Problem Hyperlipidemia E78.5 Active Problem Insomnia G47.00 Active Problem Hypertrophy (benign) of prostate without urinary obstruction and other lower urinary tract symptoms [LUTS] 600.00 Active Assessment Insomnia G47.00 Active Problem Back pain M54.9 Active Problem Impotence of organic origin 607.84 Active Medications No Known Medications Results No Known Results Summary Purpose [employer] Submission
--- OUTSIDE RECORDS SUMMARY | 2018-09-13 23:58 | XMS REPORT ---
Author Author JULIAN TORREZ [facility] Address [address] [place] [address] Care Team Providers [facility] Name Role Phone JULIAN TORREZ Unavailable PROBLEMS Type Condition ICD9-CM Code GNC14-BD Code Onset Dates Condition Status SNOMED Code Problem Hyperlipidemia E78.5 Active 85156865 Problem Obstructive sleep apnea syndrome G47.33 Active 15738011 Problem Insomnia G47.00 Active 371201266 Problem Hypertension I10 Active 93508445 Problem Back pain M54.9 Active 953394682 Problem Erectile dysfunction, unspecified erectile dysfunction type N52.9 Active 711283984 Problem Reactive depression F32.9 Active 35953100 Problem Hypothyroidism, unspecified type E03.9 Active 92941568 Problem Benign prostatic hyperplasia with lower urinary tract symptoms, unspecified morphology N40.1 Active 606412445 Problem Adjustment disorder with depressed mood F43.21 Active 88444192 Problem Vasculogenic erectile dysfunction, 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 Active 340887686 ALLERGIES No Information ENCOUNTERS Encounter Location Date Diagnosis [place] [address] [address] August, Abnormal PSA R97.20 [place] [address] [address] 10 Aug, 2017 Erectile dysfunction, unspecified erectile dysfunction type N52.9 ; Benign prostatic hyperplasia with lower urinary tract symptoms, unspecified morphology N40.1 and Hypertension I10 [place] [address] [address] 22 May, 2017 Back pain M54.9 and Insomnia G47.00 [place] [address] [address] 13 May, 2017 Hyperlipidemia E78.5 ; Hypertension I10 and Hypothyroidism, unspecified type E03.9 [facility] [id number] [place] [address] May, Hypertension I10 ; Back pain M54.9 ; Hypothyroidism, unspecified type E03.9 and Hyperlipidemia E78.5 [facility] [address] [place] [id number] [place] [address] Apr, [facility] [address] [address] Apr, Insomnia G47.00 ; Back pain M54.9 and Vasculogenic erectile dysfunction, 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 [facility] [address] [place] [id number] [place] [address] Apr, Insomnia G47.00 [place] [address] [place] [id number] [place] [address] Mar, [facility] [address] [place] [id number] [place] [address] Mar, Insomnia G47.[address] [id number] [place] [address] Feb, [facility] [address] [place] [id number] [place] [address] Feb, Hypothyroidism, unspecified type E03.9 and Insomnia G47.00 [facility] [address] [place] [id number] [place] [address] Jan, Insomnia G47.00 [facility] [id number] [place] [address] Jan, [facility] [address] [place] [id number] [place] [address] Jan, Adjustment disorder with depressed mood F43.21 [facility] [address] [place] [address] Jan, Adjustment disorder with depressed mood F43.21 [place] [address] [place] [id number] [place] [address] Jan, Hypothyroidism, unspecified type E03.9 and Reactive depression F32.9 [place] [address] [place] [id number] [place] [address] Jan, Adjustment disorder with depressed mood F43.21 [place] [address] [place] [id number] [place] [address] Dec, Insomnia G47.00 and Back pain M54.9 [place] [address] [place] [id number] [place] [address] Nov, Hyperlipidemia E78.5 ; Hypertension I10 and Hypothyroidism, unspecified type E03.9 [place] [address] [place] [id number] [place] [address] Oct, Hyperlipidemia E78.5 ; Hypertension I10 ; Insomnia G47.00 and Hypothyroidism, unspecified type E03.9 [place] [address] [place] [id number] [place] [address] August, Hypothyroidism, unspecified type E03.9 [place] [address] [place] [id number] [place] [address] Jun, Hyperlipidemia E78.5 [place] [address] [place] [id number] [place] [address] May, Back pain M54.9 and Insomnia G47.00 [place] [address] [place] [id number] [place] [address] May, [place] [address] [place] [id number] [place] [address] Apr, [place] [address] [place] [id number] [place] [address] Apr, Back pain M54.9 ; Hyperlipidemia E78.5 ; High risk sexual behavior Z72.51 and Vasculogenic erectile dysfunction, 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 [place] [address] [place] [id number] [place] [address] Mar, Hyperlipidemia E78.5 [facility] [address] [place] [id number] [place] [address] Feb, [facility] [address] [place] [id number] [place] [address] Jan, [facility] [address] [place] [id number] [place] [address] Jan, Hypertension I10 ; Hypothyroidism, unspecified type E03.9 and Hyperlipidemia E78.5 [facility] [address] [place] [id number] [place] [address] Jan, Hypertension I10 ; Hyperlipidemia E78.5 ; Back pain M54.9 ; Hypothyroidism, unspecified type E03.9 and Benign prostatic hyperplasia with lower urinary tract symptoms, unspecified morphology N40.1 [place] [address] [place] [id number] [place] [address] Oct, [facility] [address] [place] [id number] [place] [address] Oct, Back pain M54.9 and Obstructive sleep apnea syndrome G47.33 [facility] [address] [place] [id number] [place] [address] Oct, [place] [address] [place] [id number] [place] [address] August, Dermatitis L30.9 [facility] [address] [place] [id number] [place] [address] Jun, Hypertension I10 ; Back pain M54.9 ; Hyperlipidemia E78.5 and Insomnia G47.00 [facility] [address] [place] [id number] [place] [address] May, [facility] [address] [place] [id number] [place] [address] Mar, Insomnia G47.00 [facility] [address] [id number] [address] Mar, [facility] [address] [place] [address] Feb, Hyperlipidemia E78.5 ; Encounter for immunization Z23 ; Hypertension I10 and Back pain M54.9 [facility] [address] [place] [id number] [place] [address] Jan, Encounter for immunization Z23 ; Hypertension I10 ; Hyperlipidemia E78.5 and Back pain M54.9 [facility] [address] [facility] [id number] [place] [address] Jan, [facility] [address] [place] [id number] [place] [address] Sep, [facility] [address] [place] [id number] [place] [address] Sep, [facility] [address] [place] [id number] [place] [address] Jul, [facility] [address] [place] [address] Jul, [facility] [address] [place] [address] Jun, [facility] [address] [address] May, [facility] [address] [address] May, [facility] [address] [address] May, [facility] [id number] [place] [address] May, [facility] [address] [address] May, [facility] [address] [place] [id number] [place] [address] May, [facility] [address] [id number] [place] [address] May, [facility] [place] [facility] [address] [id number] [place] [address] May, [facility] [place] [facility] [address] [id number] [place] [address] May, [facility] [place] [facility] [address] [id number] [place] [address] Apr, [facility] [place] [facility] [address] [id number] [place] [address] Apr, [facility] [place] [facility] [address] [id number] [place] [address] Apr, [facility] [place] [facility] [address] [id number] [place] [address] Apr, [facility] [place] [facility] [address] [id number] [place] [address] Apr, [facility] [place] [facility] [address] [id number] [place] [address] Apr, [facility] [place] [facility] [address] [facility] [id number] [place] [address] Apr, [facility] [place] [facility] [address] [id number] [place] [address] Apr, [facility] [place] [facility] [address] [id number] [place] [address] Apr, [facility] [place] [facility] [address] [id number] [place] [address] Apr, [facility] [place] [facility] [address] [id number] [place] [address] Mar, [facility] [place] [facility] [address] [id number] [place] [address] Mar, [facility] [place] [facility] [address] [id number] [place] [address] Mar, [facility] [place] [facility] [address] [id number] [place] [address] Mar, [facility] [place] [facility] [address] [id number] [place] [address] Mar, [facility] [place] [facility] [address] [id number] [place] [address] Mar, [facility] [place] [facility] [address] [id number] [place] [address] Feb, [facility] [place] [facility] [address] [id number] [place] [address] Feb, [facility] [place] [facility] [address] [id number] [place] [address] Jan, [facility] [place] [facility] [address] [id number] [place] [address] Jan, [facility] [place] [facility] [address] [id number] [place] [address] Jan, [facility] [place] [facility] [address] [id number], [place] [address] Jan, [facility] [place] [facility] [address] [id number], [place] [address] Jan, [facility] [place] [facility] [address] [id number], [place] [address] 16 Jan, 2014 [facility] [place] [facility] [address] [id number] [place] [address] Jan, [facility] [place] [facility] [address] [id number] [place] [address] Jan, [facility] [place] [facility] [address] [id number], [place] [address] Jan, [facility] [place] [facility] [address] [id number], [place] [address] 07 Jan, 2014 [facility] [place] [facility] [address] [id number] [place] [address] Jan, [facility] [place] [facility] [address] [id number] [place] [address] Dec, [facility] [place] [facility] [address] [facility] [id number] [place] [address] Dec, [facility] [place] [facility] [address] [id number] [place] [address] Nov, [facility] [place] [facility] [address] [id number] [place] [address] Nov, [facility] [place] [facility] [address] [id number] [place] [address] Sep, [facility] [place] [facility] [address] [facility] [id number] [place] [address] Sep, [facility] [place] [facility] [address] [facility] [id number] [place] [address] Sep, [facility] [place] [facility] [address] [facility] [id number] [place] [address] Sep, [facility] [place] [facility] [address] [facility] [id number] [place] [address] Jun, [facility] [place] [facility] [address] [id number] [place] [address] 18 Jun, 2013 [facility] [place] [facility] [address] [id number] [place] [address] Jun, [facility] [place] [facility] [address] [id number] [place] [address] 10 Jun, 2013 [facility] [place] [facility] [address] [facility] [id number] [place] [address] 10 Jun, 2013 [facility] [place] [facility] [address] [facility] [id number] [place] [address] 07 Jun, 2013 [facility] [place] [facility] [address] [id number] [place] [address] Jun, [facility] [place] [facility] [address] [id number] [place] [address] 05 Jun, 2013 [facility] [place] [facility] [address] [id number] [place] [address] Jun, [facility] [place] [facility] [address] [id number] [place] [address] Feb, [facility] [place] [facility] [address] [id number] [place] [address] Feb, [facility] [place] [facility] [address] [id number] [place] [address] Feb, [facility] [place] [facility] [address] [id number] [place] [address] Feb, [facility] [place] [facility] [address] [id number] [place] [address] Feb, [facility] [place] [facility] [address] [id number] [place] [address] Feb, [facility] [place] [facility] [address] [id number] [place] [address] Nov, [facility] [place] [facility] [address] [id number] [place] [address] Oct, [facility] [place] [facility] [address] [id number] [place] [address] Sep, [facility] [place] [facility] [address] [id number] [place] [address] Sep, [facility] [place] [facility] [address] [id number] [place] [address] Sep, [facility] [place] [facility] [address] [id number] [place] [address] Sep, [facility] [place] [facility] [address] [id number] [place] [address] August, [facility] [address] [id number] [place] [address] Jun, [facility] [place] [facility] [address] [id number] [place] [address] Jun, [facility] [place] [facility] [address] [id number] [place] [address] Jun, [facility] [place] [facility] [address] [id number] [place] [address] Apr, [facility] [place] [facility] [address] [id number] [place] [address] Apr, [facility] [place] [facility] [address] [id number] [place] [address] Apr, [facility] [place] [facility] [address] [id number] [place] [address] Apr, [facility] [place] [facility] [address] [id number] [place] [address] Apr, [facility] [place] [facility] [address] [id number] [place] [address] Apr, [facility] [place] [facility] [address] [id number] [place] [address] Mar, [facility] [place] [facility] [address] [id number] [place] [address] Mar, [facility] [place] [facility] [address] [id number], [place] [address] Mar, [facility] [place] [facility] [address] [id number] [place] [address] Mar, [facility] [place] [facility] [address] [id number] [place] [address] Feb, [facility] [place] [facility] [address] [id number] [place] [address] Feb, [facility] [place] [facility] [address] [id number] [place] [address] Feb, [facility] [place] [facility] [address] [id number] [place] [address] Feb, [facility] [place] [facility] [address] [id number] [place] [address] Jan, [facility] [place] [facility] [address] [id number] [place] [address] Jan, [facility] [place] [facility] [address] [id number] [place] [address] Jan, [facility] [place] [facility] [address] [id number] [place] [address] Jan, [facility] [place] [facility] [address] [id number] [place] [address] Jan, [facility] [place] [facility] [address] [id number] [place] [address] Jan, [facility] [place] [facility] [address] [id number] [place] [address] Jan, [facility] [place] [facility] [address] [id number] [place] [address] Jan, [facility] [place] [facility] [address] [facility] [id number] [place] [address] Jan, [facility] [place] [facility] [address] [id number] [place] [address] Jan, [facility] [place] [facility] [address] [id number], [place] [address] Jan, [facility] [place] [facility] [address] [id number] [place] [address] Jan, [facility] [place] [facility] [address] [facility] [id number] [place] [address] Jan, [facility] [place] [facility] [address] [facility] [id number], [place] [address] Dec, [facility] [address] [facility] [id number] [place] [address] Nov, [facility] [address] [facility] [id number], [place] [address] Nov, [facility] [address] [facility] [id number] [place] [address] Jan, IMMUNIZATIONS No Known Immunizations SOCIAL HISTORY Never Assessed REASON FOR VISIT Medication refill request PLAN OF CARE VITAL SIGNS MEDICATIONS Medication Instructions Dosage Frequency Start Date End Date Duration Status zolpidem 10 mg by oral route Once a day 1 tablet 24h May, Active Proscar 5 mg Orally Once a day 1 tablet 24h 30 Active Atorvastatin Calcium 40 mg Orally Once a day 1 tablet 24h 30 Active Lisinopril 10MG Orally Once a day 1 tablet 24h 30 Active Levothyroxine Sodium 137 MCG Orally Once [...]
--- OUTSIDE RECORDS SUMMARY | 2018-09-13 23:58 | XMS REPORT ---
Author Author JULIAN TORREZ Organization [employer] Address Unknown Phone Unavailable Care Team Providers Care Economist Research Assistant Name Role Phone JULIAN TORREZ CP Unavailable Allergies No Known Allergies Problems Problem Type Condition Code Onset Dates Condition Status Problem Insomnia G47.00 Active Problem Hypertension I10 Active Problem Obstructive sleep apnea syndrome G47.33 Active Problem Impotence of organic origin 607.84 Active Problem Hypertrophy (benign) of prostate without urinary obstruction and other lower urinary tract symptoms [LUTS] 600.00 Active Problem Hyperlipidemia E78.5 Active Problem Back pain M54.9 Active Medications Medication Code System Code Instructions Start Date End Date Status Dosage Pravastatin Sodium NDC [address]-17 40 MG Orally Once a day 1 tablet zolpidem NDC 0 10 mg by oral route Once a day Jun 02, 2014 1 tablet levothyroxine NDC 0 175 mcg Jun 04, 2014 1 tablet by Oral route 1 time per day Lisinopril NDC 95472850849 10MG Orally Once a day 1 tablet Results No Known Results Summary Purpose [employer] Submission
--- OUTSIDE RECORDS SUMMARY | 2018-09-13 23:58 | XMS REPORT ---
Author Author JULIAN TORREZ [facility] Address [address] [place] [address] Care Team Providers Care Hunter Guide Name Role Phone JULIAN TORREZ Unavailable PROBLEMS Type Condition ICD9-CM Code UHC57-IH Code Onset Dates Condition Status SNOMED Code Problem Hyperlipidemia E78.5 Active 43009400 Problem Obstructive sleep apnea syndrome G47.33 Active 01963630 Problem Insomnia G47.00 Active 685366659 Problem Hypertension I10 Active 71074336 Problem Back pain M54.9 Active 459136357 Problem Erectile dysfunction, unspecified erectile dysfunction type N52.9 Active 243385311 Problem Reactive depression F32.9 Active 05736096 Problem Hypothyroidism, unspecified type E03.9 Active 49192841 Problem Benign prostatic hyperplasia with lower urinary tract symptoms, unspecified morphology N40.1 Active 550843621 Problem Adjustment disorder with depressed mood F43.21 Active 39298583 Problem Vasculogenic erectile dysfunction, 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 [id number] [place] [address] August, Abnormal PSA R97.20 [place] [address] [address] August, Erectile dysfunction, unspecified erectile dysfunction type N52.9 ; Benign prostatic hyperplasia with lower urinary tract symptoms, unspecified morphology N40.1 and Hypertension I10 [place] [id number] [place] [address] May, Back pain M54.[address] [facility] [id number] [place] [address] May, Hyperlipidemia E78.5 ; Hypertension I10 and Hypothyroidism, unspecified type E03.9 [facility] [id number] [place] [address] May, Hypertension I10 ; Back pain M54.9 ; Hypothyroidism, unspecified type E03.[address] [facility] [id number] [place] [address] Apr, 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 [id number] [place] [address] Apr, Insomnia G47.00 [facility] [id number] [place] [address] Mar, [facility] [id number] [place] [address] Mar, Insomnia G47.00 [facility] [address] [id number] [place] [address] Feb, [facility] [id number] [place] [address] Feb, Hypothyroidism, unspecified type E03.[address] [facility] [id number] [place] [address] Jan, Insomnia G47.00 [facility] [id number] [place] [address] Jan, [facility] [id number] [place] [address] Jan, Adjustment disorder with depressed mood F43.21 [facility] [id number] [place] [address] Jan, Adjustment disorder with depressed mood F43.21 [facility] [id number] [place] [address] Jan, Hypothyroidism, unspecified type E03.9 and Reactive depression F32.9 [facility] [id number] [place] [address] Jan, Adjustment disorder with depressed mood F43.21 [facility] [id number] [place] [address] Dec, Insomnia G47.00 and Back pain M54.9 [facility] [id number] [place] [address] Nov, Hyperlipidemia E78.5 ; Hypertension I10 and Hypothyroidism, unspecified type E03.9 [facility] [id number] [place] [address] Oct, Hyperlipidemia E78.5 ; Hypertension I10 ; Insomnia G47.00 and Hypothyroidism, unspecified type E03.9 [facility] [id number] [place] [address] August, Hypothyroidism, unspecified type E03.9 [facility] [id number] [place] [address] Jun, Hyperlipidemia E78.5 [facility] [id number] [place] [address] May, Back pain M54.[address] [facility] [id number] [place] [address] May, [facility] [id number] [place] [address] Apr, 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 [place] [address] [address] Mar, Hyperlipidemia E78.5 [place] [address] [address] Feb, [place] [address] [address] Jan, [place] [address] [address] Jan, Hypertension I10 ; Hypothyroidism, unspecified type E03.9 and Hyperlipidemia E78.[address] [address] Jan, Hypertension I10 ; Hyperlipidemia E78.5 ; Back pain M54.9 ; Hypothyroidism, unspecified type E03.9 and Benign prostatic hyperplasia with lower urinary tract symptoms, unspecified morphology N40.1 [place] [address] [address] Oct, [place] [address] [address] Oct, Back pain M54.9 and Obstructive sleep apnea syndrome G47.33 [place] [address] [address] Oct, [place] [address] [address] August, Dermatitis L30.9 [place] [address] [address] Jun, Hypertension I10 ; Back pain M54.9 ; Hyperlipidemia E78.5 and Insomnia G47.00 [place] [address] [address] May, [facility] [id number] [place] [address] Mar, Insomnia G47.00 [facility] [id number] [place] [address] Mar, [facility] [id number] [place] [address] Feb, Hyperlipidemia E78.5 ; Encounter for immunization Z23 ; Hypertension I10 and Back pain M54.9 [facility] [id number] [place] [address] Jan, Encounter for immunization Z23 ; Hypertension I10 ; Hyperlipidemia E78.5 and Back pain M54.9 [facility] [id number] [place] [address] Jan, [facility] [id number] [place] [address] Sep, [facility] [id number] [place] [address] Sep, [facility] [id number] [place] [address] Jul, [facility] [address] [place] [address] Jul, [facility] [id number] [place] [address] Jun, [facility] [address] [place] [address] May, [facility] [id number] [place] [address] May, [facility] [address] [place] [address] May, [facility] [id number] [place] [address] [place] [address] May, 2014 [facility] [place] [facility] [address] [id number] [place] [address] May, 2014 [facility] [place] [facility] [address] [id number] [place] [address] May, 2014 [facility] [place] [facility] [address] [id number] [place] [address] May, 2014 [facility] [place] [facility] [address] [id number] [place] [address] May, 2014 [facility] [place] [facility] [address] [id number] [place] [address] May, [facility] [place] [facility] [address] [id number] [place] [address] Apr, [facility] [place] [facility] [address] [id number] [place] [address] Apr, [facility] [place] [facility] [address] [id number] [place] [address] Apr, [facility] [place] [facility] [address] [id number] [place] [address] Apr, [facility] [place] [facility] [address] [id number] [place] [address] Apr, [facility] [place] [facility] [address] [id number] [place] [address] Apr, [facility] [place] [facility] [address] [id number], [place] [address] Apr, [facility] [place] [facility] [address] [id number] [place] [address] Apr, [facility] [place] [facility] [address] [id number] [place] [address] Apr, [facility] [place] [facility] [address] [id number] [place] [address] Apr, [facility] [place] [facility] [address] [id number] [place] [address] Mar, [facility] [place] [facility] [address] [id number] [place] [address] Mar, [facility] [place] [facility] [address] [id number] [place] [address] Mar, [facility] [place] [facility] [address] [id number] [place] [address] Mar, [facility] [place] [facility] [address] [id number] [place] [address] Mar, [facility] [place] [facility] [address] [id number] [place] [address] Mar, [facility] [place] [facility] [address] [id number] [place] [address] Feb, [facility] [place] [facility] [address] [id number] [place] [address] Feb, [facility] [place] [facility] [address] [id number] [place] [address] Jan, [facility] [place] [facility] [address] [id number] [place] [address] Jan, [facility] [place] [facility] [address] [id number], [place] [address] Jan, [facility] [place] [facility] [address] [id number], [place] [address] Jan, [facility] [place] [facility] [address] [id number] [place] [address] Jan, [facility] [place] [facility] [address] [id number] [place] [address] Jan, [facility] [place] [facility] [address] [id number], [place] [address] Jan, [facility] [place] [facility] [address] [id number], [place] [address] Jan, [facility] [place] [facility] [address] [id number] [place] [address] Jan, [facility] [place] [facility] [address] [id number] [place] [address] Jan, [facility] [place] [facility] [address] [facility] [id number] [place] [address] Jan, [facility] [place] [facility] [address] [id number] [place] [address] 15 Dec, 2013 [facility] [place] [facility] [address] [id number] [place] [address] Dec, [facility] [place] [facility] [address] [id number] [place] [address] Nov, [facility] [place] [facility] [address] [facility] [id number] [place] [address] Nov, [facility] [place] [facility] [address] [facility] [id number] [place] [address] Sep, [facility] [place] [facility] [address] [facility] [id number] [place] [address] Sep, [facility] [place] [facility] [address] [facility] [id number] [place] [address] Sep, [facility] [place] [facility] [address] [facility] [id number], [place] [address] Sep, [facility] [place] [facility] [address] [facility] [id number], [place] [address] Jun, [facility] [place] [facility] [address] [id number] [place] [address] Jun, [facility] [place] [facility] [address] [facility] [id number] [place] [address] Jun, [facility] [place] [facility] [address] [facility] [id number] [place] [address] Jun, [facility] [place] [facility] [address] [id number] [place] [address] 10 Jun, 2013 [facility] [place] [facility] [address] [id number] [place] [address] 07 Jun, 2013 [facility] [place] [facility] [address] [id number] [place] [address] 07 Jun, 2013 [facility] [place] [facility] [address] [id number] [place] [address] 05 Jun, 2013 [facility] [place] [facility] [address] [id number] [place] [address] 05 Jun, 2013 [facility] [place] [facility] [address] [id number] [place] [address] Feb, [facility] [place] [facility] [address] [id number] [place] [address] Feb, [facility] [place] [facility] [address] [id number] [place] [address] Feb, [facility] [place] [facility] [address] [id number] [place] [address] 18 Feb, 2013 [facility] [place] [facility] [address] [id number] [place] [address] Feb, [facility] [place] [facility] [address] [id number] [place] [address] 15 Feb, 2013 [facility] [place] [facility] [address] [id number] [place] [address] 14 Nov, 2012 [facility] [place] [facility] [address] [id number] [place] [address] 03 Oct, 2012 [facility] [place] [facility] [address] [id number] [place] [address] 10 Sep, 2012 [facility] [place] [facility] [address] [id number] [place] [address] 05 Sep, 2012 [facility] [place] [facility] [address] [id number] [place] [address] Sep, [facility] [address] [id number] [place] [address] Sep, [facility] [place] [facility] [address] [id number] [place] [address] August, [facility] [place] [facility] [address] [id number] [place] [address] Jun, [facility] [place] [facility] [address] [id number] [place] [address] Jun, [facility] [place] [facility] [address] [id number] [place] [address] Jun, [facility] [place] [facility] [address] [id number] [place] [address] Apr, [facility] [place] [facility] [address] [id number] [place] [address] Apr, [facility] [place] [facility] [address] [id number] [place] [address] Apr, [facility] [place] [facility] [address] [id number] [place] [address] Apr, [facility] [place] [facility] [address] [id number] [place] [address] Apr, [facility] [place] [facility] [address] [id number], [place] [address] Apr, [facility] [place] [facility] [address] [id number], [place] [address] Mar, [facility] [place] [facility] [address] [id number] [place] [address] Mar, [facility] [place] [facility] [address] [id number] [place] [address] Mar, [facility] [place] [facility] [address] [id number] [place] [address] Mar, [facility] [place] [facility] [address] [id number] [place] [address] 07 Feb, 2012 [facility] [place] [facility] [address] [id number] [place] [address] Feb, [facility] [place] [facility] [address] [id number] [place] [address] Feb, [facility] [place] [facility] [address] [id number] [place] [address] Feb, [facility] [place] [facility] [address] [id number] [place] [address] Jan, [facility] [place] [facility] [address] [id number] [place] [address] Jan, [facility] [place] [facility] [address] [id number] [place] [address] Jan, [facility] [place] [facility] [address] [id number] [place] [address] Jan, [facility] [place] [facility] [address] [id number] [place] [address] Jan, [facility] [place] [facility] [address] [id number] [place] [address] Jan, [facility] [place] [facility] [address] [facility] [id number] [place] [address] Jan, [facility] [place] [facility] [address] [id number] [place] [address] Jan, [facility] [place] [facility] [address] [id number], [place] [address] Jan, [facility] [place] [facility] [address] [id number] [place] [address] Jan, [facility] [place] [facility] [address] [facility] [id number] [place] [address] Jan, [facility] [place] [facility] [address] [id number], [place] [address] Jan, [facility] [address] [facility] [id number] [place] [address] Jan, [facility] [address] [facility] [id number], [place] [address] Dec, [facility] [address] [facility] [id number], [place] [address] Nov, [facility] [address] [facility] [id number], [place] [address] Nov, [facility] [address] [facility] [id number], [place] [address] Jan, IMMUNIZATIONS No Known Immunizations SOCIAL HISTORY Never Assessed REASON FOR VISIT AmbAbbi- 05/18 PLAN OF CARE VITAL SIGNS MEDICATIONS Medication Instructions Dosage Frequency Start Date End Date Duration Status zolpidem 10 mg by oral route Once a day 1 tablet 24h May, May, 28 days Active Hydrocodone-Acetaminophen 7.5-325 MG Orally every 6 hrs 1 tablet as needed 6h Apr, May, 28 days Active Cialis 20 mg Orally Once a day 1 tablet 24h Apr, Active RESULTS No Results PROCEDURES No Known [...]
--- OUTSIDE RECORDS SUMMARY | 2018-09-13 23:59 | XMS REPORT ---
Author Author JULIAN TORREZ [facility] eClinical[employer] Address Unknown Phone Unavailable Care Team Providers Care Retail Delivery Driver Name Role Phone JULIAN TORREZ CP Unavailable Allergies No Known Allergies Problems Problem Type Condition Code Onset Dates Condition Status Assessment Hypertension I10 Active Assessment Back pain M54.9 Active Problem Hyperlipidemia E78.5 Active Problem Back pain M54.9 Active Problem Hypertension I10 Active Assessment Hyperlipidemia E78.5 Active Assessment Encounter for immunization Z23 Active Problem Impotence of organic origin 607.84 Active Problem Hypertrophy (benign) of prostate without urinary obstruction and other lower urinary tract symptoms [LUTS] 600.00 Active Medications No Known Medications Procedures Procedure Coding System Code Date COMPREHEN METABOLIC PANEL CPT-4 42995 Mar 10, 2015 LIPID PANEL CPT-4 41565 Mar 10, 2015 ASSAY OF PSA, TOTAL CPT-4 20605 Mar 10, 2015 VENIPUNCT, ROUTINE* CPT-4 35748 Mar 10, 2015 Results No Known Results Summary Purpose eClinicalWorks Submission
--- OUTSIDE RECORDS SUMMARY | 2018-09-13 23:59 | XMS REPORT ---
Author Author BHASKAR ACOSTA Organization [facility] Address [address] [place] [address] Care Team Providers Care Customer Technical Services Manager Name Role Phone BHASKAR ACOSTA Unavailable PROBLEMS Type Condition ICD9-CM Code ENY37-HB Code Onset Dates Condition Status SNOMED Code Problem Back pain M54.9 Active 576427764 Problem Insomnia G47.00 Active 523550631 Problem Hyperlipidemia E78.5 Active 17414390 Problem Hypertension I10 Active 06912769 Problem Reactive depression F32.9 Active 34848562 Problem Adjustment disorder with depressed mood F43.21 Active 78688634 Problem Benign prostatic hyperplasia with lower urinary tract symptoms, unspecified morphology N40.1 Active 857243194 Problem Obstructive sleep apnea syndrome G47.33 Active 05028928 Problem Vasculogenic erectile dysfunction, 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 [id number] [place] [address] May, Back pain M54.[address] [facility] [id number] [place] [address] May, Hyperlipidemia E78.5 ; Hypertension I10 and Hypothyroidism, unspecified type E03.9 [facility] [id number] [place] [address] May, Hypertension I10 ; Back pain M54.9 ; Hypothyroidism, unspecified type E03.[address] [facility] [id number] [place] [address] Apr, 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 [id number] [place] [address] Apr, Insomnia [address].00 [facility] [id number] [place] [address] Mar, [facility] [id number] [place] [address] Mar, Insomnia G47.[address] [id number] [place] [address] Feb, [facility] [id number] [place] [address] Feb, Hypothyroidism, unspecified type E03.[address] [facility] [id number] [place] [address] Jan, Insomnia G47.00 [facility] [id number] [place] [address] Jan, [facility] [id number] [place] [address] Jan, Adjustment disorder with depressed mood F43.21 [facility] [id number] [place] [address] Jan, Adjustment disorder with depressed mood F43.21 [facility] [id number] [place] [address] Jan, Hypothyroidism, unspecified type E03.9 and Reactive depression F32.9 [facility] [id number] [place] [address] Jan, Adjustment disorder with depressed mood F43.21 [facility] [id number] [place] [address] Dec, Insomnia G47.00 and Back pain M54.9 [facility] [id number] [place] [address] Nov, Hyperlipidemia E78.5 ; Hypertension I10 and Hypothyroidism, unspecified type E03.9 [facility] [id number] [place] [address] Oct, Hyperlipidemia E78.5 ; Hypertension I10 ; Insomnia G47.00 and Hypothyroidism, unspecified type E03.9 [facility] [id number] [place] [address] August, Hypothyroidism, unspecified type E03.9 [facility] [address] [address] Jun, Hyperlipidemia E[address].5 [facility] [id number] [place] [address] May, Back pain M54.[address] [facility] [id number] [place] [address] May, [facility] [id number] [place] [address] Apr, [facility] [id number] [place] [address] Apr, Back pain M54.9 ; Hyperlipidemia E78.5 ; High risk sexual behavior Z72.51 and Vasculogenic erectile dysfunction, 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 [facility] [id number] [place] [address] Mar, Hyperlipidemia E78.5 [facility] [id number] [place] [address] Feb, [facility] [id number] [place] [address] Jan, [facility] [id number] [place] [address] Jan, Hypertension I10 ; Hypothyroidism, unspecified type E03.9 and Hyperlipidemia E78.5 [facility] [id number] [place] [address] Jan, Hypertension I10 ; Hyperlipidemia E78.5 ; Back pain M54.9 ; Hypothyroidism, unspecified type E03.9 and Benign prostatic hyperplasia with lower urinary tract symptoms, unspecified morphology N40.1 [place] [address] [address] Oct, [place] [address] [address] [address] Oct, Back pain M54.9 and Obstructive sleep apnea syndrome G47.33 [place] [address] [address] Oct, [place] [address] [address] August, Dermatitis L30.9 [place] [address] [address] Jun, Hypertension I10 ; Back pain M54.9 ; Hyperlipidemia E78.5 and Insomnia G47.00 [facility] [id number] [place] [address] May, [facility] [id number] [place] [address] Mar, Insomnia G47.00 [facility] [id number] [place] [address] Mar, [place] [address] [address] Feb, Hyperlipidemia E78.5 ; Encounter for immunization Z23 ; Hypertension I10 and Back pain M54.9 [facility] [id number] [place] [address] Jan, Encounter for immunization Z23 ; Hypertension I10 ; Hyperlipidemia E78.5 and Back pain M54.9 [facility] [place] [facility] [address] [place] [address] Jan, [facility] [place] [facility] [id number] [address] Sep, [facility] [place] [facility] [address] [place] [address] Sep, [facility] [place] [facility] [address] [facility] [id number] [place] [address] 14 Jul, 2014 [facility] [place] [facility] [address] [place] [address] Jul, [facility] [place] [facility] [id number] [place] [address] Jun, [facility] [place] [facility] [id number] [address] May, 2014 [facility] [place] [facility] [address] [address] May, 2014 [facility] [place] [facility] [address] [address] May, 2014 [facility] [place] [facility] [address] [address] May, 2014 [facility] [place] [facility] [address] [address] May, 2014 [facility] [place] [facility] [address] [address] May, 2014 [facility] [place] [facility] [address] [address] May, 2014 [facility] [place] [facility] [address], [place] [address] May, 2014 [facility] [place] [facility] [address] [address] May, 2014 [facility] [place] [facility] [address] [id number] [place] [address] Apr, [facility] [place] [facility] [address] [id number] [place] [address] Apr, [facility] [place] [facility] [address] [id number] [place] [address] Apr, [facility] [place] [facility] [address] [id number] [place] [address] Apr, [facility] [place] [facility] [address] [id number] [place] [address] Apr, [facility] [place] [facility] [address] [id number] [place] [address] Apr, [facility] [place] [facility] [address] [id number] [place] [address] Apr, [facility] [place] [facility] [address] [id number] [place] [address] Apr, [facility] [place] [facility] [address] [id number] [place] [address] Apr, [facility] [place] [facility] [address] [id number] [place] [address] Apr, [facility] [place] [facility] [address] [id number] [place] [address] Mar, [facility] [place] [facility] [address] [id number] [place] [address] Mar, [facility] [place] [facility] [address] [id number] [place] [address] Mar, [facility] [place] [facility] [address] [id number] [place] [address] Mar, [facility] [place] [facility] [address] [id number] [place] [address] Mar, [facility] [place] [facility] [address] [id number] [place] [address] Mar, [facility] [place] [facility] [address] [id number] [place] [address] Feb, [facility] [place] [facility] [address] [id number] [place] [address] Feb, [facility] [place] [facility] [address] [id number] [place] [address] Jan, [facility] [place] [facility] [address] [id number] [place] [address] Jan, [facility] [place] [facility] [address] [id number] [place] [address] Jan, [facility] [place] [facility] [address] [id number] [place] [address] Jan, [facility] [place] [facility] [address] [id number] [place] [address] Jan, [facility] [place] [facility] [address] [id number], [place] [address] Jan, [facility] [place] [facility] [address] [id number] [place] [address] Jan, [facility] [place] [facility] [address] [id number], [place] [address] Jan, [facility] [place] [facility] [address] [id number], [place] [address] Jan, [facility] [place] [facility] [address] [id number], [place] [address] Jan, [facility] [place] [facility] [address] [id number] [place] [address] Jan, [facility] [place] [facility] [address] [id number], [place] [address] 15 Dec, 2013 [facility] [place] [facility] [address] [id number], [place] [address] 15 Dec, 2013 [facility] [place] [facility] [address] [id number] [place] [address] Nov, [facility] [place] [facility] [address] [id number] [place] [address] Nov, [facility] [place] [facility] [address] [id number] [place] [address] Sep, [facility] [place] [facility] [address] [id number] [place] [address] Sep, [facility] [place] [facility] [address] [id number] [place] [address] Sep, [facility] [place] [facility] [address] [id number] [place] [address] Sep, [facility] [place] [facility] [address] [id number] [place] [address] Jun, [facility] [place] [facility] [address] [id number] [place] [address] Jun, [facility] [place] [facility] [address] [id number] [place] [address] Jun, [facility] [place] [facility] [address] [id number] [place] [address] Jun, [facility] [place] [facility] [address] [id number] [place] [address] Jun, [facility] [place] [facility] [address] [id number] [place] [address] Jun, [facility] [place] [facility] [address] [id number] [place] [address] 07 Jun, 2013 [facility] [place] [facility] [address] [id number] [place] [address] 05 Jun, 2013 [facility] [place] [facility] [address] [id number] [place] [address] 05 Jun, 2013 [facility] [place] [facility] [address] [id number] [place] [address] Feb, [facility] [place] [facility] [address] [id number] [place] [address] Feb, [facility] [place] [facility] [address] [id number] [place] [address] Feb, [facility] [place] [facility] [address] [id number] [place] [address] Feb, [facility] [place] [facility] [address] [id number] [place] [address] Feb, [facility] [address] [id number] [place] [address] Feb, [facility] [place] [facility] [address] [id number] [place] [address] Nov, [facility] [address] [id number] [place] [address] Oct, [facility] [address] [id number] [place] [address] Sep, [facility] [place] [facility] [address] [id number] [place] [address] Sep, [facility] [place] [facility] [address] [id number] [place] [address] Sep, [facility] [place] [facility] [address] [id number] [place] [address] Sep, [facility] [place] [facility] [address] [id number] [place] [address] August, [facility] [place] [facility] [address] [id number] [place] [address] Jun, [facility] [place] [facility] [address] [id number] [place] [address] Jun, [facility] [place] [facility] [address] [id number] [place] [address] Jun, [facility] [place] [facility] [address] [id number] [place] [address] Apr, [facility] [place] [facility] [address] [id number] [place] [address] Apr, [facility] [place] [facility] [address] [id number] [place] [address] Apr, [facility] [place] [facility] [address] [id number] [place] [address] Apr, [facility] [place] [facility] [address] [id number] [place] [address] Apr, [facility] [place] [facility] [address] [id number] [place] [address] Apr, [facility] [place] [facility] [address] [id number] [place] [address] Mar, [facility] [place] [facility] [address] [id number] [place] [address] Mar, [facility] [place] [facility] [address] [id number] [place] [address] Mar, [facility] [place] [facility] [address] [id number] [place] [address] Mar, [facility] [place] [facility] [address] [id number] [place] [address] Feb, [facility] [place] [facility] [address] [id number] [place] [address] Feb, [facility] [place] [facility] [address] [id number] [place] [address] Feb, [facility] [place] [facility] [address] [id number] [place] [address] Feb, [facility] [place] [facility] [address] [id number] [place] [address] Jan, [facility] [place] [facility] [address] [id number] [place] [address] Jan, [facility] [place] [facility] [address] [facility] [id number] [place] [address] Jan, [facility] [address] [facility] [id number], [place] [address] Jan, [facility] [address] [facility] [id number] [place] [address] Jan, [facility] [address] [facility] [id number], [place] [address] Jan, [facility] [address] [id number] [place] [address] [address], [facility] [address] [facility] [id number] [place] [address] Jan, [facility] [address] [facility] [id number], [place] [address] Jan, [facility] [address] [facility] [id number], [place] [address] Jan, [facility] [address] [facility] [id number], [place] [address] Jan, [facility] [address] [facility] [id number], [place] [address] Jan, [facility] [address] [facility] [id number], [place] [address] Jan, [facility] [address] [facility] [id number], [place] [address] Dec, [facility] [address] [facility] [id number], [place] [address] Nov, [facility] [address] [facility] [id number], [place] [address] Nov, [facility] [address] [facility] [id number], [place] [address] Jan, IMMUNIZATIONS No Known Immunizations SOCIAL HISTORY Never Assessed REASON FOR VISIT BH INTAKE, "Torrie." (His ). PLAN OF CARE Activity Details Follow Up next available Reason:depression VITAL SIGNS MEDICATIONS Medication Instructions Dosage Frequency Start Date End Date Duration Status Proscar 5 mg Orally Once a day 1 tablet 24h 30 Active zolpidem 10 mg by oral route Once a day 1 tablet 24h 09 May, 2014 Active Hydrocodone-Acetaminophen 7.5-325 MG Orally every 6 hrs 1 tablet as needed 6h Dec, 30 Active levothyroxine 150 1 tablet by Oral route 1 time per day May, Active Lisinopril 10MG Orally Once a day 1 tablet 24h 30 Active Atorvastatin Calcium 40 mg Orally Once a day 1 tablet 24h 30 Active Levothyroxine Sodium 150 MCG Orally Once a day 1 tablet on an empty stomach in the morning 24h August, 30 day(s) Active Ambien 10 MG TAKE ONE TABLET BY MOUTH ONCE DAILY 30 Active Cialis 20 mg 1 tablet by Oral route 1 time per day PRN Jan, Active Cialis 20 mg Orally Once a day 1 tablet 24h Apr, Active RESULTS No Results PROCEDURES Procedure Date Ordered Result Body Site Psych diagnostic evaluation, established patient Jan 25, 2017 INSTRUCTIONS MEDICATIONS ADMINISTERED No Known Medications MEDICAL (GENERAL) HISTORY Type Description Date Medical History hypertension Medical History hyperlipidemia Medical History hypothyroidism Medical History sleep apnea Surgical History appendectomy Surgical History hernia repair x 2 Surgical History right knee meniscus repair Surgical History Left ACL repair Hospitalization History surgeries Hospitalization History sleep study
--- OUTSIDE RECORDS SUMMARY | 2018-09-13 23:59 | XMS REPORT ---
Author Author JULIAN TORREZ Organization [employer] Address Unknown Phone Unavailable Care Team Providers Care Quarry Manager Name Role Phone JULIAN TORREZ CP Unavailable Allergies No Known Allergies Problems Problem Type Condition Code Onset Dates Condition Status Assessment Hyperlipidemia E78.5 Active Assessment Hypertension I10 Active Assessment Hypothyroidism, unspecified type E03.9 Active Problem Benign prostatic hyperplasia with lower urinary tract symptoms, unspecified morphology N40.1 Active Problem Obstructive sleep apnea syndrome G47.33 Active Problem Hypothyroidism, unspecified type E03.9 Active Problem Hyperlipidemia E78.5 Active Problem Back pain M54.9 Active Problem Insomnia G47.00 Active Problem Hypertension I10 Active Medications No Known Medications Procedures Procedure Coding System Code Date ASSAY OF PSA, TOTAL CPT-4 43174 Feb 09, 2016 LIPID PANEL CPT-4 07202 Feb 09, 2016 ASSAY THYROID STIM HORMONE CPT-4 62679 Feb 09, 2016 VENIPUNCT, ROUTINE* CPT-4 26662 Feb 09, 2016 COMPREHEN METABOLIC PANEL CPT-4 21193 Feb 09, 2016 Results Name Result Date Reference Range Unit Abnormality Flag ROUTINE VENIPUNCTURE Summary Purpose [employer] Submission
--- OUTSIDE RECORDS SUMMARY | 2018-09-13 23:59 | XMS REPORT ---
Author Author JULIAN TORREZ Organization [employer] Address Unknown Phone Unavailable Care Team Providers Care Elevators Inspector Name Role Phone JULIAN TORREZ CP Unavailable Allergies No Known Allergies Problems Problem Type Condition Code Onset Dates Condition Status Problem Benign prostatic hyperplasia with lower urinary tract symptoms, unspecified morphology N40.1 Active Problem Obstructive sleep apnea syndrome G47.33 Active Problem Hypothyroidism, unspecified type E03.9 Active Problem Hyperlipidemia E78.5 Active Problem Back pain M54.9 Active Problem Insomnia G47.00 Active Problem Hypertension I10 Active Medications Medication Code System Code Instructions Start Date End Date Status Dosage levothyroxine NDC 0 150 Jun 04, 2014 1 tablet by Oral route 1 time per day Results No Known Results Summary Purpose [employer] Submission
--- OUTSIDE RECORDS SUMMARY | 2018-09-13 23:59 | XMS REPORT ---
Author JULIAN Schmidt [facility] [employer] Address Unknown Phone Unavailable Care Team Providers Care Nurses' Registry Director Name Role Phone JULIAN TORREZ CP Unavailable Allergies, Adverse Reactions, Alerts Substance Reaction Event Type Zithromax Z-Matt hives Drug Allergy Problems Problem Type Condition Code Onset Dates Condition Status Assessment Hyperlipidemia E78.5 Active Assessment Back pain M54.9 Active Problem Hyperlipidemia E78.5 Active Problem Back pain M54.9 Active Problem Hypertension I10 Active Assessment Encounter for immunization Z23 Active Assessment Hypertension I10 Active Problem Impotence of organic origin 607.84 Active Problem Hypertrophy (benign) of prostate without urinary obstruction and other lower urinary tract symptoms [LUTS] 600.00 Active Medications Medication Code System Code Instructions Start Date End Date Status Dosage Proscar [facility] [address]-68 5 mg Jun 02, 2014 1 tablet by Oral route 1 time per day zolpidem NDC 0 10 mg Jun 02, 2014 1 tablet by Oral route 1 time per day PRN pantoprazole NDC 0 20 mg September 26, 2012 1 tablet by Oral route 1 time per day for 30 day(s) Cialis [facility] [address]-55 20 mg Feb 13, 2014 1 tablet by Oral route 1 time per day PRN levothyroxine NDC 0 175 mcg Jun 04, 2014 1 tablet by Oral route 1 time per day Lisinopril [facility] [id number] 10MG TAKE 1 TABLET DAILY IN THE MORNING Hydrocodone-Acetaminophen [facility] [address]-28 7.5-325 MG Mar 06, 2014 take 1 tablet by Oral route every 6 hours as [place] [address]-28 40 mg Jun 04, 2014 1 tablet by Oral route 1 time per day Procedures Procedure Coding System Code Date SINGLE IMMUNIZATION ADMIN CPT-4 65767 Feb 17, 2015 Office Visit, Est Pt., Level 3 CPT-4 26478 Feb 17, 2015 FLUARIX QUAD (3 & UP)-GSK-2014 CPT-4 16108 Feb 17, 2015 Vital Signs Date/Time: Feb 17, 2015 Temperature 98.3 F Weight 224 lbs Height 74 in BMI 28.76 Index Blood Pressure Diastolic 72 mmHg Blood Pressure Systolic 138 mmHg Cardiac Monitoring Heart Rate 72 bpm Results No Known Results Immunizations Vaccine Administration Date FLUARIX QUAD (3 & UP)-[facility]-2014Feb 17, 2015 Summary Purpose eClinicalWorks Submission
--- OUTSIDE RECORDS SUMMARY | 2018-09-14 | XMS REPORT ---
Author Author BHASKAR ACOSTA Organization [facility] Address [address] [place] [address] Care Team Providers Care Shop Coordinator Name Role Phone BHASKAR ACOSTA Unavailable PROBLEMS Type Condition ICD9-CM Code [id number] Code Onset Dates Condition Status SNOMED Code Problem Hyperlipidemia E78.5 Active 72455276 Problem Obstructive sleep apnea syndrome G47.33 Active 97424806 Problem Insomnia G47.00 Active 796319279 Problem Hypertension I10 Active 70279201 Problem Back pain M54.9 Active 950078597 Problem Erectile dysfunction, unspecified erectile dysfunction type N52.9 Active 119104250 Problem Reactive depression F32.9 Active 10081061 Problem Hypothyroidism, unspecified type E03.9 Active 53083811 Problem Benign prostatic hyperplasia with lower urinary tract symptoms, unspecified morphology N40.1 Active 793902345 Problem Adjustment disorder with depressed mood F43.21 Active 56302770 Problem Vasculogenic erectile dysfunction, 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 Active [id number] ALLERGIES No Information ENCOUNTERS Encounter Location Date Diagnosis [place] [id number] [address] August, Abnormal PSA R97.20 [place] [address] [address] 10 Aug, 2017 Erectile dysfunction, unspecified erectile dysfunction type N52.9 ; Benign prostatic hyperplasia with lower urinary tract symptoms, unspecified morphology N40.1 and Hypertension I10 [facility] [address] [address] 22 May, 2017 Back pain M54.9 and Insomnia G47.00 [facility] [address] [place] [id number] [place] [address] 13 May, 2017 Hyperlipidemia E78.5 ; Hypertension I10 and Hypothyroidism, unspecified type E03.9 [facility] [address] [place] [address] May, Hypertension I10 ; Back pain M54.9 ; Hypothyroidism, unspecified type E03.9 and Hyperlipidemia E78.5 [facility] [id number] [place] [address] Apr, [facility] [address] [place] [id number] [place] [address] Apr, Insomnia G47.00 ; Back pain M54.9 and Vasculogenic erectile dysfunction, 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 [facility] [address] [place] [id number] [place] [address] Apr, Insomnia G47.00 [place] [address] [place] [id number] [place] [address] Mar, [facility] [address] [place] [id number] [place] [address] Mar, Insomnia G47.[address] [id number] [place] [address] Feb, [facility] [address] [place] [address] Feb, Hypothyroidism, unspecified type E03.9 and Insomnia G47.00 [facility] [address] [place] [address] Jan, Insomnia G47.00 [facility] [address] [place] [address] Jan, [facility] [address] [place] [id number] [place] [address] Jan, Adjustment disorder with depressed mood F43.21 [facility] [address] [place] [address] Jan, Adjustment disorder with depressed mood F43.21 [facility] [address] [place] [id number] [place] [address] Jan, Hypothyroidism, unspecified type E03.9 and Reactive depression F32.9 [place] [address] [place] [id number] [place] [address] Jan, Adjustment disorder with depressed mood F43.21 [place] [address] [place] [id number] [place] [address] Dec, Insomnia G47.00 and Back pain M54.9 [place] [address] [place] [id number] [place] [address] Nov, Hyperlipidemia E78.5 ; Hypertension I10 and Hypothyroidism, unspecified type E03.9 [place] [address] [place] [id number] [place] [address] Oct, Hyperlipidemia E78.5 ; Hypertension I10 ; Insomnia G47.00 and Hypothyroidism, unspecified type E03.9 [place] [address] [place] [id number] [place] [address] August, Hypothyroidism, unspecified type E03.9 [place] [address] [place] [id number] [place] [address] Jun, Hyperlipidemia E78.5 [place] [address] [place] [id number] [place] [address] May, Back pain M54.9 and Insomnia G47.00 [place] [address] [place] [id number] [place] [address] May, [place] [address] [place] [id number] [place] [address] Apr, [place] [address] [place] [id number] [place] [address] Apr, Back pain M54.9 ; Hyperlipidemia E78.5 ; High risk sexual behavior Z72.51 and Vasculogenic erectile dysfunction, 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 [place] [address] [place] [id number] [place] [address] Mar, Hyperlipidemia E78.5 [facility] [address] [place] [id number] [place] [address] Feb, [facility] [address] [place] [id number] [place] [address] Jan, [facility] [address] [place] [id number] [place] [address] Jan, Hypertension I10 ; Hypothyroidism, unspecified type E03.9 and Hyperlipidemia E78.5 [facility] [address] [place] [id number] [place] [address] Jan, Hypertension I10 ; Hyperlipidemia E78.5 ; Back pain M54.9 ; Hypothyroidism, unspecified type E03.9 and Benign prostatic hyperplasia with lower urinary tract symptoms, unspecified morphology N40.1 [place] [address] [place] [id number] [place] [address] Oct, [facility] [address] [place] [id number] [place] [address] Oct, Back pain M54.9 and Obstructive sleep apnea syndrome G47.33 [place] [address] [place] [id number] [place] [address] Oct, [facility] [address] [place] [id number] [place] [address] August, Dermatitis L30.9 [facility] [address] [place] [id number] [place] [address] Jun, Hypertension I10 ; Back pain M54.9 ; Hyperlipidemia E78.5 and Insomnia G47.00 [facility] [address] [place] [id number] [place] [address] May, [facility] [address] [place] [id number] [place] [address] Mar, Insomnia G47.00 [facility] [address] [place] [address] Mar, [facility] [address] [place] [id number] [place] [address] Feb, Hyperlipidemia E78.5 ; Encounter for immunization Z23 ; Hypertension I10 and Back pain M54.9 [facility] [address] [place] [id number] [place] [address] Jan, Encounter for immunization Z23 ; Hypertension I10 ; Hyperlipidemia E78.5 and Back pain M54.9 [facility] [address] [place] [id number] [place] [address] Jan, [facility] [address] [place] [id number] [place] [address] Sep, [facility] [address] [place] [id number] [place] [address] Sep, [facility] [address] [place] [id number] [place] [address] Jul, [facility] [address] [place] [id number] [place] [address] Jul, [facility] [address] [place] [id number] [place] [address] Jun, [facility] [id number] [place] [address] May, [facility] [id number] [place] [address] May, [facility] [id number] [place] [address] May, [facility] [address] [place] [id number] [place] [address] May, [facility] [id number] [place] [address] May, [facility] [address] [place] [id number] [place] [address] [place] [address] May, [facility] [place] [facility] [address] [id number] [place] [address] May, [facility] [place] [facility] [address] [id number] [place] [address] May, [facility] [place] [facility] [address] [id number] [place] [address] May, [facility] [place] [facility] [address] [id number] [place] [address] Apr, [facility] [place] [facility] [address] [id number] [place] [address] Apr, [facility] [place] [facility] [address] [id number] [place] [address] Apr, [facility] [place] [facility] [address] [id number] [place] [address] Apr, [facility] [place] [facility] [address] [id number] [place] [address] Apr, [facility] [place] [facility] [address] [id number] [place] [address] Apr, [facility] [place] [facility] [address] [id number] [place] [address] Apr, [facility] [place] [facility] [address] [id number] [place] [address] Apr, [facility] [place] [facility] [address] [id number] [place] [address] Apr, [facility] [place] [facility] [address] [id number] [place] [address] Apr, [facility] [place] [facility] [address] [id number] [place] [address] Mar, [facility] [place] [facility] [address] [id number] [place] [address] Mar, [facility] [place] [facility] [address] [id number] [place] [address] Mar, [facility] [place] [facility] [address] [id number] [place] [address] Mar, [facility] [place] [facility] [address] [id number] [place] [address] Mar, [facility] [place] [facility] [address] [id number] [place] [address] Mar, [facility] [place] [facility] [address] [id number] [place] [address] Feb, [facility] [place] [facility] [address] [id number] [place] [address] Feb, [facility] [place] [facility] [address] [id number] [place] [address] Jan, [facility] [place] [facility] [address] [id number] [place] [address] Jan, [facility] [place] [facility] [address] [id number] [place] [address] Jan, [facility] [place] [facility] [address] [id number] [place] [address] Jan, [facility] [place] [facility] [address] [id number] [place] [address] Jan, [facility] [place] [facility] [address] [id number] [address] Jan, [facility] [place] [facility] [address] [id number] [place] [address] Jan, [facility] [place] [facility] [address] [id number] [place] [address] Jan, [facility] [place] [facility] [address] [id number] [place] [address] Jan, [facility] [place] [facility] [address] [id number] [place] [address] 07 Jan, 2014 [facility] [place] [facility] [address] [id number] [place] [address] Jan, [facility] [place] [facility] [address] [id number] [place] [address] Dec, [facility] [place] [facility] [address] [id number] [place] [address] Dec, [facility] [place] [facility] [address] [id number] [place] [address] Nov, [facility] [place] [facility] [address] [id number] [place] [address] Nov, [facility] [place] [facility] [address] [id number] [place] [address] Sep, [facility] [place] [facility] [address] [id number] [place] [address] Sep, [facility] [place] [facility] [address] [id number] [place] [address] Sep, [facility] [place] [facility] [address] [id number] [place] [address] Sep, [facility] [place] [facility] [address] [id number] [place] [address] Jun, [facility] [place] [facility] [address] [id number] [place] [address] 18 Jun, 2013 [facility] [place] [facility] [address] [id number] [place] [address] Jun, [facility] [place] [facility] [address] [id number] [place] [address] Jun, [facility] [place] [facility] [address] [id number] [place] [address] Jun, [facility] [place] [facility] [address] [id number] [place] [address] 07 Jun, 2013 [facility] [place] [facility] [address] [id number] [place] [address] Jun, [facility] [address] [id number] [place] [address] 05 Jun, 2013 [facility] [place] [facility] [address] [id number] [place] [address] Jun, [facility] [address] [id number] [place] [address] Feb, [facility] [address] [id number] [place] [address] Feb, [facility] [address] [id number] [place] [address] Feb, [facility] [address] [id number] [place] [address] Feb, [facility] [address] [id number] [place] [address] Feb, [facility] [address] [id number] [place] [address] Feb, [facility] [address] [id number] [place] [address] Nov, [facility] [address] [id number] [place] [address] Oct, [facility] [place] [facility] [address] [id number] [place] [address] Sep, [facility] [place] [facility] [address] [id number] [place] [address] Sep, [facility] [place] [facility] [address] [id number] [place] [address] Sep, [facility] [place] [facility] [address] [id number] [place] [address] Sep, [facility] [place] [facility] [address] [id number] [place] [address] August, [facility] [address] [id number] [place] [address] Jun, [facility] [place] [facility] [address] [id number] [place] [address] Jun, [facility] [place] [facility] [address] [id number] [place] [address] Jun, [facility] [place] [facility] [address] [id number] [place] [address] Apr, [facility] [place] [facility] [address] [id number] [place] [address] Apr, [facility] [place] [facility] [address] [id number] [place] [address] Apr, [facility] [place] [facility] [address] [id number] [place] [address] Apr, [facility] [place] [facility] [address] [id number] [place] [address] Apr, [facility] [place] [facility] [address] [id number] [place] [address] Apr, [facility] [place] [facility] [address] [id number] [place] [address] Mar, [facility] [place] [facility] [address] [id number] [place] [address] Mar, [facility] [place] [facility] [address] [id number] [place] [address] Mar, [facility] [place] [facility] [address] [id number] [place] [address] Mar, [facility] [place] [facility] [address] [id number] [place] [address] Feb, [facility] [place] [facility] [address] [id number] [place] [address] Feb, [facility] [place] [facility] [address] [id number] [place] [address] Feb, [facility] [place] [facility] [address] [id number] [place] [address] Feb, [facility] [place] [facility] [address] [id number] [place] [address] Jan, [facility] [place] [facility] [address] [id number] [place] [address] Jan, [facility] [place] [facility] [address] [id number] [place] [address] Jan, [facility] [place] [facility] [address] [id number] [place] [address], [place] [address] Jan, [facility] [place] [facility] [address] [id number] [place] [address] Jan, [facility] [place] [facility] [address] [id number] [place] [address] Jan, [facility] [place] [facility] [address] [id number] [address] Jan, [facility] [place] [facility] [address] [id number] [place] [address] Jan, [facility] [place] [facility] [address] [facility] [id number] [place] [address] Jan, [facility] [place] [facility] [address] [id number] [place] [address] Jan, [facility] [place] [facility] [address] [id number] [place] [address] Jan, [facility] [place] [facility] [address] [id number] [place] [address] Jan, [facility] [place] [facility] [address] [facility] [id number] [place] [address] Jan, [facility] [place] [facility] [address] [facility] [id number] [place] [address] Dec, [facility] [place] [facility] [address] [facility] [id number] [place] [address] Nov, [facility] [address] [facility] [id number] [place] [address] Nov, [facility] [address] [facility] [id number] [place] [address] Jan, IMMUNIZATIONS No Known Immunizations SOCIAL HISTORY [...]
--- OUTSIDE RECORDS SUMMARY | 2018-09-14 | XMS REPORT ---
Author Author JULIAN TORREZ [facility] Address [address] [place] [address] Care Team Providers Care Mud Analysis Well Logging Operator Name Role Phone JULIAN TORREZ Unavailable PROBLEMS Type Condition ICD9-CM Code NRS35-XZ Code Onset Dates Condition Status SNOMED Code Problem Hyperlipidemia E78.5 Active 73396945 Problem Obstructive sleep apnea syndrome G47.33 Active 58694804 Problem Insomnia G47.00 Active 195921810 Problem Hypertension I10 Active 85602635 Problem Back pain M54.9 Active 956581745 Problem Erectile dysfunction, unspecified erectile dysfunction type N52.9 Active 879517104 Problem Reactive depression F32.9 Active 49173760 Problem Hypothyroidism, unspecified type E03.9 Active 60292674 Problem Benign prostatic hyperplasia with lower urinary tract symptoms, unspecified morphology N40.1 Active 691081092 Problem Adjustment disorder with depressed mood F43.21 Active 60185747 Problem Vasculogenic erectile dysfunction, 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 Active 831404372 ALLERGIES No Information ENCOUNTERS Encounter Location Date Diagnosis [place] [id number] [place] [address] Sep, [place] [id number] [place] [address] Sep, [facility] [place] [id number] [place] [address] August, Abnormal PSA R97.20 [place] [address] [address] August, Erectile dysfunction, unspecified erectile dysfunction type N52.9 ; Benign prostatic hyperplasia with lower urinary tract symptoms, unspecified morphology N40.1 and Hypertension I10 [place] [id number] [place] [address] May, Back pain M54.9 and Insomnia G47.00 [facility] [place] [id number] [place] [address] May, Hyperlipidemia E78.5 ; Hypertension I10 and Hypothyroidism, unspecified type E03.9 [facility] [place] [id number] [place] [address] May, Hypertension I10 ; Back pain M54.9 ; Hypothyroidism, unspecified type E03.9 and Hyperlipidemia E78.5 [facility] [place] [id number] [place] [address] Apr, [facility] [place] [id number] [place] [address] Apr, Insomnia G47.00 ; Back pain M54.9 and Vasculogenic erectile dysfunction, 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 [facility] [place] [id number] [place] [address] Apr, Insomnia G47.00 [facility] [place] [id number] [place] [address] Mar, [facility] [place] [id number] [place] [address] Mar, Insomnia G47.00 [facility] [address] [id number] [place] [address] Feb, [facility] [place] [id number] [place] [address] Feb, Hypothyroidism, unspecified type E03.9 and Insomnia G47.00 [facility] [place] [id number] [place] [address] Jan, Insomnia G47.00 [facility] [place] [id number] [place] [address] Jan, [facility] [place] [id number] [place] [address] Jan, Adjustment disorder with depressed mood F43.21 [facility] [place] [id number] [place] [address] Jan, Adjustment disorder with depressed mood F43.21 [facility] [place] [id number] [place] [address] Jan, Hypothyroidism, unspecified type E03.9 and Reactive depression F32.9 [facility] [place] [id number] [place] [address] Jan, Adjustment disorder with depressed mood F43.21 [facility] [place] [id number] [place] [address] Dec, Insomnia G47.00 and Back pain M54.9 [facility] [place] [id number] [place] [address] Nov, Hyperlipidemia E78.5 ; Hypertension I10 and Hypothyroidism, unspecified type E03.9 [facility] [place] [id number] [place] [address] Oct, Hyperlipidemia E78.5 ; Hypertension I10 ; Insomnia G47.00 and Hypothyroidism, unspecified type E03.9 [facility] [place] [id number] [place] [address] August, Hypothyroidism, unspecified type E03.9 [facility] [place] [id number] [place] [address] Jun, Hyperlipidemia E78.5 [facility] [place] [id number] [place] [address] May, Back pain M54.9 and Insomnia G47.00 [facility] [place] [id number] [place] [address] May, [facility] [place] [id number] [place] [address] Apr, [facility] [place] [address] [address] Apr, Back pain M54.9 ; Hyperlipidemia E78.5 ; High risk sexual behavior Z72.51 and Vasculogenic erectile dysfunction, 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 [place] [address] [address] Mar, Hyperlipidemia E78.5 [place] [address] [address] Feb, [place] [address] [address] Jan, [place] [address] [address] Jan, Hypertension I10 ; Hypothyroidism, unspecified type E03.9 and Hyperlipidemia E78.[address] [address] Jan, Hypertension I10 ; Hyperlipidemia E78.5 ; Back pain M54.9 ; Hypothyroidism, unspecified type E03.9 and Benign prostatic hyperplasia with lower urinary tract symptoms, unspecified morphology N40.1 [place] [address] [address] Oct, [place] [address] [address] Oct, Back pain M54.9 and Obstructive sleep apnea syndrome G47.33 [place] [address] [address] Oct, [place] [address] [address] August, Dermatitis L30.9 [place] [address] [address] Jun, Hypertension I10 ; Back pain M54.9 ; Hyperlipidemia E78.5 and Insomnia G47.00 [place] [address] [address] May, [facility] [place] [id number] [place] [address] Mar, Insomnia G47.00 [facility] [place] [id number] [place] [address] Mar, [facility] [place] [id number] [place] [address] Feb, Hyperlipidemia E78.5 ; Encounter for immunization Z23 ; Hypertension I10 and Back pain M54.9 [facility] [place] [id number] [place] [address] Jan, Encounter for immunization Z23 ; Hypertension I10 ; Hyperlipidemia E78.5 and Back pain M54.9 [facility] [place] [id number] [place] [address] Jan, [facility] [place] [id number] [place] [address] Sep, [facility] [place] [id number] [place] [address] Sep, [facility] [place] [id number] [place] [address] Jul, [facility] [place] [id number] [place] [address] Jul, [facility] [place] [id number] [place] [address] Jun, [facility] [place] [address] [place] [address] May, [facility] [place] [id number] [place] [address] May, [facility] [place] [id number] [place] [address] May, [facility] [place] [id number] [place] [address] [place] [address] May, 2014 [facility] [place] [facility] [address] [id number] [place] [address] May, 2014 [facility] [place] [facility] [address] [id number] [place] [address] May, 2014 [facility] [place] [facility] [address] [id number] [place] [address] May, 2014 [facility] [place] [facility] [address] [id number] [place] [address] May, 2014 [facility] [place] [facility] [address] [id number] [place] [address] May, [facility] [place] [facility] [address] [id number] [place] [address] Apr, [facility] [place] [facility] [address] [id number] [place] [address] Apr, [facility] [place] [facility] [address] [id number] [place] [address] Apr, [facility] [place] [facility] [address] [id number] [place] [address] Apr, [facility] [place] [facility] [address] [id number] [place] [address] Apr, [facility] [place] [facility] [address] [id number] [place] [address] Apr, [facility] [place] [facility] [address] [id number] [address] Apr, [facility] [place] [facility] [address] [id number] [place] [address] Apr, [facility] [place] [facility] [address] [id number] [place] [address] Apr, [facility] [place] [facility] [address] [id number] [place] [address] Apr, [facility] [place] [facility] [address] [id number] [place] [address] Mar, [facility] [place] [facility] [address] [id number] [place] [address] Mar, [facility] [place] [facility] [address] [id number] [place] [address] Mar, [facility] [place] [facility] [address] [id number] [place] [address] Mar, [facility] [place] [facility] [address] [id number] [place] [address] Mar, [facility] [place] [facility] [address] [id number] [place] [address] Mar, [facility] [place] [facility] [address] [id number] [place] [address] Feb, [facility] [place] [facility] [address] [id number] [place] [address] Feb, [facility] [place] [facility] [address] [id number] [place] [address] Jan, [facility] [place] [facility] [address] [id number] [place] [address] Jan, [facility] [place] [facility] [address] [id number], [place] [address] Jan, [facility] [place] [facility] [address] [id number], [place] [address] Jan, [facility] [place] [facility] [address] [id number] [place] [address] Jan, [facility] [place] [facility] [address] [id number] [place] [address] Jan, [facility] [place] [facility] [address] [id number], [place] [address] Jan, [facility] [place] [facility] [address] [id number], [place] [address] Jan, [facility] [place] [facility] [address] [id number] [place] [address] Jan, [facility] [place] [facility] [address] [id number] [place] [address] Jan, [facility] [place] [facility] [address] [facility] [id number] [place] [address] Jan, [facility] [place] [facility] [address] [id number] [place] [address] 15 Dec, 2013 [facility] [place] [facility] [address] [id number] [place] [address] Dec, [facility] [place] [facility] [address] [id number] [place] [address] Nov, [facility] [place] [facility] [address] [facility] [id number] [place] [address] Nov, [facility] [place] [facility] [address] [facility] [id number] [place] [address] Sep, [facility] [place] [facility] [address] [facility] [id number] [place] [address] Sep, [facility] [place] [facility] [address] [facility] [id number] [place] [address] Sep, [facility] [place] [facility] [address] [facility] [id number], [place] [address] Sep, [facility] [place] [facility] [address] [facility] [id number], [place] [address] Jun, [facility] [place] [facility] [address] [id number] [place] [address] Jun, [facility] [place] [facility] [address] [facility] [id number] [place] [address] Jun, [facility] [place] [facility] [address] [facility] [id number] [place] [address] Jun, [facility] [place] [facility] [address] [id number] [place] [address] 10 Jun, 2013 [facility] [place] [facility] [address] [id number] [place] [address] 07 Jun, 2013 [facility] [place] [facility] [address] [id number] [place] [address] 07 Jun, 2013 [facility] [place] [facility] [address] [id number] [place] [address] 05 Jun, 2013 [facility] [place] [facility] [address] [id number] [place] [address] 05 Jun, 2013 [facility] [place] [facility] [address] [id number] [place] [address] Feb, [facility] [place] [facility] [address] [id number] [place] [address] Feb, [facility] [place] [facility] [address] [id number] [place] [address] Feb, [facility] [place] [facility] [address] [id number] [place] [address] 18 Feb, 2013 [facility] [place] [facility] [address] [id number] [place] [address] Feb, [facility] [place] [facility] [address] [id number] [place] [address] 15 Feb, 2013 [facility] [place] [facility] [address] [id number] [place] [address] 14 Nov, 2012 [facility] [place] [facility] [address] [id number] [place] [address] 03 Oct, 2012 [facility] [place] [facility] [address] [id number] [place] [address] 10 Sep, 2012 [facility] [place] [facility] [address] [id number] [place] [address] 05 Sep, 2012 [facility] [place] [facility] [address] [id number] [place] [address] Sep, [facility] [address] [id number] [place] [address] Sep, [facility] [place] [facility] [address] [id number] [place] [address] August, [facility] [place] [facility] [address] [id number] [place] [address] Jun, [facility] [place] [facility] [address] [id number] [place] [address] Jun, [facility] [place] [facility] [address] [id number] [place] [address] Jun, [facility] [place] [facility] [address] [id number] [place] [address] Apr, [facility] [place] [facility] [address] [id number] [place] [address] Apr, [facility] [place] [facility] [address] [id number] [place] [address] Apr, [facility] [place] [facility] [address] [id number] [place] [address] Apr, [facility] [place] [facility] [address] [id number] [place] [address] Apr, [facility] [place] [facility] [address] [id number], [place] [address] Apr, [facility] [place] [facility] [address] [id number], [place] [address] Mar, [facility] [place] [facility] [address] [id number] [place] [address] Mar, [facility] [place] [facility] [address] [id number] [place] [address] Mar, [facility] [place] [facility] [address] [id number] [place] [address] Mar, [facility] [place] [facility] [address] [id number] [place] [address] 07 Feb, 2012 [facility] [place] [facility] [address] [id number] [place] [address] Feb, [facility] [place] [facility] [address] [id number] [place] [address] Feb, [facility] [place] [facility] [address] [id number] [place] [address] Feb, [facility] [place] [facility] [address] [id number] [place] [address] Jan, [facility] [place] [facility] [address] [id number] [place] [address] Jan, [facility] [place] [facility] [address] [id number] [place] [address] Jan, [facility] [place] [facility] [address] [id number] [place] [address] Jan, [facility] [place] [facility] [address] [id number] [place] [address] Jan, [facility] [place] [facility] [address] [id number] [place] [address] Jan, [facility] [place] [facility] [address] [facility] [id number] [place] [address] Jan, [facility] [place] [facility] [address] [id number] [place] [address] Jan, [facility] [place] [facility] [address] [id number], [place] [address] Jan, [facility] [place] [facility] [address] [id number] [place] [address] Jan, [facility] [place] [facility] [address] [facility] [id number] [place] [address] Jan, [facility] [place] [facility] [address] [id number], [place] [address] Jan, [facility] [place] [address] [facility] [id number], [place] [address] Jan, [facility] [place] [address] [facility] [id number], [place] [address] Dec, [facility] [place] [address] [facility] [id number], [place] [address] Nov, [facility] [place] [address] [facility] [id number], [place] [address] Nov, [facility] [place] [address] [facility] [id number], [place] [address] Jan, IMMUNIZATIONS No Known Immunizations SOCIAL HISTORY Never Assessed REASON FOR VISIT 90 day supply PLAN OF CARE VITAL SIGNS MEDICATIONS Medication Instructions Dosage Frequency Start Date End Date Duration Status Lisinopril 10 mg Orally Once a day 1 tablet 24h 90 days Active Viagra 50 mg Orally Once a day 1 tablet as needed 24h 10 Active Proscar 5 mg Orally Once a day 1 tablet 24h 90 days Active Atorvastatin Calcium 40 mg Orally Once a day 1 tablet 24h 90 days Active Levothyroxine Sodium 137 MCG Orally Once a day 1 tablet 24h 90 days Active RESULTS No Results PROCEDURES No [...]
--- OUTSIDE RECORDS SUMMARY | 2018-09-14 | XMS REPORT ---
Author Author JULIAN TORREZ Organization [employer] Address Unknown Phone Unavailable Care Team Providers Care Antenna Specialist Name Role Phone JULIAN TORREZ CP Unavailable Allergies No Known Allergies Problems Problem Type Condition Code Onset Dates Condition Status Problem Hypertension I10 Active Problem Hyperlipidemia E78.5 Active Problem Insomnia G47.00 Active Problem Hypertrophy (benign) of prostate without urinary obstruction and other lower urinary tract symptoms [LUTS] 600.00 Active Problem Back pain M54.9 Active Problem Impotence of organic origin 607.84 Active Medications Medication Code System Code Instructions Start Date End Date Status Dosage Hydrocodone-Acetaminophen [facility] [address]-32 7.5-325 MG Orally every 6 hrs Mar 06, 2014 take 1 Results No Known Results Summary Purpose [employer] Submission
--- OUTSIDE RECORDS SUMMARY | 2018-09-14 | XMS REPORT ---
Author JULIAN Schmidt [facility] eClinicalWorks Address Unknown Phone Unavailable Care Team Providers Care Leader Writer Name Role Phone JULIAN TORREZ CP Unavailable Allergies, Adverse Reactions, Alerts Substance Reaction Event Type Zithromax Z-Matt hives Drug Allergy Problems Problem Type Condition Code Onset Dates Condition Status Assessment Back pain M54.9 Active Assessment Obstructive sleep apnea syndrome G47.33 Active Problem Insomnia G47.00 Active Problem Hypertension I10 Active Problem Obstructive sleep apnea syndrome G47.33 Active Problem Impotence of organic origin 607.84 Active Problem Hypertrophy (benign) of prostate without urinary obstruction and other lower urinary tract symptoms [LUTS] 600.00 Active Problem Hyperlipidemia E78.5 Active Problem Back pain M54.9 Active Medications Medication Code System Code Instructions Start Date End Date Status Dosage Pravastatin Sodium [facility] [address]-01 40 MG Orally Once a day 1 tablet Lisinopril ND 82855222997 10MG Orally Once a day 1 tablet Hydrocodone-Acetaminophen ND 64526039825 7.5-325 MG TAKE ONE TABLET BY MOUTH EVERY 6 HOURS levothyroxine NDC 0 175 mcg Jun 04, 2014 1 tablet by Oral route 1 time per day Proscar NDC [address]-57 5 MG Orally Once a day Jun 02, 2014 1 tablet zolpidem NDC 0 10 mg by oral route Once a day Jun 02, 2014 1 tablet Procedures Procedure Coding System Code Date Office Visit, Est Pt., Level 2 CPT-4 46757 November 09, 2015 Vital Signs Date/Time: November 09, 2015 Cardiac Monitoring Heart Rate 70 bpm Weight 214 lbs Height 74 in Blood Pressure Diastolic 78 mmHg Blood Pressure Systolic 132 mmHg Results No Known Results Summary Purpose eClinicalWorks Submission
--- OUTSIDE RECORDS SUMMARY | 2018-09-14 00:01 | XMS REPORT ---
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 045097873 Problem Hypothyroidism, unspecified type E03.9 Active 20286609 Problem Insomnia G47.00 Active 428705473 Problem Hyperlipidemia E78.5 Active 54105171 Problem Benign prostatic hyperplasia with lower urinary tract symptoms, unspecified morphology N40.1 Active 313020716 Problem Obstructive sleep apnea syndrome G47.33 Active 54802784 ALLERGIES No Information SOCIAL HISTORY Never Assessed PLAN OF CARE VITAL SIGNS MEDICATIONS Medication Instructions Dosage Frequency Start Date End Date Duration Status Hydrocodone-Acetaminophen 7.5-325 MG Orally every 6 hrs 1 tablet as needed 6h May, 30 Active zolpidem 10 mg by oral [...]
--- OUTSIDE RECORDS SUMMARY | 2018-09-14 00:01 | XMS REPORT ---
Author Author JULIAN TORREZ [facility] Address [address] [place] [address] Care Team Providers Care Training And Development Professional Name Role Phone JULIAN TORREZ Unavailable PROBLEMS Type Condition ICD9-CM Code RJB91-ZN Code Onset Dates Condition Status SNOMED Code Problem Back pain M54.9 Active 896495859 Problem Insomnia G47.00 Active 662122992 Problem Hyperlipidemia E78.5 Active 67910036 Problem Hypertension I10 Active 09557011 Problem Reactive depression F32.9 Active 92669128 Problem Adjustment disorder with depressed mood F43.21 Active 94359345 Problem Benign prostatic hyperplasia with lower urinary tract symptoms, unspecified morphology N40.1 Active 143994996 Problem Obstructive sleep apnea syndrome G47.33 Active 94730014 Problem Vasculogenic erectile dysfunction, 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 Active 336332737 Problem Hypothyroidism, unspecified type E03.9 Active 61168275 ALLERGIES No Information ENCOUNTERS Encounter Location Date Diagnosis [facility] [id number] [place] [address] May, Back pain M54.9 and Insomnia G47.00 [facility] [id number] [place] [address] May, Hyperlipidemia E78.5 ; Hypertension I10 and Hypothyroidism, unspecified type E03.9 [facility] [id number] [place] [address] May, Hypertension I10 ; Back pain M54.9 ; Hypothyroidism, unspecified type E03.9 and Hyperlipidemia E78.5 [facility] [id number] [place] [address] Apr, [facility] [address] [address] Apr, Insomnia G47.00 ; Back pain M54.9 and Vasculogenic erectile dysfunction, 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 [facility] [id number] [place] [address] Apr, Insomnia G47.00 [facility] [id number] [place] [address] Mar, [facility] [id number] [place] [address] Mar, Insomnia G47.[address] [id number] [place] [address] Feb, [facility] [id number] [place] [address] Feb, Hypothyroidism, unspecified type E03.9 and Insomnia G47.00 [facility] [id number] [place] [address] Jan, Insomnia G47.00 [facility] [id number] [place] [address] Jan, [facility] [id number] [place] [address] Jan, Adjustment disorder with depressed mood F43.21 [facility] [id number] [place] [address] Jan, Adjustment disorder with depressed mood F43.21 [facility] [id number] [place] [address] Jan, Hypothyroidism, unspecified type E03.9 and Reactive depression F32.9 [facility] [id number] [place] [address] Jan, Adjustment disorder with depressed mood F43.21 [facility] [id number] [place] [address] Dec, Insomnia G47.00 and Back pain M54.9 [facility] [id number] [place] [address] Nov, Hyperlipidemia E78.5 ; Hypertension I10 and Hypothyroidism, unspecified type E03.9 [facility] [id number] [place] [address] Oct, Hyperlipidemia E78.5 ; Hypertension I10 ; Insomnia G47.00 and Hypothyroidism, unspecified type E03.9 [facility] [id number] [place] [address] August, Hypothyroidism, unspecified type E03.9 [facility] [address] [address] Jun, Hyperlipidemia E78.5 [facility] [id number] [place] [address] May, Back pain M54.9 and Insomnia G47.00 [facility] [id number] [place] [address] May, [facility] [id number] [place] [address] Apr, [facility] [id number] [place] [address] Apr, Back pain M54.9 ; Hyperlipidemia E78.5 ; High risk sexual behavior Z72.51 and Vasculogenic erectile dysfunction, 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 [facility] [id number] [place] [address] Mar, Hyperlipidemia E78.5 [facility] [id number] [place] [address] Feb, [facility] [id number] [place] [address] Jan, [facility] [id number] [place] [address] Jan, Hypertension I10 ; Hypothyroidism, unspecified type E03.9 and Hyperlipidemia E78.5 [facility] [id number] [place] [address] Jan, Hypertension I10 ; Hyperlipidemia E78.5 ; Back pain M54.9 ; Hypothyroidism, unspecified type E03.9 and Benign prostatic hyperplasia with lower urinary tract symptoms, unspecified morphology N40.1 [facility] [facility] [address] [address] Oct, [facility] [facility] [address] [address] Oct, Back pain M54.9 and Obstructive sleep apnea syndrome G47.33 [facility] [facility] [address] [address] Oct, [facility] [address] [address] August, Dermatitis L30.9 [facility] [address] [address] Jun, Hypertension I10 ; Back pain M54.9 ; Hyperlipidemia E78.5 and Insomnia G47.00 [place] [id number] [place] [address] May, [place] [id number] [place] [address] Mar, Insomnia G47.00 [place] [id number] [place] [address] Mar, [facility] [facility] [address] [address] Feb, Hyperlipidemia E78.5 ; Encounter for immunization Z23 ; Hypertension I10 and Back pain M54.9 [place] [facility] [id number] [place] [address] Jan, Encounter for immunization Z23 ; Hypertension I10 ; Hyperlipidemia E78.5 and Back pain M54.9 [facility] [id number] [address] Jan, [facility] [place] [facility] [id number] [address] Sep, [facility] [place] [facility] [id number] [address] Sep, [facility] [place] [facility] [address] [facility] [id number] [place] [address] Jul, [facility] [place] [facility] [address] [address] Jul, [facility] [place] [facility] [id number] [place] [address] Jun, [facility] [id number] [place] [address] May, 2014 [facility] [place] [facility] [id number] [address] May, 2014 [facility] [id number] [address] May, 2014 [facility] [place] [facility] [id number] [address] May, 2014 [facility] [place] [facility] [address] [address] May, 2014 [facility] [place] [facility] [address] [address] May, 2014 [facility] [place] [facility] [address] [address] May, 2014 [facility] [place] [facility] [address] [address] May, 2014 [facility] [place] [facility] [address] [address] 06 Fe2014 [facility] [place] [facility] [address] [id number] [place] [address] Apr, [facility] [place] [facility] [address] [id number] [place] [address] Apr, [facility] [place] [facility] [address] [id number] [place] [address] Apr, [facility] [place] [facility] [address] [id number] [place] [address] Apr, [facility] [place] [facility] [address] [id number] [place] [address] Apr, [facility] [place] [facility] [address] [id number] [place] [address] Apr, [facility] [place] [facility] [address] [id number] [place] [address] Apr, [facility] [place] [facility] [address] [id number] [place] [address] Apr, [facility] [place] [facility] [address] [id number] [place] [address] Apr, [facility] [place] [facility] [address] [id number] [place] [address] Apr, [facility] [place] [facility] [address] [id number] [place] [address] Mar, [facility] [place] [facility] [address] [id number] [place] [address] Mar, [facility] [place] [facility] [address] [id number] [place] [address] Mar, [facility] [place] [facility] [address] [id number] [place] [address] Mar, [facility] [place] [facility] [address] [id number] [place] [address] Mar, [facility] [place] [facility] [address] [id number] [address] Mar, [facility] [place] [facility] [address] [id number] [place] [address] Feb, [facility] [place] [facility] [address] [id number] [place] [address] Feb, [facility] [place] [facility] [address] [id number] [place] [address] Jan, [facility] [place] [facility] [address] [id number] [place] [address] Jan, [facility] [place] [facility] [address] [id number] [place] [address] Jan, [facility] [place] [facility] [address] [id number] [place] [address] Jan, [facility] [place] [facility] [address] [id number] [place] [address] Jan, [facility] [place] [facility] [address] [id number] [address] Jan, [facility] [place] [facility] [address] [id number] [place] [address] Jan, [facility] [place] [facility] [address] [id number] [place] [address] Jan, [facility] [place] [facility] [address] [id number] [address] Jan, [facility] [place] [facility] [address] [id number] [address] 07 Jan, 2014 [facility] [place] [facility] [address] [id number] [place] [address] 07 Jan, 2014 [facility] [place] [facility] [address] [id number] [address] 15 Dec, 2013 [facility] [place] [facility] [address] [id number] [address] 15 Dec, 2013 [facility] [place] [facility] [address] [id number] [place] [address] Nov, [facility] [place] [facility] [address] [id number] [place] [address] Nov, [facility] [place] [facility] [address] [id number] [place] [address] Sep, [facility] [place] [facility] [address] [id number] [place] [address] Sep, [facility] [place] [facility] [address] [id number] [place] [address] Sep, [facility] [place] [facility] [address] [id number] [place] [address] Sep, [facility] [place] [facility] [address] [id number] [place] [address] Jun, [facility] [place] [facility] [address] [id number] [place] [address] Jun, [facility] [place] [facility] [address] [id number] [place] [address] Jun, [facility] [place] [facility] [address] [id number] [place] [address] Jun, [facility] [place] [facility] [address] [id number] [place] [address] Jun, [facility] [place] [facility] [address] [id number] [place] [address] Jun, [facility] [place] [facility] [address] [id number] [place] [address] Jun, [facility] [place] [facility] [address] [id number] [place] [address] 05 Jun, 2013 [facility] [place] [facility] [address] [id number] [place] [address] Jun, [facility] [place] [facility] [address] [id number] [place] [address] Feb, [facility] [place] [facility] [address] [id number] [place] [address] Feb, [facility] [place] [facility] [address] [id number] [place] [address] Feb, [facility] [place] [facility] [address] [id number] [place] [address] Feb, [facility] [place] [facility] [address] [id number] [place] [address] Feb, [facility] [place] [facility] [address] [id number] [place] [address] Feb, [facility] [place] [facility] [address] [id number] [place] [address] Nov, [facility] [place] [facility] [address] [id number] [place] [address] Oct, [facility] [place] [facility] [address] [id number] [place] [address] Sep, [facility] [place] [facility] [address] [id number] [place] [address] Sep, [facility] [place] [facility] [address] [id number] [address] Sep, [facility] [place] [facility] [address] [id number] [address] Sep, [facility] [place] [facility] [address] [id number] [address] August, [facility] [place] [facility] [address] [id number] [place] [address] Jun, [facility] [place] [facility] [address] [id number] [address] Jun, [facility] [place] [facility] [address] [id number] [address] Jun, [facility] [place] [facility] [address] [id number] [address] Apr, [facility] [address] [id number] [place] [address] Apr, [facility] [place] [facility] [address] [id number] [place] [address] Apr, [facility] [place] [facility] [address] [id number] [place] [address] Apr, [facility] [place] [facility] [address] [id number] [place] [address] Apr, [facility] [place] [facility] [address] [id number] [place] [address] Apr, [facility] [place] [facility] [address] [id number] [place] [address] Mar, [facility] [address] [facility] [id number] [place] [address] Mar, [facility] [place] [facility] [address] [id number] [place] [address] Mar, [facility] [place] [facility] [address] [facility] [id number] [place] [address] Mar, [facility] [place] [facility] [address] [facility] [id number] [place] [address] Feb, [facility] [place] [facility] [address] [id number] [place] [address] Feb, [facility] [place] [facility] [address] [id number] [place] [address] Feb, [facility] [place] [facility] [address] [id number] [place] [address] Feb, [facility] [place] [facility] [address] [facility] [id number] [place] [address] Jan, [facility] [place] [facility] [address] [facility] [id number] [place] [address] Jan, [facility] [place] [facility] [address] [facility] [id number] [address] Jan, [facility] [address] [facility] [id number] [address] Jan, [facility] [address] [facility] [id number] [address] Jan, [facility] [address] [facility] [id number] [address] Jan, [facility] [address] [facility] [id number] [address] Jan, [facility] [address] [facility] [id number] [address] Jan, [facility] [address] [facility] [id number] [address] Jan, [facility] [address] [facility] [id number] [address] Jan, [facility] [address] [facility] [id number] [address] Jan, [facility] [address] [facility] [id number] [address] Jan, [facility] [id number] [address] Jan, [facility] [address] [address] Dec, [facility] [address] [facility] [id number] [address] Nov, [facility] [address] [facility] [id number] [address] Nov, [facility] [address] [facility] [id number] [address] Jan, IMMUNIZATIONS No Known Immunizations SOCIAL HISTORY [...] the morning 24h August, 30 day(s) Active Atorvastatin Calcium 40 mg Orally Once [...]
--- OUTSIDE RECORDS SUMMARY | 2018-09-14 00:01 | XMS REPORT | Continuity of Care Document ---
Author Organization Unknown Address Unknown Allergies Active Description Code Type Severity Reaction Onset Reported/Identified Relationship to Patient Clinical Status Yes azithromycin [id number] Drug Allergy Unknown N/A 08/02/2010 Medications There is no data. 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 Results Test Result Range LIPID PANEL - 06/06/17 09:07 CHOLESTEROL, TOTAL 115 mg/dL <200 HDL CHOLESTEROL 50 mg/dL >40 TRIGLYCERIDES 56 mg/dL <150 LDL-CHOLESTEROL 51 mg/dL (calc) NRG CHOL/HDLC RATIO 2.3 (calc) <5.0 NON HDL CHOLESTEROL 65 mg/dL (calc) <130 PSA - 08/31/17 11:08 PSA, TOTAL 4.8 ng/mL < OR=4.0 Complete blood count (CBC) with automated white blood cell (WBC) differential - 04/24/18 08:00 Blood leukocytes automated count (number/volume) 9.6 10*3/uL 4.3-11.0 Blood erythrocytes automated count (number/volume) 5.40 10*6/uL 4.35-5.85 Venous blood hemoglobin measurement (mass/volume) 15.9 g/dL 13.3-17.7 Blood hematocrit (volume fraction) 47 % 40-54 Automated erythrocyte mean corpuscular volume 86 [foz_us] 80-99 Automated erythrocyte mean corpuscular hemoglobin (mass per erythrocyte) 29 pg 25-34 Automated erythrocyte mean corpuscular hemoglobin concentration measurement (mass/volume) 34 g/dL 32-36 Automated erythrocyte distribution width ratio 12.9 % 10.0- 14.5 Automated blood platelet count (count/volume) 253 10*3/uL 130-400 Automated blood platelet mean volume measurement 9.5 [foz_us] 7.4-10.4 Automated blood neutrophils/100 leukocytes 59 % 42-75 Automated blood lymphocytes/100 leukocytes 29 % 12-44 Blood monocytes/100 leukocytes 8 % 0-12 Automated blood eosinophils/100 leukocytes 4 % 0-10 Automated blood basophils/100 leukocytes 0 % 0-10 Blood neutrophils automated count (number/volume) 5.6 10*3 1.8-7.8 Blood lymphocytes automated count (number/volume) 2.8 10*3 1.0-4.0 Blood monocytes automated count (number/volume) 0.7 10*3 0.0- 1.0 Automated eosinophil count 0.4 10*3/uL 0.0-0.3 Automated blood basophil count (count/volume) 0.0 10*3/uL 0.0-0.1 Comprehensive metabolic panel - 04/24/18 08:00 Serum or plasma sodium measurement (moles/volume) 134 mmol/L 135-145 Serum or plasma potassium measurement (moles/volume) 4.1 mmol/L 3.6-5.0 Serum or plasma chloride measurement (moles/volume) 104 mmol/L 98-107 Carbon dioxide 16 mmol/L 21-32 Serum or plasma anion gap determination (moles/volume) 14 mmol/L 5-14 Serum or plasma urea nitrogen measurement (mass/volume) 15 mg/dL 7-18 Serum or plasma creatinine measurement (mass/volume) 1.13 mg/dL 0.60-1.30 Serum or plasma urea nitrogen/creatinine mass ratio 13 NRG Serum or plasma creatinine measurement with calculation of estimated glomerular filtration rate > NRG Serum or plasma glucose measurement (mass/volume) 160 mg/dL 70-105 Serum or plasma calcium measurement (mass/volume) 8.8 mg/dL 8.5-10.1 Serum or plasma total bilirubin measurement (mass/volume) 0.7 mg/dL 0.1-1.0 Serum or plasma alkaline phosphatase measurement (enzymatic activity/volume) 91 U/L 40-136 Serum or plasma aspartate aminotransferase measurement (enzymatic activity/volume) 55 U/L 5-34 Serum or plasma alanine aminotransferase measurement (enzymatic activity/volume) 80 U/L 0-55 Serum or plasma protein measurement (mass/volume) 6.6 g/dL 6.4-8.2 Serum or plasma albumin measurement (mass/volume) 3.9 g/dL 3.2-4.5 CALCIUM CORRECTED 8.9 mg/dL 8.5-10.1 Complete blood count (CBC) with automated white blood cell (WBC) differential - 09/13/18 22:31 Blood leukocytes automated count (number/volume) 11.9 10*3/uL 4.3-11.0 Blood erythrocytes automated count (number/volume) 5.24 10*6/uL 4.35-5.85 Venous blood hemoglobin measurement (mass/volume) 15.6 g/dL 13.3-17.7 Blood hematocrit (volume fraction) 44 % 40-54 Automated erythrocyte mean corpuscular volume 84 [foz_us] 80-99 Automated erythrocyte mean corpuscular hemoglobin (mass per erythrocyte) 30 pg 25-34 Automated erythrocyte mean corpuscular hemoglobin concentration measurement (mass/volume) 35 g/dL 32-36 Automated erythrocyte distribution width ratio 12.8 % 10.0- 14.5 Automated blood platelet count (count/volume) 268 10*3/uL 130-400 Automated blood platelet mean volume measurement 9.4 [foz_us] 7.4-10.4 Automated blood neutrophils/100 leukocytes 79 % 42-75 Automated blood lymphocytes/100 leukocytes 12 % 12-44 Blood monocytes/100 leukocytes 8 % 0-12 Automated blood eosinophils/100 leukocytes 1 % 0-10 Automated blood basophils/100 leukocytes 0 % 0-10 Blood neutrophils automated count (number/volume) 9.4 10*3 1.8-7.8 Blood lymphocytes automated count (number/volume) 1.5 10*3 1.0-4.0 Blood monocytes automated count (number/volume) 0.9 10*3 0.0- 1.0 Automated eosinophil count 0.1 10*3/uL 0.0-0.3 Automated blood basophil count (count/volume) 0.0 10*3/uL 0.0-0.1 Whole blood basic metabolic panel - 09/13/18 22:31 Serum or plasma sodium measurement (moles/volume) 136 mmol/L 135-145 Serum or plasma potassium measurement (moles/volume) 4.4 mmol/L 3.6-5.0 Serum or plasma chloride measurement (moles/volume) 105 mmol/L 98-107 Carbon dioxide 23 mmol/L 21-32 Serum or plasma anion gap determination (moles/volume) 8 mmol/L 5-14 Serum or plasma urea nitrogen measurement (mass/volume) 15 mg/dL 7-18 Serum or plasma creatinine measurement (mass/volume) 1.55 mg/dL 0.60-1.30 Serum or plasma urea nitrogen/creatinine mass ratio 10 NRG Serum or plasma creatinine measurement with calculation of estimated glomerular filtration rate 45 NRG Serum or plasma glucose measurement (mass/volume) 111 mg/dL 70-105 Serum or plasma calcium measurement (mass/volume) 9.7 mg/dL 8.5-10.1 Encounters ACCT No. Visit Date/Time Discharge Status Pt. Type Provider Facility Loc./Unit Complaint [id number] 04/24/2018 07:38:00 04/24/2018 11:29:00 DIS Emergency FAUSTINO LAMBERT, GRAHAM Cortés [facility] ER ABD PAIN,KIDNEY STONES [id number] 04/29/2014 20:55:00 04/30/2014 06:05:00 DIS Outpatient JULIAN TORREZ MD [facility] SLEEP ROXANA,SNORING [id number] 01/29/2014 08:45:00 01/29/2014 23:59:59 CLS Outpatient JULIAN TORREZ MD [facility] RT DYSPNEA,BLACK MOLD [id number] 09/13/2018 22:39:00 Document Registration [id number] 07/12/2018 16:05:00 07/12/2018 23:59:59 CLS Outpatient JULIAN TORREZ MD [facility] [id number] 08/31/2017 10:20:00 Document Registration [id number] 06/06/2017 09:00:00 Document Registration
--- NOTE | 2018-09-14 06:02 | Diagnostic Imaging Report ---
INDICATION: Left flank pain. History of kidney stones. COMPARISON: CT abdomen from earlier the same day FINDINGS: Two supine radiographic views of the abdomen were obtained. Spherical calcification within the left hemipelvis measures 4 mm and is felt to correspond with patient's known distal ureteral calculus. Pelvic phleboliths are also noted. Faint calculus is also seen noted projecting over the left renal fossa and may correspond to left-sided nephrolithiasis. Small bowel loops are nondistended. No unexpected radiopaque foreign bodies are seen. There is no large collection of free intraperitoneal air. IMPRESSION: 1. Extraosseous calcification left hemipelvis felt to correspond to the patient's distal left ureteral calculus. 2. Nonobstructive small bowel gas pattern. 3. Left-sided nephrolithiasis. Dictated by: Dictated on workstation # [id number]
--- NOTE | 2018-09-14 07:03 | Diagnostic Imaging Report ---
PROCEDURE: CT urinary tract, rule out kidney stone. TECHNIQUE: Multiple contiguous axial images were obtained through the abdomen and pelvis without the use of intravenous contrast. Auto Exposure Controls were utilized during the CT exam to meet ALARA standards for radiation dose reduction. INDICATION: Left flank pain, kidney stones Comparison: 04/24/2018 Findings: Bibasilar scarring and/or atelectasis, left greater than right. Several hepatic cysts are again identified. Otherwise, the liver is unremarkable. Minimal sludge and/or stones within the gallbladder. The spleen is unremarkable. The adrenal glands are unremarkable. The pancreas is unremarkable. Multiple nonobstructing right renal calculi are present, the largest measuring 5 mm within the mid pole. A 6 mm calculus is identified within the left ureterovesicular junction. This is resulting in moderate left hydroureteronephrosis with associated enlargement of the left kidney and left perinephric fat stranding. Hypodensity with associated thin peripheral calcifications within the left mid kidney is again identified, stable from the prior examination. Additional smaller left renal calculi are present. Moderate vascular ossifications within abdominal aorta and its branch vessels without aneurysmal dilatation of abdominal aorta. The urinary bladder is grossly unremarkable. Small fat-containing bilateral inguinal hernias. Extensive colonic diverticulosis without CT evidence of diverticulitis. No bowel obstruction or pneumatosis. No significant adenopathy or free air. Postsurgical changes associated with the intra-abdominal wall with multiple mesh tacks in place. Scattered osseous degenerative changes without acute osseous abnormality. Impression: 0.6 cm calculus within the left ureterovesicular junction resulting in a moderate left hydroureteronephrosis and obstructive uropathy. Additional bilateral renal calculi, nonobstructing on the right. Minimal sludge and/or stones within the gallbladder. Extensive colonic diverticulosis without CT evidence of diverticulitis. Benign left renal cyst. Additional findings as described above. Agree with preliminary interpretation though I believe the stone is 6 mm instead of 5 mm. Report was faxed/called to Dr. [facility] by chaitanya at 6:59 am. RAINA Navarrete, was also notified. Dictated by: Dictated on workstation # [id number]
== END 2018-09-13 23:54 | disposition home or self-care (01) ==
LOC: EDUNIT# 22:10 → ER 22:11
DX: N13.2 Hydronephrosis with renal and ureteral calculous obstruction (principal); E78.00 Pure hypercholesterolemia, unspecified; I10 Essential (primary) hypertension; E03.9 Hypothyroidism, unspecified; Z87.442 Personal history of urinary calculi; Z88.1 Allergy status to other antibiotic agents; Z90.49 Acquired absence of other specified parts of digestive tract
CPT/HCPCS: 36415; 74018; 74176; 80048; 84153; 85025; 96374

== ENCOUNTER 2019-01-24 00:28 | Emergency (ER) | payer MEDICARE ==
[~2019-01-24] VITALS: Ht 187.9 cm; Wt 97.5 kg
[~2019-01-24 00:28] MED LIST changes: +ACHD5005 PO; +TAMS0.4C98 PO
[2019-01-24] MEDS ORDERED: NS IV 1000 ML 1,000 ML IV SCH (00:43)
[2019-01-24 00:45] LABS: BASOPHILS % (AUTO) 0 % (0-10); EOSINOPHILS # (AUTO) 0.1 10^3/uL (0.0-0.3); EOSINOPHILS % (AUTO) 1 % (0-10); HEMATOCRIT 46 % (40-54); HEMOGLOBIN 15.8 G/DL (13.3-17.7); LYMPHOCYTES # (AUTO) 1.8 X 10^3 (1.0-4.0); LYMPHOCYTES % (AUTO) 13 % (12-44); MEAN CORPUSCULAR HEMOGLOBIN 30 PG (25-34); MEAN CORPUSCULAR HGB CONC 35 G/DL (32-36); MEAN CORPUSCULAR VOLUME 85 FL (80-99); MEAN PLATELET VOLUME 9.4 FL (7.4-10.4); MONOCYTES # (AUTO) 0.9 X 10^3 (0.0-1.0); MONOCYTES % (AUTO) 7 % (0-12); NEUTROPHILS # (AUTO) 10.6 X 10^3 (1.8-7.8); NEUTROPHILS % (AUTO) 79 % (42-75); PLATELET COUNT 237 10^3/uL (130-400); RED CELL DISTRIBUTION WIDTH 12.9 % (10.0-14.5); WHITE BLOOD COUNT 13.4 10^3/uL (4.3-11.0)
[2019-01-24] MEDS ORDERED: KETOROLAC 30 MG/ML VIAL IVP ONE (01:00)
[2019-01-24 01:07] LABS: ALBUMIN 4.3 GM/DL (3.2-4.5); BILIRUBIN,TOTAL 0.8 MG/DL (0.1-1.0); CALCIUM 9.3 MG/DL (8.5-10.1); CREATININE SERUM 1.74 MG/DL (0.60-1.30); POTASSIUM 4.3 MMOL/L (3.6-5.0); TOTAL PROTEIN 6.9 GM/DL (6.4-8.2)
--- NOTE | 2019-01-24 01:08 | ED GU-Male ---
General Chief Complaint: back pain Stated Complaint: POSS KIDNEY STONE Source: patient (CHIO LAMB,MED STUDENT) History of Present Illness Date Seen by Provider: Jan 24, 2019 Time Seen by Provider: 00:30 Initial Comments Patient is a 58y/o male that presents to ED by self with cc of "kidney pain." Pain start around 0500 and 0600 this morning and got worse this afternoon. Nothing makes the pain better or worse and he denies any other associated symptoms. 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 He admits to "not being the best about drinking water" and drinks "a lot of soda". Patient has a history of BPH, HTN, HLD and kidney stones early this year that passed on its own. ROS admits to back pain, fever, chills, nausea, light headness, constipation, frequency denies SOB, cough, chest pain, abdominal pain, dysuria Timing/Duration: this morning Severity/Quality: mild Location: left flank Modifying Factors: Improves With Analgesics (CHIO LAMB,MED STUDENT) Allergies and Home Medications Allergies Coded Allergies: azithromycin (Unverified Allergy, Unknown, 09/18/18) Home Medications Cephalexin 500 Mg Tablet, 500 MG PO BID Prescribed by: GRAHAM HARMON on 04/24/18 1111 Ciprofloxacin 500 Mg Tablet, 1 TAB PO BID Prescribed by: GRAHAM HARMON on 12/11/11926 Colchicine 0.6 Mg Tablet, 1 EACH PO BID, (Reported) Docusate Sodium 100 Mg Capsule, 300 MG PO DAILY, (Reported) Flaxseed/Omega3,6,9/Fatty Acid 1 Each Capsule, 1 EACH PO DAILY, (Reported) Glucosa Nayak 2KCL/Chondroitin Nayak 1 Each Capsule, 1 EACH PO DAILY, (Reported) Hydrocodone Bit/Acetaminophen 1 Ea Tablet, 1 EA PO Q6H PRN, (Reported) Hydrocodone Bit/Acetaminophen 1 Tab Tab, 1 EACH PO Q4-6HR PRN for PAIN-MODERATE Prescribed by: ANN SERRANO on 09/13/182227 Hydrocodone/Acetaminophen 1 Each Tablet, 1-2 EACH PO Q6H PRN Prescribed by: GRAHAM HARMON on 12/11/11926 Levothyroxine Sodium 150 Mcg Tablet, 175 MCG PO DAILY, (Reported) Multivitamins 1 Tab Tablet, 1 TAB PO DAILY, (Reported) Naproxen 500 Mg Tablet, 1 EACH PO BID PRN Prescribed by: GRAHAM HARMON on 12/11/11 09 Naproxen Sodium 220 Mg Capsule, 220 MG PO DAILY, (Reported) Ondansetron 4 Mg Tab.rapdis, 4 MG SL Q4H Prescribed by: BRAYDON RONQUILLO on 01/24/19 0242 Pravastatin Sodium 80 Mg Tablet, 40 MG PO DAILY, (Reported) Psyllium 1 Pkt Packet, 1 PKT PO DAILY, (Reported) Rabeprazole Sodium 20 Mg Tablet.dr, 20 MG PO DAILY, (Reported) Tamsulosin HCl 0.4 Mg Cap, 0.4 MG PO DAILY Prescribed by: ANN SERRANO on 09/13/182227 Vitamin E Acetate 400 Unit Capsule, 800 UNIT PO DAILY, (Reported) Zolpidem Tartrate 10 Mg Tab, 10 MG PO HS PRN, (Reported) [Pentoxil] , 400 MG PO DAILY, (Reported) Patient Home Medication List Home Medication List Reviewed: Yes (BRAYDON SHELTON MD) Review of Systems Review of Systems Constitutional: see HPI EENTM: see HPI Respiratory: see HPI Cardiovascular: see HPI Genitourinary: see HPI (CHIO LAMB MED STUDENT) Past Sywmttg-Kdiwek-Ktuotl Hx Patient Social History Recreational Drug Use: Yes Drug of Choice: marijuana Smoking Status: Former Smoker Type Used: Cigarettes Former Smoker, Quit: Nov 09, 1998 Recent Foreign Travel: No Contact w/Someone Who Travel: No Recent Hopitalizations: No (CHIO LAMB MED STUDENT) Past Medical History Surgeries: Yes (hernia repair x 2, L ACL repair, R meniscus repair. ) Appendectomy Respiratory: Yes Cardiac: Yes High Cholesterol, Hypertension Neurological: No Reproductive Disorders: No Sexually Transmitted Disease: No Genitourinary: Yes Prostate Problems, Renal Failure Gastrointestinal: No Musculoskeletal: Yes (ARTHRITIS) Endocrine: Yes Hypothyroidsim HEENT: No Cancer: No Psychosocial: No Integumentary: No Blood Disorders: No (CHIO LAMB,GREG STUDENT) Physical Exam Vital Signs Vital Signs - First Documented 01/24/19 00:28 Temp 37.3 Pulse 74 Resp 20 B/P (MAP) 151/97 (115) Pulse Ox 94 (BRAYDON SHELTON MD) Vital Signs Capillary Refill : (CHIO LAMB,MED STUDENT) Height, Weight, BMI Height: 6'2.00" Weight: 215lbs. oz. 97.912738yg; BMI Method:Stated General Appearance: WD/WN, no apparent distress HEENT: PERRL/EOMI Cardiovascular: normal peripheral pulses, regular rate, rhythm, no edema, no gallop, no JVD, no murmur Respiratory: chest non-tender, lungs clear, normal breath sounds, no respiratory distress, no accessory muscle use Gastrointestinal: non tender, soft, no organomegaly Back: normal inspection, no CVA tenderness Neurologic/Psychiatric: alert, normal mood/affect, oriented x 3 Skin: normal color, warm/dry Lymphatic: no adenopathy (CHIO LAMB,MED STUDENT) Progress/Results/Core Measures Suspected Sepsis SIRS Temperature: Pulse: Respiratory Rate: Laboratory Tests 01/24/19 00:37: White Blood Count 13.4H Blood Pressure / Mean: Laboratory Tests 01/24/19 00:37: Platelet Count 237 (CHIO LAMB,MED STUDENT) Results/Orders Lab Results Laboratory Tests Test 01/24/19 00:37 01/24/19 01:23 Range/Units White Blood Count 13.4 H 4.3-11.0 10^3/uL Red Blood Count 5.35 4.35-5.85 10^6/uL Hemoglobin 15.8 13.3-17.7 G/DL Hematocrit 46 40-54 % Mean Corpuscular Volume 85 80-99 FL Mean Corpuscular Hemoglobin 30 25-34 PG Mean Corpuscular Hemoglobin Concent 35 32-36 G/DL Red Cell Distribution Width 12.9 10.0-14.5 % Platelet Count 237 130-400 10^3/uL Mean Platelet Volume 9.4 7.4-10.4 FL Neutrophils (%) (Auto) 79 H 42-75 % Lymphocytes (%) (Auto) 13 12-44 % Monocytes (%) (Auto) 7 0-12 % Eosinophils (%) (Auto) 1 0-10 % Basophils (%) (Auto) 0 0-10 % Neutrophils # (Auto) 10.6 H 1.8-7.8 X 10^3 Lymphocytes # (Auto) 1.8 1.0-4.0 X 10^3 Monocytes # (Auto) 0.9 0.0-1.0 X 10^3 Eosinophils # (Auto) 0.1 0.0-0.3 10^3/uL Basophils # (Auto) 0.0 0.0-0.1 10^3/uL Sodium Level 137 135-145 MMOL/L Potassium Level 4.3 3.6-5.0 MMOL/L Chloride Level 105 98-107 MMOL/L Carbon Dioxide Level 24 21-32 MMOL/L Anion Gap 8 5-14 MMOL/L Blood Urea Nitrogen 15 7-18 MG/DL Creatinine 1.74 H 0.60-1.30 MG/DL Estimat Glomerular Filtration Rate 39 BUN/Creatinine Ratio 9 Glucose Level 105 70-105 MG/DL Calcium Level 9.3 8.5-10.1 MG/DL Corrected Calcium 9.1 8.5-10.1 MG/DL Total Bilirubin 0.8 0.1-1.0 MG/DL Aspartate Amino Transf (AST/SGOT) 25 5-34 U/L Alanine Aminotransferase (ALT/SGPT) 27 0-55 U/L Alkaline Phosphatase 86 40-136 U/L Total Protein 6.9 6.4-8.2 GM/DL Albumin 4.3 3.2-4.5 GM/DL Urine Color YELLOW Urine Clarity CLEAR Urine pH 6 5-9 Urine Specific [place] 1.010 L 1.016-1.022 Urine Protein NEGATIVE NEGATIVE Urine Glucose (UA) NEGATIVE NEGATIVE Urine Ketones NEGATIVE NEGATIVE Urine Nitrite NEGATIVE NEGATIVE Urine Bilirubin NEGATIVE NEGATIVE Urine Urobilinogen NORMAL NORMAL MG/DL Urine Leukocyte Esterase NEGATIVE NEGATIVE Urine RBC (Auto) NEGATIVE NEGATIVE Urine RBC NONE /HPF Urine WBC RARE /HPF Urine Squamous Epithelial Cells 0-2 /HPF Urine Crystals NONE /LPF Urine Bacteria NEGATIVE /HPF Urine Casts NONE /LPF Urine Mucus NEGATIVE /LPF Urine Culture Indicated NO (BRAYDON SHELTON MD) My Orders Orders - BRAYDON SHELTON MD Cbc With Automated Diff (01/24/19 00:31) Comprehensive Metabolic Panel (01/24/19 00:31) Ua Culture If Indicated (01/24/19 00:31) Ed Iv/Invasive Line Start (01/24/19 00:31) Ns Iv 1000 Ml (Sodium Chloride 0.9%) (01/24/19 00:43) Ketorolac Injection (Toradol Injection) (01/24/19 01:00) Ed Iv/Invasive Line Start (01/24/19 01:15) Abdomen/Kub 1view (01/24/19 02:00) (BRAYDON SHELTON MD) Medications Given in ED Current Medications Medications Dose Ordered Sig/Nathaly Route Start Time Stop Time Status Last Admin Dose Admin Ketorolac Tromethamine 15 mg ONCE ONCE IVP 01/24/19 01:00 01/24/19 01:01 DC 01/24/19 01:04 15 MG (BRAYDON SHELTON MD) Vital Signs/I&O 01/24/19 01/24/19 00:28 02:50 Temp 37.3 Pulse 74 63 Resp 20 18 B/P (MAP) 151/97 (115) 133/86 (115) Pulse Ox 94 95 (BRAYDON SHELTON MD) Vital Signs/I&O Capillary Refill : (CHIO LAMB,MED STUDENT) Departure Impression Primary Impression: Low back pain Qualified Codes: M54.5 - Low back pain Additional Impressions: Left lower quadrant pain Acute vomiting Disposition: 01 HOME, SELF-CARE Condition: Improved Departure-Patient Inst. Decision time for Depature: 02:30 (BRAYDON SHELTON MD) Referrals: JULIAN TORREZ MD (PCP/Family) Primary Care Physician Patient Instructions: Kidney Stone Diet, Kidney Stones in Adults Add. Discharge Instructions: Follow-up with your primary care provider soon as possible. Strain your urine and bring any stones collected to your follow-up appointment. You may use your hydrocodone as previously prescribed for pain. You may also add ibuprofen up to 600 mg every 6 hours as needed. Use Zofran (ondansetron) as prescribed for nausea and vomiting. Return to the ER if symptoms are worsening and not manageable by the above medications. Drink plenty of clear liquids. Scripts Ondansetron (Ondansetron Odt) 4 Mg Tab.rapdis 4 MG SL Q4H, #10 TAB Prov: BRAYDON SHELTON MD 01/24/19 I personally interviewed and examined this patient along with Chio Lamb, MS 3. I agree with MS 3 history, physical, assessment, and documentation with the following corrections. Additions. This 68-year-old gentleman presents to the emergency room with left lumbar back pain that radiates around the flank and briefly even radiated down into the pelvis and left testicle. It is consistent with prior pain from ureteral stones. Pain started yesterday and then worsened today. He tried waiting because he has had ureteral stones that he passed independently in the past. Pain remained intense and he presented to the emergency room. He denies any associated symptoms of nausea, hematuria, fever, etc. Exam: Gen.: Alert, oriented, in minimal distress HEENT: Normocephalic and atraumatic, mucous membranes moist Heart: Regular rate and rhythm without murmur Lungs: Clear to auscultation bilaterally with normal effort Abdomen: Soft, nontender, normal bowel sounds Back: No significant tenderness in the paraspinous muscles Neuropsych: Alert, oriented, no focal deficits Skin: Warm and dry without rashes. UA demonstrated no evidence of blood. Patient states his symptoms do seem quite similar to prior ureteral stone. He was treated with Toradol which significantly reduced his pain. We talked about imaging options. CT scan was offered after discussion of risks and benefits. He declines CT scan at this time. KUB was offered which she accepted. KUB demonstrated a possible calcification in the left pelvis possibly at the left UVJ. Patient was instructed to strain his urine and bring any stones collected to his follow-up. (BRAYDON SHELTON MD) Copy Copies To 1: JULIAN TORREZ MD, MICAH,MED STUDENT Jan 24, 2019 01:08 BRAYDON SHELTON MD Jan 24, 2019 02:42
--- NOTE | 2019-01-24 01:19 | NUR ---
BLANKET PROVIDED TO PATIENT, ENCOURAGED PATIENT TO CALL FOR NEEDS AND REMINDED WE NEED A URINE SAMPLE. PATIENT VERBALIZES UNDERSTANDING OF CALL LIGHT AND AGREES TO CALL FOR ADDITIONAL NEEDS OR IF NEEDS TO GO TO THE BATHROOM.
[2019-01-24 01:32] LABS: BILIRUBIN,URINE NEGATIVE (NEGATIVE); GLUCOSE, URINE (UA) NEGATIVE (NEGATIVE); KETONES,URINE NEGATIVE (NEGATIVE); LEUKOCYTE ESTERASE ,URINE NEGATIVE (NEGATIVE); NITRITE,URINE NEGATIVE (NEGATIVE); PH,URINE 6 (5-9); PROTEIN,URINE NEGATIVE (NEGATIVE); UROBILINOGEN,URINE NORMAL (NORMAL)
[2019-01-24 01:33] LABS: CLARITY,URINE CLEAR; COLOR,URINE YELLOW
[2019-01-24 01:38] LABS: BACTERIA,URINE NEGATIVE /HPF; SQUAMOUS EPITHELIAL CELL,UR 0-2 /HPF; WBC,URINE RARE /HPF
[2019-01-24] MEDS ORDERED: ONDA4TAB11 SL (02:42)
[2019-01-24 02:50] VITALS: BP 133/86
--- NOTE | 2019-01-24 06:43 | Diagnostic Imaging Report ---
INDICATION: Flank pain with kidney stones. COMPARISON: 09/13/2018. FINDINGS: Nonobstructive bowel gas pattern. No features of free intraperitoneal air. There remains a calcification measuring approximately 5 mm near the left UVJ, similar in position to prior examination. No new calcifications over the renal fossa. Stable changes of abdominal herniorrhaphy. IMPRESSION: 1. Unchanged 5 mm calcification within the pelvis which could be within the distal left ureter. Dictated by: Dictated on workstation # [id number]
== END 2019-01-24 02:56 | disposition home or self-care (01) ==
LOC: EDUNIT# 00:28 → ER 00:30
DX: M54.5 Low back pain (principal); R10.32 Left lower quadrant pain; R11.2 Nausea with vomiting, unspecified; I10 Essential (primary) hypertension; E78.5 Hyperlipidemia, unspecified; E78.00 Pure hypercholesterolemia, unspecified; E03.9 Hypothyroidism, unspecified; Z87.442 Personal history of urinary calculi; Z87.891 Personal history of nicotine dependence; Z90.49 Acquired absence of other specified parts of digestive tract
CPT/HCPCS: 36415; 74018; 80053; 81000; 85025

== ENCOUNTER 2020-05-15 05:30 | Outpatient (RCR) | payer MEDICARE ==
[~2020-05-15] VITALS: Ht 188 cm; Wt 100.0 kg
[~2020-05-15 05:30] MED LIST changes: +ATOR40TA70 PO; +FINA5TAB6 PO; +HYDR-3817 PO; +LEVO137T2 PO; +LISI10TA2 PO; +ONDA4TAB11 SL; +TADA20TA PO; -TAMS0.4C98 PO; +TMSL.4C PO
== END 2020-05-15 10:07 | disposition home or self-care (01) ==
LOC: PREOP 05:30
PROVIDERS: ATTEND Surgery
DX: Z01.812 Encounter for preprocedural laboratory examination (principal); Z12.11 Encounter for screening for malignant neoplasm of colon; Z20.822 Contact with and (suspected) exposure to COVID-19
CPT/HCPCS: 87635

== ENCOUNTER 2020-05-19 08:24 | Day surgery (SDC) | payer MEDICARE ==
[~2020-05-19] VITALS: Ht 188 cm; Wt 102.1 kg
[2020-05-19] MEDS ORDERED: LACTATED RINGERS 1,000 ML IV STA (08:49)
[2020-05-19] MEDS ORDERED: LACTATED RINGERS 1,000 ML IV ONE (08:49)
[2020-05-19] MEDS ORDERED: RT-ALBUTEROL SULF 2.5 MG/3 ML PRE-MIX VIAL ONE (08:58)
[2020-05-19 09:11] VITALS: BP 135/96
[2020-05-19] MEDS ORDERED: RT-ALBUTEROL SULF 2.5 MG/3 ML PRE-MIX VIAL INH ONE (09:15)
--- NOTE | 2020-05-19 09:20 | NUR ---
BREATHING TREATMENT DONE PER RT, PT SPO2 98%, PT REMAINS WITH NO DISTRESS NOTED.
--- NOTE | 2020-05-19 09:35 | NUR ---
RAPID COVID SWAB DONE PER JOVITA JAMES RN, PT TOLERATED WELL. SPO2 WITH GOOD WAVEFORM AND VARIED READING WITH RANGE FROM 90-94%.
--- NOTE | 2020-05-19 10:47 | Progress Note-Pre Operative ---
Pre-Operative Progress Note H&P Reviewed The H&P was reviewed, patient examined and no changes noted. Date Seen by Provider: May 19, 2020 Time Seen by Provider: 10:47 Date H&P Reviewed: May 19, 2020 Time H&P Reviewed: 10:47 Pre-Operative Diagnosis: hx polyps, screening colonoscopy SHAVONNE IRWIN DO May 19, 2020 10:47
[2020-05-19] MEDS ORDERED: MIDAZOLAM 2 MG/2 ML (VERSED) VIAL ONE (10:50)
[2020-05-19] MEDS ORDERED: PROPOFOL INJECTION 50 ML IV ONE ×2 (10:50→11:41)
[2020-05-19] MEDS ORDERED: KETAMINE/NaCl 50 MG/5 ML SYRINGE (ED ONLY) ONE (10:50)
[2020-05-19 12:00] VITALS: BP 131/83
--- NOTE | 2020-05-19 12:01 | Progress Note-Post Operative ---
Post-Operative Progess Note Surgeon (s)/Egg Sorter (s) Surgeon SHAVONNE IRWIN DO Egg Sorter: na Pre-Operative Diagnosis hx polyps, screening colonoscopy Post-Operative Diagnosis sigmoid polyp Procedure & Operative Findings Date of Procedure 05/19/20 Procedure Performed/Findings colonoscopy c hot bx polypectomy Anesthesia Type per roller Estimated Blood Loss Estimated blood loss (mL): none Specimens/Packing Specimens Removed sigmoid polyp SHAVONNE IRWIN DO May 19, 2020 12:00
--- NOTE | 2020-05-19 12:02 | Discharge Inst-Simple/Standard ---
Discharge Inst-Standard Patient Instructions/Follow Up Plan of Care/Instructions/FU: 2 weeks Daniel Activity as Tolerated: Yes Discharge Diet: Regular Diet SHAVONNE IRWIN DO May 19, 2020 12:02
[2020-05-19 12:05] VITALS: BP 136/80
[2020-05-19 12:30] VITALS: BP 124/85
[2020-05-19 13:00] VITALS: BP 124/85
--- NOTE | 2020-05-19 19:31 | OPERATIVE REPORT ---
DATE OF SERVICE: 05/19/2020 PREOPERATIVE DIAGNOSIS: History of colon polyps, screening colonoscopy. POSTOPERATIVE DIAGNOSIS: Sigmoid colon polyp. PROCEDURE: Colonoscopy with hot biopsy polypectomy. SURGEON: Shavonne Sanchez DO ANESTHESIA: Per DRY HOUSE ATTENDANT. ESTIMATED BLOOD LOSS: None. COMPLICATIONS: None. INDICATIONS: The patient is a 70-year-old male with history of colon polyps needing screening colonoscopy. He understands risks and benefits of procedure and wished to proceed with procedure. Consent was signed in the chart. DESCRIPTION OF PROCEDURE: The patient was taken to the endoscopy suite, placed in left lateral recumbent position. Timeout was performed. Digital rectal exam was performed. No palpable polyps, masses or ulcerations. Scope was inserted in the rectum, advanced all the way to cecum with minimal difficulty. Prep was moderately clear. Lots of irrigation and suction used for better visualization. There were no polyps, masses or ulcerations within the cecum, ascending, transverse, descending colon. In sigmoid colon, a small polyp was present, which hot biopsy polypectomy was performed. Scope was continuously retracted back to the rectum where it was also retroflexed noting internal hemorrhoids. No other pathology. Scope was returned to its normal position, slowly withdrawn until completely removed. The patient tolerated procedure well without any complications, taken to recovery room in stable condition. RECOMMENDATIONS: The patient will need repeat colonoscopy on as needed basis for recommending screening guidelines with history of colon polyps. at risks versus benefits. Any issues before that would be seen at that time. The patient will follow up on pathology in 2 weeks. Job ID: [id number] DocumentID: [id number] Dictated Date: 05/19/2020 12:08:17 University Tutor Date: 05/19/2020 19:30:36 Dictated By: SHAVONNE SANCHEZ DO
--- NOTE | 2020-05-20 09:58 | Anesthesia-General Post-Op ---
MAC Significant Intra-Op Events Notes addendum 05-19-20 at 1400 Patient Condition Mental Status/LOC: Same as Preop Cardiovascular: Satisfactory Nausea/Vomiting: Absent Respiratory: Satisfactory Pain: Controlled Complications: Absent Post Op Complications Complications None Follow Up Care/Instructions Patient Instructions None needed. Anesthesiology Discharge Order Discharge Order Patient is doing well, no complaints, stable vital signs, no apparent adverse anesthesia problems. No complications reported per nursing. TALAT PRYOR CRNA May 20, 2020 09:58
== END 2020-05-19 13:00 | disposition home or self-care (01) ==
LOC: ENDO 08:24
PROVIDERS: ATTEND Surgery
DX: Z12.11 Encounter for screening for malignant neoplasm of colon (principal); D12.5 Benign neoplasm of sigmoid colon; K64.8 Other hemorrhoids; I10 Essential (primary) hypertension; J44.9 Chronic obstructive pulmonary disease, unspecified; F41.9 Anxiety disorder, unspecified; K21.9 Gastro-esophageal reflux disease without esophagitis; E03.9 Hypothyroidism, unspecified; Z79.899 Other long term (current) drug therapy; Z88.1 Allergy status to other antibiotic agents; Z86.010 Personal history of colon polyps; Z87.891 Personal history of nicotine dependence; Z20.828 Contact with and (suspected) exposure to other viral communicable diseases
CPT/HCPCS: 45384; 94640; U0002; 87635; 88305

== ENCOUNTER 2021-06-16 10:21 | Inpatient (IN) | payer MEDICARE ==
[~2021-06-16] VITALS: Ht 188 cm; Wt 97.0 kg
[~2021-06-16 10:21] MED LIST changes: -LISI10TA2 PO; +LISI10TA25 PO
[2021-06-16 10:53] LABS: BASOPHILS % (AUTO) 0 % (0-10); EOSINOPHILS # (AUTO) 0.1 10^3/uL (0.0-0.3); EOSINOPHILS % (AUTO) 1 % (0-10); HEMATOCRIT 46 % (40-54); HEMOGLOBIN 15.6 g/dL (13.3-17.7); LYMPHOCYTES # (AUTO) 1.2 10^3/uL (1.0-4.0); LYMPHOCYTES % (AUTO) 9 % (12-44); MEAN CORPUSCULAR HEMOGLOBIN 30 pg (25-34); MEAN CORPUSCULAR HGB CONC 34 g/dL (32-36); MEAN CORPUSCULAR VOLUME 88 fL (80-99); MEAN PLATELET VOLUME 9.4 fL (9.0-12.2); MONOCYTES # (AUTO) 0.7 10^3/uL (0.0-1.0); MONOCYTES % (AUTO) 5 % (0-12); NEUTROPHILS # (AUTO) 11.7 10^3/uL (1.8-7.8); NEUTROPHILS % (AUTO) 85 % (42-75); PLATELET COUNT 191 10^3/uL (130-400); WHITE BLOOD COUNT 13.7 10^3/uL (4.3-11.0)
[2021-06-16 11:06] LABS: POTASSIUM 3.9 MMOL/L (3.6-5.0)
[2021-06-16 11:07] LABS: CALCIUM 9.7 MG/DL (8.5-10.1)
[2021-06-16 11:09] LABS: TOTAL PROTEIN 7.4 GM/DL (6.4-8.2)
[2021-06-16 11:10] LABS: BILIRUBIN,TOTAL 1.4 MG/DL (0.1-1.0)
[2021-06-16 11:12] LABS: CREATININE SERUM 1.01 MG/DL (0.60-1.30)
[2021-06-16] MEDS ORDERED: fentaNYL INJ 100 MCG/2 ML AMP IVP ONE (12:00)
[2021-06-16] MEDS ORDERED: IOHEXOL 350 MG/ML 100 ML (OMNIPAQUE 350) VIAL IV ONE ×2 (12:00→12:15)
[2021-06-16] MEDS ORDERED: HOLD METFORMIN - RECEIVED CONTRAST 20 ML VIAL IV SCH ×2 (12:00→12:15)
[2021-06-16] MEDS ORDERED: NS 100 ML (IVPB) BAG IV ONE ×2 (12:00→12:15)
[2021-06-16 12:11] LABS: BILIRUBIN,URINE NEGATIVE (NEGATIVE); CLARITY,URINE CLEAR; COLOR,URINE YELLOW; GLUCOSE, URINE (UA) NEGATIVE (NEGATIVE); KETONES,URINE NEGATIVE (NEGATIVE); LEUKOCYTE ESTERASE ,URINE NEGATIVE (NEGATIVE); NITRITE,URINE NEGATIVE (NEGATIVE); PROTEIN,URINE TRACE (NEGATIVE)
[2021-06-16 12:33] LABS: BACTERIA,URINE NEGATIVE /HPF; RBC,URINE 0-2 /HPF
--- NOTE | 2021-06-16 12:40 | Diagnostic Imaging Report ---
PROCEDURE: CT abdomen and pelvis with contrast. TECHNIQUE: Multiple contiguous axial images were obtained through the abdomen and pelvis after administration of intravenous contrast. Auto Exposure Controls were utilized during the CT exam to meet ALARA standards for radiation dose reduction. All CT scans use one or more of the following dose optimizing techniques: automated exposure control, MA and/or KvP adjustment based on patient size and exam type or iterative reconstruction. INDICATION: Three days' history of lower abdominal pain. COMPARISON: 09/13/2018. FINDINGS: There are convincing features of acute sigmoid diverticulitis involving the [id number]-yy-[id number] sigmoid. There is bowel wall thickening, perisigmoidal stranding and edema, and multiple diverticula; some of which are thickened and irregular. The adjacent urinary bladder wall is perhaps mildly thickened. There may be a component of cystitis. There is however no bladder wall or intraluminal air to suggest its fistulization. There is no abscess or drainable fluid collection. No free air or extraluminal air collections and no findings of viscus perforation. There is some bibasilar partial atelectasis. There are scattered cysts in the liver. No biliary dilatation. There are small stones in the gallbladder but no secondary features of acute cholecystitis. There is a nonobstructing stone within the left upper pole renal calyx as well as simple left renal cortical cyst. A nonobstructing right lower pole calculus is present, also chronic. No small bowel pathology found. The aortoiliac vessels are atherosclerotic but nonaneurysmal. IMPRESSION: 1. Findings most consistent with lower sigmoid diverticulitis without obstruction, abscess, or perforation. Given the magnitude of bowel wall thickening at the level of inflammation, follow-up exam after resolution of symptoms with either colonoscopy or fluoroscopic enema recommended to exclude underlying mass superimposed. 2. There were no other acute-appearing abnormalities. 3. Hepatorenal cysts, nonobstructing nephrolithiasis and cholelithiasis. Dictated by: Dictated on workstation # [id number]
[2021-06-16] MEDS ORDERED: PIPERACILLIN SODIUM/TAZOBACTAM 4.5 GM in NS (IVPB) 100 ML IV ONE (13:15)
--- NOTE | 2021-06-16 13:40 | ED Abdominal Pain ---
General Chief Complaint: Abdominal/GI Problems Stated Complaint: ABD PAIN Nursing Triage Note: PT AMB TO ER WITH C/O LOWER ABD PAIN FOR 3 DAYS. PTS STATES HIS LAST BM WAS 3 DAYS AGO Source of Information: Patient, Old Records Exam Limitations: No Limitations History of Present Illness Date Seen by Provider: Jun 16, 2021 Time Seen by Provider: 10:25 Initial Comments This is 71-year-old gentleman presents to the emergency room with complaints of 3 days of intensifying abdominal pain and difficulty with bowel movements. He feels like he needs to have a bowel movement but is only able to have small quantities of watery stool. He denies any fever or vomiting. He has never experienced anything like this in the past. Allergies and Home Medications Allergies Coded Allergies: azithromycin (Unverified Allergy, Unknown, 09/18/18) Patient Home Medication List Home Medication List Reviewed: Yes Atorvastatin Calcium (Atorvastatin Calcium) 40 Mg Tablet, 40 MG PO DAILY, (Reported) Entered as Reported by: USMAN RODAS on 05/11/201400 Finasteride (Finasteride) 5 Mg Tablet, 5 MG PO DAILY, (Reported) Entered as Reported by: USMAN RODAS on 05/11/201400 Hydrocodone/Acetaminophen (Hydrocodone-Acetamin 7.5-325) 1 Each Tablet, 1 EACH PO for PAIN, (Reported) Entered as Reported by: USMAN RODAS on 05/11/201400 Levothyroxine Sodium (Levothyroxine Sodium) 137 Mcg Tablet, 137 MCG PO DAILY, (Reported) Entered as Reported by: USMAN RODAS on 05/11/201400 Lisinopril (Lisinopril) 10 Mg Tablet, 10 MG PO DAILY, (Reported) Entered as Reported by: USMAN RODAS on 05/11/201400 Tadalafil (Cialis) 20 Mg Tablet, 20 MG PO DAILY, (Reported) Entered as Reported by: USMAN RODAS on 05/11/201400 Review of Systems Review of Systems Constitutional: no symptoms reported EENTM: No Symptoms Reported Respiratory: No Symptoms Reported Cardiovascular: No Symptoms Reported Gastrointestinal: See HPI Genitourinary: No Symptoms Reported Musculoskeletal: no symptoms reported Skin: no symptoms reported Psychiatric/Neurological: No Symptoms Reported Endocrine: No Symptoms Reported Hematologic/Lymphatic: No Symptoms Reported Past Qobkyaf-Cbikyg-Mqjbvg Hx Patient Social History Tobacco Use?: No Substance use?: No Alcohol Use?: Yes Alcohol type: Beer Alcohol Frequency: Once in a while Pt feels they are or have been: No Immunizations Up To Date Influenza Vaccine Up-to-Date: Yes; Up-to-Date First/Initial COVID19 Vaccinat: JUNE 2020 Second COVID19 Vaccination Eliseo: JULY 2020 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: [employer] Past Medical History Surgery/Hospitalization HX: HTN, HLD, THYROID Surgeries: Yes (Colonoscopy with polypectomy) Appendectomy Respiratory: No Cardiac: Yes High Cholesterol, Hypertension Neurological: No Reproductive Disorders: No Sexually Transmitted Disease: No Genitourinary: Yes Benign Prostatic Hyperpl, Prostate Problems, Kidney Stones Gastrointestinal: Yes Gastroesophageal Reflux, Diverticulosis, Polyps Musculoskeletal: Yes Chronic Back Pain Endocrine: Yes Hypothyroidsim HEENT: Yes (GLASSES FOR DRIVING) Hearing Impairment: Hard of Hearing Cancer: No Psychosocial: No (HX OF ANXIETY UNTIL DIVORCE) Integumentary: Yes (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 oz. 97.342121fy; 27.00 BMI Method:Stated General Appearance: WD/WN, no apparent distress HEENT: PERRL/EOMI, normal ENT inspection Neck: normal inspection Respiratory: lungs clear, normal breath sounds, no respiratory distress, no accessory muscle use Cardiovascular: regular rate, rhythm, no edema, systolic murmur Gastrointestinal: normal bowel sounds, soft, tenderness (Marked tenderness to percussion and palpation throughout) Extremities: normal inspection, no pedal edema Neurologic/Psychiatric: no motor/sensory deficits, alert, normal mood/affect, oriented x 3 Skin: normal color, warm/dry Progress/Results/Core Measures Results/Orders Lab Results Laboratory Tests Test 06/16/21 10:43 06/16/21 12:00 Range/Units White Blood Count 13.7 H 4.3-11.0 10^3/uL Red Blood Count 5.29 4.30-5.52 10^6/uL Hemoglobin 15.6 13.3-17.7 g/dL Hematocrit 46 40-54 % Mean Corpuscular Volume 88 80-99 fL Mean Corpuscular Hemoglobin 30 25-34 pg Mean Corpuscular Hemoglobin Concent 34 32-36 g/dL Red Cell Distribution Width 12.9 10.0-14.5 % Platelet Count 191 130-400 10^3/uL Mean Platelet Volume 9.4 9.0-12.2 fL Immature Granulocyte % (Auto) 1 % Neutrophils (%) (Auto) 85 H 42-75 % Lymphocytes (%) (Auto) 9 L 12-44 % Monocytes (%) (Auto) 5 0-12 % Eosinophils (%) (Auto) 1 0-10 % Basophils (%) (Auto) 0 0-10 % Neutrophils # (Auto) 11.7 H 1.8-7.8 10^3/uL Lymphocytes # (Auto) 1.2 1.0-4.0 10^3/uL Monocytes # (Auto) 0.7 0.0-1.0 10^3/uL Eosinophils # (Auto) 0.1 0.0-0.3 10^3/uL Basophils # (Auto) 0.0 0.0-0.1 10^3/uL Immature Granulocyte # (Auto) 0.1 0.0-0.1 10^3/uL Sodium Level 134 L 135-145 MMOL/L Potassium Level 3.9 3.6-5.0 MMOL/L Chloride Level 101 98-107 MMOL/L Carbon Dioxide Level 24 21-32 MMOL/L Anion Gap 9 5-14 MMOL/L Blood Urea Nitrogen 16 7-18 MG/DL Creatinine 1.01 0.60-1.30 MG/DL Estimat Glomerular Filtration Rate 80 BUN/Creatinine Ratio 16 Glucose Level 125 H 70-105 MG/DL Calcium Level 9.7 8.5-10.1 MG/DL Corrected Calcium 9.7 8.5-10.1 MG/DL Total Bilirubin 1.4 H 0.1-1.0 MG/DL Aspartate Amino Transf (AST/SGOT) 22 5-34 U/L Alanine Aminotransferase (ALT/SGPT) 21 0-55 U/L Alkaline Phosphatase 83 40-136 U/L C-Reactive Protein High Sensitivity 28.95 H 0.00-0.50 MG/DL Total Protein 7.4 6.4-8.2 GM/DL Albumin 4.0 3.2-4.5 GM/DL Lipase 23 8-78 U/L Urine Color YELLOW Urine Clarity CLEAR Urine pH 6.0 5-9 Urine Specific [place] 1.015 L 1.016-1.022 Urine Protein TRACE H NEGATIVE Urine Glucose (UA) NEGATIVE NEGATIVE Urine Ketones NEGATIVE NEGATIVE Urine Nitrite NEGATIVE NEGATIVE Urine Bilirubin NEGATIVE NEGATIVE Urine Urobilinogen 0.2 < = 1.0 MG/DL Urine Leukocyte Esterase NEGATIVE NEGATIVE Urine RBC (Auto) 2+ H NEGATIVE Urine RBC 0-2 /HPF Urine WBC NONE /HPF Urine Squamous Epithelial Cells NONE /HPF Urine Crystals NONE /LPF Urine Bacteria NEGATIVE /HPF Urine Casts NONE /LPF Urine Mucus NEGATIVE /LPF Urine Culture Indicated NO My Orders Orders - BRAYDON SHELTON MD Cbc With Automated Diff (06/16/21 10:25) Comprehensive Metabolic Panel (06/16/21 10:25) Hs C Reactive Protein (06/16/21 10:25) Lipase (06/16/21 10:25) Ua Culture If Indicated (06/16/21 10:25) Ed Iv/Invasive Line Start (06/16/21 10:25) Ct Abdomen/Pelvis W (06/16/21 11:44) Iohexol Injection (Omnipaque 350 Mg/Ml 1 (06/16/21 12:00) Received Contrast (Hold Metformin- Contr (06/16/21 12:00) Ns (Ivpb) (Sodium Chloride 0.9% Ivpb Bag (06/16/21 12:00) Fentanyl Inj (Sublimaze Injection) (06/16/21 12:00) Iohexol Injection (Omnipaque 350 Mg/Ml 1 (06/16/21 12:15) Received Contrast (Hold Metformin- Contr (06/16/21 12:15) Ns (Ivpb) (Sodium Chloride 0.9% Ivpb Bag (06/16/21 12:15) Piperacillin Sodium/Tazobactam (Zosyn Vi (06/16/21 13:15) Ed Admission (Communication) (06/16/21 13:33) Medications Given in ED Current Medications Medications Dose Ordered Sig/Nathaly Route Start Time Stop Time Status Last Admin Dose Admin Fentanyl Citrate 75 mcg ONCE ONCE IVP 06/16/21 12:00 06/16/21 12:01 DC 06/16/21 12:01 75 MCG Iohexol 100 ml ONCE ONCE IV 06/16/21 12:00 06/16/21 12:01 DC 06/16/21 12:08 100 ML Sodium Chloride 100 ml ONCE ONCE IV 06/16/21 12:00 06/16/21 12:01 DC 06/16/21 12:08 80 ML Vital Signs/I&O 06/16/21 10:46 Temp 36.1 Pulse 83 Resp 16 B/P (MAP) 131/86 (101) Pulse Ox 97 Blood Pressure Mean: 101 Progress Progress Note : Time: 13:39 Progress Note Patient received fentanyl for pain management. Due to the acute nature of his abdomen, he was sent to CT for further evaluation. He had notable sigmoid div erticulitis without perforation or abscess. There is significant bowel wall thickening. This was discussed with Dr. Sanchez. Plan is for admission with n.p.o. status, pain management, IV hydration, and antibiotics. Antibiotic therapy is being started with Zosyn in the ER. Dr. Pete presented to the ER to evaluate the patient and submitted admission orders. Diagnostic Imaging Diagonstic Imaging: CT Plain Films/CT/US/NM/MRI: abdomen, pelvis Comments CT abdomen and pelvis viewed by me and report reviewed. See report below: NAME: ALDA [facility]G [facility] REC#: [id number] PT STATUS: REG ER : 1950 PHYSICIAN: BRAYDON SHELTON MD ADMIT DATE: 06/16/21/ER Draft Date of Exam:06/16/21 CT ABDOMEN/PELVIS W PROCEDURE: CT abdomen and pelvis with contrast. TECHNIQUE: Multiple contiguous axial images were obtained through the abdomen and pelvis after administration of intravenous contrast. Auto Exposure Controls were utilized during the CT exam to meet ALARA standards for radiation dose reduction. All CT scans use one or more of the following dose optimizing techniques: automated exposure control, MA and/or KvP adjustment based on patient size and exam type or iterative reconstruction. INDICATION: Three days' history of lower abdominal pain. COMPARISON: 09/13/2018. FINDINGS: There are convincing features of acute sigmoid diverticulitis involving the cmn-cc-msjrm sigmoid. There is bowel wall thickening, perisigmoidal stranding and edema, and multiple diverticula; some of which are thickened and irregular. The adjacent urinary bladder wall is perhaps mildly thickened. There may be a component of cystitis. There is however no bladder wall or intraluminal air to suggest its fistulization. There is no abscess or drainable fluid collection. No free air or extraluminal air collections and no findings of viscus perforation. There is some bibasilar partial atelectasis. There are scattered cysts in the liver. No biliary dilatation. There are small stones in the gallbladder but no secondary features of acute cholecystitis. There is a nonobstructing stone within the left upper pole renal calyx as well as simple left renal cortical cyst. A nonobstructing right lower pole calculus is present, also chronic. No small bowel pathology found. The aortoiliac vessels are atherosclerotic but nonaneurysmal. IMPRESSION: 1. Findings most consistent with lower sigmoid diverticulitis without obstruction, abscess, or perforation. Given the magnitude of bowel wall thickening at the level of inflammation, follow-up exam after resolution of symptoms with either colonoscopy or fluoroscopic enema recommended to exclude underlying mass superimposed. 2. There were no other acute-appearing abnormalities. 3. Hepatorenal cysts, nonobstructing nephrolithiasis and cholelithiasis. Dictated on workstation # [id number] Dict: 06/16/21 1218 Trans: 06/16/21 1240 [id number] Interpreted by: AMILCAR NAVARRETE Departure Communication (Admissions) Time/Spoke to Admitting Phy: 13:07 Dr. Pete Time/Spoke to Consulting Phy: 12:51 Dr. Sanchez Impression Primary Impression: Diverticulitis of intestine Qualified Codes: K57.92 - Diverticulitis of intestine, part unspecified, without perforation or abscess without bleeding Additional Impressions: Abdominal pain Qualified Codes: R10.84 - Generalized abdominal pain Diarrhea Qualified Codes: R19.7 - Diarrhea, unspecified Disposition: ADMITTED INPATIENT Condition: Improved Admissions Decision to Admit Reason: Admit from ER (General) Decision to Admit/Date: Jun 16, 2021 Time/Decision to Admit Time: 13:07 Departure-Patient Inst. Referrals: JULIAN TORREZ MD (PCP/Family) Primary Care Physician Copy Copies To 1: JULIAN TORREZ MD, JOSHUA T MD Jun 16, 2021 13:40
--- NOTE | 2021-06-16 13:48 | History & Physical-Hospitalist ---
VALENTEMEENA U 06/16/21 1348: History of Present Illness HPI/Chief Complaint CC: Abdominal Pain HPI: Olivia Varela is a 71 y/o M with a PMH of HLD, HTN, GERD, hypothyroidism, and chronic lower back pain who presented to the ED with a 3 day history of low er abdominal pain. He states it comes and goes and is worst right before he feels like he has to go to the bathroom. He states hes had very small runny stools for the past week and hasn't had any bowel movement in the last 2 days. He denies melena, hematochezia, nausea and vomiting. He states he may have had some fever and chills at points over the last week but never checked his temperature to confirm a fever. He denies any other associated symptoms. Source: patient Exam Limitations: no limitations Date Seen 06/16/21 Time Seen by a Provider: 01:30 Attending Physician Layla Reynoso DO PCP Max Anderson MD Referring Physician Date of Admission Home Medications & Allergies Home Medications Reviewed patient Home Medication Reconciliation performed by pharmacy medication reconciliations spring manufacturing set up technician and/or nursing. Patients Allergies have been reviewed. Allergies Allergies Coded Allergies azithromycin (Unverified Allergy, Unknown, 09/18/18) Past Ccuqsxa-Wlgjic-Jmrcnq Hx Patient Social History Tobacco Use?: No Substance use?: No Alcohol Use?: Yes Alcohol type: Beer Alcohol Frequency: Once in a while Pt feels they are or have been: No Immunizations Up To Date Date of Influenza Vaccine: Apr 10, 2020 First/Initial COVID19 Vaccinat: JUNE 2020 Second COVID19 Vaccination Eliseo: JULY 2020 Tetanus Booster (TDap): More Than 5 Years Date of Pneumonia Vaccine: Feb 09, 2020 Current Status Communicates: Verbally Primary Language: Djib[place]ian Preferred Spoken Language: Djiboutian Past Medical History Surgeries: Appendectomy High Cholesterol, Hypertension Sexually Transmitted Disease: No Benign Prostatic Hyperpl, Prostate Problems, Kidney Stones Gastroesophageal Reflux Chronic Back Pain Hypothyroidsim Hearing Impairment: Hard of Hearing Blood Disorders: No Review of Systems Constitutional: No chills, No fever EENTM: No blurred vision, No double vision Respiratory: No cough, No dyspnea on exertion Cardiovascular: No chest pain, No palpitations Gastrointestinal: abdominal pain; No constipation, No diarrhea, No hematemesis; loss of appetite; No melena, No nausea, No vomiting Musculoskeletal: back pain Physical Exam Physical Exam Vital Signs Vital Signs - First Documented 06/16/21 10:46 Temp 36.1 Pulse 83 Resp 16 B/P (MAP) 131/86 (101) Pulse Ox 97 Capillary Refill : Height, Weight, BMI Height: 6'2.00" Weight: 215lbs. oz. 97.608224re; 27.00 BMI Method:Stated General Appearance: No Apparent Distress, Obese HEENT: Normal ENT Inspection Neck: Full Range of Motion, Normal Inspection Respiratory: Lungs Clear, Normal Breath Sounds, No Accessory Muscle Use Cardiovascular: Regular Rate, Rhythm, No Gallop, No Murmur Gastrointestinal: Normal Bowel Sounds, Tenderness (RLQ and LLQ) Rectal: Deferred Back: Normal Inspection Extremity: Normal Range of Motion, Non Tender Neurologic/Psychiatric: Alert, Oriented x3, Normal Mood/Affect Skin: Normal Color, Warm/Dry Results Results/Procedures Labs Laboratory Tests 06/16/21 10:43 Patient resulted labs reviewed. Imaging: Reviewed Imaging Report Assessment/Plan Admission Diagnosis Diverticulitis Admission Status: Observation Assessment and Plan Diverticulitis - CT Ab/Pelvis: lower sigmoid diverticulitis - WBC 13.7 - IV pip/tazo - surgery consulted - last colonoscopy 05/19/2020 - will need f/u colonoscopy in 6weeks HTN - lisinopril 10 Hypothyroidism - Synthroid HLD - atorvastatin 40 REYNOSOVICENTE OSMANI DO 06/17/21 0619: History of Present Illness HPI/Chief Complaint Chief complaint: Acute diverticulitis History of present illness: This is a 71-year-old white male who presented with abdominal pain found to have extensive colitis so admitted for IV antibiotics and n.p.o. status. He had had a colonoscopy [address] Sanchez [address] scan is suspicious for neoplastic process. Source: patient Exam Limitations: no limitations Past Aeiqpcy-Qyjmmx-Zythvl Hx Patient Social History Marrital Status: single Employed/Student: retired Smoking Status: Light Tobacco Smoker E-Cig or Vaping type used: Marijuana Past Medical History High Cholesterol, Hypertension Review of Systems Constitutional: see HPI, malaise, weakness EENTM: no symptoms reported Respiratory: no symptoms reported Cardiovascular: no symptoms reported Gastrointestinal: abdominal pain, loss of appetite, nausea, vomiting Genitourinary: no symptoms reported Musculoskeletal: no symptoms reported Skin: no symptoms reported All Other Systems Reviewed Negative Unless Noted: Yes Physical Exam Physical Exam General Appearance: No Apparent Distress, Chronically ill Eyes: Right Eye Normal Inspection, Right Eye PERRL HEENT: PERRL/EOMI, Normal ENT Inspection, Pharynx Normal, Moist Mucous Membranes Neck: Full Range of Motion, Normal Inspection, Non Tender Respiratory: Chest Non Tender, Lungs Clear, Normal Breath Sounds, No Accessory Muscle Use, No Respiratory Distress Cardiovascular: Regular Rate, Rhythm, No Edema, No Gallop, No JVD, No Murmur, Normal Peripheral Pulses Gastrointestinal: Normal Bowel Sounds, No Organomegaly, No Pulsatile Mass, Soft, Tenderness (RLQ and LLQ) Back: Normal Inspection, No CVA Tenderness, No Vertebral Tenderness Extremity: Normal Capillary Refill, Normal Inspection, Normal Range of Motion, Non Tender, No Calf Tenderness, No Pedal Edema Neurologic/Psychiatric: Alert, Oriented x3, No Motor/Sensory Deficits, Normal Mood/Affect Skin: Normal Color, Warm/Dry Lymphatic: No Adenopathy Assessment/Plan Admission Diagnosis Assessment: Acute diverticulitis Leukocytosis Abdominal pain Plan: Appreciate Dr. Sanchez IV antibiotics Admission Status: Inpatient Order (span 2 midnights) Reason for Inpatient Admission: Acute diverticulitis Supervisory-Addendum Brief Verification & Attestation Participated in pt care: history, MDM, physical Personally performed: exam, history, MDM, supervision of care Care discussed with: Medical Student Procedures: n/a Results interpretation: Verified all documentation Verification and Attestation of Medical Student E/M Service A medical student performed and documented this service in my presence. I reviewed and verified all information documented by the medical student and made modifications to such information, when appropriate. I personally performed the physical exam and medical decision making. Layla Reynoso, Jun 17, 2021,06:16 MEENA VALENTE Jun 16, 2021 13:48 LAYLA REYNOSO DO Jun 17, 2021 06:19
[2021-06-16] MEDS ORDERED: morphine INJ 10 MG/ML 1ML (SYR OR VIAL) IVP STA (14:07)
--- NOTE | 2021-06-16 14:12 | Consultation - Surgery ---
GILBERT JACKSON 06/16/21 1412: History of Present Illness History of Present Illness Patient Consulted On(doreen/time) 06/16/21 14:06 Date Seen by Provider: Jun 16, 2021 Time Seen by Provider: 13:25 Reason for Visit: Abdominal Pain History of Present Illness Consult requested by Dr. Pete regarding diverticulitis. Pt is 71 yo male that reported to the ER with 3 days of sharp, intermittent abdominal pain (6/10) that radiates to the back. The pain worsens with movement and improves with rest. Pt took 2 hydrocodone (which he had on hand for back pain) that also helped his abdominal pain. Pt's stools have been watery for 1 week. He had a bm while working yesterday and had to change clothes. The last solid bm he can remember was 1 week ago. Pt denies N/V, CP, melena and SOB at this time. His last colonoscopy was 1 year ago. Abdominal and pelvic CT showed lower sigmoid diverticulitis without obstruction, abscess or perforation. Allergies and Home Medications Allergies Coded Allergies: azithromycin (Unverified Allergy, Unknown, 09/18/18) Patient Home Medication List Atorvastatin Calcium (Atorvastatin Calcium) 40 Mg Tablet, 40 MG PO DAILY, (Reported) Entered as Reported by: USMAN RODAS on 05/11/201400 Last Action: Reviewed Finasteride (Finasteride) 5 Mg Tablet, 5 MG PO DAILY, (Reported) Entered as Reported by: USMAN RODAS on 05/11/201400 Last Action: Reviewed Hydrocodone/Acetaminophen (Hydrocodone-Acetamin 7.5-325) 1 Each Tablet, 1 EACH PO for PAIN, (Reported) Entered as Reported by: USMAN RODAS on 05/11/201400 Levothyroxine Sodium (Levothyroxine Sodium) 137 Mcg Tablet, 137 MCG PO DAILY, (Reported) Entered as Reported by: USMAN RODAS on 05/11/201400 Last Action: Reviewed Lisinopril (Lisinopril) 10 Mg Tablet, 10 MG PO DAILY, (Reported) Entered as Reported by: USMAN RODAS on 05/11/201400 Last Action: Reviewed Tadalafil (Cialis) 20 Mg Tablet, 20 MG PO DAILY, (Reported) Entered as Reported by: USMAN RODAS on 1/18/21 1401 Past Kwnjyne-Kafund-Nlycgv Hx Patient Social History Drug of Choice: marijuana Former Smoker, Quit: Nov 09, 1998 Type Used: Cigarettes Recent Hopitalizations: Yes (spring [facility]) Alcohol Use?: Yes Have you traveled recently?: No Immunizations Up To Date Date of Pneumonia Vaccine: Feb 09, 2020 Date of Influenza Vaccine: Apr 10, 2020 Surgeries History of Surgeries: Yes (Colonoscopy with polypectomy) Surgeries: Appendectomy, Orthopedic (knee surgery; 2 left ACL; 2 meniscus right) Respiratory History of Respiratory Disorde: No Cardiovascular History of Cardiac Disorders: Yes Cardiac Disorders: High Cholesterol, Hypertension Neurological History of Neurological Disord: No Reproductive System Hx Reproductive Disorders: No Sexually Transmitted Disease: No Genitourinary History of Genitourinary Disor: Yes Genitourinary Disorders: Benign Prostatic Hyperpl, Prostate Problems, Kidney Stones Gastrointestinal History of Gastrointestinal Di: Yes Gastrointestinal Disorders: Gastroesophageal Reflux, Diverticulosis, Polyps Musculoskeletal History of Musculoskeletal Dis: Yes Musculoskeletal Disorders: Chronic Back Pain Endocrine History of Endocrine Disorders: Yes Endocrine Disorders: Hypothyroidsim HEENT History of HEENT Disorders: Yes (GLASSES FOR DRIVING) Hearing Impairment: Hard of Hearing Cancer History of Cancer: No Psychosocial History of Psychiatric Problem: No (HX OF ANXIETY UNTIL DIVORCE) Integumentary History of Skin or Integumenta: Yes (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; BX BENIGN ) Blood Transfusions History of Blood Disorders: No Family Medical History Significant Family History: Heart Disease (mother; grandpa), Cancer (grandmother) Review of Systems-General Constitutional: No chills, No fever EENTM: No hearing loss, No blurred vision Respiratory: No cough, No short of breath Cardiovascular: No chest pain, No palpitations Gastrointestinal: abdominal pain; No nausea, No vomiting Genitourinary: no symptoms reported, pain (bladder area tender) Musculoskeletal: No joint pain, No muscle pain Skin: No lesions, No rash Psychiatric/Neurological: Denies Headache, Denies Weakness Physical Exam-General Problems Physical Exam Vital Signs Vital Signs - First Documented 06/16/21 10:46 Temp 36.1 Pulse 83 Resp 16 B/P (MAP) 131/86 (101) Pulse Ox 97 Capillary Refill : General Appearance: WD/WN, no apparent distress Eyes: Bilateral Eye Normal Inspection HEENT: PERRL/EOMI Neck: supple, normal inspection Respiratory: lungs clear, no respiratory distress Cardiovascular: regular rate, rhythm, systolic murmur Peripheral Pulses: 2+ Radial Pulses (R), 2+ Radial Pulses (L) Gastrointestinal: distended, tenderness (epigastric and LLQ, RLQ) Extremities: normal inspection, no pedal edema Neurologic/Psychiatric: alert, normal mood/affect, oriented x 3 Skin: normal color, warm/dry Data Review Labs Laboratory Tests 06/16/21 10:43: White Blood Count 13.7H, Red Blood Count 5.29, Hemoglobin 15.6, Hematocrit 46, Mean Corpuscular Volume 88, Mean Corpuscular Hemoglobin 30, Mean Corpuscular Hemoglobin Concent 34, Red Cell Distribution Width 12.9, Platelet Count 191, Mean Platelet Volume 9.4, Immature Granulocyte % (Auto) 1, Neutrophils (%) (Auto) 85H, Lymphocytes (%) (Auto) 9L, Monocytes (%) (Auto) 5, Eosinophils (%) (Auto) 1, Basophils (%) (Auto) 0, Neutrophils # (Auto) 11.7H, Lymphocytes # (Auto) 1.2, Monocytes # (Auto) 0.7, Eosinophils # (Auto) 0.1, Basophils # (Auto) 0.0, Immature Granulocyte # (Auto) 0.1, Sodium Level 134L, Potassium Level 3.9, Chloride Level 101, Carbon Dioxide Level 24, Anion Gap 9, Blood Urea Nitrogen 16, Creatinine 1.01, Estimat Glomerular Filtration Rate 80, BUN/Creatinine Ratio 16, Glucose Level 125H, Calcium Level 9.7, Corrected Calcium 9.7, Total Bilirubin 1.4H, Aspartate Amino Transf (AST/SGOT) 22, Alanine Aminotransferase (ALT/SGPT) 21, Alkaline Phosphatase 83, C-Reactive Protein High Sensitivity 28.95H, Total Protein 7.4, Albumin 4.0, Lipase 23 06/16/21 12:00: Urine Color YELLOW, Urine Clarity CLEAR, Urine pH 6.0, Urine Specific [place] 1.015L, Urine Protein TRACEH, Urine Glucose (UA) NEGATIVE, Urine Ketones NEGATIVE, Urine Nitrite NEGATIVE, Urine Bilirubin NEGATIVE, Urine Urobilinogen 0.2, Urine Leukocyte Esterase NEGATIVE, Urine RBC (Auto) 2+H, Urine RBC 0-2, Urine WBC NONE, Urine Squamous Epithelial Cells NONE, Urine Crystals NONE, Urine Bacteria NEGATIVE, Urine Casts NONE, Urine Mucus NEGATIVE, Urine Culture Indicated NO Assessment/Plan Assessment/Plan Assessment/Plan Abdominal pain- CT shows diverticulitis, hepatorenal cysts, nonobstructing nephrolithiasis and cholelithiasis HTN Hypercholesterolemia Systolic Murmur Hypothyroidism Chronic back pain IVFs NPO Was given abx Monitor labs and vitals F/u with colonoscopy once sx subside Outpatient appt with cardiology due to FH and murmur IRWINSHAVONNE ALDANA Moo DO 06/16/21 1637: History of Present Illness History of Present Illness History of Present Illness Patient is a 71-year-old male who last 3 days been having sharp pain abdominal pain on the left lower quadrant and pelvis. Patient states that it would come and go. He would move into his back. He rated the pain at a 6 out of 10. Patient states that motion/movement would make things worse. Pain medications nothing was seem to make things better. Patient states that for about the last week to have a little bit of difficulty with bowel movements. Feels like he has had a lot of pressure as well. He had colonoscopy 1 year ago. Patient had CT scan insistent with acute diverticulitis without perforation. Patient denies any nausea vomiting fever sweats chills shortness of breath or chest pain. Allergies and Home Medications Allergies Coded Allergies: azithromycin (Unverified Allergy, Unknown, 09/18/18) Patient Home Medication List Home Medication List Reviewed: Yes Atorvastatin Calcium (Atorvastatin Calcium) 40 Mg Tablet, 40 MG PO DAILY, (Reported) Entered as Reported by: USMAN RODAS on 05/11/201400 Last Action: Reviewed Finasteride (Finasteride) 5 Mg Tablet, 5 MG PO DAILY, (Reported) Entered as Reported by: USMAN RODAS on 05/11/201400 Last Action: Reviewed Hydrocodone/Acetaminophen (Hydrocodone-Acetamin 7.5-325) 1 Each Tablet, 1 EACH PO for PAIN, (Reported) Entered as Reported by: USMAN RODAS on 05/11/201400 Levothyroxine Sodium (Levothyroxine Sodium) 137 Mcg Tablet, 137 MCG PO DAILY, (Reported) Entered as Reported by: SUMAN RODAS on 05/11/201400 Last Action: Reviewed Lisinopril (Lisinopril) 10 Mg Tablet, 10 MG PO DAILY, (Reported) Entered as Reported by: USMAN RODAS on 05/11/20 1401 Last Action: Reviewed Tadalafil (Cialis) 20 Mg Tablet, 20 MG PO DAILY, (Reported) Entered as Reported by: USMAN RODAS on 05/11/20 1401 Past Fhldenv-Ciiple-Qoxndh Hx Reviewed Nursing Assessment Reviewed/Agree w Nursing PMH: Yes Family Medical History Significant Family History: No Pertinent Family Hx Review of Systems-General Constitutional: No chills, No fever EENTM: No hearing loss, No blurred vision Respiratory: No cough, No short of breath Cardiovascular: No chest pain, No palpitations Gastrointestinal: abdominal pain (LLQ); No nausea, No vomiting Genitourinary: No decreased output, No discharge; pain (bladder area tender) Musculoskeletal: No joint pain, No muscle pain Skin: No lesions, No rash Psychiatric/Neurological: Denies Headache, Denies Weakness All Other Systems Reviewed Negative Unless Noted: Yes (Negative excepted noted.) Physical Exam-General Problems Physical Exam General Appearance: WD/WN, no apparent distress HEENT: PERRL/EOMI, normal ENT inspection Neck: non-tender, supple, normal inspection Respiratory: chest non-tender, no respiratory distress, no accessory muscle use Cardiovascular: regular rate, rhythm, no JVD Gastrointestinal: soft, tenderness (Suprapubic left lower quadrant) Rectal: deferred Back: normal inspection, no CVA tenderness Extremities: normal inspection, no pedal edema Neurologic/Psychiatric: alert, normal mood/affect, oriented x 3 Skin: normal color, warm/dry Lymphatic: no adenopathy Assessment/Plan Assessment/Plan Assessment/Plan Acute diverticulitis Abdominal pain left lower quadrant/suprapubic Hypertension Patient is a 71-year-old male with acute diverticulitis. Patient to be n.p.o. IV fluids. Zosyn. Bowel rest. Repeat labs in the morning. Patient will need repeat colonoscopy to evaluate area after resolved approximately 6 to 8 weeks. We will continue conservative measures at this time. If any change in condition may need surgical intervention. Supervisory-Addendum Brief Verification & Attestation Participated in pt care: history, MDM, physical Personally performed: exam, history, MDM, supervision of care Care discussed with: Medical Student Procedures: n/a Results interpretation: Verified all documentation Verification and Attestation of Medical Student E/M Service A medical student performed and documented this service in my presence. I reviewed and verified all information documented by the medical student and made modifications to such information, when appropriate. I personally performed the physical exam and medical decision making. Shavonne Irwin, Jun 16, 2021,16:37 GILBERT JACKSON Jun 16, 2021 14:12 SHAVONNE IRWIN DO Jun 16, 2021 16:37
[2021-06-16] MEDS ORDERED: MELATONIN 3 MG TABLET PO PRN (14:30)
[2021-06-16] MEDS ORDERED: ONDANSETRON 4 MG (ZOFRAN) ORAL DISSOLVE TAB PO PRN (14:30)
[2021-06-16] MEDS ORDERED: ALPRAZolam 0.25 MG (XANAX) TAB PO PRN (14:30)
[2021-06-16] MEDS ORDERED: LACTULOSE SYRUP 10GM/15ML (ENULOSE) 30ML UDC PO PRN (14:30)
[2021-06-16] MEDS ORDERED: ANTACID SUSP 30 ML UDC (MYLANTA) PO PRN (14:30)
[2021-06-16] MEDS ORDERED: diphenhydrAMINE 50 MG/ML INJ (BENADRYL) IVP PRN (14:30)
[2021-06-16] MEDS ORDERED: polyethylene glycoL POWDER 17 GM (MIRALAX) PACK PO PRN (14:30)
[2021-06-16] MEDS ORDERED: CALCIUM CARBONATE 500 MG (TUMS) TAB.CHEW PO PRN (14:30)
[2021-06-16] MEDS ORDERED: ONDANSETRON 4 MG/2 ML (SDV) Z0FRAN IV PRN (14:30)
[2021-06-16] MEDS ORDERED: morphine INJ 4 MG/ML 1 ML (VIAL/SYRINGE) IV PRN (14:30)
[2021-06-16] MEDS ORDERED: MILK OF MAGNESIA 400 MG/5 ML 30 ML UDC PO PRN (14:30)
[2021-06-16] MEDS ORDERED: BISACODYL 10 MG SUPP (DULCOLAX) PR PRN (14:30)
[2021-06-16] MEDS: ENOXAPARIN 40 MG/0.4 ML (LOVENOX) SYR SC SCH (15:02)
[2021-06-16] MEDS: NS IV 1000 ML 1,000 ML IV SCH ×2 (15:02→23:32)
[2021-06-16 15:47] VITALS: BP 130/84
[2021-06-16] MEDS ORDERED: RT-ALBUTEROL SULF 2.5 MG/3 ML PRE-MIX VIAL INH PRN (16:00)
[2021-06-16 16:20] VITALS: BP 117/74
[2021-06-16 19:31] VITALS: BP 112/73
[2021-06-16] MEDS: PIPERACILLIN SODIUM/TAZOBACTAM 4.5 GM in NS (IVPB) 100 ML IV SCH (20:21)
[2021-06-16] MEDS: DOCUSATE SODIUM 100 MG (COLACE) CAP PO SCH (20:22)
[2021-06-16] MEDS: SENNOSIDES 8.6 MG (SENOKOT) TAB PO SCH (20:22)
[2021-06-16] MEDS: ACETAMINOPHEN 325 MG TABLET PO PRN (23:36)
[2021-06-17 00:02] VITALS: BP 121/60
[2021-06-17] MEDS: PIPERACILLIN SODIUM/TAZOBACTAM 4.5 GM in NS (IVPB) 100 ML IV SCH ×3 (03:54→20:42)
[2021-06-17 04:19] VITALS: BP 110/68
[2021-06-17 05:56] LABS: BASOPHILS # (AUTO) 0.1 10^3/uL (0.0-0.1); BASOPHILS % (AUTO) 0 % (0-10); EOSINOPHILS # (AUTO) 0.2 10^3/uL (0.0-0.3); EOSINOPHILS % (AUTO) 2 % (0-10); HEMATOCRIT 42 % (40-54); HEMOGLOBIN 13.6 g/dL (13.3-17.7); LYMPHOCYTES # (AUTO) 1.4 10^3/uL (1.0-4.0); LYMPHOCYTES % (AUTO) 12 % (12-44); MEAN CORPUSCULAR HEMOGLOBIN 29 pg (25-34); MEAN CORPUSCULAR HGB CONC 33 g/dL (32-36); MEAN CORPUSCULAR VOLUME 89 fL (80-99); MEAN PLATELET VOLUME 9.9 fL (9.0-12.2); MONOCYTES # (AUTO) 0.8 10^3/uL (0.0-1.0); MONOCYTES % (AUTO) 7 % (0-12); NEUTROPHILS # (AUTO) 9.2 10^3/uL (1.8-7.8); NEUTROPHILS % (AUTO) 79 % (42-75); PLATELET COUNT 194 10^3/uL (130-400); WHITE BLOOD COUNT 11.7 10^3/uL (4.3-11.0)
[2021-06-17 06:24] LABS: ALBUMIN 3.3 GM/DL (3.2-4.5)
[2021-06-17 06:25] LABS: POTASSIUM 3.9 MMOL/L (3.6-5.0)
[2021-06-17 06:26] LABS: CALCIUM 8.6 MG/DL (8.5-10.1)
[2021-06-17 06:27] LABS: TOTAL PROTEIN 6.2 GM/DL (6.4-8.2)
[2021-06-17 06:29] LABS: BILIRUBIN,TOTAL 1.1 MG/DL (0.1-1.0)
[2021-06-17] MEDS ORDERED: LEVOTHYROXINE 112 MCG (LEVOTHROID) TAB PO SCH (06:30)
[2021-06-17] MEDS ORDERED: LEVOTHYROXINE 25 MCG (LEVOTHROID) TAB PO SCH (06:30)
[2021-06-17 06:31] LABS: CREATININE SERUM 1.01 MG/DL (0.60-1.30)
--- NOTE | 2021-06-17 06:35 | Progress Note - Surgery ---
GILBERT JACKSON 06/17/21 0635: Subjective Date Seen by a Provider: Jun 17, 2021 Time Seen by a Provider: 05:45 Subjective/Events-last exam Pt seemed more comfortable this morning. Stated abdominal pain was 2/10, with no N/V. Pain is focused in the lower quadrants. He continues to have liquid stools with no blood. Pt is NPO. He is not passing flatus. Denies CP, SOB, and fever at this time. Review of Systems General: No Chills; Fatigue HEENT: No Head Aches, No Visual Changes Pulmonary: No Dyspnea Cardiovascular: No: Chest Pain, Palpitations Gastrointestinal: Abdominal Pain, Diarrhea; No: Nausea, Vomiting Genitourinary: No Dysuria, No Frequency Musculoskeletal: back pain; No: foot pain Neurological: No: Weakness, Change in speech Focused Exam Respiratory: Lungs Clear, Normal Breath Sounds, No Respiratory Distress Cardiovascular: Regular Rate, Rhythm, Systolic Murmur Peripheral Pulses: 2+ Dorsalis Pedis (R), 2+ Left Dors-Pedis (L), 2+ Radial Pulses (R), 2+ Radial Pulses (L) Skin: normal color, warm/dry Objective Exam Vital Signs Date Time Temp Pulse Resp B/P (MAP) Pulse Ox O2 Delivery O2 Flow Rate FiO2 06/17/21 04:19 36.0 61 18 110/68 (82) 95 Nasal Cannula 2.00 06/17/21 00:02 37.0 81 18 121/60 (80) 96 Nasal Cannula 2.00 06/16/21 20:15 Room Air 06/16/21 19:31 37.4 79 20 112/73 (86) 93 Room Air 06/16/21 18:17 Room Air 06/16/21 16:20 37.3 77 20 117/74 (88) 93 Room Air 06/16/21 15:47 36.1 80 98 21 06/16/21 13:55 36.1 80 17 130/84 98 06/16/21 10:46 36.1 83 16 131/86 (101) 97 Capillary Refill : General Appearance: No Apparent Distress Neck: Normal Inspection Respiratory: Lungs Clear, Normal Breath Sounds, No Accessory Muscle Use, No Respiratory Distress Cardiovascular: Regular Rate, Rhythm, Normal Peripheral Pulses, Systolic Murmur Peripheral Pulses: 2+ Radial Pulses (R), 2+ Radial Pulses (L) Gastrointestinal: soft, tenderness (LLQ, RLQ, LUQ, suprapubic) Extremity: Normal Inspection, No Pedal Edema Neurologic/Psychiatric: Alert, Oriented x3, Normal Mood/Affect Skin: Normal Color, Warm/Dry Results Lab Laboratory Tests 06/16/21 10:43: White Blood Count 13.7H, Red Blood Count 5.29, Hemoglobin 15.6, Hematocrit 46, Mean Corpuscular Volume 88, Mean Corpuscular Hemoglobin 30, Mean Corpuscular Hemoglobin Concent 34, Red Cell Distribution Width 12.9, Platelet Count 191, Mean Platelet Volume 9.4, Immature Granulocyte % (Auto) 1, Neutrophils (%) (Auto) 85H, Lymphocytes (%) (Auto) 9L, Monocytes (%) (Auto) 5, Eosinophils (%) (Auto) 1, Basophils (%) (Auto) 0, Neutrophils # (Auto) 11.7H, Lymphocytes # (Auto) 1.2, Monocytes # (Auto) 0.7, Eosinophils # (Auto) 0.1, Basophils # (Auto) 0.0, Immature Granulocyte # (Auto) 0.1, Sodium Level 134L, Potassium Level 3.9, Chloride Level 101, Carbon Dioxide Level 24, Anion Gap 9, Blood Urea Nitrogen 16, Creatinine 1.01, Estimat Glomerular Filtration Rate 80, BUN/Creatinine Ratio 16, Glucose Level 125H, Calcium Level 9.7, Corrected Calcium 9.7, Total Bilirubin 1.4H, Aspartate Amino Transf (AST/SGOT) 22, Alanine Aminotransferase (ALT/SGPT) 21, Alkaline Phosphatase 83, C-Reactive Protein High Sensitivity 28.95H, Total Protein 7.4, Albumin 4.0, Lipase 23 06/16/21 12:00: Urine Color YELLOW, Urine Clarity CLEAR, Urine pH 6.0, Urine Specific [place] 1.015L, Urine Protein TRACEH, Urine Glucose (UA) NEGATIVE, Urine Ketones NEGATIVE, Urine Nitrite NEGATIVE, Urine Bilirubin NEGATIVE, Urine Urobilinogen 0.2, Urine Leukocyte Esterase NEGATIVE, Urine RBC (Auto) 2+H, Urine RBC 0-2, Urine WBC NONE, Urine Squamous Epithelial Cells NONE, Urine Crystals NONE, Urine Bacteria NEGATIVE, Urine Casts NONE, Urine Mucus NEGATIVE, Urine Culture Indicated NO 06/17/21 05:42: White Blood Count 11.7H, Red Blood Count 4.69, Hemoglobin 13.6, Hematocrit 42, Mean Corpuscular Volume 89, Mean Corpuscular Hemoglobin 29, Mean Corpuscular Hemoglobin Concent 33, Red Cell Distribution Width 13.0, Platelet Count 194, Mean Platelet Volume 9.9, Immature Granulocyte % (Auto) 0, Neutrophils (%) (Auto) 79H, Lymphocytes (%) (Auto) 12, Monocytes (%) (Auto) 7, Eosinophils (%) (Auto) 2, Basophils (%) (Auto) 0, Neutrophils # (Auto) 9.2H, Lymphocytes # (Auto) 1.4, Monocytes # (Auto) 0.8, Eosinophils # (Auto) 0.2, Basophils # (Auto) 0.1, Immature Granulocyte # (Auto) 0.1 06/17/21 05:45: Sodium Level 136, Potassium Level 3.9, Chloride Level 106, Carbon Dioxide Level 20L, Anion Gap 10, Blood Urea Nitrogen 16, Creatinine 1.01, Estimat Glomerular Filtration Rate 80, BUN/Creatinine Ratio 16, Glucose Level 83, Calcium Level 8.6, Corrected Calcium 9.2, Total Bilirubin 1.1H, Aspartate Amino Transf (AST/SGOT) 14, Alkaline Phosphatase 70, Total Protein 6.2L, Albumin 3.3 Assessment/Plan Assessment/Plan Assessment/Plan Acute diverticulitis Abdominal pain lower quadrants/suprapubic Hypertension NPO IVFs Bowel Rest F/U Colonoscopy 6-8 weeks Conservative management at this time SHAVONNE SANCHEZ DO 06/18/21 1042: Subjective Subjective/Events-last exam Feeling a little better than yesterday. Reports pain in LLQ about 2/10. Having a little stool that is liquid. NPO. Denies n/v fever sweats chills shortness of breath or chest pain. Objective Exam General Appearance: No Apparent Distress, WD/WN HEENT: PERRL/EOMI, Normal ENT Inspection Neck: Normal Inspection, Non Tender Respiratory: Chest Non Tender, No Accessory Muscle Use, No Respiratory Distress Cardiovascular: Regular Rate, Rhythm, No JVD Gastrointestinal: soft, tenderness (llq, suprapubic, slightly better than yesterday) Extremity: Normal Inspection, Normal Range of Motion Neurologic/Psychiatric: Alert, Oriented x3, Normal Mood/Affect Skin: Normal Color, Warm/Dry Lymphatic: No Adenopathy Assessment/Plan Assessment/Plan Assessment/Plan Acute diverticulitis Abdominal pain lower quadrants/suprapubic Hypertension NPO IVFs Zosyn Bowel Rest F/U Colonoscopy 6-8 weeks Conservative management at this time Supervisory-Addendum Brief Verification & Attestation Participated in pt care: history, MDM, physical Personally performed: exam, history, MDM, supervision of care Care discussed with: Medical Student Procedures: n/a Results interpretation: Verified all documentation Verification and Attestation of Medical Student E/M Service A medical student performed and documented this service in my presence. I reviewed and verified all information documented by the medical student and made modifications to such information, when appropriate. I personally performed the physical exam and medical decision making. Shavonne Sanchez, Jun 17, 2021,10:41 GILBERT JACKSON Jun 17, 2021 06:35 SHAVONNE SANCHEZ DO Jun 18, 2021 10:42
[2021-06-17 08:00] VITALS: BP 120/78
[2021-06-17] MEDS: DOCUSATE SODIUM 100 MG (COLACE) CAP PO SCH ×2 (08:10→20:42)
[2021-06-17] MEDS: NS IV 1000 ML 1,000 ML IV SCH ×3 (08:10→20:43)
[2021-06-17] MEDS: SENNOSIDES 8.6 MG (SENOKOT) TAB PO SCH ×2 (08:11→20:42)
[2021-06-17] MEDS: FINASTERIDE (PROSCAR) 5 MG TAB PO SCH (08:11)
[2021-06-17] MEDS: lisINopril 10 MG (PRINIVIL) TABLET PO SCH (08:11)
--- NOTE | 2021-06-17 10:56 | Progress Note ---
Subjective Date Seen by a Provider: Jun 17, 2021 Objective Exam Last Set of Vital Signs Vital Signs Date Time Temp Pulse Resp B/P (MAP) Pulse Ox O2 Delivery O2 Flow Rate FiO2 06/17/21 08:00 Room Air 06/17/21 04:19 36.0 61 18 110/68 (82) 95 2.00 06/16/21 15:47 21 Capillary Refill : I&O Intake and Output 06/16/21 23:59 # Voids 1 # Bowel Movements 1 Daily Weight Change No Results Lab Laboratory Tests 06/16/21 12:00: Urine Color YELLOW, Urine Clarity CLEAR, Urine pH 6.0, Urine Specific [place] 1.015L, Urine Protein TRACEH, Urine Glucose (UA) NEGATIVE, Urine Ketones NEGATIVE, Urine Nitrite NEGATIVE, Urine Bilirubin NEGATIVE, Urine Urobilinogen 0.2, Urine Leukocyte Esterase NEGATIVE, Urine RBC (Auto) 2+H, Urine RBC 0-2, Urine WBC NONE, Urine Squamous Epithelial Cells NONE, Urine Crystals NONE, Urine Bacteria NEGATIVE, Urine Casts NONE, Urine Mucus NEGATIVE, Urine Culture Indicated NO 06/17/21 05:42: White Blood Count 11.7H, Red Blood Count 4.69, Hemoglobin 13.6, Hematocrit 42, Mean Corpuscular Volume 89, Mean Corpuscular Hemoglobin 29, Mean Corpuscular Hemoglobin Concent 33, Red Cell Distribution Width 13.0, Platelet Count 194, Mean Platelet Volume 9.9, Immature Granulocyte % (Auto) 0, Neutrophils (%) (Auto) 79H, Lymphocytes (%) (Auto) 12, Monocytes (%) (Auto) 7, Eosinophils (%) (Auto) 2, Basophils (%) (Auto) 0, Neutrophils # (Auto) 9.2H, Lymphocytes # (Auto) 1.4, Monocytes # (Auto) 0.8, Eosinophils # (Auto) 0.2, Basophils # (Auto) 0.1, Immature Granulocyte # (Auto) 0.1 06/17/21 05:45: Sodium Level 136, Potassium Level 3.9, Chloride Level 106, Carbon Dioxide Level 20L, Anion Gap 10, Blood Urea Nitrogen 16, Creatinine 1.01, Estimat Glomerular Filtration Rate 80, BUN/Creatinine Ratio 16, Glucose Level 83, Calcium Level 8.6, Corrected Calcium 9.2, Total Bilirubin 1.1H, Aspartate Amino Transf (AST/SGOT) 14, Alanine Aminotransferase (ALT/SGPT) 14, Alkaline Phosphatase 70, Total Protein 6.2L, Albumin 3.3 BLAIR REYNOSO DO Jun 17, 2021 10:56
--- NOTE | 2021-06-17 11:14 | Progress Note - Hospitalist ---
Subjective HPI/CC On Admission Date Seen by Provider: Jun 17, 2021 Time Seen by Provider: 11:00 Chief complaint: Acute diverticulitis History of present illness: This is a 71-year-old white male who presented with abdominal pain found to have extensive colitis so admitted for IV antibiotics and n.p.o. status. He had had a colonoscopy [address] Sanchez [address] scan is suspicious for neoplastic process. Subjective/Events-last exam Patient feels well Abdominal pain continues IV antibiotics tolerated Review of Systems Gastrointestinal: Abdominal Pain Objective Exam Vital Signs Vital Signs Date Time Temp Pulse Resp B/P (MAP) Pulse Ox O2 Delivery O2 Flow Rate FiO2 06/18/21 04:00 36.0 62 18 130/77 (94) 96 Room Air 0.00 06/16/21 15:47 21 Capillary Refill : General Appearance: No Apparent Distress, WD/WN, Chronically ill Respiratory: Lungs Clear, Normal Breath Sounds Cardiovascular: Regular Rate, Rhythm Rectal: Tenderness Neurologic/Psychiatric: Alert Results/Procedures Lab Laboratory Tests 06/18/21 05:18 Patient resulted labs reviewed. Imaging: Reviewed Imaging Report Assessment/Plan Assessment and Plan Assess & Plan/Chief Complaint Assessment: Acute diverticulitis Abdominal pain Plan: IV antibiotics Bowel rest BLAIR REYNOSO DO Jun 17, 2021 11:14
[2021-06-17 12:00] VITALS: BP 124/81
[2021-06-17] MEDS ORDERED: GARL100T PO (12:34)
[2021-06-17] MEDS ORDERED: ZINC50TA58 PO (12:34)
[2021-06-17] MEDS ORDERED: UBID200C36 PO (12:34)
[2021-06-17] MEDS ORDERED: MULT-1061 PO (12:34)
[2021-06-17] MEDS ORDERED: LEVO150T6 PO (12:34)
[2021-06-17] MEDS: ENOXAPARIN 40 MG/0.4 ML (LOVENOX) SYR SC SCH (15:25)
[2021-06-17 16:00] VITALS: BP 114/71
[2021-06-17 19:17] VITALS: BP 123/71
[2021-06-18] VITALS (7 sets, daily range): BP systolic 120–146; BP diastolic 72–83
[2021-06-18] MEDS: ACETAMINOPHEN 325 MG TABLET PO PRN ×3 (00:15→23:17)
[2021-06-18] MEDS: diphenhydrAMINE 25 MG TAB (BENADRYL) PO PRN ×2 (00:18→23:16)
[2021-06-18] MEDS: PIPERACILLIN SODIUM/TAZOBACTAM 4.5 GM in NS (IVPB) 100 ML IV SCH ×3 (04:12→21:17)
[2021-06-18 05:35] LABS: BASOPHILS % (AUTO) 0 % (0-10); EOSINOPHILS # (AUTO) 0.3 10^3/uL (0.0-0.3); EOSINOPHILS % (AUTO) 3 % (0-10); HEMATOCRIT 42 % (40-54); HEMOGLOBIN 13.7 g/dL (13.3-17.7); LYMPHOCYTES # (AUTO) 1.5 10^3/uL (1.0-4.0); LYMPHOCYTES % (AUTO) 15 % (12-44); MEAN CORPUSCULAR HEMOGLOBIN 29 pg (25-34); MEAN CORPUSCULAR HGB CONC 33 g/dL (32-36); MEAN CORPUSCULAR VOLUME 89 fL (80-99); MEAN PLATELET VOLUME 9.8 fL (9.0-12.2); MONOCYTES # (AUTO) 0.7 10^3/uL (0.0-1.0); MONOCYTES % (AUTO) 7 % (0-12); NEUTROPHILS # (AUTO) 7.3 10^3/uL (1.8-7.8); NEUTROPHILS % (AUTO) 74 % (42-75); PLATELET COUNT 207 10^3/uL (130-400); WHITE BLOOD COUNT 9.9 10^3/uL (4.3-11.0)
[2021-06-18 05:48] LABS: ALBUMIN 3.3 GM/DL (3.2-4.5); POTASSIUM 3.7 MMOL/L (3.6-5.0)
[2021-06-18 05:49] LABS: CALCIUM 8.8 MG/DL (8.5-10.1)
[2021-06-18 05:50] LABS: TOTAL PROTEIN 6.2 GM/DL (6.4-8.2)
[2021-06-18 05:52] LABS: BILIRUBIN,TOTAL 0.8 MG/DL (0.1-1.0)
[2021-06-18 05:54] LABS: CREATININE SERUM 0.96 MG/DL (0.60-1.30)
--- NOTE | 2021-06-18 06:20 | Progress Note - Hospitalist ---
Subjective HPI/CC On Admission Date Seen by Provider: Jun 18, 2021 Time Seen by Provider: 10:30 Chief complaint: Acute diverticulitis History of present illness: This is a 71-year-old white male who presented with abdominal pain found to have extensive colitis so admitted for IV antibiotics and n.p.o. status. He had had a colonoscopy [address] Sanchez [address] scan is suspicious for neoplastic process. Subjective/Events-last exam Patient doing a lot better Pain much better IV antibiotics maintained Appreciate Dr. Sanchez direction Review of Systems General: Fatigue, Malaise Objective Exam Vital Signs Vital Signs Date Time Temp Pulse Resp B/P (MAP) Pulse Ox O2 Delivery O2 Flow Rate FiO2 06/19/21 04:00 35.6 58 18 138/87 (104) 97 Room Air 06/18/21 11:54 0.00 06/16/21 15:47 21 Capillary Refill : General Appearance: No Apparent Distress, WD/WN, Chronically ill Respiratory: Lungs Clear, Normal Breath Sounds Cardiovascular: Regular Rate, Rhythm Gastrointestinal: Tenderness Neurologic/Psychiatric: Alert, Oriented x3, No Motor/Sensory Deficits, Normal Mood/Affect Results/Procedures Lab Patient resulted labs reviewed. Imaging: Reviewed Imaging Report Assessment/Plan Assessment and Plan Assess & Plan/Chief Complaint Assessment: Acute diverticulitis Abdominal pain Plan: IV antibiotics Bowel rest 06/18/2021: Antibiotics Bowel rest BLAIR REYNOSO DO Jun 18, 2021 06:19
[2021-06-18] MEDS: NS IV 1000 ML 1,000 ML IV SCH ×3 (06:39→23:17)
[2021-06-18] MEDS: LEVOTHYROXINE 150 MCG (LEVOTHROID) TAB PO SCH (06:39)
--- NOTE | 2021-06-18 07:27 | Progress Note - Surgery ---
GILBERT JACKSON 06/18/21 0727: Subjective Date Seen by a Provider: Jun 18, 2021 Time Seen by a Provider: 06:40 Subjective/Events-last exam Pt tired this morning, but seems to be improving. LLQ, RLQ, and suprapubic abdominal pain continues to be 2/10. No nausea, vomiting, or flatus. Pt has loose stools with no visible blood. Denies CP, SOB, fever, and chills at this time. Review of Systems General: No Chills; Fatigue HEENT: No Head Aches, No Visual Changes Pulmonary: No Dyspnea, No Cough Cardiovascular: No: Chest Pain, Palpitations Gastrointestinal: Abdominal Pain, Diarrhea; No: Nausea, Vomiting Genitourinary: No Dysuria, No Frequency Musculoskeletal: No: neck pain, leg pain Neurological: No: Weakness, Change in speech Focused Exam Respiratory: Lungs Clear, Normal Breath Sounds, No Respiratory Distress Cardiovascular: Regular Rate, Rhythm, No Murmur, Normal Peripheral Pulses Peripheral Pulses: 2+ Dorsalis Pedis (R), 2+ Left Dors-Pedis (L), 2+ Radial Pulses (R), 2+ Radial Pulses (L) Skin: normal color, warm/dry Objective Exam Vital Signs Date Time Temp Pulse Resp B/P (MAP) Pulse Ox O2 Delivery O2 Flow Rate FiO2 06/18/21 07:14 96 Room Air 06/18/21 04:00 36.0 62 18 130/77 (94) 96 Room Air 0.00 06/18/21 00:00 36.1 63 19 130/79 (96) 97 Nasal Cannula 2.00 06/17/21 20:45 Room Air 06/17/21 19:22 94 Room Air 2.00 06/17/21 19:17 36.9 67 18 123/71 (88) 94 Room Air 06/17/21 16:00 36.6 71 18 114/71 (85) 98 Nasal Cannula 2.00 06/17/21 12:00 35.9 75 18 124/81 (95) 98 Nasal Cannula 2.00 06/17/21 08:00 35.8 65 18 120/78 (92) 96 Nasal Cannula 2.00 06/17/21 08:00 Room Air Capillary Refill : General Appearance: No Apparent Distress, WD/WN Respiratory: Lungs Clear, Normal Breath Sounds, No Respiratory Distress Cardiovascular: Regular Rate, Rhythm, No Murmur, Normal Peripheral Pulses Peripheral Pulses: 2+ Dorsalis Pedis (R), 2+ Left Dors-Pedis (L), 2+ Radial Pulses (R), 2+ Radial Pulses (L) Gastrointestinal: soft, tenderness (LLQ, RLQ, suprapubic) Extremity: Normal Inspection, No Pedal Edema Neurologic/Psychiatric: Alert, Oriented x3, Normal Mood/Affect Skin: Normal Color, Warm/Dry Results Lab Laboratory Tests 06/18/21 05:18: White Blood Count 9.9, Red Blood Count 4.68, Hemoglobin 13.7, Hematocrit 42, Mean Corpuscular Volume 89, Mean Corpuscular Hemoglobin 29, Mean Corpuscular Hemoglobin Concent 33, Red Cell Distribution Width 12.5, Platelet Count 207, Polly n Platelet Volume 9.8, Immature Granulocyte % (Auto) 0, Neutrophils (%) (Auto) 74, Lymphocytes (%) (Auto) 15, Monocytes (%) (Auto) 7, Eosinophils (%) (Auto) 3, Basophils (%) (Auto) 0, Neutrophils # (Auto) 7.3, Lymphocytes # (Auto) 1.5, Monocytes # (Auto) 0.7, Eosinophils # (Auto) 0.3, Basophils # (Auto) 0.0, Immature Granulocyte # (Auto) 0.0, Sodium Level 135, Potassium Level 3.7, Chloride Level 106, Carbon Dioxide Level 19L, Anion Gap 10, Blood Urea Nitrogen 15, Creatinine 0.96, Estimat Glomerular Filtration Rate 85, BUN/Creatinine Ratio 16, Glucose Level 67L, Calcium Level 8.8, Corrected Calcium 9.4, Total Bilirubin 0.8, Aspartate Amino Transf (AST/SGOT) 16, Alanine Aminotransferase (ALT/SGPT) 14, Alkaline Phosphatase 67, Total Protein 6.2L, Albumin 3.3 Assessment/Plan Assessment/Plan Assessment/Plan Acute diverticulitis Abdominal pain lower quadrants/suprapubic Hypertension Advance diet as tolerated Continue pain management and abx IVFs F/U Colonoscopy 6-8 weeks SHAVONNE SANCHEZ DO 06/18/21 1047: Subjective Subjective/Events-last exam Continues to improve. Passing flatus and liquid stools. Patient with abdominal pain still improving. Denies n/v fever sweats chills shortness of breath or chest pain. Wanting food. Objective Exam General Appearance: No Apparent Distress, WD/WN HEENT: PERRL/EOMI, Normal ENT Inspection Neck: Full Range of Motion, Normal Inspection Respiratory: Chest Non Tender, No Accessory Muscle Use, No Respiratory Distress Cardiovascular: Regular Rate, Rhythm, No JVD Gastrointestinal: soft, tenderness (lower abdomen, still with pain but improving) Extremity: Normal Inspection, Non Tender Neurologic/Psychiatric: Alert, Oriented x3, Normal Mood/Affect Skin: Normal Color, Warm/Dry Lymphatic: No Adenopathy Assessment/Plan Assessment/Plan Assessment/Plan Acute diverticulitis Abdominal pain lower quadrants/suprapubic Hypertension Advance diet to clears Continue pain management and abx-Zosyn IVFs F/U Colonoscopy 6-8 weeks after improved. Supervisory-Addendum Brief Verification & Attestation Participated in pt care: history, MDM, physical Personally performed: exam, history, MDM, supervision of care Care discussed with: Medical Student Procedures: n/a Results interpretation: Verified all documentation Verification and Attestation of Medical Student E/M Service A medical student performed and documented this service in my presence. I reviewed and verified all information documented by the medical student and made modifications to such information, when appropriate. I personally performed the physical exam and medical decision making. Shavonne Sanchez, Jun 18, 2021,10:47 GILBERT JACKSON Jun 18, 2021 07:27 SHAVONNE SANCHEZ DO Jun 18, 2021 10:47
[2021-06-18] MEDS: FINASTERIDE (PROSCAR) 5 MG TAB PO SCH (08:12)
[2021-06-18] MEDS: lisINopril 10 MG (PRINIVIL) TABLET PO SCH (08:12)
[2021-06-18] MEDS: SENNOSIDES 8.6 MG (SENOKOT) TAB PO SCH ×2 (08:12→19:24)
[2021-06-18] MEDS: DOCUSATE SODIUM 100 MG (COLACE) CAP PO SCH ×2 (08:12→19:23)
[2021-06-18] MEDS: ENOXAPARIN 40 MG/0.4 ML (LOVENOX) SYR SC SCH (15:08)
[2021-06-19] MEDS: NS IV 1000 ML 1,000 ML IV SCH (01:37)
[2021-06-19 04:00] VITALS: BP 138/87
[2021-06-19] MEDS: LEVOTHYROXINE 150 MCG (LEVOTHROID) TAB PO SCH (05:11)
[2021-06-19] MEDS: PIPERACILLIN SODIUM/TAZOBACTAM 4.5 GM in NS (IVPB) 100 ML IV SCH ×3 (05:11→21:07)
[2021-06-19 06:51] LABS: BASOPHILS % (AUTO) 0 % (0-10); EOSINOPHILS # (AUTO) 0.3 10^3/uL (0.0-0.3); EOSINOPHILS % (AUTO) 4 % (0-10); HEMATOCRIT 41 % (40-54); HEMOGLOBIN 13.6 g/dL (13.3-17.7); LYMPHOCYTES # (AUTO) 1.5 10^3/uL (1.0-4.0); LYMPHOCYTES % (AUTO) 22 % (12-44); MEAN CORPUSCULAR HEMOGLOBIN 29 pg (25-34); MEAN CORPUSCULAR HGB CONC 33 g/dL (32-36); MEAN CORPUSCULAR VOLUME 88 fL (80-99); MEAN PLATELET VOLUME 9.4 fL (9.0-12.2); MONOCYTES # (AUTO) 0.5 10^3/uL (0.0-1.0); MONOCYTES % (AUTO) 7 % (0-12); NEUTROPHILS # (AUTO) 4.5 10^3/uL (1.8-7.8); NEUTROPHILS % (AUTO) 65 % (42-75); PLATELET COUNT 240 10^3/uL (130-400); WHITE BLOOD COUNT 6.8 10^3/uL (4.3-11.0)
[2021-06-19 07:07] LABS: ALBUMIN 3.3 GM/DL (3.2-4.5)
[2021-06-19 07:08] LABS: POTASSIUM 3.8 MMOL/L (3.6-5.0)
[2021-06-19 07:09] LABS: CALCIUM 8.9 MG/DL (8.5-10.1)
[2021-06-19 07:10] LABS: TOTAL PROTEIN 6.2 GM/DL (6.4-8.2)
[2021-06-19 07:12] LABS: BILIRUBIN,TOTAL 0.7 MG/DL (0.1-1.0)
[2021-06-19 07:13] LABS: CREATININE SERUM 1.02 MG/DL (0.60-1.30)
--- NOTE | 2021-06-19 07:34 | Progress Note - Hospitalist ---
Subjective HPI/CC On Admission Date Seen by Provider: Jun 19, 2021 Time Seen by Provider: 10:30 Chief complaint: Acute diverticulitis History of present illness: This is a 71-year-old white male who presented with abdominal pain found to have extensive colitis so admitted for IV antibiotics and n.p.o. status. He had had a colonoscopy [address] Sanchez [address] scan is suspicious for neoplastic process. Subjective/Events-last exam Patient doing pretty well Pain is much improved Advancing diet today Has some itching after Zosyn given some Benadryl given Review of Systems General: Fatigue Gastrointestinal: Abdominal Pain Objective Exam Vital Signs Vital Signs Date Time Temp Pulse Resp B/P (MAP) Pulse Ox O2 Delivery O2 Flow Rate FiO2 06/20/21 00:00 36.8 63 18 127/72 (90) 93 Nasal Cannula 2.00 06/19/21 07:42 21 Capillary Refill : General Appearance: No Apparent Distress, WD/WN, Chronically ill Respiratory: Lungs Clear, Normal Breath Sounds Cardiovascular: Regular Rate, Rhythm Neurologic/Psychiatric: Alert, Oriented x3, No Motor/Sensory Deficits, Normal Mood/Affect Results/Procedures Lab Patient resulted labs reviewed. Imaging: Reviewed Imaging Report Assessment/Plan Assessment and Plan Assess & Plan/Chief Complaint Assessment: Acute diverticulitis Abdominal pain Plan: IV antibiotics Bowel rest 06/18/2021: Antibiotics Bowel rest 06/19/2021: Bowel rest but advance diet slowly BLAIR REYNOSO DO Jun 19, 2021 07:34
[2021-06-19 07:42] VITALS: BP 138/87
[2021-06-19 08:00] VITALS: BP 149/89
[2021-06-19] MEDS: lisINopril 10 MG (PRINIVIL) TABLET PO SCH (08:47)
[2021-06-19] MEDS: FINASTERIDE (PROSCAR) 5 MG TAB PO SCH (08:47)
[2021-06-19] MEDS: DOCUSATE SODIUM 100 MG (COLACE) CAP PO SCH ×2 (08:47→19:33)
[2021-06-19] MEDS: SENNOSIDES 8.6 MG (SENOKOT) TAB PO SCH ×2 (08:48→19:33)
--- NOTE | 2021-06-19 09:21 | Progress Note - Surgery ---
GILBERT JACKSON 06/19/21 0921: Subjective Date Seen by a Provider: Jun 19, 2021 Time Seen by a Provider: 09:00 Subjective/Events-last exam Pt reports feeling good today. Tolerating his CLD. Still having loose stools (2 this a.m.) with no blood; passing flatus. Only has pain when going to the bathroom. Abdomen is no longer tender. Has been feeling itchy, has received Benadryl. Oxygen decreased to 94 overnight, was put on 2L NC. Usually wears a cpap at home. Denies CP, fever, SOB, chills, and palpitations at this time. Review of Systems General: No Chills, No Malaise HEENT: Head Aches; No Visual Changes Pulmonary: No Dyspnea, No Cough Cardiovascular: No: Chest Pain, Palpitations Gastrointestinal: Diarrhea; No: Nausea, Vomiting, Abdominal Pain Genitourinary: No Dysuria, No Frequency Musculoskeletal: No: neck pain, leg pain Neurological: No: Weakness, Change in speech Objective Exam Vital Signs Date Time Temp Pulse Resp B/P (MAP) Pulse Ox O2 Delivery O2 Flow Rate FiO2 06/19/21 08:00 36.5 61 18 149/89 (109) 95 Room Air 06/19/21 07:44 94 Nasal Cannula 2.00 06/19/21 07:42 35.6 68 88 21 06/19/21 07:42 88 Room Air 06/19/21 04:00 35.6 58 18 138/87 (104) 97 Room Air 06/18/21 23:36 36.0 67 18 146/83 (104) 97 Room Air 06/18/21 20:00 Room Air 06/18/21 19:05 37.0 63 16 127/72 (90) 97 Room Air 06/18/21 15:26 36.8 65 16 120/74 (89) 97 Room Air 06/18/21 11:54 36.6 104 18 142/77 (98) 95 Room Air 0.00 I & O 06/19/21 07:00 Intake Total 2260 ml Balance 2260 ml Capillary Refill : General Appearance: No Apparent Distress, WD/WN, Chronically ill Neck: Normal Inspection Respiratory: Lungs Clear, Normal Breath Sounds, No Respiratory Distress Cardiovascular: Regular Rate, Rhythm, No Murmur Peripheral Pulses: 2+ Dorsalis Pedis (R), 2+ Left Dors-Pedis (L), 2+ Radial P ulses (R), 2+ Radial Pulses (L) Gastrointestinal: normal bowel sounds, soft; No tenderness Extremity: Normal Inspection, No Pedal Edema Neurologic/Psychiatric: Alert, Oriented x3, Normal Mood/Affect Skin: Normal Color, Warm/Dry, Other (feels "itchy" but no rash seen; given Benedryl) Lymphatic: No Adenopathy Results Lab Laboratory Tests 06/19/21 06:25: White Blood Count 6.8, Red Blood Count 4.69, Hemoglobin 13.6, Hematocrit 41, Mean Corpuscular Volume 88, Mean Corpuscular Hemoglobin 29, Mean Corpuscular Hemoglobin Concent 33, Red Cell Distribution Width 12.5, Platelet Count 240, Mean Platelet Volume 9.4, Immature Granulocyte % (Auto) 0, Neutrophils (%) (Auto) 65, Lymphocytes (%) (Auto) 22, Monocytes (%) (Auto) 7, Eosinophils (%) (Auto) 4, Basophils (%) (Auto) 0, Neutrophils # (Auto) 4.5, Lymphocytes # (Auto) 1.5, Monocytes # (Auto) 0.5, Eosinophils # (Auto) 0.3, Basophils # (Auto) 0.0, Immature Granulocyte # (Auto) 0.0, Sodium Level 139, Potassium Level 3.8, Chloride Level 108H, Carbon Dioxide Level 22, Anion Gap 9, Blood Urea Nitrogen 8, Creatinine 1.02, Estimat Glomerular Filtration Rate 79, BUN/Creatinine Ratio 8, Glucose Level 130H, Calcium Level 8.9, Corrected Calcium 9.5, Total Bilirubin 0.7, Aspartate Amino Transf (AST/SGOT) 16, Alanine Aminotransferase (ALT/SGPT) 13, Alkaline Phosphatase 66, Total Protein 6.2L, Albumin 3.3 Assessment/Plan Assessment/Plan Assessment/Plan Acute diverticulitis Abdominal pain lower quadrants/suprapubic Hypertension Dysphagia 2 diet Continue pain management and abx Consider switiching Zosyn, continue Benedryl as needed, monitor for rash IVFs Consider DC tomorrow if continued improvement F/U Colonoscopy 6-8 weeks after improved. SHAVONNE SANCHEZ DO 06/19/21 0943: Subjective Subjective/Events-last exam Patient continue to feel better. Patient tolerating clear liquids. Having loose bowel movements. No abdominal pain at this time. Denies any other complaints. Denies nausea vomiting fever sweats chills shortness of breath or chest pain Objective Exam General Appearance: No Apparent Distress, WD/WN, Chronically ill HEENT: PERRL/EOMI, Normal ENT Inspection Neck: Normal Inspection, Non Tender Respiratory: Chest Non Tender, No Accessory Muscle Use, No Respiratory Distress Cardiovascular: Regular Rate, Rhythm, No JVD Gastrointestinal: soft; No tenderness Extremity: Normal Inspection, Non Tender Neurologic/Psychiatric: Alert, Oriented x3 Skin: Normal Color, Warm/Dry Lymphatic: No Adenopathy Assessment/Plan Assessment/Plan Assessment/Plan Acute diverticulitis Abdominal pain lower quadrants/suprapubic Hypertension Dysphagia 2 diet Continue pain management and abx Continue abx IVFs Consider DC tomorrow if continued improvement F/U Colonoscopy 6-8 weeks after improved. Supervisory-Addendum Brief Verification & Attestation Participated in pt care: history, MDM, physical Personally performed: exam, history, MDM, supervision of care Care discussed with: Medical Student Procedures: n/a Results interpretation: Verified all documentation Verification and Attestation of Medical Student E/M Service A medical student performed and documented this service in my presence. I reviewed and verified all information documented by the medical student and made modifications to such information, when appropriate. I personally performed the physical exam and medical decision making. Shavonne Sanchez, Jun 19, 2021,13:46 GILBERT JACKSON Jun 19, 2021 09:21 SHAVONNE SANCHEZ DO Jun 19, 2021 13:47
[2021-06-19 11:33] VITALS: BP 145/92
[2021-06-19] MEDS: diphenhydrAMINE 25 MG TAB (BENADRYL) PO PRN ×2 (12:33→21:06)
[2021-06-19 15:50] VITALS: BP 127/72
[2021-06-19] MEDS: ENOXAPARIN 40 MG/0.4 ML (LOVENOX) SYR SC SCH (16:19)
[2021-06-19 19:31] VITALS: BP 152/89
[2021-06-19] MEDS: ACETAMINOPHEN 325 MG TABLET PO PRN (21:06)
[2021-06-20] VITALS: BP 127/72
[2021-06-20] MEDS: LEVOTHYROXINE 150 MCG (LEVOTHROID) TAB PO SCH (05:43)
[2021-06-20] MEDS: diphenhydrAMINE 25 MG TAB (BENADRYL) PO PRN (05:43)
[2021-06-20] MEDS: PIPERACILLIN SODIUM/TAZOBACTAM 4.5 GM in NS (IVPB) 100 ML IV SCH ×2 (05:43→13:46)
[2021-06-20 06:41] LABS: BASOPHILS % (AUTO) 1 % (0-10); EOSINOPHILS # (AUTO) 0.4 10^3/uL (0.0-0.3); EOSINOPHILS % (AUTO) 5 % (0-10); HEMATOCRIT 44 % (40-54); HEMOGLOBIN 14.5 g/dL (13.3-17.7); LYMPHOCYTES # (AUTO) 1.9 10^3/uL (1.0-4.0); LYMPHOCYTES % (AUTO) 23 % (12-44); MEAN CORPUSCULAR HEMOGLOBIN 29 pg (25-34); MEAN CORPUSCULAR HGB CONC 33 g/dL (32-36); MEAN CORPUSCULAR VOLUME 88 fL (80-99); MEAN PLATELET VOLUME 9.3 fL (9.0-12.2); MONOCYTES # (AUTO) 0.5 10^3/uL (0.0-1.0); MONOCYTES % (AUTO) 7 % (0-12); NEUTROPHILS # (AUTO) 5.2 10^3/uL (1.8-7.8); NEUTROPHILS % (AUTO) 65 % (42-75); PLATELET COUNT 273 10^3/uL (130-400)
[2021-06-20 07:03] LABS: ALBUMIN 3.4 GM/DL (3.2-4.5)
[2021-06-20 07:04] LABS: POTASSIUM 3.8 MMOL/L (3.6-5.0)
[2021-06-20 07:05] LABS: CALCIUM 9.2 MG/DL (8.5-10.1)
[2021-06-20 07:06] LABS: TOTAL PROTEIN 6.5 GM/DL (6.4-8.2)
[2021-06-20 07:08] LABS: BILIRUBIN,TOTAL 0.4 MG/DL (0.1-1.0)
[2021-06-20 07:09] LABS: CREATININE SERUM 0.94 MG/DL (0.60-1.30)
[2021-06-20] MEDS: FINASTERIDE (PROSCAR) 5 MG TAB PO SCH (07:47)
[2021-06-20] MEDS: SENNOSIDES 8.6 MG (SENOKOT) TAB PO SCH (07:48)
[2021-06-20] MEDS: lisINopril 10 MG (PRINIVIL) TABLET PO SCH (07:48)
[2021-06-20] MEDS: DOCUSATE SODIUM 100 MG (COLACE) CAP PO SCH (07:48)
[2021-06-20 07:51] VITALS: BP 158/86
--- NOTE | 2021-06-20 08:04 | Progress Note - Surgery ---
GILBERT JACKSON 06/20/21 0804: Subjective Date Seen by a Provider: Jun 20, 2021 Time Seen by a Provider: 07:40 Subjective/Events-last exam Pt eating breakfast this morning. Had eggs and some sausage. Was reminded to take food slow and not stress his system. Lower abdominal pain was 2/10 this morning, but did not have tenderness to palpation. Stools are loose with no blood. Pt hesitant about d/c today, wants to know the food will pass through his system correctly before he goes home. Denies CP/SOB/fever/chills at this time. Review of Systems General: No Chills, No Malaise HEENT: No Head Aches, No Visual Changes Pulmonary: No Dyspnea, No Cough Cardiovascular: No: Chest Pain, Palpitations Gastrointestinal: Abdominal Pain, Diarrhea; No: Nausea, Vomiting Genitourinary: No Dysuria; Frequency Musculoskeletal: back pain (chronic); No: neck pain Neurological: No: Weakness, Change in speech Focused Exam Respiratory: Lungs Clear, Normal Breath Sounds, No Respiratory Distress Cardiovascular: Regular Rate, Rhythm, No Murmur, Normal Peripheral Pulses Peripheral Pulses: 2+ Radial Pulses (R), 2+ Radial Pulses (L) Skin: normal color, warm/dry Objective Exam Vital Signs Date Time Temp Pulse Resp B/P (MAP) Pulse Ox O2 Delivery O2 Flow Rate FiO2 06/20/21 07:51 36.3 56 18 158/86 (110) 92 Room Air 06/20/21 07:42 Nasal Cannula 2.00 06/20/21 07:18 92 Room Air 0.00 06/20/21 00:00 36.8 63 18 127/72 (90) 93 Nasal Cannula 2.00 06/19/21 20:00 Room Air 06/19/21 19:31 37.0 64 19 152/89 (110) 93 Nasal Cannula 2.00 06/19/21 15:50 36.2 61 19 127/72 (90) 97 Nasal Cannula 2.00 06/19/21 11:33 36.8 58 20 145/92 (109) 95 Room Air 06/19/21 08:00 Nasal Cannula 2.00 06/19/21 08:00 36.5 61 18 149/89 (109) 95 Room Air I & O 06/20/21 07:00 Intake Total 4250 ml Balance 4250 ml Capillary Refill : General Appearance: No Apparent Distress, WD/WN Respiratory: Lungs Clear, Normal Breath Sounds, No Respiratory Distress Cardiovascular: Regular Rate, Rhythm, No Murmur, Normal Peripheral Pulses Peripheral Pulses: 2+ Dorsalis Pedis (R), 2+ Left Dors-Pedis (L), 2+ Radial Pulses (R), 2+ Radial Pulses (L) Gastrointestinal: soft; No tenderness Extremity: Normal Inspection, No Pedal Edema Neurologic/Psychiatric: Alert, Oriented x3, Normal Mood/Affect Skin: Normal Color, Warm/Dry Results Lab Laboratory Tests 06/20/21 06:20: White Blood Count 8.0, Red Blood Count 4.97, Hemoglobin 14.5, Hematocrit 44, Mean Corpuscular Volume 88, Mean Corpuscular Hemoglobin 29, Mean Corpuscular Hemoglobin Concent 33, Red Cell Distribution Width 12.4, Platelet Count 273, Mean Platelet Volume 9.3, Immature Granulocyte % (Auto) 1, Neutrophils (%) (Auto) 65, Lymphocytes (%) (Auto) 23, Monocytes (%) (Auto) 7, Eosinophils (%) (Auto) 5, Basophils (%) (Auto) 1, Neutrophils # (Auto) 5.2, Lymphocytes # (Auto) 1.9, Monocytes # (Auto) 0.5, Eosinophils # (Auto) 0.4H, Basophils # (Auto) 0.0, Immature Granulocyte # (Auto) 0.0, Sodium Level 140, Potassium Level 3.8, Chloride Level 110H, Carbon Dioxide Level 21, Anion Gap 9, Blood Urea Nitrogen 8, Creatinine 0.94, Estimat Glomerular Filtration Rate 87, BUN/Creatinine Ratio 9, Glucose Level 120H, Calcium Level 9.2, Corrected Calcium 9.7, Total Bilirubin 0.4, Aspartate Amino Transf (AST/SGOT) 30, Alanine Aminotransferase (ALT/SGPT) 25, Alkaline Phosphatase 85, Total Protein 6.5, Albumin 3.4 Assessment/Plan Assessment/Plan Assessment/Plan Acute diverticulitis Abdominal pain lower quadrants/suprapubic Hypertension (158/86) Anticoagulated (Lovenox 40) Dysphagia 2 diet tolerated Continue pain management and Zosyn Benadryl as needed IVFs Consider DC with continued improvement F/U Colonoscopy 6-8 weeks after improved. SHAVONNE SANCHEZ DO 06/20/21 1158: Subjective Subjective/Events-last exam Paitent feeling well. No pain at this time. Having flatus and bm. WBC normal. Tolerating diet. Denies n/v fever sweats chills shortness of breath or chest pain. Objective Exam General Appearance: No Apparent Distress, WD/WN HEENT: PERRL/EOMI, Normal ENT Inspection Neck: Non Tender, Supple Respiratory: Chest Non Tender, No Accessory Muscle Use, No Respiratory Distress Cardiovascular: Regular Rate, Rhythm, No JVD Gastrointestinal: non tender, soft; No guarding, No rebound, No tenderness Extremity: Normal Inspection, Non Tender Neurologic/Psychiatric: Alert, Oriented x3, Normal Mood/Affect Skin: Normal Color, Warm/Dry Lymphatic: No Adenopathy Assessment/Plan Assessment/Plan Assessment/Plan Acute diverticulitis Abdominal pain lower quadrants/suprapubic Hypertension (158/86) Anticoagulated (Lovenox 40) Dysphagia 2 diet tolerated Continue pain management and Zosyn Benadryl as needed IVFs Consider DC with continued improvement F/U Colonoscopy 6-8 weeks after improved. Supervisory-Addendum Brief Verification & Attestation Participated in pt care: history, MDM, physical Personally performed: exam, history, MDM, supervision of care Care discussed with: Medical Student Procedures: n/a Results interpretation: Verified all documentation Verification and Attestation of Medical Student E/M Service A medical student performed and documented this service in my presence. I reviewed and verified all information documented by the medical student and made modifications to such information, when appropriate. I personally performed the physical exam and medical decision making. Shavonne aSnchez, Jun 20, 2021,11:58 GILBERT JACKSON Jun 20, 2021 08:04 SHAVONNE SANCHEZ DO Jun 20, 2021 11:58
[2021-06-20] MEDS ORDERED: AMOX-358 PO (11:59)
--- NOTE | 2021-06-20 12:35 | Discharge Summary ---
Discharge Summary Hospital Course Was the Problem List Reviewed?: Yes Problems/Dx: (1) Diverticulitis of intestine Status: Acute Qualifiers: Qualified Codes: K57.92 - Diverticulitis of intestine, part unspecified, without perforation or abscess without bleeding Hospital Course Date of Admission: Jun 16, 2021 at 13:34 Admission Diagnosis : Family Physician/Provider: Max Anderson MD Date of Discharge: 06/20/21 Discharge Diagnosis: Acute diverticulitis Hospital Course: Standard hospital course after admission for acute diverticulitis. IV antibiotics maintained. Pain was well controlled. Overall he was deemed stable for discharge after tolerating advanced diet. Labs and Pending Lab Test: Laboratory Tests 06/20/21 06:20: White Blood Count 8.0, Red Blood Count 4.97, Hemoglobin 14.5, Hematocrit 44, Mean Corpuscular Volume 88, Mean Corpuscular Hemoglobin 29, Mean Corpuscular Hemoglobin Concent 33, Red Cell Distribution Width 12.4, Platelet Count 273, Mean Platelet Volume 9.3, Immature Granulocyte % (Auto) 1, Neutrophils (%) (Auto) 65, Lymphocytes (%) (Auto) 23, Monocytes (%) (Auto) 7, Eosinophils (%) (Auto) 5, Basophils (%) (Auto) 1, Neutrophils # (Auto) 5.2, Lymphocytes # (Auto) 1.9, Monocytes # (Auto) 0.5, Eosinophils # (Auto) 0.4H, Basophils # (Auto) 0.0, Immature Granulocyte # (Auto) 0.0, Sodium Level 140, Potassium Level 3.8, Chloride Level 110H, Carbon Dioxide Level 21, Anion Gap 9, Blood Urea Nitrogen 8, Creatinine 0.94, Estimat Glomerular Filtration Rate 87, BUN/Creatinine Ratio 9, Glucose Level 120H, Calcium Level 9.2, Corrected Calcium 9.7, Total Bilirubin 0.4, Aspartate Amino Transf (AST/SGOT) 30, Alanine Aminotransferase (ALT/SGPT) 25, Alkaline Phosphatase 85, Total Protein 6.5, Albumin 3.4 Home Meds Active Augmentin 875-125 Tablet (Amoxicillin/Potassium Clav) 1 Each Tablet 1 Each PO BID Reported Zinc 50 Mg Tablet 50 Mg PO DAILY Garlic 100 Mg Tablet 100 Mg PO DAILY Centrum Silver Men Tablet (Multivit-Min/FA/Lycopen/Lutein) 1 Each Tablet 1 Each PO DAILY Co Q10 (Ubidecarenone) 200 Mg Capsule 200 Mg PO DAILY Levothyroxine Sodium 150 Mcg Tablet 150 Mcg PO DAILY Hydrocodone-Acetamin 7.5-325 (Hydrocodone/Acetaminophen) 1 Each Tablet 1 Each PO QID PRN Cialis (Tadalafil) 20 Mg Tablet 20 Mg PO DAILY Lisinopril 10 Mg Tablet 10 Mg PO DAILY Finasteride 5 Mg Tablet 5 Mg PO DAILY Atorvastatin Calcium 40 Mg Tablet 40 Mg PO DAILY Assessment/Pt Instructions PCP in 1 week Discharge Planning: <30 minutes discharge planning Discharge Instructions Discharge Diet: Low Residue Activity as Tolerated: Yes Discharge Physical Examination Vital Signs Vital Signs Date Time Temp Pulse Resp B/P (MAP) Pulse Ox O2 Delivery O2 Flow Rate FiO2 06/20/21 07:51 36.3 56 18 158/86 (110) 92 Room Air 06/20/21 07:42 2.00 06/19/21 07:42 21 General Appearance: No Apparent Distress, WD/WN, Chronically ill Allergies: Coded Allergies: azithromycin (Unverified Allergy, Unknown, 09/18/18) Discharge Summary Date of Admission Jun 16, 2021 at 13:34 Date of Discharge Discharge Date: Jun 20, 2021 Admission Diagnosis Assessment: Acute diverticulitis Leukocytosis Abdominal pain Plan: Appreciate Dr. Sanchez IV antibiotics Discharge Diagnosis Assessment: Acute diverticulitis Abdominal pain Plan: IV antibiotics Bowel rest 06/18/2021: Antibiotics Bowel rest 06/19/2021: Bowel rest but advance diet slowly BLAIR REYNOSO DO Jun 20, 2021 12:35
== END 2021-06-20 13:53 | disposition home or self-care (01) | DRG 392 ==
LOC: EDUNIT# 10:21 → ER 10:22 → 4TH 13:34
PROVIDERS: ADMIT Internal Medicine; ATTEND Internal Medicine
DX: K57.32 Diverticulitis of large intestine without perforation or abscess without bleeding (principal); R01.1 Cardiac murmur, unspecified; I10 Essential (primary) hypertension; E78.5 Hyperlipidemia, unspecified; E78.00 Pure hypercholesterolemia, unspecified; N40.0 Benign prostatic hyperplasia without lower urinary tract symptoms; K21.9 Gastro-esophageal reflux disease without esophagitis; E03.9 Hypothyroidism, unspecified; M54.9 Dorsalgia, unspecified; H91.90 Unspecified hearing loss, unspecified ear; Z88.1 Allergy status to other antibiotic agents
CPT/HCPCS: 36415; 74177; 80053; 81000; 83690; 85025; 86141; 94760; 96374; 96375

== ENCOUNTER 2022-02-26 20:33 | Emergency (ER) | payer MEDICARE ==
[~2022-02-26] VITALS: Ht 187 cm; Wt 97.0 kg
[~2022-02-26 20:33] MED LIST changes: +AMOX-358 PO; +GARL100T PO; +LEVO150T6 PO; +MULT-1061 PO; +UBID200C36 PO; +ZINC50TA58 PO
--- NOTE | 2022-02-26 21:14 | ED Integumentary General ---
General Chief Complaint: Skin/Wound Problems Stated Complaint: MOLE BY EAR GETTING BIGGER Nursing Triage Note: PT HAS AN AREA OF CONCERN ABOVE HIS LEFT EAR THAT APPEARED ABOUT A WEEK AGO. HE WOULD LIKE IT REMOVED. DENIES PAIN. PT AMB. TO FT1 WITHOUT DIFFICULTY. Source: patient Exam Limitations: no limitations (LUCERO CAPONE APRN) History of Present Illness Date Seen by Provider: Feb 26, 2022 Time Seen by Provider: 21:05 Initial Comments Patient is a 71-year-old male who presents to the emergency department for evaluation of a lesion just in front of his left ear that he first noticed 1 to 2 weeks ago. He states he has been getting bigger since that time. He is requesting it to be removed. He states he has an appointment with his PCP on Monday for evaluation of this lesion. He states it is affecting his ability to wear his safety glasses at work. No drainage from the affected area. No fever. States the area is not tender to palpation. Timing/Duration: week (LUCERO CAPONE APRN) Allergies and Home Medications Allergies Coded Allergies: azithromycin (Unverified Allergy, Unknown, 09/18/18) Patient Home Medication List Home Medication List Reviewed: Yes (LUCERO CAPONE APRN) Amoxicillin/Potassium Clav (Augmentin 875-125 Tablet) 1 Each Tablet, 1 EACH PO BID Prescribed by: SHAVONNE IRWIN on 06/20/21 1159 Atorvastatin Calcium (Atorvastatin Calcium) 40 Mg Tablet, 40 MG PO DAILY, (Reported) Entered as Reported by: USMAN RODAS on 05/11/20 1401 Finasteride (Finasteride) 5 Mg Tablet, 5 MG PO DAILY, (Reported) Entered as Reported by: USMAN RODAS on 05/11/20 1401 Garlic (Garlic) 100 Mg Tablet, 100 MG PO DAILY, (Reported) Entered as Reported by: JOE BRADFORD on 06/17/21 1234 Hydrocodone/Acetaminophen (Hydrocodone-Acetamin 7.5-325) 1 Each Tablet, 1 EACH PO QID PRN for PAIN-MODERATE (5-7), (Reported) Entered as Reported by: USMAN RODAS on 05/11/20 1401 Levothyroxine Sodium (Levothyroxine Sodium) 150 Mcg Tablet, 150 MCG PO DAILY, (Reported) Entered as Reported by: JOE BRADFORD on 06/17/21 1234 Lisinopril (Lisinopril) 10 Mg Tablet, 10 MG PO DAILY, (Reported) Entered as Reported by: USMAN RODAS on 05/11/20 1401 Multivit-Min/FA/Lycopen/Lutein (Centrum Silver Men Tablet) 1 Each Tablet, 1 EACH PO DAILY, (Reported) Entered as Reported by: JOE BRADFORD on 06/17/21 1234 Tadalafil (Cialis) 20 Mg Tablet, 20 MG PO DAILY, (Reported) Entered as Reported by: USMAN RODAS on 05/11/20 1401 Ubidecarenone (Co Q10) 200 Mg Capsule, 200 MG PO DAILY, (Reported) Entered as Reported by: JOE BRADFORD on 06/17/21 1234 Zinc (Zinc) 50 Mg Tablet, 50 MG PO DAILY, (Reported) Entered as Reported by: JOE BRADFORD on 06/17/21 1234 Review of Systems Review of Systems Constitutional: no symptoms reported EENTM: no symptoms reported Respiratory: no symptoms reported Cardiovascular: no symptoms reported Gastrointestinal: no symptoms reported Genitourinary: no symptoms reported Skin: see HPI (LUCERO CAPONE APRN) Past Nbhcmjg-Deyads-Gqlgga Hx Patient Social History Tobacco Use?: No Substance use?: No Alcohol Use?: No Pt feels they are or have been: No (LUCERO CAPONE APRN) Immunizations Up To Date First/Initial COVID19 Vaccinat: MODERNA Second COVID19 Vaccination Eliseo: MODERNA Third COVID19 Vaccination Date: FEB 2021 (LUCERO CAPONE APRN) Past Medical History Surgery/Hospitalization HX: HTN, HLD, THYROID SURGERY: DENIES. Surgeries: Yes (Colonoscopy with polypectomy) Appendectomy, Orthopedic Respiratory: No Cardiac: Yes High Cholesterol, Hypertension Neurological: No Reproductive Disorders: No Sexually Transmitted Disease: No Genitourinary: Yes Benign Prostatic Hyperpl, Prostate Problems, Kidney Stones Gastrointestinal: Yes Gastroesophageal Reflux, Diverticulosis, Polyps Musculoskeletal: Yes Chronic Back Pain Endocrine: Yes Hypothyroidsim HEENT: Yes (GLASSES FOR DRIVING) Hearing Impairment: Hard of Hearing Cancer: No Psychosocial: No (HX OF ANXIETY UNTIL DIVORCE) Integumentary: Yes (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; BX BENIGN ) Blood Disorders: No (LUCERO CAPONE APRN) Family Medical History No Pertinent Family Hx (LUCERO CAPONE APRN) Physical Exam Vital Signs Vital Signs - First Documented 02/26/22 20:55 Temp 36.6 Pulse 66 Resp 18 B/P (MAP) 156/89 (111) Pulse Ox 95 O2 Delivery Room Air (BRENDAN,NELLY K DO) Vital Signs Capillary Refill : (LUCERO CAPONE APRN) General Appearance: WD/WN, no apparent distress HEENT: PERRL/EOMI, normal ENT inspection, TMs normal, pharynx normal Neck: non-tender, full range of motion, supple, normal inspection Cardiovascular: regular rate, rhythm Respiratory: chest non-tender, lungs clear, normal breath sounds, no respiratory distress, no accessory muscle use Gastrointestinal: normal bowel sounds, non tender, soft Back: normal inspection, no vertebral tenderness Extremities: normal range of motion Neurologic/Psychiatric: no motor/sensory deficits, alert, normal mood/affect, oriented x 3 Skin: normal color, warm/dry (LUCERO CAPONE APRN) Progress/Results/Core Measures Results/Orders Vital Signs/I&O 02/26/22 02/26/22 20:55 21:18 Temp 36.6 36.3 Pulse 66 66 Resp 18 18 B/P (MAP) 156/89 (111) 156/89 Pulse Ox 95 95 O2 Delivery Room Air Room Air (BRENDAN,NELLY K DO) Blood Pressure Mean: 111 Progress Progress Note : Progress Note Patient is nontoxic and well-hydrated on exam. Patient does have a ovoid lesion just anterior of his left auricle. Area does not appear to be an abscess or have any cellulitis/overlying infection. I explained that we do not electively remove skin lesions in the emergency department and that he would need to follow-up with either his PCP or general surgery to discuss possible excision. He states he has an appointment with his PCP on Monday. Discussed return precautions for urgent symptomology. Patient verbalized understanding. (LUCERO CAPONE APRN) Departure Impression Primary Impression: Facial skin lesion Disposition: HOME, SELF-CARE Condition: Stable Departure-Patient Inst. Decision time for Depature: 21:10 (LUCERO CAPONE APRN) Referrals: JULIAN TORREZ MD (PCP/Family) Primary Care Physician Patient Instructions: Skin Warts ATTENDING PHYSICIAN NOTE: I WAS PHYSICALLY PRESENT ER PHYSICIAN, BUT I WAS NOT INVOLVED IN ANY DECISION MAKING OR ANY CARE OF THIS PATIENT, AND I AM NOT COLLABORATING PHYSICIAN. (NELLY CARDONA DO) LUCERO CAPONE APRN Feb 26, 2022 21:14 NELLY CARDONA DO Feb 27, 2022 10:49
[2022-02-26 21:18] VITALS: BP 156/89
== END 2022-02-26 21:18 | disposition home or self-care (01) ==
LOC: EDUNIT# 20:33 → ER 20:36
DX: L98.9 Disorder of the skin and subcutaneous tissue, unspecified (principal)
CPT/HCPCS: 99281

== ENCOUNTER 2022-06-09 09:32 | Emergency (ER) | payer MEDICARE ==
[~2022-06-09] VITALS: Ht 188 cm; Wt 98.0 kg
[2022-06-09 09:47] VITALS: BP 158/93
[2022-06-09 09:56] LABS: BILIRUBIN,URINE NEGATIVE (NEGATIVE); CLARITY,URINE CLEAR; COLOR,URINE YELLOW; GLUCOSE, URINE (UA) NEGATIVE (NEGATIVE); KETONES,URINE NEGATIVE (NEGATIVE); LEUKOCYTE ESTERASE ,URINE NEGATIVE (NEGATIVE); NITRITE,URINE NEGATIVE (NEGATIVE); PH,URINE 5.5 (5-9); PROTEIN,URINE NEGATIVE (NEGATIVE)
[2022-06-09 10:12] LABS: BASOPHILS # (AUTO) 0.1 10^3/uL (0.0-0.1); BASOPHILS % (AUTO) 1 % (0-10); EOSINOPHILS # (AUTO) 0.4 10^3/uL (0.0-0.3); EOSINOPHILS % (AUTO) 5 % (0-10); HEMATOCRIT 45 % (40-54); HEMOGLOBIN 15.6 g/dL (13.3-17.7); LYMPHOCYTES # (AUTO) 1.9 10^3/uL (1.0-4.0); LYMPHOCYTES % (AUTO) 25 % (12-44); MEAN CORPUSCULAR HEMOGLOBIN 30 pg (25-34); MEAN CORPUSCULAR HGB CONC 34 g/dL (32-36); MEAN CORPUSCULAR VOLUME 87 fL (80-99); MEAN PLATELET VOLUME 9.6 fL (9.0-12.2); MONOCYTES # (AUTO) 0.5 10^3/uL (0.0-1.0); MONOCYTES % (AUTO) 7 % (0-12); NEUTROPHILS # (AUTO) 4.9 10^3/uL (1.8-7.8); NEUTROPHILS % (AUTO) 63 % (42-75); PLATELET COUNT 245 10^3/uL (130-400); WHITE BLOOD COUNT 7.8 10^3/uL (4.3-11.0)
[2022-06-09 10:16] LABS: BACTERIA,URINE NEGATIVE /HPF; RBC,URINE RARE /HPF; SQUAMOUS EPITHELIAL CELL,UR RARE /HPF
--- NOTE | 2022-06-09 10:26 | ED Back Pain ---
General Chief Complaint: Back Problems Stated Complaint: LOWER BACK PAIN Nursing Triage Note: Patient ambulatory to FT3 w c/o lower back pain. Patient states the pain started on Monday () and he has been seeing a chiropractor regularly but is out of his hydrocodone prescribed by Dr. Torrez and he doesn't think he can take the pain any longer. He called Dr Torrez's office and they can't see him until next Monday. His next appt with chiropractor is today at 1400. Patient denies injury to back. Source of Information: Patient History of Present Illness Date Seen by Provider: Jun 09, 2022 Time Seen by Provider: 09:44 Initial Comments STATES HE GETS "HYDRO'S 7.5" EVERY MONTH FROM DR. TORREZ, BUT HE RAN OUT. HAS AN APPOINTMENT WITH DR. TORREZ NEXT MONDAY Allergies and Home Medications Allergies Coded Allergies: azithromycin (Unverified Allergy, Unknown, 09/18/18) Patient Home Medication List Amoxicillin/Potassium Clav (Augmentin 875-125 Tablet) 1 Each Tablet, 1 EACH PO BID Prescribed by: SHAVONNE IRWIN on 06/20/21 1159 Atorvastatin Calcium (Atorvastatin Calcium) 40 Mg Tablet, 40 MG PO DAILY, (Reported) Entered as Reported by: USMAN RODAS on 05/11/20 1401 Finasteride (Finasteride) 5 Mg Tablet, 5 MG PO DAILY, (Reported) Entered as Reported by: USMAN RODAS on 05/11/20 1401 Garlic (Garlic) 100 Mg Tablet, 100 MG PO DAILY, (Reported) Entered as Reported by: JOE BRADFORD on 06/17/21 1234 Hydrocodone/Acetaminophen (Hydrocodone-Acetamin 7.5-325) 1 Each Tablet, 1 EACH PO QID PRN for PAIN-MODERATE (5-7), (Reported) Entered as Reported by: USMAN RODAS on 05/11/20 1401 Levothyroxine Sodium (Levothyroxine Sodium) 150 Mcg Tablet, 150 MCG PO DAILY, (Reported) Entered as Reported by: JOE BRADFORD on 06/17/21 1234 Lisinopril (Lisinopril) 10 Mg Tablet, 10 MG PO DAILY, (Reported) Entered as Reported by: USMAN RODAS on 05/11/20 1401 Multivit-Min/FA/Lycopen/Lutein (Centrum Silver Men Tablet) 1 Each Tablet, 1 EACH PO DAILY, (Reported) Entered as Reported by: JOE BRADFORD on 06/17/21 1234 Tadalafil (Cialis) 20 Mg Tablet, 20 MG PO DAILY, (Reported) Entered as Reported by: USMAN RODAS on 05/11/20 1401 Ubidecarenone (Co Q10) 200 Mg Capsule, 200 MG PO DAILY, (Reported) Entered as Reported by: JOE BRADFORD on 06/17/21 1234 Zinc (Zinc) 50 Mg Tablet, 50 MG PO DAILY, (Reported) Entered as Reported by: JOE BRADFORD on 06/17/21 1234 Past Pfijxds-Fobrrq-Xnfprm Hx Patient Social History Tobacco Use?: No Substance use?: No Alcohol Use?: Yes Alcohol Frequency: Couple times a week Immunizations Up To Date First/Initial COVID19 Vaccinat: MODERNA Second COVID19 Vaccination Eliseo: MODERNTravis Third COVID19 Vaccination Date: FEB 2021 COVID19 Vaccine Lathe Mechanic: Moderntravis Past Medical History Surgery/Hospitalization HX: HTN, HLD, THYROID SURGERY: DENIES. Surgeries: Yes (Colonoscopy with polypectomy) Appendectomy, Orthopedic Respiratory: No Cardiac: Yes High Cholesterol, Hypertension Neurological: No Reproductive Disorders: No Sexually Transmitted Disease: No Genitourinary: Yes Benign Prostatic Hyperpl, Prostate Problems, Kidney Stones Gastrointestinal: Yes Gastroesophageal Reflux, Diverticulosis, Polyps Musculoskeletal: Yes Chronic Back Pain Endocrine: Yes Hypothyroidsim HEENT: Yes (GLASSES FOR DRIVING) Hearing Impairment: Hard of Hearing Cancer: No Psychosocial: No (HX OF ANXIETY UNTIL DIVORCE) Integumentary: Yes (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; BX BENIGN ) Blood Disorders: No Family Medical History No Pertinent Family Hx Physical Exam Vital Signs Vital Signs - First Documented 06/09/22 09:47 Temp 35.8 Pulse 62 Resp 18 B/P (MAP) 158/93 (114) Pulse Ox 98 O2 Delivery Room Air Capillary Refill : Less Than 3 Seconds Height, Weight, BMI Height: 6'2.00" Weight: 215lbs. oz. 97.831296dw; 27.00 BMI Method:Stated Progress/Results/Core Measures Results/Orders Lab Results Laboratory Tests Test 06/09/22 09:50 06/09/22 10:04 Range/Units Urine Color YELLOW Urine Clarity CLEAR Urine pH 5.5 5-9 Urine Specific [place] 1.025 H 1.016-1.022 Urine Protein NEGATIVE NEGATIVE Urine Glucose (UA) NEGATIVE NEGATIVE Urine Ketones NEGATIVE NEGATIVE Urine Nitrite NEGATIVE NEGATIVE Urine Bilirubin NEGATIVE NEGATIVE Urine Urobilinogen 0.2 < = 1.0 MG/DL Urine Leukocyte Esterase NEGATIVE NEGATIVE Urine RBC (Auto) NEGATIVE NEGATIVE Urine RBC RARE /HPF Urine WBC NONE /HPF Urine Squamous Epithelial Cells RARE /HPF Urine Crystals NONE /LPF Urine Bacteria NEGATIVE /HPF Urine Casts NONE /LPF Urine Mucus SMALL H /LPF Urine Culture Indicated NO White Blood Count 7.8 4.3-11.0 10^3/uL Red Blood Count 5.25 4.30-5.52 10^6/uL Hemoglobin 15.6 13.3-17.7 g/dL Hematocrit 45 40-54 % Mean Corpuscular Volume 87 80-99 fL Mean Corpuscular Hemoglobin 30 25-34 pg Mean Corpuscular Hemoglobin Concent 34 32-36 g/dL Red Cell Distribution Width 12.9 10.0-14.5 % Platelet Count 245 130-400 10^3/uL Mean Platelet Volume 9.6 9.0-12.2 fL Immature Granulocyte % (Auto) 0 % Neutrophils (%) (Auto) 63 42-75 % Lymphocytes (%) (Auto) 25 12-44 % Monocytes (%) (Auto) 7 0-12 % Eosinophils (%) (Auto) 5 0-10 % Basophils (%) (Auto) 1 0-10 % Neutrophils # (Auto) 4.9 1.8-7.8 10^3/uL Lymphocytes # (Auto) 1.9 1.0-4.0 10^3/uL Monocytes # (Auto) 0.5 0.0-1.0 10^3/uL Eosinophils # (Auto) 0.4 H 0.0-0.3 10^3/uL Basophils # (Auto) 0.1 0.0-0.1 10^3/uL Immature Granulocyte # (Auto) 0.0 0.0-0.1 10^3/uL Erythrocyte Sedimentation Rate 4 0-30 MM/HR Sodium Level 139 135-145 MMOL/L Potassium Level 4.5 3.6-5.0 MMOL/L Chloride Level 108 H 98-107 MMOL/L Carbon Dioxide Level 22 21-32 MMOL/L Anion Gap 9 5-14 MMOL/L Blood Urea Nitrogen 18 7-18 MG/DL Creatinine 1.05 0.60-1.30 MG/DL Estimat Glomerular Filtration Rate 75 BUN/Creatinine Ratio 17 Glucose Level 96 70-105 MG/DL Calcium Level 9.5 8.5-10.1 MG/DL Corrected Calcium 9.6 8.5-10.1 MG/DL Total Bilirubin 0.6 0.1-1.0 MG/DL Aspartate Amino Transf (AST/SGOT) 17 5-34 U/L Alanine Aminotransferase (ALT/SGPT) 18 0-55 U/L Alkaline Phosphatase 85 40-136 U/L C-Reactive Protein High Sensitivity 0.41 0.00-0.50 MG/DL Total Protein 6.8 6.4-8.2 GM/DL Albumin 3.9 3.2-4.5 GM/DL My Orders Orders - NELLY CARDONA DO Ua Culture If Indicated (06/09/22 09:43) Ed Iv/Invasive Line Start (06/09/22 10:00) Cbc With Automated Diff (06/09/22 10:00) Comprehensive Metabolic Panel (06/09/22 10:00) Hs C Reactive Protein (06/09/22 10:00) Erythrocyte Sedimentation Rate (06/09/22 10:00) Ct Thoracic/Lumbar Spine Wo (06/09/22 10:00) Vital Signs/I&O 06/09/22 09:47 Temp 35.8 Pulse 62 Resp 18 B/P (MAP) 158/93 (114) Pulse Ox 98 O2 Delivery Room Air Blood Pressure Mean: [address] THORACIC/LUMBAR SPINE--PER RADIOLOGIST REPORT AT 1055 Findings: There is no acute thoracic spine fracture or dislocation. There are mild to moderately hypertrophic spurs involving the thoracic spine most pronounced involving the lower thoracic spine. There is a subtle posterior disk bulge at the T10-T11 level which causes no significant central canal stenosis. There is mild to moderate multilevel neural foramen narrowing due to facet arthropathy involving the thoracic spine with the mid thoracic spine affected the most. There is no acute lumbar spine fracture or dislocation. There are moderately hypertrophic spurs involving the lumbar spine. There is multilevel lumbar spine degenerative disease. L1-L2: There is diffuse disk bulge and mild bilateral facet arthropathy. There is at least mild to moderate bony neural foraminal narrowing and mild bilateral neural foramen narrowing. L2-L3: There is diffuse disk bulge with moderate loss of disk space height and mild bilateral facet arthropathy. There is at least mild to moderate bony central canal stenosis. There is moderate bilateral bony neural foramen narrowing. L3-L4: There is diffuse disk bulge with mild loss of disk space height. There is mild bilateral facet arthropathy. There is moderate to severe right neural foramen narrowing and moderate left neural foramen narrowing. There is no significant bony central canal stenosis. L4-L5: There is diffuse disk bulge with moderate bilateral facet arthropathy/hypertrophy. There is no significant bony central canal stenosis. There is moderate to severe right neural foramen narrowing and mild to moderate left neural foramen narrowing. L5-S1: There is greatly 1 retrolisthesis of L5 on S1. There is diffuse disk bulge with moderate to severe loss of disk space height. There is mild bilateral facet arthropathy. There is no significant central canal stenosis. There is severe bilateral bony neural foramen narrowing. IMPRESSION: 1: There is no acute thoracic or lumbar spine fracture. 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 Reviewed: Reviewed by Me Departure Impression Primary Impression: Chronic back pain Additional Impression: Right sided sciatica Disposition: 01 HOME, SELF-CARE Condition: Stable Departure-Patient Inst. Decision time for Depature: 11:03 Referrals: JULIAN TORREZ MD (PCP/Family) Primary Care Physician Patient Instructions: Low Back Pain ED, Sciatica ED, MANAGING YOUR CHRONIC PAIN Add. Discharge Instructions: MOIST HEAT TO SORE AREAS AT 20 MINUTE INTERVALS NO LIFTING OVER 5 LBS, NO TWISTING OR BENDING AT WAIST KEEP YOUR APPOINTMENT WITH DR. TORREZ NEXT WEEK SCHEDULED, OR SOONER IF YOUR SYMPTOMS WORSEN All discharge instructions reviewed with patient and/or family. Voiced understanding. Scripts Tizanidine HCl (Tizanidine HCl) 4 Mg Tablet 4 MG PO TID, #15 TAB Prov: NELLY CARDONA DO 06/09/22 Methylprednisolone (Medrol) 4 Mg Tab.ds.pk 4 MG PO UD for 6 Days, #21 PKG PER DOSE PACK INSTRUCTIONS Prov: NELLY CARDONA DO 06/09/22 NELLY CARDONA DO Jun 09, 2022 10:26
[2022-06-09 10:27] LABS: ALBUMIN 3.9 GM/DL (3.2-4.5); BILIRUBIN,TOTAL 0.6 MG/DL (0.1-1.0); CALCIUM 9.5 MG/DL (8.5-10.1); CREATININE SERUM 1.05 MG/DL (0.60-1.30); POTASSIUM 4.5 MMOL/L (3.6-5.0); TOTAL PROTEIN 6.8 GM/DL (6.4-8.2)
[2022-06-09 10:48] LABS: ERYTHROCYTE SEDIMENTATION RATE 4 MM/HR (0-30)
--- NOTE | 2022-06-09 10:52 | Diagnostic Imaging Report ---
CLINICAL INDICATION: Patient complains of lower back pain. Patient states pain started Samm and has been seeing a chiropractor regularly. Patient has low back pain which radiates down right leg. Exam: Axial CT scan of the thoracic and lumbar spine performed without IV contrast. Sagittal and coronal reformations were performed. Bone and soft tissue windows were created. Auto Exposure Controls were utilized during the CT exam to meet ALARA standards for radiation dose reduction. Comparison: None. Findings: There is no acute thoracic spine fracture or dislocation. There are mild to moderately hypertrophic spurs involving the thoracic spine most pronounced involving the lower thoracic spine. There is a subtle posterior disk bulge at the T10-T11 level which causes no significant central canal stenosis. There is mild to moderate multilevel neural foramen narrowing due to facet arthropathy involving the thoracic spine with the mid thoracic spine affected the most. There is no acute lumbar spine fracture or dislocation. There are moderately hypertrophic spurs involving the lumbar spine. There is multilevel lumbar spine degenerative disease. L1-L2: There is diffuse disk bulge and mild bilateral facet arthropathy. There is at least mild to moderate bony neural foraminal narrowing and mild bilateral neural foramen narrowing. L2-L3: There is diffuse disk bulge with moderate loss of disk space height and mild bilateral facet arthropathy. There is at least mild to moderate bony central canal stenosis. There is moderate bilateral bony neural foramen narrowing. L3-L4: There is diffuse disk bulge with mild loss of disk space height. There is mild bilateral facet arthropathy. There is moderate to severe right neural foramen narrowing and moderate left neural foramen narrowing. There is no significant bony central canal stenosis. L4-L5: There is diffuse disk bulge with moderate bilateral facet arthropathy/hypertrophy. There is no significant bony central canal stenosis. There is moderate to severe right neural foramen narrowing and mild to moderate left neural foramen narrowing. L5-S1: There is greatly 1 retrolisthesis of L5 on S1. There is diffuse disk bulge with moderate to severe loss of disk space height. There is mild bilateral facet arthropathy. There is no significant central canal stenosis. There is severe bilateral bony neural foramen narrowing. IMPRESSION: 1: There is no acute thoracic or lumbar spine fracture. 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 Dictated by: Dictated on workstation # [id number]
[2022-06-09] MEDS ORDERED: TIZA-186 PO (11:05)
[2022-06-09] MEDS ORDERED: METH4TAB PO (11:05)
[2022-06-09] MEDS: KETOROLAC 30 MG/ML VIAL IVP ONE (11:12)
== END 2022-06-09 11:15 | disposition home or self-care (01) ==
LOC: EDUNIT# 09:32 → ER 09:34
DX: M54.41 Lumbago with sciatica, right side (principal); G89.29 Other chronic pain
CPT/HCPCS: 36415; 72128; 72131; 80053; 81000; 85025; 85652; 86141

== ENCOUNTER 2022-06-13 03:15 | Emergency (ER) | payer MEDICARE ==
[~2022-06-13 03:15] MED LIST changes: +METH4TAB PO; +TIZA-186 PO
--- NOTE | 2022-06-13 03:39 | ED General ---
General Stated Complaint: BACK PAIN Source of Information: Patient Exam Limitations: No Limitations History of Present Illness Date Seen by Provider: Jun 13, 2022 Time Seen by Provider: 03:51 Initial Comments Patient is a 72-year-old male who presents to the emergency department chief complaint low back pain with pain radiating into the right groin and into the knee. Patient has a long history of chronic back pain. He was seen in the emergency department on of last week chief complaint of worsening pain over the course of the last week. He had basic laboratory studies, CBC, chemistry as well as CT of the thoracic and lumbar spine. CT showed diffuse degenerative disc disease with moderate to severe foraminal stenosis from L4-L5 and L5-S1 on the right. No significant central spinal canal narrowing. 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 He has hydrocodone prescribed by his primary care physician through [facility], Dr. Torrez. He has 112 hydrocodone 7.5 mg tablets prescribed every month since June 2021. He last had them filled on May 23, 112 tablets and states that he ran out "sometime last week". According to the ED record from last patient told that provider that he had a follow-up appointment scheduled for this coming 06-14-2022. He states to me today that he does not have an appointment but that his doctor is typically in the clinic on Tuesdays. Patient states that he cannot tell me exactly why he ran out of his medications early but that he has just had increasing pain. He cannot recall the exact date that he ran out of his hydrocodone. He states he has been alternating heat and ice to his low back. He has taken Aleve 2 tablets as well as an 800 mg ibuprofen without any relief. He denies bowel or bladder incontinence. No numbness or weakness in his legs. Laying flat exacerbates his pain. Nothing makes it any better. Timing/Duration: 1 Week Severity: Severe Associated Systoms: Denies Symptoms Allergies and Home Medications Allergies Coded Allergies: azithromycin (Unverified Allergy, Unknown, 09/18/18) Patient Home Medication List Home Medication List Reviewed: Yes Amoxicillin/Potassium Clav (Augmentin 875-125 Tablet) 1 Each Tablet, 1 EACH PO BID Prescribed by: SHAVONNE IRWIN on 06/20/21 1159 Atorvastatin Calcium (Atorvastatin Calcium) 40 Mg Tablet, 40 MG PO DAILY, (Reported) Entered as Reported by: USMAN RODAS on 05/11/20 1401 Finasteride (Finasteride) 5 Mg Tablet, 5 MG PO DAILY, (Reported) Entered as Reported by: USMAN RODAS on 05/11/20 1401 Garlic (Garlic) 100 Mg Tablet, 100 MG PO DAILY, (Reported) Entered as Reported by: JOE BRADFORD on 06/17/21 1234 Hydrocodone/Acetaminophen (Hydrocodone-Acetamin 7.5-325) 1 Each Tablet, 1 EACH PO QID PRN for PAIN-MODERATE (5-7), (Reported) Entered as Reported by: USMAN RODAS on 05/11/20 140 Hydrocodone/Acetaminophen (Hydrocodone-Acetamin 7.5-325) 7.5 Mg-325 Mg Tablet, 1 EACH PO Q8H PRN for PAIN-MODERATE TO SEVERE Prescribed by: OMARI COELHO on 06/13/22 0425 Levothyroxine Sodium (Levothyroxine Sodium) 150 Mcg Tablet, 150 MCG PO DAILY, (Reported) Entered as Reported by: JOE BRADFORD on 06/17/21 1234 Lisinopril (Lisinopril) 10 Mg Tablet, 10 MG PO DAILY, (Reported) Entered as Reported by: USMAN RODAS on 05/11/20 140 Methylprednisolone (Medrol) 4 Mg Tab.ds.pk, 4 MG PO UD Prescribed by: NELLY CARDONA on 06/09/22 1105 Multivit-Min/FA/Lycopen/Lutein (Centrum Silver Men Tablet) 1 Each Tablet, 1 EACH PO DAILY, (Reported) Entered as Reported by: JOE BRADFORD on 06/17/21 1234 Tadalafil (Cialis) 20 Mg Tablet, 20 MG PO DAILY, (Reported) Entered as Reported by: USMAN RODAS on 05/11/20 1401 Tizanidine HCl (Tizanidine HCl) 4 Mg Tablet, 4 MG PO TID Prescribed by: NELLY CARDONA on 06/09/22 1105 Ubidecarenone (Co Q10) 200 Mg Capsule, 200 MG PO DAILY, (Reported) Entered as Reported by: JOE BRADFORD on 06/17/21 1234 Zinc (Zinc) 50 Mg Tablet, 50 MG PO DAILY, (Reported) Entered as Reported by: JOE BRADFORD on 06/17/21 1234 Review of Systems Review of Systems Constitutional: see HPI EENTM: no symptoms reported Respiratory: no symptoms reported Cardiovascular: no symptoms reported Gastrointestinal: other (Right groin pain) Genitourinary: no symptoms reported Musculoskeletal: back pain (Low back pain) Skin: no symptoms reported Psychiatric/Neurological: No Symptoms Reported; Denies Numbness, Denies Paresthesia, Denies Weakness All Other Systems Reviewed Negative Unless Noted: Yes Past Fwgczna-Rkuznq-Degiqi Hx Immunizations Up To Date First/Initial COVID19 Vaccinat: MODERNA Second COVID19 Vaccination Eliseo: MODERNA Third COVID19 Vaccination Date: FEB 2021 Past Medical History Surgery/Hospitalization HX: HTN, HLD, THYROID SURGERY: DENIES. 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 oz. 97.081666ym; 27.00 BMI Method:Stated General Appearance: No Apparent Distress, WD/WN Eyes: Bilateral Eye Normal Inspection, Bilateral Eye PERRL, Bilateral Eye EOMI HEENT: PERRL/EOMI Respiratory: Lungs Clear, Normal Breath Sounds, No Accessory Muscle Use, No Respiratory Distress Cardiovascular: Regular Rate, Rhythm, Normal Peripheral Pulses, Other (1+ bilateral femoral pulses) Gastrointestinal: Normal Bowel Sounds, No Pulsatile Mass, Non Tender, Soft Back: Normal Inspection, Other (tenderness to palpation L3/4 to sacrum. 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 Norm as Tested; No Motor Weakness, No Sensory Deficit; Other (neg straight leg raise bilaterally; normal sensation; normal dorsiflexion and plantar flexion bilaterally) Skin: Normal Color, Warm/Dry Progress/Results/Core Measures Suspected Sepsis SIRS Temperature: Pulse: Respiratory Rate: Blood Pressure / Mean: Laboratory Tests 06/13/22 04:55: Creatinine 1.14 Results/Orders Lab Results Laboratory Tests Test 06/13/22 04:10 06/13/22 04:55 Range/Units Urine Color YELLOW Urine Clarity CLEAR Urine pH 5.5 5-9 Urine Specific [place] >=1.030 1.016-1.022 Urine Protein NEGATIVE NEGATIVE Urine Glucose (UA) NEGATIVE NEGATIVE Urine Ketones NEGATIVE NEGATIVE Urine Nitrite NEGATIVE NEGATIVE Urine Bilirubin NEGATIVE NEGATIVE Urine Urobilinogen 0.2 < = 1.0 MG/DL Urine Leukocyte Esterase NEGATIVE NEGATIVE Urine RBC (Auto) NEGATIVE NEGATIVE Urine RBC NONE /HPF Urine WBC NONE /HPF Urine Crystals NONE /LPF Urine Bacteria NEGATIVE /HPF Urine Casts NONE /LPF Urine Mucus MODERATE H /LPF Urine Culture Indicated NO Urine Opiates Screen NEGATIVE NEGATIVE Urine Oxycodone Screen NEGATIVE NEGATIVE Urine Methadone Screen NEGATIVE NEGATIVE Urine Propoxyphene Screen NEGATIVE NEGATIVE Urine Barbiturates Screen NEGATIVE NEGATIVE Ur Tricyclic Antidepressants Screen NEGATIVE NEGATIVE Urine Phencyclidine Screen NEGATIVE NEGATIVE Urine Amphetamines Screen NEGATIVE NEGATIVE Urine Methamphetamines Screen NEGATIVE NEGATIVE Urine Benzodiazepines Screen NEGATIVE NEGATIVE Urine Cocaine Screen NEGATIVE NEGATIVE Urine Cannabinoids Screen NEGATIVE NEGATIVE Sodium Level 137 135-145 MMOL/L Potassium Level 4.5 3.6-5.0 MMOL/L Chloride Level 106 98-107 MMOL/L Carbon Dioxide Level 23 21-32 MMOL/L Anion Gap 8 5-14 MMOL/L Blood Urea Nitrogen 18 7-18 MG/DL Creatinine 1.14 0.60-1.30 MG/DL Estimat Glomerular Filtration Rate 68 BUN/Creatinine Ratio 16 Glucose Level 115 H 70-105 MG/DL Calcium Level 9.4 8.5-10.1 MG/DL My Orders Orders - OMARI COELHO MD Drug Screen Stat (Urine) (06/13/22 04:05) Ua Culture If Indicated (06/13/22 04:05) Ed Iv/Invasive Line Start (06/13/22 04:50) Ketorolac Injection (Toradol Injection) (06/13/22 05:00) Basic Metabolic Panel (06/13/22 05:07) Ct Abd/Pelvis Wo(Kidney Stone) (06/13/22 05:07) Medications Given in ED Current Medications Medications Dose Ordered Sig/Nathaly Route Start Time Stop Time Status Last Admin Dose Admin Ketorolac Tromethamine 30 mg ONCE ONCE IVP 06/13/22 05:00 06/13/22 05:01 DC 06/13/22 04:56 30 MG Vital Signs/I&O 06/13/22 03:42 Temp 35.8 Pulse 57 Resp 16 B/P (MAP) 185/103 (130) Pulse Ox 96 O2 Delivery Room Air Capillary Refill : Progress Note #1: Time: 04:16 Progress Note Patient seen and evaluated by me, 72-year-old with low back pain. Evaluation today includes physical exam, urinalysis, urine drug screen. Physical exam pertinent for mild tenderness to palpation of the lower lumbar spine. Negative straight leg raise bilaterally, normal sensation and strength in the bilateral lower extremities. No saddle anesthesia. Normal dorsiflexion and plantarflexion of both feet. Abdominal exam is benign. Tenderness to palpation in the right groin, the patient states that he has had bilateral hernia repairs decades ago. Denies any bulging when he stands in the groin. No difficulty with urination, hesitancy or hematuria. No scrotal or testicular pain. No swelling reported. Differential diagnosis based on history and physical exam, acute lumbar radiculopathy, exacerbation of chronic low back pain due to degenerative joint disease, narcotic dependence/pain medication seeking behavior. Labs reviewed, urinalysis is normal, urine drug screen is negative. Patient does admit to misusing his narcotic pain medications. I discussed with the patient narcotic dependence and concern for running out of his pain medicine early. He does have some inconsistency in his history regarding his pain medication. I recommended that he follow-up today with his primary care alcidesi stephan for an appointment tomorrow. He needs to follow-up with an orthopedic spine surgeon or neurosurgeon for an MRI of his low back based on the findings on his CT and worsening pain. Consideration for emergent MRI to rule out acute cauda equina syndrome however history and physical examination do not support acute need. Patient has no weakness, no saddle anesthesia. We will give the patient 2 days worth of his hydrocodone. Strongly encouraged follow-up so that he is not narcotic dependent. Progress Note #2: Time: 05:32 Progress Note Patient re-evaluated prior to discharge and had worsening pain in right groin. Consideration for concommitant renal stone. I reviewed old records, prior CT abd/pelvis. patient noted to have rather large stone on CT from May in the lower pole of right kidney. I added on a repeat BMP and placed an IV and gave 30mg toradol IV. patient sent for CT renal stone protocol. CT reviewed and no stone identified. BMP normal. Patient advised of results - resting, laying on left side, no further acute distress noted. Will discharge to home as planned. Diagnostic Imaging Diagonstic Imaging: CT Comments interpreted by me - no right sided renal stone. Departure Impression Primary Impression: Acute exacerbation of chronic low back pain Additional Impression: Narcotic dependency, continuous Disposition: 01 HOME, SELF-CARE Condition: Stable Departure-Patient Inst. Decision time for Depature: 04:20 Referrals: JULIAN TORREZ MD (PCP/Family) Primary Care Physician Patient Instructions: Chronic Pain Add. Discharge Instructions: Continue to alternate ice and heat to your low back for pain relief. You can try over the counter lidocaine patches to help with low back pain. These are available [id number] and can help. Please follow packaging instructions. Narcotic dependance can be dangerous and sneak up on you. I would encourage you to follow up today with your primary care provider to schedule an MRI of your back if your pain is getting worse. Do not drive or operate heavy machinery and take narcotic pain medications. Do not mix alleve medications with Ibuprofen as this can hurt your kidney function and cause Ulcers in your stomach. Return to the Emergency Department for any new, concerning or emergent complaints. Scripts Hydrocodone/Acetaminophen (Hydrocodone-Acetamin 7.5-325) 7.5 Mg-325 Mg Tablet 1 EACH PO Q8H PRN for PAIN-MODERATE TO SEVERE, #6 TAB Prov: OMARI COELHO MD 06/13/22 OMARI COELHO MD Jun 13, 2022 03:39
[2022-06-13] MEDS ORDERED: HYDR-3817 PO (04:24)
[2022-06-13 04:31] LABS: BILIRUBIN,URINE NEGATIVE (NEGATIVE); CLARITY,URINE CLEAR; COLOR,URINE YELLOW; GLUCOSE, URINE (UA) NEGATIVE (NEGATIVE); KETONES,URINE NEGATIVE (NEGATIVE); LEUKOCYTE ESTERASE ,URINE NEGATIVE (NEGATIVE); NITRITE,URINE NEGATIVE (NEGATIVE); PH,URINE 5.5 (5-9); PROTEIN,URINE NEGATIVE (NEGATIVE)
[2022-06-13 04:40] LABS: AMPHETAMINE SCREEN, URINE NEGATIVE (NEGATIVE); BARBITURATE SCREEN URINE NEGATIVE (NEGATIVE); BENZODIAZEPINES SCREEN URINE NEGATIVE (NEGATIVE); CANNABINOID SCREEN, URINE NEGATIVE (NEGATIVE); COCAINE SCREEN URINE NEGATIVE (NEGATIVE); METHADONE STAT NEGATIVE (NEGATIVE); OPIATE SCREEN URINE NEGATIVE (NEGATIVE); OXYCODONE STAT NEGATIVE (NEGATIVE); PROPOXYPHENE STAT NEGATIVE (NEGATIVE); TRICYCLIC ANTIDEPRESSANTS SCRE NEGATIVE (NEGATIVE)
[2022-06-13 04:41] LABS: BACTERIA,URINE NEGATIVE /HPF
[2022-06-13] MEDS ORDERED: KETOROLAC 30 MG/ML VIAL IM ONE (05:00)
[2022-06-13] MEDS ORDERED: KETOROLAC 30 MG/ML VIAL IVP ONE (05:00)
[2022-06-13 05:18] LABS: POTASSIUM 4.5 MMOL/L (3.6-5.0)
[2022-06-13 05:19] LABS: CALCIUM 9.4 MG/DL (8.5-10.1)
[2022-06-13 05:23] LABS: CREATININE SERUM 1.14 MG/DL (0.60-1.30)
[2022-06-13 06:21] VITALS: BP 169/95
--- NOTE | 2022-06-13 07:22 | Diagnostic Imaging Report ---
PROCEDURE: CT urinary tract, rule out kidney stone. TECHNIQUE: Multiple contiguous axial images were obtained through the abdomen and pelvis without the use of intravenous contrast. Auto Exposure Controls were utilized during the CT exam to meet ALARA standards for radiation dose reduction. INDICATION: 72-year-old male, flank and back pain. CORRELATION STUDY: 06/16/2021 FINDINGS: LOWER THORAX: Minimal scarring at the lung bases. Heart size normal. LIVER: Several low attenuating foci within the left hepatic lobe appear unchanged, may reflect small cyst. GALLBLADDER: Mildly stenosed small gallstones dependently. No bile duct dilatation. SPLEEN: Unremarkable. PANCREAS: Unremarkable. ADRENAL GLANDS: Unremarkable. KIDNEYS: Small punctate non-obstructing stone inferior pole right kidney. Left renal cysts with several nonobstructing left renal stones. There is no significant hydroureteronephrosis. Approximately 5 mm calcification appears be in the low left ureter. There has been some similar-appearing calcification in this area on multiple prior studies appears generally stable. No significant hydroureteronephrosis. ABDOMINAL AORTA: Mild wall calcification, nonaneurysmal. GASTROINTESTINAL TRACT: Stomach relatively decompressed. No small bowel obstruction. Mild stool through the colon. Extensive colon diverticulosis, particularly sigmoid colon without evidence for acute diverticulitis. Prior right inguinal hernia repair with mesh. URINARY BLADDER: Relatively decompressed but is with bladder wall thickening. REPRODUCTIVE: Prostate gland appears to be mildly enlarged. OSSEOUS STRUCTURES: Advanced degenerative change at L5-S1 level where there is marked bilateral foraminal narrowing owing to osteophyte formation. OTHER: None. IMPRESSION: 1. Bilateral nephroureterolithiasis left greater than right. 2. Unchanged rather sizable 5 mm calcification at the distal left ureter. This has been present on multiple prior studies dating back to April 2018. Favors continued distal left ureteral stone but without currently significant hydronephrosis. 3. Extensive colonic diverticulosis without diverticulitis. Dictated by: Dictated on workstation # [id number]
== END 2022-06-13 06:21 | disposition home or self-care (01) ==
LOC: EDUNIT# 03:15 → ER 03:18
DX: M54.50 Low back pain, unspecified (principal); G89.29 Other chronic pain; F11.20 Opioid dependence, uncomplicated; R10.31 Right lower quadrant pain; Z98.890 Other specified postprocedural states; Z87.19 Personal history of other diseases of the digestive system; Z90.49 Acquired absence of other specified parts of digestive tract
CPT/HCPCS: 36415; 74176; 80048; 80306; 81000

== ENCOUNTER → 2022-06-28 | Outpatient (CLI) | payer MEDICARE ==
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
--- NOTE | 2022-06-28 09:21 | Diagnostic Imaging Report ---
PROCEDURE: MRI lumbar spine. TECHNIQUE: Multiplanar, multisequence MRI of the lumbar spine was performed without contrast. INDICATION: Low back pain. COMPARISON: CT lumbar spine without contrast 06/09/2022. FINDINGS: There are 5 lumbar-type vertebral bodies for the purposes of this report. Grade 1 retrolisthesis of L5 on S1. Vertebral body heights are preserved. Modic type II degenerative endplate changes throughout most of the lumbar spine. There are Modic type I changes in the inferior endplate of T12, L2 and L5. No abnormal signal in the conus which terminates at L1. Normal morphology of the cauda equina. The visualized pelvis and paravertebral soft tissues are unremarkable. L1-L2: Annular disc bulging, ligamentous hypertrophy and facet arthropathy result in [id number] spinal canal stenosis. Moderate bilateral lateral recess and neural foraminal narrowing. L2-L3: Annular disc bulging and facet arthropathy result in moderate left and mild right lateral recess narrowing. Moderate bilateral neural foraminal narrowing. Mild spinal canal narrowing. L3-L4: Broad-based disc bulging results in no substantial spinal canal or lateral recess narrowing. There is moderate to severe bilateral neural foraminal narrowing. L4-L5: Moderate facet arthropathy. No spinal canal or lateral recess narrowing. Moderate bilateral neural foraminal narrowing. L5-S1: No spinal canal or lateral recess narrowing. Disc space height loss and the retrolisthesis results in severe bilateral neural foraminal narrowing. IMPRESSION: 1. Multilevel high-grade lateral recess and neural foraminal narrowing detailed above level by level. 2. No high-grade spinal canal stenosis. 3. No acute osseous findings. Modic endplate changes as above. Dictated by: Dictated on workstation # [id number]
== END ==
LOC: RAD 07:39
DX: M51.16 Intervertebral disc disorders with radiculopathy, lumbar region (principal); M24.28 Disorder of ligament, vertebrae; M47.26 Other spondylosis with radiculopathy, lumbar region; M48.061 Spinal stenosis, lumbar region without neurogenic claudication; M51.17 Intervertebral disc disorders with radiculopathy, lumbosacral region; M43.17 Spondylolisthesis, lumbosacral region; M48.07 Spinal stenosis, lumbosacral region; M79.89 Other specified soft tissue disorders
CPT/HCPCS: 72148; 73100